=== PATIENT | female | born 1955 | race Caucasian/White ===

== ENCOUNTER 2019-08-25 16:05 | Outpatient (CLI) | payer OTHER, SELFPAY ==
[2019-08-31 10:47] LABS: PRA 6.71 ng/mL/h (0.25-5.82)
== END 2019-08-25 16:06 | disposition home or self-care (01) ==
PROVIDERS: Visit Provider Internal Medicine Cardiovascular Disease
DX: I10 Essential (primary) hypertension (principal)
CPT/HCPCS: 36415; 82088; 84244

== ENCOUNTER 2019-09-01 07:37 | Outpatient (CLI) | payer OTHER, SELFPAY ==
--- NOTE | ~2019-09-01 | US_ITS ---
EXAMINATION: US retroperitoneal duplex ltd DATE: 09/01/2019 08:17 INDICATION: Essential hypertension TECHNIQUE: Multiple grayscale, color Doppler, and pulsed Doppler images of the kidneys and renal meg donal were obtained. COMPARISON: None. FINDINGS: The aorta peak systolic velocity is 113 cm/s. The right renal artery peak systolic velocity is 101 cm /s in the proximal segment, 77 cm/s in the mid segment, and 99 cm/s in the distal segment. The left r enal artery peak systolic velocity is 59 cm/s in the proximal segment, 77 cm/s in the mid segment, an d 43 cm/s in the distal segment. IMPRESSION: 1. No Doppler evidence of renal artery stenosis. Reviewed, dictated and finalized at location A.
== END 2019-09-01 07:38 | disposition home or self-care (01) ==
PROVIDERS: Visit Provider Internal Medicine Cardiovascular Disease
DX: I10 Essential (primary) hypertension (principal)
CPT/HCPCS: 93976

== ENCOUNTER 2019-12-23 09:17 | Outpatient (CLI) | payer OTHER, SELFPAY ==
[2019-12-23 09:37] LABS: Basophils Absolute Auto 0.1 K/mm3 (0.0-0.1); Basophils Percent Auto 0.8 % (0.2-1.2); Eosinophils Absolute Auto 0.1 K/mm3 (0-0.3); Eosinophils Percent Auto 1.2 % (0-4.4); Hematocrit 38.2 % (37.0-47.0); Hemoglobin 12.7 g/dL (12.0-15.0); Immature Granulocyte Absolute 0.02 K/mm3 (0.00-0.031); Immature Granulocyte Percent A 0.2 % (0-0.5); Lymphocytes Absolute Auto 0.99 K/mm3 (0.9-3.2); Lymphocytes Percent Auto 9.8 % (18.3-44.2); Mean Corpuscular HGB Conc 33.2 g/dl (32-36); Mean Corpuscular Hemoglobin 32.6 pg (26-34); Mean Corpuscular Volume 98.2 fl (80-100); Mean Platelet Volume 10.1 fl (7.4-10.4); Monocytes Absolute Auto 0.7 K/mm3 (0.1-0.6); Monocytes Percent Auto 6.8 % (2.6-8.5); Neutrophils Absolute Auto 8.2 K/mm3 (1.3-6.7); Neutrophils Percent Auto 81.2 % (45.5-73.1); Platelet Count Result 291 k/mm3 (150-375); Red Blood Count 3.89 M/mm3 (4.2-5.4); White Blood Count 10.1 K/mm3 (4.5-10.0)
[2019-12-23 09:50] LABS: Alanine Aminotransferase 18 U/L (4-35); Albumin Level 4.5 g/dL (3.5-5.1); Alkaline Phosphatase 118 U/L (38-126); Aspartate Amino Transferase 24 U/L (14-36); Bilirubin,Total 0.4 mg/dL (0.2-1.3); Blood Urea Nitrogen 9 mg/dL (7-17); Carbon Dioxide 25 mmol/L (22-30); Chloride 103 mmol/L (98-107); Estimated Glomerular Filt Rate > 60; Glucose 77 mg/dL (65-105); Potassium 3.8 mmol/L (3.4-5.0); Sodium 135 mmol/L (137-145)
[2019-12-23 10:05] LABS: Erythrocyte Sedimentation Rate 17 mm/hr (0-20)
== END 2019-12-23 09:18 | disposition home or self-care (01) ==
DX: M06.9 Rheumatoid arthritis, unspecified (principal); Z79.899 Other long term (current) drug therapy
CPT/HCPCS: 36415; 80053; 85025; 85027; 85652

== ENCOUNTER 2020-01-17 17:17 | Outpatient (CLI) | payer OTHER, SELFPAY ==
--- NOTE | ~2020-01-17 | MM_ITS ---
EXAMINATION: MM screening elias BI w debbi HISTORY: Screening TECHNIQUE: Craniocaudal and mediolateral oblique 3-D tomosynthesis images were obtained and synthetic 2-D images were generated. CAD analysis was submitted and interpreted. COMPARISON: 04/16/2016 BREAST PARENCHYMAL COMPOSITION: There are scattered areas of fibroglandular density. FINDINGS: There is no evidence of suspicious mass, calcification, or architectural distortion to sugg est malignancy in either breast. There has been no suspicious interval change. IMPRESSION: 1. No mammographic evidence of malignancy. 2. Recommend routine screening mammography in one year. BI-RADS Category 1: Negative Reviewed, dictated and finalized at location A.
== END 2020-01-17 17:18 | disposition home or self-care (01) ==
LOC: ANHIMG 17:22
DX: Z12.31 Encounter for screening mammogram for malignant neoplasm of breast (principal)
CPT/HCPCS: 77063; 77067

== ENCOUNTER 2020-06-06 09:48 | Outpatient (CLI) | payer MEDICARE, OTHER, SELFPAY ==
[2020-06-06 10:27] LABS: Anion Gap 5 mmol/L (8-16); Blood Urea Nitrogen 8 mg/dL (7-17); Carbon Dioxide 30 mmol/L (22-30); Chloride 99 mmol/L (98-107); Estimated Glomerular Filt Rate > 60; Glucose 98 mg/dL (65-105); Potassium 3.7 mmol/L (3.4-5.0); Sodium 134 mmol/L (137-145)
== END 2020-06-06 09:49 | disposition home or self-care (01) ==
PROVIDERS: PCP Physician Assistant; Visit Provider Internal Medicine Cardiovascular Disease
DX: F34.1 Dysthymic disorder (principal); I10 Essential (primary) hypertension
CPT/HCPCS: 36415; 80048

== ENCOUNTER 2020-07-16 21:01 | Inpatient (IN) | payer MEDICARE, OTHER, SELFPAY ==
[2020-07-16] VITALS (22 sets, daily range): BP systolic 165–192; BP diastolic 90–102; PULSE 73–89; RESP 12–24; TEMP 36.3; O2SAT 98–100
--- NOTE | ~2020-07-16 | CT_ITS ---
EXAMINATION: CT BRAIN W/O DATE: 07/16/2020 23:26 INDICATION: Dizziness. TECHNIQUE: Computed tomography (CT) of the head was performed without intravenous contrast. The dose- length product was 605.33 mGy-cm. Automated exposure control and iterative reconstruction technique w ere employed. COMPARISON: CT dated 04/08/2019 FINDINGS: Normal brain parenchymal volume for age. Normal romero-white differentiation. No acute intrac ranial hemorrhage, infarction, mass or mass effect. No ventriculomegaly or midline shift. Midline sagittal images demonstrate a normal corpus callosum, c raniovertebral junction and sella turcica. Basilar cisterns are patent. There is a left occipital craniectomy defect. There is a left parietal lamar hole. No acute depressed skull fractures. Paranasal sinuses and mastoids are pneumatized. IMPRESSION: 1. No acute intracranial abnormality. Reviewed, dictated and finalized at location A. ABAP DEVELOPER
--- NOTE | ~2020-07-16 | MR_ITS ---
EXAMINATION: MR brain/brain stem wo con DATE: 07/17/2020 12:32 INDICATION: Dizziness. Numbness and tingling. Chronic left-sided trigeminal neuralgia. TECHNIQUE: Magnetic resonance imaging (MRI) of the brain and brainstem was performed without intraven ous contrast. Sequences included sagittal and axial T1-weighted FSE, axial diffusion-weighted FS EPI, axial T2*-weighted GRE, axial T2-weighted FLAIR Propeller, axial T2-weighted Propeller, small field- of-view coronal FIESTA, small [id number] coronal T1-weighted FSE, and small [id number]-[id number] axial T1 -weighted SPGR. Apparent diffusion coefficient (ADC) maps were created. COMPARISON: Head CT 07/16/2020 FINDINGS: There are scattered areas of nonspecific increased T2-weighted signal intensity in the cere bral white matter, which is within normal limits for the patient's age. There is no intracranial hemo rrhage, acute infarction, or abnormal intracranial mass lesion. There is abnormal morphology of the l eft trigeminal nerve at the root entry zone. The ventricles are normal in size. There is mild mucosal thickening in the ethmoid sinuses. The orbits are normal. The mastoid air cells are normal. There ar e changes of left posterior craniectomy. IMPRESSION: 1. Abnormal morphology of the left trigeminal nerve at the root entry zone, which may be related to p rior surgery. No specific evidence of vascular loop compression. Reviewed, dictated and finalized at location A. REMENT SALES CONSULTANT IMPRESSION: 1. Abnormal morphology of the left trigeminal nerve at the root entry zone, whi ch may be related to prior surgery. No specific evidence of vascular loop compr ession.
--- NOTE | ~2020-07-16 | CT_ITS ---
EXAMINATION: CT abdomen pelvis wo con EXAM DATE: 07/17/2020 12:37 INDICATION: Left flank pain, LUQ pain . TECHNIQUE: Spiral CT of the abdomen and pelvis was performed without contrast. Axial, coronal and sag ittal images were reviewed. The dose-length product (DLP) for this examination was 512.00 mGy-cm. T he exposure was tailored according to patient size (auto mA exposure control), and iterative reconstr uction (ASIR) was used as additional dose reduction technique. Comparison is made to prior examinatio n from 05/13/2013. FINDINGS: There is no nephrolithiasis or hydronephrosis. The uterus is unremarkable. The bladder is unremarkable. The liver, spleen, adrenal glands and pancreas are unremarkable. Gallbladder is un remarkable. No biliary obstruction. There is no retroperitoneal or pelvic lymphadenopathy. Probable identification of a normal appendix. No pericecal inflammation. The stomach and small kaur l are unremarkable. There is expected amount of colonic stool. No free intraperitoneal gas. The heart is normal in size. There are no pericardial or pleural effusions. The lung bases are unremark able. There are no osteoblastic or osteolytic lesions identified. IMPRESSION: 1. No nephrolithiasis, hydronephrosis or acute intra-abdominal findings. Reviewed, dictated and finalized at location B. [employer] BROKERS
--- NOTE | 2020-07-16 21:14 | ECG_ITS ---
Measurements Intervals [place] Rate: 80 P: 54 KS: 153 QRS: -12 QRSD: 105 T: -2 QT: 378 QTc: 438 Interpretive Statements SINUS RHYTHM POSSIBLE LEFT ATRIAL ENLARGEMENT INCOMPLETE RIGHT BUNDLE BRANCH BLOCK BORDERLINE ST-T WAVE ABNORMALITY- ANTEROLAT/INF LEADS BORDERLINE ECG Electronically Signed On 07-17-2020 6:53:42 [employer]PERVISOR [employer] by Daniel Bernabe D.O.
[2020-07-16 21:32] LABS: Basophils Absolute Auto 0.1 K/mm3 (0.0-0.1); Basophils Percent Auto 0.6 % (0.2-1.2); Eosinophils Absolute Auto 0.1 K/mm3 (0-0.3); Eosinophils Percent Auto 0.6 % (0-4.4); Hematocrit 37.8 % (37.0-47.0); Hemoglobin 13.4 g/dL (12.0-15.0); Immature Granulocyte Absolute 0.02 K/mm3 (0.00-0.031); Immature Granulocyte Percent A 0.2 % (0-0.5); Lymphocytes Absolute Auto 2.64 K/mm3 (0.9-3.2); Lymphocytes Percent Auto 31.8 % (18.3-44.2); Mean Corpuscular HGB Conc 35.4 g/dl (32-36); Mean Corpuscular Hemoglobin 32.8 pg (26-34); Mean Corpuscular Volume 92.4 fl (80-100); Mean Platelet Volume 9.7 fl (7.4-10.4); Monocytes Percent Auto 11.9 % (2.6-8.5); Neutrophils Absolute Auto 4.6 K/mm3 (1.3-6.7); Neutrophils Percent Auto 54.9 % (45.5-73.1); Platelet Count Result 314 k/mm3 (150-375); Red Blood Count 4.09 M/mm3 (4.2-5.4); Red Cell Distribution Width 12.2 % (11.5-14.5); White Blood Count 8.3 K/mm3 (4.5-10.0)
[2020-07-16 21:47] LABS: Anion Gap 11 mmol/L (8-16); Blood Urea Nitrogen 9 mg/dL (7-17); Calcium 9.3 mg/dL (8.4-10.2); Carbon Dioxide 28 mmol/L (22-30); Chloride 86 mmol/L (98-107); Estimated CRCL calculation 58 ml/min; Estimated Glomerular Filt Rate > 60; Glucose 117 mg/dL (65-105); Sodium 125 mmol/L (137-145)
--- NOTE | 2020-07-16 22:31 | ED.DIZZY ---
HPI - Dizziness General Chief Complaint: Dizziness Stated Complaint: HIGH BP/ DIZZY, TROUBLE SWALLOWING Time Seen by Provider: 07/16/20 21:34 Source: patient Mode of arrival: ambulatory Limitations: no limitations History of Present Illness HPI Narrative: 65-year-old female History of hypertension, trigeminal neuralgia, migraine, insomnia, rheumatoid arthritis Complains of increasing dizziness for several days and that her blood pressure has been running high She was seen by her PCP a few days ago and Dyazide was added to her medication list but she has not felt any better She basically describes her symptoms as a sensation like she might faint which is most severe when she is standing up and is alleviated but not resolved by lying down No headache, no other focal neurologic symptoms She does not have chest pain, cough, shortness of breath, GI symptoms, or urinary symptoms Related Data Home Medications Medication Instructions Recorded Confirmed carbamazepine 300 mg 300 mg PO Q12H 05/05/19 05/05/19 capsule,extended release [id number] cholecalciferol (vitamin D3) 50 2,000 unit PO DAILY 05/05/19 05/05/19 mcg (2,000 unit) tablet cyanocobalamin (vitamin B-12) 1,000 mcg SUB-Q MONTHLY 05/05/19 05/05/19 1,000 mcg/mL injection kit folic acid 1 mg tablet 3 mg PO DAILY tablet 05/05/19 05/05/19 golimumab 50 mg/0.5 mL 50 mg SUB-Q MONTHLY 05/05/19 05/05/19 subcutaneous pen injector losartan 100 mg tablet 100 mg PO DAILY 05/05/19 05/05/19 prednisone 5 mg tablet 5 mg PO DAILY tablet 05/05/19 05/05/19 topiramate 50 mg tablet 75 mg PO BID tablet 05/05/19 05/05/19 trazodone 100 mg tablet 100 mg PO .qhs tablet 05/05/19 05/05/19 amlodipine 10 mg tablet 10 mg PO DAILY 12/08/19 levothyroxine 175 mcg PO DAILY 07/16/20 triamterene-hydrochlorothiazid 1 tablet PO DAILY 07/16/20 Allergies Allergy/AdvReac Type Severity Reaction Status Date / Time aspirin Allergy Mild Unknown Verified 07/16/20 21:01 erythromycin base Allergy Unknown Unknown Verified 07/16/20 21:01 ibuprofen Allergy Unknown Unknown Verified 07/16/20 21:01 iodine Allergy Unknown Unknown Verified 07/16/20 21:01 Penicillins Allergy Unknown Unknown Verified 07/16/20 21:01 Contrast Media Allergy Unknown Unknown Uncoded 06/13/19 11:50 Review of Systems Review of Systems: All systems reviewed & are unremarkable except as noted in HPI and below Constitutional: Constitutional: Denies chills, Reports fatigue, Denies fever(s), Denies headache(s) and Reports weakness Eyes: Eyes: Reports no additional eye complaints and Denies change in vision ENT: Denies headache(s), Denies epistaxis, Denies nasal congestion and Denies sore throat Cardiovascular: Cardiovascular: Denies chest pain, Denies leg edema, Denies palpitations and Denies dyspnea Respiratory: Respiratory: Denies cough, Denies dyspnea and Denies wheezing Gastrointestinal: Gastrointestinal: Denies abdominal pain, Denies diarrhea, Denies nausea and Denies vomiting Genitourinary: Genitourinary: Denies hematuria, Denies urinary frequency and Denies dysuria Musculoskeletal: Musculoskeletal: Denies deformity, Denies arthralgias, Denies joint swelling, Denies muscle weakness and Denies numbness Integumentary/Breasts: Skin/Breast: Denies rash and Denies wounds Neurologic: Denies headache(s), Denies focal weakness, Denies numbness and Denies weakness Psychiatric: Psychiatric: Reports no additional psychiatric complaints Endocrine: Endocrine: Denies fatigue and Denies palpitations Hematologic/Lymphatic: Hematologic/Lymphatic: Denies easy bleeding and Denies easy bruising Allergic/Immunologic: Allergic/Immunologic: Denies wheezing PMFSH Past Medical History Medical History (Updated 07/16/20 @ 22:48 by Mike Pereira MD) Anemia Anxiety Arthritis Brain tumor Bronchitis Crohn's disease Depression HLD (hyperlipidemia) HTN (hypertension) Hyperparathyroidism Hypothyroid Osteoporosis Pneumonia Rheumatoid art
[2020-07-16] MEDS: POTASSIUM CHLORIDE 20 MEQ PACKET (FOR LIQUID) 40 MEQ PO (23:04)
[2020-07-16] MEDS: LACTATED RINGERS 1,000 ML 999 ML IV CONT (23:04)
--- NOTE | 2020-07-16 23:21 | PC.NURSE ---
Ok to call chestnut/crisis per erp dr quintanilla.
[2020-07-17] VITALS (13 sets, daily range): BP systolic 125–180; BP diastolic 57–98; PULSE 71–97; RESP 14–21; TEMP 36.1–36.6; O2SAT 95–100; BMI 29.9
--- NOTE | 2020-07-17 00:54 | PM.IMHP ---
H&P: HPI History of Present Illness Date/Time: 07/17/20 00:54 Chief Complaint: Dizziness after starting a new medication. Narrative: This is a pleasant 65 year old female with history of difficult to control HTN, trigeminal neuralgia following a brainstem tumor, and rheumatoid arthritis who presented to the hospital with a complaint of continuous dizziness that has been ongoing since this past weekend when she was started on Dyazide for her HTN. She describes having dizziness in the past but nothing this severe. Her dizziness is worse with any head movement and seems to only improve with laying down. Associated symptoms include nausea. She denies passing out or seizure like activity. She also denies any blurry vision, headache, slurred speech, motor or sensory deficits. On further questioning she also denies any fever, chills, chest pain, shortness of breath, cough, abdominal pain, dysuria, hematuria, diarrhea, or rectal bleeding. She also admits to me that she believes she missed her daily prednisone all last week. The patient was evaluated in the ER tonight and found to have hypokalemia and hyponatremia. Review of Systems Review of Systems: All systems reviewed & are unremarkable except as noted in HPI and below PMFSH Past Medical History Medical History Anemia Anxiety Arthritis Brain tumor Bronchitis Crohn's disease Depression HLD (hyperlipidemia) HTN (hypertension) Hyperparathyroidism Hypothyroid Osteoporosis Pneumonia Rheumatoid arthritis Trigeminal neuralgia of left side of face Surgical History Surgical History H/O parathyroidectomy Family History Family History Sibling Family history of lung cancer Family history of malignant neoplasm of brain Family history of obesity Family history of alcoholism Family history of malignant neoplasm Father Family history of lung disease Depression Family history of alcoholism Mother Acute myocardial infarction Family history of osteoporosis Family history of mental disorder Depression Family history of glaucoma Family history of elevated blood lipids Family history of liver disease Cerebrovascular accident Family history of diabetes mellitus in first degree relative Family history of congestive heart failure Family history of heart disease in male family member before age 55 Other Diabetes mellitus Family history of cardiovascular disease Family history of tuberculosis Hypertension Social History Social History Smoking status: Never smoker Alcohol intake: never Substance use: never Additional occupation/education comments: 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, 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[employer] [place] Gender identity (if verbalized by the patient): Female Sexual Orientation (if Verbalized by the Patient): Straight or Heterosexual Spiritual care concerns: No Meds Home Medications and Allergies Home Medications Medication Instructions Recorded Confirmed Type carbamazepine 300 mg 300 mg PO Q12H 05/05/19 07/17/20 History capsule,extended release [id number] cholecalciferol (vitamin D3) 50 2,000 unit PO DAILY 05/05/19 07/17/20 History mcg (2,000 unit) tablet cyanocobalamin (vitamin B-12) 1,000 mcg SUB-Q MONTHLY 05/05/19 07/17/20 History 1,000 mcg/mL injection kit folic acid 1 mg tablet 1 mg PO DAILY tablet 05/05/19 07/17/20 History golimumab 50 mg/0.5 mL 50 mg SUB-Q MONTHLY 05/05/19 07/17/20 History subcutaneous pen injector losartan 100 mg tablet 50 mg PO BID 05/05/19 07/17/20 History prednisone 5 mg tablet 5 mg PO DAILY tablet 05/05/19 07/17/20 History topiramate 50 mg tablet 75 mg PO BID tablet 05/05/19 07/17/20 History trazodone 100 mg tablet 75 mg PO HS tablet 05/05/19 07/17/20 History amlodipine 10 mg tablet 1
--- NOTE | 2020-07-17 01:21 | ADMGEN ---
This patient, Brooke Torre, was admitted to 2 Medical Room 258-01. Patient/family oriented to hospital policies and general routines including ID bracelet, bed and alarms, visiting hours, pain management, procedures, bathroom and other care routines, personal items, smoking policy, room service/diet, and visiting hours. Information on how to activate the Rapid Response Team has been discussed. Patient/Family are encouraged to report perceived risks to care and to ask questions if they do not understand what they are told or what they should do.
[2020-07-17] MEDS: SODIUM CHLORIDE 0.9% IV 1,000 ML 100 ML IV CONT ×3 (01:50→22:22)
[2020-07-17 03:08] LABS: Sodium Urine Random 20 meq/L
[2020-07-17 05:12] LABS: Basophils Absolute Auto 0.1 K/mm3 (0.0-0.1); Basophils Percent Auto 0.7 % (0.2-1.2); Eosinophils Absolute Auto 0.1 K/mm3 (0-0.3); Eosinophils Percent Auto 0.8 % (0-4.4); Hematocrit 35.5 % (37.0-47.0); Hemoglobin 12.4 g/dL (12.0-15.0); Immature Granulocyte Absolute 0.02 K/mm3 (0.00-0.031); Immature Granulocyte Percent A 0.3 % (0-0.5); Immature Platelet Fraction Pct 10.8 % (0.9-11.2); Lymphocytes Absolute Auto 1.89 K/mm3 (0.9-3.2); Lymphocytes Percent Auto 26.7 % (18.3-44.2); Mean Corpuscular HGB Conc 34.9 g/dl (32-36); Mean Corpuscular Hemoglobin 32.7 pg (26-34); Mean Corpuscular Volume 93.7 fl (80-100); Mean Platelet Volume 10.9 fl (7.4-10.4); Monocytes Absolute Auto 0.9 K/mm3 (0.1-0.6); Monocytes Percent Auto 12.1 % (2.6-8.5); Neutrophils Absolute Auto 4.2 K/mm3 (1.3-6.7); Neutrophils Percent Auto 59.4 % (45.5-73.1); Platelet Count Result 230 k/mm3 (150-375); Red Blood Count 3.79 M/mm3 (4.2-5.4); Red Cell Distribution Width 12.2 % (11.5-14.5); White Blood Count 7.1 K/mm3 (4.5-10.0)
[2020-07-17] MEDS: LEVOTHYROXINE SODIUM 75 MCG TABLET PO (06:18)
[2020-07-17] MEDS: LEVOTHYROXINE SODIUM 100 MCG TABLET PO (06:18)
[2020-07-17 06:21] LABS: Anion Gap 8 mmol/L (8-16); Blood Urea Nitrogen 7 mg/dL (7-17); Carbon Dioxide 27 mmol/L (22-30); Chloride 94 mmol/L (98-107); Estimated CRCL calculation 68 ml/min; Estimated Glomerular Filt Rate > 60; Glucose 108 mg/dL (65-105); Potassium 3.3 mmol/L (3.4-5.0); Sodium 129 mmol/L (137-145)
[2020-07-17] MEDS: POTASSIUM CHLORIDE 20 MEQ TABLET.ER PO ×2 (08:29→17:38)
[2020-07-17] MEDS: CARBAMAZEPINE XR 100 MG TAB.SR.12H 300 MG PO ×2 (08:30→20:19)
[2020-07-17] MEDS: LOSARTAN POTASSIUM 50 MG TABLET PO ×2 (08:30→17:38)
[2020-07-17] MEDS: CHOLECALCIFEROL 1,000 UNITS TABLET 2000 UNITS PO (08:30)
[2020-07-17] MEDS: TOPIRAMATE 25 MG TABLET 75 MG PO ×2 (08:30→17:38)
[2020-07-17] MEDS: FAMOTIDINE 20 MG TABLET PO ×2 (08:30→17:38)
[2020-07-17] MEDS: FOLIC ACID 1 MG TABLET PO (08:30)
[2020-07-17] MEDS: ACETAMINOPHEN 325 MG TABLET 650 MG PO (08:31)
[2020-07-17] MEDS: predniSONE 5 MG TABLET PO (08:31)
[2020-07-17] MEDS: CALCIUM CARBONATE (OSCAL) 500 MG TABLET PO ×2 (08:31→17:37)
--- NOTE | 2020-07-17 09:00 | PC.NURSE ---
Patient refused Vitamin B12 injection, stating she takes it on the first of the month and took it yesterday at home.
--- NOTE | 2020-07-17 10:27 | PM.IMPN ---
Progress Note: A&P Assessment and Plan (1) Dizziness: Code(s): R42 - Dizziness and giddiness Status: Acute Assessment and Plan: The patient has been placed in observation status. Acute dizziness appears to be an adverse effect of recent Diazide use. Brain CT was negative. Orthostatics were negative. Due to her history of neurologic issues, continued lightheadedness, dizziness, numbness/tingling, weakness will obtain a brain MRI to rule out acute CVA as the cause. Hold Diazide. Light IV hydration. Meclizine and Valium prn. Will order PT/OT Continue monitoring. (2) Left flank pain: Code(s): R10.9 - Unspecified abdominal pain Status: Acute Assessment and Plan: Left flank pain with intermittent radiation to LUQ. Will get CT Abd/Pelvis without contrast Continue monitoring. (3) Hypokalemia: Code(s): E87.6 - Hypokalemia Status: Acute Assessment and Plan: Potassium this morning was 3.3. She was continued on potassium 20 mEq b.i.d.. Check repeat BMP in the morning. Continue to replace potassium as needed. (4) Hyponatremia: Code(s): E87.1 - Hypo-osmolality and hyponatremia Status: Acute Assessment and Plan: Likely secondary to HCTZ use. Check urine sodium and urine osm. Sodium improved to 129 this morning. TSH was normal. Continue Light IV hydration overnight. Free water restriction. Continue monitoring the morning. (5) Hypothyroidism (acquired): Code(s): E03.9 - Hypothyroidism, unspecified Status: Chronic Assessment and Plan: Continue levothryoxine PO. (6) Rheumatoid arthritis: Qualifiers: Rheumatoid arthritis location: unspecified site Rheumatoid factor presence: unspecified presence Qualified Code(s): M06.9 - Rheumatoid arthritis, unspecified Code(s): M06.9 - Rheumatoid arthritis, unspecified Status: Chronic Assessment and Plan: Continue prednisone and golimumab. (7) HTN (hypertension): Qualifiers: Hypertension type: unspecified Qualified Code(s): I10 - Essential (primary) hypertension Code(s): I10 - Essential (primary) hypertension Status: Chronic Assessment and Plan: Blood pressure this on still slightly elevated 140/70. Continue amlodipine and losartan. Continue to hold her HCTZ-Triamterene Continue monitoring. PRN IV hydralazine w/ parameters. (8) Trigeminal neuralgia of left side of face: Code(s): G50.0 - Trigeminal neuralgia Status: Chronic Assessment and Plan: Continue tegretol. Time Spent With Patient Time with patient: 25 - 35 minutes Subjective Date/time seen: 07/17/20 10:27 Interval history: Date of Service 07/17/20: She reports feeling weak. Reports continued Lightheadedness, she has chronic dizziness and tinnitis. She does report intermittent vision changes with trouble focusing at times. She is normally able to walk independently at home, suppose to be using a walker. While here, she is using the IV pole for stabilization and she is more off balance. She has chronic left sided dull flank pain without much radiation to LUQ that has been going on for months and her PCP ordered Xrs that were unremarkable. She cannot lay on her left side due to her pain and uses a heating pad at time. She denies chest pain, shortness of breath, cough, fever, chills, nausea, vomiting, leg swelling, calf pain, or any other issues at this time. Review of Systems Review of Systems: All systems reviewed & are unremarkable except as noted in H
--- NOTE | 2020-07-17 14:59 | PC.NURSE ---
On 07/17/20, the student, [JULIA GORDON], provided care and completed [facility] documentation on this patient. I have reviewed the student's documentation and agree with the findings.
[2020-07-17] MEDS: amLODIPine BESYLATE 5 MG TABLET 10 MG PO (20:18)
[2020-07-17] MEDS: traZODone HCL 25 MG TABLET 75 MG PO (20:19)
[2020-07-18] MEDS: ACETAMINOPHEN 325 MG TABLET 650 MG PO (02:42)
[2020-07-18] MEDS: LEVOTHYROXINE SODIUM 75 MCG TABLET PO (05:45)
[2020-07-18] MEDS: LEVOTHYROXINE SODIUM 100 MCG TABLET PO (05:45)
[2020-07-18 05:46] LABS: Anion Gap 6 mmol/L (8-16); Blood Urea Nitrogen 8 mg/dL (7-17); Calcium 8.5 mg/dL (8.4-10.2); Carbon Dioxide 24 mmol/L (22-30); Chloride 107 mmol/L (98-107); Estimated CRCL calculation 60 ml/min; Estimated Glomerular Filt Rate > 60; Glucose 95 mg/dL (65-105); Magnesium 1.8 mg/dL (1.6-2.3); Potassium 3.7 mmol/L (3.4-5.0); Sodium 137 mmol/L (137-145)
[2020-07-18 06:00] VITALS: BP 114/54; PULSE 75; RESP 20; TEMP 36.3; O2SAT 98
[2020-07-18] MEDS: SODIUM CHLORIDE 0.9% IV 1,000 ML 100 ML IV CONT (08:49)
[2020-07-18] MEDS: POTASSIUM CHLORIDE 20 MEQ TABLET.ER PO (08:50)
[2020-07-18] MEDS: TOPIRAMATE 25 MG TABLET 75 MG PO (08:51)
[2020-07-18] MEDS: CHOLECALCIFEROL 1,000 UNITS TABLET 2000 UNITS PO (08:51)
[2020-07-18] MEDS: CALCIUM CARBONATE (OSCAL) 500 MG TABLET PO (08:51)
[2020-07-18] MEDS: predniSONE 5 MG TABLET PO (08:51)
[2020-07-18] MEDS: FOLIC ACID 1 MG TABLET PO (08:51)
[2020-07-18] MEDS: FAMOTIDINE 20 MG TABLET PO (08:51)
[2020-07-18] MEDS: LOSARTAN POTASSIUM 50 MG TABLET PO (08:51)
[2020-07-18] MEDS: CARBAMAZEPINE XR 100 MG TAB.SR.12H 300 MG PO (08:51)
--- NOTE | 2020-07-18 09:51 | PM.DS ---
DS: Admitting Diagnosis Admitting Diagnosis Admitting Diagnosis: Dizziness DS: Discharge Diagnosis Discharge Diagnosis (1) Dizziness: Code(s): R42 - Dizziness and giddiness Status: Acute Assessment and Plan: The patient has been placed in observation status. Acute dizziness appears to be an adverse effect of recent Diazide use. Hold Diazide. Brain CT was negative. Orthostatics were negative. MRI brain showed no acute abnormality for her dizziness, just chronic trigeminal nerve issues which shes had since her brain surgery. Discontinue Diazide at home PT/OT doing good and recommend out patient PT/OT She is feeling better after light fluid hydration and ready for discharge. (2) Hypokalemia: Code(s): E87.6 - Hypokalemia Status: Acute Assessment and Plan: Most likely secondary to dehydration, diuretic and decreased appetite. Potassium this morning was 3.7. Stable. (3) Hyponatremia: Code(s): E87.1 - Hypo-osmolality and hyponatremia Status: Acute Assessment and Plan: Likely secondary to HCTZ use. Check urine sodium and urine osm. Light IV hydration overnight. Free water restriction. Check TSH w/ reflex T4. Sodium improved to 137 this morning. Normal. Will discontinue HCTZ and follow up with Cardiology (4) Hypothyroidism (acquired): Code(s): E03.9 - Hypothyroidism, unspecified Status: Chronic Assessment and Plan: Continue levothryoxine PO. (5) Rheumatoid arthritis: Qualifiers: Rheumatoid arthritis location: unspecified site Rheumatoid factor presence: unspecified presence Qualified Code(s): M06.9 - Rheumatoid arthritis, unspecified Code(s): M06.9 - Rheumatoid arthritis, unspecified Status: Chronic Assessment and Plan: Continue prednisone and golimumab. (6) HTN (hypertension): Qualifiers: Hypertension type: unspecified Qualified Code(s): I10 - Essential (primary) hypertension Code(s): I10 - Essential (primary) hypertension Status: Chronic Assessment and Plan: Blood pressure is better today, 114/54. Continue amlodipine and losartan. Discontinue HCTZ-Triamterene (7) Trigeminal neuralgia of left side of face: Code(s): G50.0 - Trigeminal neuralgia Status: Chronic Assessment and Plan: Continue tegretol. (8) Left flank pain: Code(s): R10.9 - Unspecified abdominal pain Status: Acute Assessment and Plan: Left flank pain with intermittent radiation to LUQ. CT Abd/Pelvis without contrast showed no acute abnormality. She reports improvement of pain with heating pad. Continue PT/OT as outpatient. 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 Valenzuela. Initial vitals showed she Was afebrile, non tachycardic, normal respiratory rate, elevated blood pressure 189/90, 98% on room air. Initial labs showed Normal CBC with differential, she was hyponatremic at 125, potassium was low at 3.0, normal TSH. CT head showed No acute intracranial abnormality. She was admitted into the hospital for dizziness workup. We discontinued her medication and give her some light IV fluid hydration with improvement over her electrolytes. She is currently asymptomatic at this time and feeling back to her baseline.
[2020-07-20 03:11] LABS: Osmolality, Urine 136 mOsm/kg (50-1200)
[2020-07-21 03:56] LABS: Carbamazepine Tegretol 10.4 mcg/mL (4.0-12.0)
== END 2020-07-18 11:30 | disposition home or self-care (01) | DRG 641 ==
LOC: ANHED 22:48 → ANH2MED 07-17 00:38
PROVIDERS: Emergency Medicine; Physician Assistant; Admitting Provider Family Medicine; Emergency Provider Emergency Medicine; PCP Physician Assistant; Visit Provider Internal Medicine
DX: E87.1 Hypo-osmolality and hyponatremia (principal); K50.90 Crohn's disease, unspecified, without complications; E87.6 Hypokalemia; R42 Dizziness and giddiness; T50.2X5A Adverse effect of carbonic-anhydrase inhibitors, benzothiadiazides and other diuretics, initial encounter; F41.8 Other specified anxiety disorders; D64.9 Anemia, unspecified; M19.90 Unspecified osteoarthritis, unspecified site; E78.5 Hyperlipidemia, unspecified; I10 Essential (primary) hypertension; M06.9 Rheumatoid arthritis, unspecified; M81.0 Age-related osteoporosis without current pathological fracture; G50.0 Trigeminal neuralgia; E03.9 Hypothyroidism, unspecified
CPT/HCPCS: 36415; 70450; 70551; 74176; 80048; 80156; 83735; 83935; 84300; 84443; 85025; 85055; 93005; 96360; 96361; 97110; 97116; 97161; 97165; 99285; A9270; G0378; J7030; J7120; J7512

== ENCOUNTER 2020-07-26 07:49 | Outpatient (CLI) | payer MEDICARE, OTHER, SELFPAY ==
[2020-07-26 08:49] LABS: Anion Gap 6 mmol/L (8-16); Blood Urea Nitrogen 6 mg/dL (7-17); Calcium 9.3 mg/dL (8.4-10.2); Carbon Dioxide 28 mmol/L (22-30); Chloride 101 mmol/L (98-107); Estimated Glomerular Filt Rate > 60; Glucose 100 mg/dL (65-105); Potassium 3.7 mmol/L (3.4-5.0); Sodium 135 mmol/L (137-145)
== END 2020-07-26 07:50 | disposition home or self-care (01) ==
PROVIDERS: PCP Physician Assistant; Referring Provider Internal Medicine Cardiovascular Disease; Visit Provider Physician Assistant
DX: E87.1 Hypo-osmolality and hyponatremia (principal); E87.6 Hypokalemia
CPT/HCPCS: 36415; 80048

== ENCOUNTER 2020-09-13 09:22 | Outpatient (CLI) | payer MEDICARE, OTHER, SELFPAY ==
[2020-09-13 10:04] LABS: Hematocrit 39.3 % (37.0-47.0); Mean Corpuscular HGB Conc 33.1 g/dl (32-36); Mean Corpuscular Hemoglobin 32.3 pg (26-34); Mean Corpuscular Volume 97.5 fl (80-100); Mean Platelet Volume 10.3 fl (7.4-10.4); Platelet Count Result 302 k/mm3 (150-375); Red Blood Count 4.03 M/mm3 (4.2-5.4); Red Cell Distribution Width 12.6 % (11.5-14.5); White Blood Count 9.9 K/mm3 (4.5-10.0)
[2020-09-13 10:18] LABS: Alanine Aminotransferase 16 U/L (4-35); Albumin Level 4.6 g/dL (3.5-5.1); Alkaline Phosphatase 129 U/L (38-126); Anion Gap 6 mmol/L (8-16); Aspartate Amino Transferase 25 U/L (14-36); Bilirubin,Total 0.3 mg/dL (0.2-1.3); Blood Urea Nitrogen 10 mg/dL (7-17); Calcium 9.3 mg/dL (8.4-10.2); Carbon Dioxide 27 mmol/L (22-30); Chloride 104 mmol/L (98-107); Estimated Glomerular Filt Rate > 60; Glucose 102 mg/dL (65-105); Potassium 3.8 mmol/L (3.4-5.0); Sodium 137 mmol/L (137-145)
[2020-09-13 11:40] LABS: Erythrocyte Sedimentation Rate 18 mm/hr (0-20)
== END 2020-09-13 09:23 | disposition home or self-care (01) ==
PROVIDERS: PCP Physician Assistant
DX: M05.79 Rheumatoid arthritis with rheumatoid factor of multiple sites without organ or systems involvement (principal); Z51.81 Encounter for therapeutic drug level monitoring; Z79.899 Other long term (current) drug therapy
CPT/HCPCS: 36415; 80053; 85027; 85652

== ENCOUNTER 2020-10-02 16:23 | Outpatient (CLI) | payer MEDICARE, OTHER, SELFPAY ==
[2020-10-02 17:27] LABS: Parathyroid Intact 56.7 pg/mL (7.5-53.5)
[2020-10-02 17:46] LABS: Thyroid Stimulating Hormone 0.308 uIU/mL (0.465-4.680)
[2020-10-02 18:09] LABS: Vitamin D 25 Hydroxy 49.3 ng/mL
== END 2020-10-02 16:24 | disposition home or self-care (01) ==
LOC: ANHLAB 16:25
PROVIDERS: PCP Physician Assistant; Visit Provider Internal Medicine Endocrinology, Diabetes & Metabolism
DX: E03.9 Hypothyroidism, unspecified (principal); E21.3 Hyperparathyroidism, unspecified; M81.0 Age-related osteoporosis without current pathological fracture; G47.30 Sleep apnea, unspecified
CPT/HCPCS: 36415; 82306; 83970; 84439; 84443

== ENCOUNTER 2021-01-03 09:13 | Outpatient (CLI) | payer MEDICARE, OTHER, SELFPAY ==
[2021-01-03 09:59] LABS: Cholesterol 263 mg/dL (0-200); Triglycerides 64 mg/dL (<150)
[2021-01-03 10:03] LABS: LDL Cholesterol Direct 89 mg/dL
[2021-01-03 11:53] LABS: Free T4 Free Thyroxine 1.11 ng/mL (0.78-2.19)
[2021-01-03 12:12] LABS: HDL Direct 119 mg/dL
== END 2021-01-03 09:14 | disposition home or self-care (01) ==
PROVIDERS: PCP Physician Assistant; Visit Provider Internal Medicine Endocrinology, Diabetes & Metabolism
DX: E03.9 Hypothyroidism, unspecified (principal); E21.3 Hyperparathyroidism, unspecified; M81.0 Age-related osteoporosis without current pathological fracture
CPT/HCPCS: 36415; 80061; 84439; 84443

== ENCOUNTER 2021-01-17 07:58 | Outpatient (CLI) | payer MEDICARE, OTHER, SELFPAY ==
--- NOTE | ~2021-01-17 | MM_ITS ---
EXAMINATION: MM screening elias BI w debbi HISTORY: Screening TECHNIQUE: Craniocaudal and mediolateral oblique 3-D tomosynthesis images were obtained and synthetic 2-D images were generated. CAD analysis was submitted and interpreted. COMPARISON: Comparison to multiple prior studies sequentially, with oldest reviewed study dated 07/2015. BREAST PARENCHYMAL COMPOSITION: The breasts are heterogeneously dense, which may obscure small masses . FINDINGS: There is no evidence of suspicious mass, calcification, or architectural distortion to sugg est malignancy in either breast. There has been no suspicious interval change. IMPRESSION: 1. No mammographic evidence of malignancy. 2. Recommend routine screening mammography in one year. BI-RADS Category 1: Negative Reviewed, dictated and finalized at location A.
== END 2021-01-17 07:59 | disposition home or self-care (01) ==
LOC: ANHIMG 08:01
PROVIDERS: PCP Physician Assistant; Visit Provider Physician Assistant
DX: Z12.31 Encounter for screening mammogram for malignant neoplasm of breast (principal)
CPT/HCPCS: 77063; 77067

== ENCOUNTER → 2021-01-29 09:38 | Outpatient (CLI) | payer MEDICARE, OTHER, SELFPAY ==
--- NOTE | ~2021-01-29 | XR_ITS ---
XR shoulder RT min 2V, XR clavicle RT 01/29/2021 10:05 Indication: Right shoulder and upper arm pain Procedure: 4 views right shoulder and 2 views right clavicle Comparison: No prior studies for comparison. Findings: No acute fracture, subluxation or dislocation. There are moderate degenerative changes of t he acromioclavicular joint with small loose bodies. No significant soft tissue abnormality. No foreig n bodies. Impression: 1: Moderate osteoarthritis of the right acromioclavicular joint. Reviewed, dictated and finalized at location A. Impression: 1: Moderate osteoarthritis of the right acromioclavicular joint. Impression: 1: Moderate osteoarthritis of the right acromioclavicular joint.
== END ==
PROVIDERS: PCP Physician Assistant; Visit Provider Physician Assistant
DX: S49.91XA Unspecified injury of right shoulder and upper arm, initial encounter (principal); M19.011 Primary osteoarthritis, right shoulder
CPT/HCPCS: 73000; 73030

== ENCOUNTER 2021-03-06 12:30 | Emergency (ER) | payer MEDICARE, OTHER, SELFPAY ==
[2021-03-06 12:34] VITALS: BP 192/108; PULSE 87; RESP 20; TEMP 36.9; O2SAT 100
[2021-03-06 13:02] VITALS: BP 159/97; PULSE 79; RESP 24; O2SAT 98
--- NOTE | 2021-03-06 14:08 | ED.ALLEREA ---
HPI - Allergic Reaction General Chief complaint: Allergic Reaction Stated complaint: ALLERGIC REACTION Time Seen by Provider: 03/06/21 13:08 Source: patient and RN notes reviewed Mode of arrival: EMS Limitations: no limitations History of Present Illness HPI narrative: This is a 65 year old female with history of multiple allergic reaction who presents for evaluation of use of epi. Patient was at the dentist when these events happened today. She reports her dentist placed some gel on her gum and gave her an injection of an anesthetic. She started sneezing uncontrollably and she developed sensation of throat swelling and hoarseness. She also reports her face was red and her eyes were swollen. Patient immediatelly took benadryl 25 mg and her dentist gave her an infection of with her epi pen. Patient states her symptoms have resolved. She just feels shaky from receiving epi. 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 She denies chest pain or shortness of breath. Related Data Home Medications Medication Instructions Recorded Confirmed carbamazepine 300 mg 300 mg PO Q12H 05/05/19 07/17/20 capsule,extended release [id number] cholecalciferol (vitamin D3) 50 2,000 unit PO DAILY 05/05/19 07/17/20 mcg (2,000 unit) tablet cyanocobalamin (vitamin B-12) 1,000 mcg SUB-Q MONTHLY 05/05/19 07/17/20 1,000 mcg/mL injection kit folic acid 1 mg tablet 1 mg PO DAILY tablet 05/05/19 07/17/20 golimumab 50 mg/0.5 mL 50 mg SUB-Q MONTHLY 05/05/19 07/17/20 subcutaneous pen injector losartan 100 mg tablet 50 mg PO BID 05/05/19 07/17/20 prednisone 5 mg tablet 5 mg PO DAILY tablet 05/05/19 07/17/20 topiramate 50 mg tablet 75 mg PO BID tablet 05/05/19 07/17/20 trazodone 100 mg tablet 75 mg PO HS tablet 05/05/19 07/17/20 amlodipine 10 mg tablet 10 mg PO HS 12/08/19 07/17/20 calcium carbonate 500 mg PO BID 07/17/20 07/17/20 diphenhydramine HCl [Benadryl 25 mg PO Q6H PRN 07/17/20 07/17/20 Allergy] famotidine 20 mg PO BID 07/17/20 07/17/20 lorazepam 0.5 mg PO BID PRN 07/17/20 07/17/20 Allergies Allergy/AdvReac Type Severity Reaction Status Date / Time iodine Allergy Severe Unknown Verified 03/06/21 12:38 aspirin Allergy Mild Unknown Verified 03/06/21 12:38 erythromycin base Allergy Unknown Unknown Verified 03/06/21 12:38 ibuprofen Allergy Unknown Unknown Verified 03/06/21 12:38 Penicillins Allergy Unknown Unknown Verified 03/06/21 12:38 Contrast Media Allergy Unknown Unknown Uncoded 07/17/20 02:02 Review of Systems Review of Systems: All systems reviewed & are unremarkable except as noted in HPI and below PMFSH Past Medical History Medical History Anemia Anxiety Arthritis Brain tumor Bronchitis Crohn's disease Depression HLD (hyperlipidemia) HTN (hypertension) Hyperparathyroidism Hypothyroid Osteoporosis Pneumonia Rheumatoid arthritis Trigeminal neuralgia of left side of face Surgical History Surgical History H/O parathyroidectomy Family History Family History Sibling Family history of lung cancer Family history of malignant neoplasm of brain Family history of obesity Family history of alcoholism Family history of malignant neoplasm Father Family history of lung disease Depression Family history of alcoholism Mother Acute myocardial infarction Family history of congestive heart failure Family history of heart disease in male family member before age 55 Family history of osteoporosis Family history of mental disorder Depression Family history of glaucoma Family history of elevated blood lipids Family history of liver disease Cerebrovascular accident Family history of diabetes mellitus in first degree relative Other Diabetes mellitus Family history of ca
[2021-03-06 14:32] VITALS: BP 169/90; PULSE 76; RESP 14; O2SAT 100
[2021-03-06] MEDS: FAMOTIDINE 20 MG TABLET PO (15:19)
[2021-03-06] MEDS: predniSONE 20 MG TABLET 60 MG PO (15:19)
[2021-03-06 15:33] VITALS: BP 178/91; PULSE 61; RESP 14; O2SAT 100
[2021-03-06 15:47] VITALS: BP 161/87; PULSE 60; RESP 9; O2SAT 100
== END 2021-03-06 16:00 | disposition home or self-care (01) ==
PROVIDERS: Emergency Provider General Practice; PCP Physician Assistant
DX: R25.9 Unspecified abnormal involuntary movements (principal); Z86.2 Personal history of diseases of the blood and blood-forming organs and certain disorders involving the immune mechanism; K50.90 Crohn's disease, unspecified, without complications; E78.5 Hyperlipidemia, unspecified; I10 Essential (primary) hypertension; M06.9 Rheumatoid arthritis, unspecified; M81.0 Age-related osteoporosis without current pathological fracture; M19.90 Unspecified osteoarthritis, unspecified site; F32.9 Major depressive disorder, single episode, unspecified; F41.9 Anxiety disorder, unspecified; E89.2 Postprocedural hypoparathyroidism; Z87.01 Personal history of pneumonia (recurrent); T44.5X5A Adverse effect of predominantly beta-adrenoreceptor agonists, initial encounter
CPT/HCPCS: 99283; A9270; J7512

== ENCOUNTER 2021-04-12 08:46 | Outpatient (CLI) | payer MEDICARE, OTHER, SELFPAY ==
--- NOTE | ~2021-04-12 | DEXA_ITS ---
Bone Density Report Name: Brooke Torre Age: 66 Sex: Female Ethnicity: White Date of : 1955 Indication: postmenopausal osteoporosis; monitoring treatment; inflammatory bowel disease; rheumatoid arthritis; Referring Provider: Whitney Altman Study: Bone densitometry was performed. Exam Date: April 12, 2021 Accession number: [id number] Bone Density: Region BMD T-score Z-score Classification AP Spine (L1-L4) 0.717 -3.0 -1.2 Osteoporosis Femoral Neck (Left) 0.618 -2.1 -0.5 Osteopenia Total Hip (Left) 0.871 -0.6 0.7 Normal Total Hip Bilateral Avg 0.804 -1.2 0.1 Osteopenia Femoral Neck (Right) 0.564 -2.6 -1.0 Osteoporosis Total Hip (Right) 0.735 -1.7 -0.4 Osteopenia World Health Organization criteria for BMD impression classify patients as: Normal (T-score at or above -1.0), Osteopenia (T-score between -1.0 and -2.5), or Osteoporosis (T-score at or below -2.5). 10-year Fracture Risk: FRAX not reported because: Some T-score for Spine Total or Hip Total or Femoral Neck at or below -2.5 Treated for osteoporosis Previous Exams: Region Exam Age BMD T-score BMD Change BMD Change Date g/cm2 vs Baseline vs Previous AP Spine(L1-L4) 04/12/2021 66 0.717 -3.0 0.049(7.4%)* 0.022(3.2%) 03/04/2019 63 0.695 -3.2 0.027(4.0%)* 0.027(4.0%)* 11/18/2016 61 0.668 -3.4 Total Hip(Left) 04/12/2021 66 0.871 -0.6 0.075(9.4%)* 0.022(2.6%) 03/04/2019 63 0.848 -0.8 0.052(6.6%)* 0.052(6.6%)* 11/18/2016 61 0.796 -1.2 Total Hip(Right) 04/12/2021 66 0.735 -1.7 -0.017(-2.2%) -0.012(-1.6%) 03/04/2019 63 0.747 -1.6 -0.005(-0.7%) -0.005(-0.7%) 11/18/2016 61 0.752 -1.6 *Denotes significance at 95% confidence level, LSC for AP Spine = 0.022 g/cm2, LSC for Total Hip = 0.027 g/cm2 Clinical Information Provided by Patient: Has rheumatoid arthritis Is being treated for osteoporosis Has used the following medications: Fosamax (i.e. alendronate), Vitamin D, Calcium Has the following medical conditions: Inflammatory bowel diseases Patient maximum height was 62 Menopause Age: 45 Does not regularly consume dairy products Drinks caffeinated beverages Onset of menses at age 15 Number of children 3 Impression: The patient has osteoporosis, based on the Total Spine T-score. No significant bone loss was observed. Discussion: PATIENT UNDER TREATMENT WITH NO SIGNIFICANT BMD LOSS SINCE LAST EXAM. In an untreated patient, BMD typical
== END 2021-04-12 08:47 | disposition home or self-care (01) ==
LOC: ANHIMG 08:47
PROVIDERS: PCP Physician Assistant; Visit Provider Internal Medicine Endocrinology, Diabetes & Metabolism
DX: Z78.0 Asymptomatic menopausal state (principal); M81.0 Age-related osteoporosis without current pathological fracture; M85.89 Other specified disorders of bone density and structure, multiple sites
CPT/HCPCS: 77080

== ENCOUNTER 2021-06-04 08:49 | Outpatient (CLI) | payer MEDICARE, OTHER, SELFPAY ==
[2021-06-04 09:33] LABS: Anion Gap 9 mmol/L (8-16); Blood Urea Nitrogen 11 mg/dL (7-17); Carbon Dioxide 24 mmol/L (22-30); Chloride 102 mmol/L (98-107); Estimated Glomerular Filt Rate > 60; Glucose 96 mg/dL (65-110); Sodium 135 mmol/L (137-145)
[2021-06-04 09:45] LABS: Parathyroid Intact 36.5 pg/mL (7.5-53.5)
[2021-06-04 11:23] LABS: Free T4 Free Thyroxine 0.96 ng/mL (0.78-2.19)
[2021-06-04 14:07] LABS: Vitamin D 25 Hydroxy 57.7 ng/mL
== END 2021-06-04 08:50 | disposition home or self-care (01) ==
PROVIDERS: PCP Physician Assistant; Visit Provider Internal Medicine Endocrinology, Diabetes & Metabolism
DX: E03.9 Hypothyroidism, unspecified (principal); E21.3 Hyperparathyroidism, unspecified; M81.0 Age-related osteoporosis without current pathological fracture
CPT/HCPCS: 36415; 80048; 82306; 82330; 83970; 84439; 84443

== ENCOUNTER → 2021-09-10 10:09 | Outpatient (CLI) | payer MEDICARE, OTHER, SELFPAY ==
--- NOTE | ~2021-09-10 | XR_ITS ---
EXAMINATION: XR chest 2V EXAM DATE: 09/10/2021 10:42 INDICATION: Respiratory tract congestion and cough. TECHNIQUE: Frontal and lateral projections of the chest obtained and reviewed. Comparison is made to prior examination from 10/14/2017. FINDINGS: The lungs are clear. There are no pleural effusions. The cardiomediastinal silhouette is within normal limits. There is no pneumothorax suspected. The bones and soft tissues are unremarkab le. IMPRESSION: No acute cardiopulmonary findings. Reviewed, dictated and finalized at location B.
== END ==
PROVIDERS: PCP Physician Assistant; Visit Provider Physician Assistant
DX: R05.9 Cough, unspecified (principal)
CPT/HCPCS: 71046

== ENCOUNTER 2021-11-05 08:26 | Emergency (ER) | payer OTHER, MEDICARE, SELFPAY ==
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
[2021-11-05 08:25] VITALS: BP 169/90; PULSE 83; RESP 18; TEMP 36.3; O2SAT 100
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
== END 2021-11-05 10:15 | disposition home or self-care (01) ==
PROVIDERS: Emergency Provider Nurse Practitioner Family; PCP Physician Assistant
DX: S16.1XXA Strain of muscle, fascia and tendon at neck level, initial encounter (principal); S39.012A Strain of muscle, fascia and tendon of lower back, initial encounter; S49.91XA Unspecified injury of right shoulder and upper arm, initial encounter; R10.12 Left upper quadrant pain; K50.90 Crohn's disease, unspecified, without complications; E78.5 Hyperlipidemia, unspecified; I10 Essential (primary) hypertension; M81.0 Age-related osteoporosis without current pathological fracture; M06.9 Rheumatoid arthritis, unspecified; M19.90 Unspecified osteoarthritis, unspecified site; E89.2 Postprocedural hypoparathyroidism; Z87.01 Personal history of pneumonia (recurrent); Z86.2 Personal history of diseases of the blood and blood-forming organs and certain disorders involving the immune mechanism; N20.0 Calculus of kidney; R93.2 Abnormal findings on diagnostic imaging of liver and biliary tract; V49.40XA Driver injured in collision with unspecified motor vehicles in traffic accident, initial encounter
CPT/HCPCS: 72125; 72131; 73030; 74176; 99284

== ENCOUNTER 2022-03-05 13:25 | Outpatient (CLI) | payer MEDICARE, OTHER, SELFPAY ==
--- NOTE | ~2022-03-05 | MM_ITS ---
EXAMINATION: MM screening [facility] BI w debbi HISTORY: Screening mammogram TECHNIQUE: Craniocaudal and mediolateral oblique 3-D tomosynthesis images were obtained and synthetic 2-D images were generated. CAD analysis was submitted and interpreted. COMPARISON: 01/17/2021, 01/17/2020, 04/16/2016 BREAST PARENCHYMAL COMPOSITION: There are scattered areas of fibroglandular density. FINDINGS: There is no suspicious mass, calcification, or architectural distortion to suggest malignan cy in either breast. There has been no suspicious interval change. IMPRESSION: 1. No mammographic evidence of malignancy. 2. Recommend routine screening mammography in one year. BI-RADS Category 1: Negative Reviewed, dictated and finalized at location A.
== END 2022-03-05 13:26 | disposition home or self-care (01) ==
PROVIDERS: PCP Physician Assistant; Visit Provider Physician Assistant
DX: Z12.31 Encounter for screening mammogram for malignant neoplasm of breast (principal)
CPT/HCPCS: 77063; 77067

== ENCOUNTER 2023-04-17 10:30 | Emergency (ER) | payer MEDICARE, OTHER, SELFPAY ==
--- NOTE | ~2023-04-17 | XR_ITS ---
XR hand RT min 3V DATE: 04/17/2023 11:11 INDICATION: Possible abnormal bite, lateral fifth metacarpal area TECHNIQUE: 3 views COMPARISON: None FINDINGS: There is osteopenia. Subtle triangular cartilage and carpal chondrocalcinosis. No fracture or dislocation, periosteal reaction or bone destruction. No erosive change. No radiopaque soft tissue foreign body or subcutaneous emphysema. IMPRESSION: Osteopenia Chondrocalcinosis No fracture or dislocation Reviewed, dictated and finalized at location B.
[2023-04-17 10:32] VITALS: BP 163/87; PULSE 87; RESP 18; TEMP 36.4; O2SAT 100
--- NOTE | 2023-04-17 12:15 | ED.ANIMALBIT ---
HPI - Animal Bite General Chief Complaint: Animal Bite Stated Complaint: bite Time Seen by Provider: 04/17/23 11:30 Source: patient Mode of arrival: ambulatory Limitations: no limitations History of Present Illness HPI narrative: Patient is a 68-year-old female who presents to the ED with concern for possible animal bite to her right hand. Patient reports she was working in her garden underneath of a set of outside stairs earlier this week, several days ago, and noticed a small area of bleeding when she took her gloves off on her dorsal right hand. She has 2 small pinpoint abrasions on her hand. She is concerned something may have bit her. She states she frequently sees rabbits and mice underneath the stairs where she was working. She did not feel anything bite her. She has not had any pain associated with the wounds, denies redness surrounding wounds, drainage from wounds. Denies fevers. Tetanus up-to-date. Related Data Home Medications Medication Instructions Recorded Confirmed carbamazepine 300 mg 300 mg PO Q12H 05/05/19 03/05/23 capsule,extended release [id number] (Carbatrol) cholecalciferol (vitamin D3) 50 2,000 unit PO DAILY 05/05/19 03/05/23 mcg (2,000 unit) tablet cyanocobalamin (vitamin B-12) 1,000 mcg subcut MONTHLY 05/05/19 03/05/23 1,000 mcg/mL injection kit folic acid 1 mg tablet 1 mg PO DAILY 05/05/19 03/05/23 golimumab 50 mg/0.5 mL 50 mg subcut MONTHLY 05/05/19 03/05/23 subcutaneous pen injector (Simponi) losartan 100 mg tablet 50 mg PO BID 05/05/19 03/05/23 topiramate 50 mg tablet (Topamax) 75 mg PO BID 05/05/19 03/05/23 trazodone 100 mg tablet 75 mg PO HS 05/05/19 03/05/23 amlodipine 10 mg tablet (Norvasc) 10 mg PO HS 12/08/19 03/05/23 calcium carbonate 500 mg calcium 500 mg PO BID 07/17/20 03/05/23 (1,250 mg) tablet diphenhydramine HCl 25 mg tablet 25 mg PO Q6H PRN Allergy Symptoms 07/17/20 03/05/23 (Benadryl Allergy) famotidine 20 mg tablet 20 mg PO BID 07/17/20 03/05/23 lorazepam 0.5 mg tablet 0.5 mg PO BID PRN Anxiety 07/17/20 03/05/23 prednisone 5 mg tablet 5 mg PO DAILY 03/05/23 03/05/23 Allergies Allergy/AdvReac Type Severity Reaction Status Date / Time iodine Allergy Severe Unknown Verified 04/17/23 11:06 aspirin Allergy Mild Unknown Verified 04/17/23 11:06 erythromycin base Allergy Unknown Unknown Verified 04/17/23 11:06 ibuprofen Allergy Unknown Unknown Verified 04/17/23 11:06 Penicillins Allergy Unknown Unknown Verified 04/17/23 11:06 Contrast Media Allergy Unknown Unknown Uncoded 04/17/23 11:06 Review of Systems Review of Systems: CONSTITUTIONAL: Denies fever, chills, or sweats. SKIN: See HPI. MUSCULOSKELETAL: See HPI. NEUROLOGIC: Denies headache, numbness, or weakness. All systems reviewed & are unremarkable except as noted in HPI and below PMFSH Past Medical History Medical History Anemia Anxiety Arthritis Brain tumor Bronchitis Crohn's disease Depression HLD (hyperlipidemia) HTN (hypertension) Hyperparathyroidism Hypothyroid Osteoporosis Pneumonia Rheumatoid arthritis Trigeminal neuralgia of left side of face Surgical History Surgical History H/O parathyroidectomy Family History Family History Sibling Family history of lung cancer Family history of malignant neoplasm of brain Family history of obesity Family history of alcoholism Family history of malignant neoplasm Father Family history of lung disease Depression Family history of alcoholism Mother Acute myocardial infarction Family history of osteoporosis Family history of mental disorder Depression Family history of glaucoma Family history of elevated blood lipids Family history of liver disease Cerebrovascular accident Family history of diabetes mellitus in first degree relative Family hist
== END 2023-04-17 12:25 | disposition home or self-care (01) ==
PROVIDERS: Emergency Provider Physician Assistant; PCP Physician Assistant
DX: S60.511A Abrasion of right hand, initial encounter (principal); I10 Essential (primary) hypertension; E78.5 Hyperlipidemia, unspecified; E03.9 Hypothyroidism, unspecified; E89.2 Postprocedural hypoparathyroidism; K50.90 Crohn's disease, unspecified, without complications; M06.9 Rheumatoid arthritis, unspecified; M81.0 Age-related osteoporosis without current pathological fracture; M19.90 Unspecified osteoarthritis, unspecified site; F41.9 Anxiety disorder, unspecified; Z86.2 Personal history of diseases of the blood and blood-forming organs and certain disorders involving the immune mechanism; Z87.01 Personal history of pneumonia (recurrent); X58.XXXA Exposure to other specified factors, initial encounter
CPT/HCPCS: 73130; 99283

== ENCOUNTER 2023-05-28 14:51 | Outpatient (CLI) | payer MEDICARE, OTHER, SELFPAY ==
--- NOTE | ~2023-05-28 | DEXA_ITS ---
Bone Density Report Name: CALLIE KARIMI Age: 68 Sex: Female Ethnicity: White Date of : 1955 Indication: postmenopausal; screening for osteoporosis; history of glucocorticoids; rheumatoid arthritis; Referring Provider: EMMANUEL FORRESTER Study: Bone densitometry was performed. Exam Date: May 28, 2023 Accession number: [id number] Bone Density: Region BMD T-score Z-score Classification AP Spine(L1-L4) 0.771 -2.5 -0.5 Osteoporosis Femoral Neck (Left) 0.661 -1.7 0.0 Osteopenia Total Hip (Left) 0.834 -0.9 0.5 Normal Femoral Neck (Right) 0.649 -1.8 -0.1 Osteopenia Total Hip (Right) 0.793 -1.2 0.2 Osteopenia Total Hip Mean 0.813 -1.1 0.4 Osteopenia World Health Organization criteria for BMD impression classify patients as: Normal (T-score at or above -1.0), Osteopenia (T-score between -1.0 and -2.5), or Osteoporosis (T-score at or below -2.5). 10-year Fracture Risk: FRAX not reported because: Some T-score for Spine Total or Hip Total or Femoral Neck at or below -2.5 Treated for osteoporosis Clinical Information Provided by Patient: Has taken Glucocorticoids Has rheumatoid arthritis Is being treated for osteoporosis Has used the following medications: Fosamax (i.e. alendronate), Vitamin D, Calcium Patient maximum height was 62 Menopause Age: 45 Does not regularly consume dairy products Drinks caffeinated beverages Onset of menses at age 15 Number of children 3 Impression: The patient has osteoporosis, based on the Total Spine T-score. The patient has risk factors, including: history of glucocorticoid therapy. Discussion: It is important to ask patients whether they are taking their medications and to encourage continued and appropriate compliance with their osteoporosis therapies to reduce fracture risk. It is also important to review their risk factors and encourage appropriate calcium and vitamin D intakes, exercise, fall prevention and other lifestyle measures. Follow-Up: Consider a repeat BMD and Vertebral Fracture Assessment (VFA) exam in 2 years or sooner if medically necessary, to reassess this patient's status. Reported by: KELLIE on 05/28/2023 3:12:00 PM. Reviewed, dictated and finalized at location Lauren SILVA
== END 2023-05-28 14:52 | disposition home or self-care (01) ==
PROVIDERS: PCP Physician Assistant; Visit Provider Internal Medicine Endocrinology, Diabetes & Metabolism
DX: M81.0 Age-related osteoporosis without current pathological fracture (principal)
CPT/HCPCS: 77080

== ENCOUNTER 2023-06-05 06:42 | Emergency (ER) | payer MEDICARE, OTHER, SELFPAY ==
--- NOTE | ~2023-06-05 | XR_ITS ---
EXAMINATION: XR tibia fibula LT 2V INDICATION: Left leg pain TECHNIQUE: Two views of the left tibia and fibula are obtained. COMPARISON: None available FINDINGS: Bone alignment is normal. There is no fracture. There is mild osteoarthritis of the knee. T he soft tissues are unremarkable. IMPRESSION: 1. No acute osseous abnormality. Reviewed, dictated and finalized at location B. TER MECHANIC
--- NOTE | ~2023-06-05 | XR_ITS ---
Left ankle Technique: AP, oblique, and lateral views were obtained. Clinical History: Pain Findings: No acute fracture or dislocation is seen. Osseous alignment is anatomic. Ankle mortise and other visualized joint spaces are preserved. Soft tissues are otherwise unremarkable. Impression: Unremarkable left ankle. Reviewed, dictated and finalized at location . WORKER Impression: Unremarkable left ankle.
[2023-06-05 06:49] VITALS: BP 170/83; PULSE 86; RESP 16; TEMP 36.8; O2SAT 99
--- NOTE | 2023-06-05 07:25 | ED.LOWEXIN ---
HPI - Extremity Injury (Lower) General Chief Complaint: Extremity Injury, Lower Stated Complaint: foot pain;injury Time Seen by Provider: 06/05/23 07:24 Source: patient Mode of arrival: ambulatory History of Present Illness HPI Narrative: 68-year-old female who is complaining of left foot pain after falling out of a chair. She landed on her tailbone which she states also hurts a little although this is minimal. She landed on her left arm As well but is not complaining of significant pain here. patient has facial asymmetry which she states is related to a history of a brain tumor. she occasionally uses a walker to ambulate. patient states the circumstances insert fall were that she try to stand her leg was weak and the bottom of her foot has neuropathy at baseline. she took Tylenol at 6:00 a.m.. She is experiencing paresthesias Along the lateral left calf. she recently received her rheumatoid arthritis shot. She is also chronically on 5 mg of prednisone per day. Related Data Home Medications Medication Instructions Recorded Confirmed carbamazepine 300 mg 300 mg PO Q12H 05/05/19 03/05/23 capsule,extended release [id number] (Carbatrol) cholecalciferol (vitamin D3) 50 2,000 unit PO DAILY 05/05/19 03/05/23 mcg (2,000 unit) tablet cyanocobalamin (vitamin B-12) 1,000 mcg subcut MONTHLY 05/05/19 03/05/23 1,000 mcg/mL injection kit folic acid 1 mg tablet 1 mg PO DAILY 05/05/19 03/05/23 golimumab 50 mg/0.5 mL 50 mg subcut MONTHLY 05/05/19 03/05/23 subcutaneous pen injector (Simponi) losartan 100 mg tablet 50 mg PO BID 05/05/19 03/05/23 topiramate 50 mg tablet (Topamax) 75 mg PO BID 05/05/19 03/05/23 trazodone 100 mg tablet 75 mg PO HS 05/05/19 03/05/23 amlodipine 10 mg tablet (Norvasc) 10 mg PO HS 12/08/19 03/05/23 calcium carbonate 500 mg calcium 500 mg PO BID 07/17/20 03/05/23 (1,250 mg) tablet diphenhydramine HCl 25 mg tablet 25 mg PO Q6H PRN Allergy Symptoms 07/17/20 03/05/23 (Benadryl Allergy) famotidine 20 mg tablet 20 mg PO BID 07/17/20 03/05/23 lorazepam 0.5 mg tablet 0.5 mg PO BID PRN Anxiety 07/17/20 03/05/23 prednisone 5 mg tablet 5 mg PO DAILY 03/05/23 03/05/23 Allergies Allergy/AdvReac Type Severity Reaction Status Date / Time iodine Allergy Severe Unknown Verified 04/17/23 11:06 aspirin Allergy Mild Unknown Verified 04/17/23 11:06 erythromycin base Allergy Unknown Unknown Verified 04/17/23 11:06 ibuprofen Allergy Unknown Unknown Verified 04/17/23 11:06 Penicillins Allergy Unknown Unknown Verified 04/17/23 11:06 Contrast Media Allergy Unknown Unknown Uncoded 04/17/23 11:06 [facility] Past Medical History Medical History Anemia Anxiety Arthritis Brain tumor Bronchitis Crohn's disease Depression HLD (hyperlipidemia) HTN (hypertension) Hyperparathyroidism Hypothyroid Neuropathy of left foot Osteoporosis Pneumonia Rheumatoid arthritis Trigeminal neuralgia of left side of face Surgical History Surgical History H/O parathyroidectomy Family History Family History Sibling Family history of lung cancer Family history of malignant neoplasm of brain Family history of obesity Family history of alcoholism Family history of malignant neoplasm Father Family history of lung disease Depression Family history of alcoholism Mother Acute myocardial infarction Family history of osteoporosis Family history of mental disorder Depression Family history of glaucoma Family history of elevated blood lipids Family history of liver disease Cerebrovascular accident Family history of diabetes mellitus in first degree relative Family history of congestive heart failure Family history of heart disease in male family member before age 55 Other Diabetes mellitus Family history of cardiovascular disease Family h
[2023-06-05] MEDS: KETOROLAC 30 MG/ML VIAL (*BKC) 15 MG IM (08:02)
[2023-06-05 09:15] VITALS: BP 150/83; PULSE 70; RESP 16; O2SAT 98
== END 2023-06-05 09:20 | disposition home or self-care (01) ==
PROVIDERS: Emergency Provider Student in an Organized Health Care Education/Training Program; PCP Physician Assistant
DX: S96.912A Strain of unspecified muscle and tendon at ankle and foot level, left foot, initial encounter (principal); W07.XXXA Fall from chair, initial encounter; M06.9 Rheumatoid arthritis, unspecified; K50.90 Crohn's disease, unspecified, without complications; E78.5 Hyperlipidemia, unspecified; I10 Essential (primary) hypertension; E03.9 Hypothyroidism, unspecified
CPT/HCPCS: 73590; 73610; 96372; 99283; J1885

== ENCOUNTER 2023-06-11 08:11 | Outpatient (CLI) | payer MEDICARE, OTHER, SELFPAY ==
--- NOTE | ~2023-06-11 | XR_ITS ---
EXAMINATION: XR barium swallow DATE: 06/11/2023 09:24 INDICATION: Intermittent dysphagia TECHNIQUE: The patient drank thick barium, gas-producing crystals, and thin barium. Fluoroscopic spot radiographs of the hypopharynx and esophagus were obtained. Fluoroscopy exposure time was 1.6 minut es. A total of 1188 fluoroscopic images were recorded. Total DAP was 5.174 Gycm^2 COMPARISON: None. FINDINGS: The pharynx is symmetric and without evidence of mass lesion or mucosal irregularity. Sever al small surgical clips the left neck. The esophagus is normal without mass or stricture. Esophageal motility is normal. There is no hiatal hernia. There was no gastroesophageal reflux with provocative maneuvers. IMPRESSION: 1. Surgical clips at the left neck. Otherwise normal esophagram. Reviewed, dictated and finalized at location A. ION WORKER
== END 2023-06-11 08:12 | disposition home or self-care (01) ==
LOC: ANHIMG 08:13
PROVIDERS: PCP Physician Assistant; Visit Provider Physician Assistant
DX: R13.19 Other dysphagia (principal)
CPT/HCPCS: 74220

== ENCOUNTER 2023-07-20 10:48 | Outpatient (CLI) | payer MEDICARE, OTHER, SELFPAY ==
--- NOTE | ~2023-07-20 | MMUS_ITS ---
EXAMINATION: MM diagnostic elias BI w debbi, US breast LT limited HISTORY: Palpable mass in the upper outer quadrant of the left breast. TECHNIQUE: Craniocaudal, mediolateral, and mediolateral oblique 3-D tomosynthesis images of the loretta ts were performed and synthetic 2-D images were generated. CAD analysis was submitted and interpreted . High resolution limited left breast ultrasound was performed. COMPARISON: 03/05/2022, 02/06/2021, 01/17/2020 BREAST PARENCHYMAL COMPOSITION: There are scattered areas of fibroglandular density. FINDINGS: MAMMOGRAPHIC FINDINGS: No suspicious mass, calcification, or architectural distortion are identified in either breast to sug gest malignancy. There has been no suspicious interval change. No mammographic correlate is identifie d for the reported palpable abnormality of concern in the left breast. ULTRASOUND: There is a 4 mm x 3 mm oval, circumscribed, parallel, hypoechoic mass with internal vascularity and n o posterior features at the 1:00 location, 7 cm from the nipple corresponding to the palpable abnorma lity of concern. IMPRESSION: 1. Indeterminate left breast mass. 2. Ultrasound-guided biopsy is recommended. BI-RADS category 4, suspicious findings. Reviewed, dictated and finalized at location A. OID FRAMEWORK DEVELOPER IMPRESSION: 1. Indeterminate left breast mass. 2. Ultrasound-guided biopsy is recommended. BI-RADS category 4, suspicious findings.
== END 2023-07-20 10:49 | disposition home or self-care (01) ==
PROVIDERS: PCP Physician Assistant; Visit Provider Physician Assistant
DX: R92.8 Other abnormal and inconclusive findings on diagnostic imaging of breast (principal); N63.20 Unspecified lump in the left breast, unspecified quadrant
CPT/HCPCS: 76642; 77062; 77066; G0279

== ENCOUNTER 2023-07-31 09:54 | Outpatient (CLI) | payer MEDICARE, OTHER, SELFPAY ==
--- NOTE | ~2023-07-31 | MMUS_ITS ---
EXAMINATION: US breast biopsy LT w image, MM post biopsy invasive LT DATE: 07/31/2023 11:25 INDICATION: Palpable mass in the upper outer quadrant of the left breast. Ultrasound-guided core biop sy is requested to evaluate for malignancy. TECHNIQUE AND FINDINGS: The risks and potential benefits of the procedure were discussed with the patient including bleeding and infection. A time out was performed. The skin of the left breast was prepared and draped in usual sterile fashion. 1% lidocaine was used for superficial anesthesia. 1% lidocaine with epinephrine was used for deep anesthesia. A vacuum-assisted biopsy needle was advanced through to the outer edge of the region of interest from a lateral approach utilizing sonographic guidance. A total of three tissue core samples were obtaine d through the lesion. A tissue marker clip was then placed at the biopsy site. Hemostasis was achieve d. A sterile bandage was applied. The patient tolerated procedure well and there was no evidence of immediate complication. The patient was given verbal instructions to return to the Emergency Department in the event of severe breast pa in or rapid breast enlargement. A two view left breast mammogram was obtained to document tissue guy er clip placement. IMPRESSION: 1. Successful ultrasound-guided vacuum-assisted biopsy of left breast mass with tissue marker placeme nt. Reviewed, dictated and finalized at location A. ET INTELLIGENCE CONSULTANT IMPRESSION: 1. Successful ultrasound-guided vacuum-assisted biopsy of left breast mass with tissue marker placement.
== END 2023-07-31 09:55 | disposition home or self-care (01) ==
LOC: ANHIMG 09:57
PROVIDERS: PCP Nurse Practitioner Family; Visit Provider Nurse Practitioner Family
DX: N63.21 Unspecified lump in the left breast, upper outer quadrant (principal); R92.8 Other abnormal and inconclusive findings on diagnostic imaging of breast
CPT/HCPCS: 19083; 88305; A4648

== ENCOUNTER 2023-09-10 14:31 | Outpatient (CLI) | payer MEDICARE, OTHER, SELFPAY ==
[2023-09-10 18:46] LABS: Appearance Urine Clear (Clear); Bilirubin Urine Negative (Negative); Blood Urine Negative (Negative); Color Urine Yellow (Yellow); Glucose Urine UA Negative (Negative); Ketones Urine Negative (Negative); Leukocyte Esterase Ur Negative LEU/UL (Negative); Nitrate Urine Negative (Negative); Protein Urine Negative (Negative); Urobilinogen Urine 0.2 mg/dL (<2.0)
[2023-09-10 18:51] LABS: Add Urine Microscopic? NO; Specific Grav Ur 1.004 (1.001-1.035)
[2023-09-10 19:13] LABS: Influenza A QL RT-PCR Negative (Negative); Influenza B QL RT-PCR Negative (Negative); RSV RNA, RT-PCR Negative (Negative); SARS-CoV-2 RNA PCR Negative (Negative)
[2023-09-10 19:14] LABS: Alanine Aminotransferase 19 U/L (6-35); Albumin Level 4.8 g/dL (3.5-5.1); Alkaline Phosphatase 90 U/L (38-126); Anion Gap 9 mmol/L (4-12); Aspartate Amino Transferase 41 U/L (14-36); Bilirubin,Total 0.5 mg/dL (0.2-1.3); Blood Urea Nitrogen 10 mg/dL (7-17); Calcium 9.5 mg/dL (8.4-10.2); Carbon Dioxide 27 mmol/L (22-30); Chloride 102 mmol/L (98-107); Estimated Glomerular Filt Rate > 60; Glucose 103 mg/dL (65-110); Potassium 3.8 mmol/L (3.4-5.0); Sodium 138 mmol/L (137-145)
[2023-09-10 19:30] LABS: Basophils Absolute Auto 0.1 K/mm3 (0.0-0.1); Basophils Percent Auto 0.8 % (0.2-1.2); Eosinophils Percent Auto 0.4 % (0-4.4); Hematocrit 40.9 % (37.0-47.0); Immature Granulocyte Absolute 0.02 K/mm3 (0.00-0.031); Immature Granulocyte Percent A 0.2 % (0-0.5); Lymphocytes Percent Auto 16.9 % (18.3-44.2); Mean Corpuscular HGB Conc 31.8 g/dl (32-36); Mean Corpuscular Hemoglobin 31.9 pg (26-34); Mean Corpuscular Volume 100.5 fl (80-100); Mean Platelet Volume 11.6 fl (7.4-10.4); Monocytes Absolute Auto 0.5 K/mm3 (0.1-0.6); Monocytes Percent Auto 5.7 % (2.6-8.5); Neutrophils Absolute Auto 6.3 K/mm3 (1.3-6.7); Platelet Count Result 327 k/mm3 (150-375); Red Blood Count 4.07 M/mm3 (4.2-5.4); Red Cell Distribution Width 13.7 % (11.5-14.5); White Blood Count 8.3 K/mm3 (4.5-10.0)
[2023-09-10 19:41] LABS: Vitamin D 25 Hydroxy 68.6 ng/mL
== END 2023-09-10 14:32 | disposition home or self-care (01) ==
LOC: ANHGOSHLAB 14:32
PROVIDERS: PCP Nurse Practitioner Family; Visit Provider Emergency Medicine
DX: I10 Essential (primary) hypertension (principal); J06.9 Acute upper respiratory infection, unspecified; R53.83 Other fatigue; E55.9 Vitamin D deficiency, unspecified; Z20.822 Contact with and (suspected) exposure to COVID-19
CPT/HCPCS: 36415; 71046; 80053; 81003; 82306; 85025; 87637

== ENCOUNTER 2023-09-10 15:11 | Outpatient (CLI) | payer MEDICARE, OTHER, SELFPAY ==
--- NOTE | ~2023-09-10 | XR_ITS ---
XR chest 2V 09/10/2023 15:28 Indication: Acute upper respiratory infection Procedure: PA and lateral views of the chest Comparison: Comparison to multiple prior studies sequentially, with oldest reviewed study dated 10/2017. Findings: Heart size normal. No focal air space disease, pulmonary edema, pleural effusion or suspect ed pneumothorax. Impression: 1: No acute cardiopulmonary disease. Reviewed, dictated and finalized at location L. Impression: 1: No acute cardiopulmonary disease.
== END 2023-09-10 15:12 | disposition home or self-care (01) ==
LOC: ANHIMG 15:13
PROVIDERS: PCP Nurse Practitioner Family; Visit Provider Emergency Medicine
DX: J06.9 Acute upper respiratory infection, unspecified (principal)
CPT/HCPCS: 71046

== ENCOUNTER 2023-09-28 08:51 | Emergency (ER) | payer MEDICARE, OTHER, SELFPAY ==
[2023-09-28 08:59] VITALS: BP 166/85; PULSE 70; RESP 20; TEMP 36.7; O2SAT 100
--- NOTE | 2023-09-28 09:16 | ED.SKABFB ---
HPI - Skin/Abscess/Foreign Bdy General Chief complaint: Skin/Abscess/Foreign Body Stated complaint: cellulitis Time Seen by Provider: 09/28/23 09:03 Source: patient Mode of arrival: ambulatory Limitations: no limitations History of Present Illness HPI narrative: Patient is a 68-year-old female who presents to ED with report of a wound to her left forearm. Patient reports she scratched her arm on a hold cardboard box a few days ago. She began noticing redness, warmth, tenderness surrounding the abrasion. The abrasion began draining clear and yellow fluid yesterday. Patient denies any fevers. She has not taken anything for symptoms. Related Data Home Medications Medication Instructions Recorded Confirmed carbamazepine 300 mg 300 mg PO Q12H 05/05/19 09/10/23 capsule,extended release [id number] (Carbatrol) cholecalciferol (vitamin D3) 50 2,000 unit PO DAILY 05/05/19 09/10/23 mcg (2,000 unit) tablet folic acid 1 mg tablet 1 mg PO DAILY 05/05/19 09/10/23 golimumab 50 mg/0.5 mL 50 mg subcut MONTHLY 05/05/19 09/10/23 subcutaneous pen injector (Simponi) losartan 100 mg tablet 50 mg PO BID 05/05/19 09/10/23 topiramate 50 mg tablet (Topamax) 75 mg PO BID 05/05/19 09/10/23 amlodipine 10 mg tablet (Norvasc) 10 mg PO HS 12/08/19 09/10/23 calcium carbonate 500 mg PO BID 07/17/20 09/10/23 diphenhydramine HCl 25 mg tablet 25 mg PO Q6H PRN Allergy Symptoms 07/17/20 09/10/23 (Benadryl Allergy) famotidine 20 mg tablet 20 mg PO BID 07/17/20 09/10/23 prednisone 5 mg tablet 5 mg PO DAILY 03/05/23 09/10/23 atorvastatin 20 mg tablet mg PO 08/07/23 09/10/23 losartan 25 mg tablet mg PO 08/07/23 09/10/23 Allergies Allergy/AdvReac Type Severity Reaction Status Date / Time iodine Allergy Severe Unknown Verified 09/28/23 08:52 aspirin Allergy Mild Unknown Verified 09/28/23 08:52 erythromycin base Allergy Unknown Unknown Verified 09/28/23 08:52 ibuprofen Allergy Unknown Unknown Verified 09/28/23 08:52 Penicillins Allergy Unknown Unknown Verified 09/28/23 08:52 Contrast Media Allergy Unknown Unknown Uncoded 09/28/23 08:52 Review of Systems Review of Systems: CONSTITUTIONAL: Denies fever, chills, or sweats. SKIN: See HPI MUSCULOSKELETAL: Denies back pain, extremity pain, myalgia. All systems reviewed & are unremarkable except as noted in HPI and below PMFSH Past Medical History Medical History Anemia Anxiety Arthritis Brain tumor Bronchitis Crohn's disease Depression HLD (hyperlipidemia) HTN (hypertension) Hyperparathyroidism Hypothyroid Neuropathy of left foot Osteoporosis Pneumonia Rheumatoid arthritis Trigeminal neuralgia of left side of face Surgical History Surgical History H/O parathyroidectomy Family History Family History Sibling Family history of lung cancer Family history of malignant neoplasm of brain Family history of obesity Family history of alcoholism Family history of malignant neoplasm Father Family history of lung disease Depression Family history of alcoholism Mother Acute myocardial infarction Family history of osteoporosis Family history of mental disorder Depression Family history of glaucoma Family history of elevated blood lipids Family history of liver disease Cerebrovascular accident Family history of diabetes mellitus in first degree relative Family history of congestive heart failure Family history of heart disease in male family member before age 55 Other Diabetes mellitus Family history of cardiovascular disease Family history of tuberculosis Hypertension Social History Social History Smoking status: Never smoker Alcohol intake: never Substance use: never Lack of Transportation: No Lack of Food: Never Tr
[2023-09-28] MEDS: DOXYCYCLINE HYCLATE 100 MG TABLET PO (09:24)
== END 2023-09-28 09:30 | disposition home or self-care (01) ==
LOC: ANHED 09:23
PROVIDERS: Emergency Provider Physician Assistant; PCP Nurse Practitioner Family
DX: L03.114 Cellulitis of left upper limb (principal); I10 Essential (primary) hypertension; E78.5 Hyperlipidemia, unspecified; E03.9 Hypothyroidism, unspecified; K50.90 Crohn's disease, unspecified, without complications; G62.9 Polyneuropathy, unspecified; M06.9 Rheumatoid arthritis, unspecified; M81.0 Age-related osteoporosis without current pathological fracture; F41.9 Anxiety disorder, unspecified; F32.A Depression, unspecified; Z86.2 Personal history of diseases of the blood and blood-forming organs and certain disorders involving the immune mechanism; Z87.01 Personal history of pneumonia (recurrent); Z90.89 Acquired absence of other organs
CPT/HCPCS: 87070; 87077; 87205; 99283; A9270

== ENCOUNTER 2023-12-04 11:02 | Outpatient (CLI) | payer MEDICARE, OTHER, SELFPAY ==
--- NOTE | ~2023-12-04 | US_ITS ---
EXAMINATION: US thyroid DATE: 12/04/2023 11:33 INDICATION: Dysphagia. Hypothyroidism. Foreign body in larynx. TECHNIQUE: Multiple ultrasound images of the thyroid were obtained. COMPARISON: None. FINDINGS: The right thyroid lobe measures 2.5 x 1.0 x 1.0 cm. The left thyroid lobe measures 1.8 x 1.9 x 0.9 c m. The thyroid demonstrates heterogeneous echogenicity. No discrete nodule. Vascularity is normal. IMPRESSION: 1. Small thyroid. Reviewed, dictated and finalized at location E. IMPRESSION: 1. Small thyroid.
== END 2023-12-04 11:03 | disposition home or self-care (01) ==
LOC: ANHIMG 11:05
PROVIDERS: PCP Nurse Practitioner Family; Visit Provider Internal Medicine Endocrinology, Diabetes & Metabolism
DX: R13.10 Dysphagia, unspecified (principal); T17.308A Unspecified foreign body in larynx causing other injury, initial encounter
CPT/HCPCS: 76536

== ENCOUNTER 2024-03-18 07:01 | Outpatient (CLI) | payer MEDICARE, OTHER, SELFPAY ==
--- NOTE | ~2024-03-18 | MR_ITS ---
MRI of the lumbar spine Clinical History: Left sciatica Technique: Axial T2-weighted images, and sagittal T1-weighted, T2-weighted, and T2 fat-sat images wer e acquired. Findings: There is no fracture or subluxation of the lumbar spine. Vertebral bodies maintain normal h eight and line. No suspicious bone marrow signal abnormality seen. At L1-L2, there is minimal disc bulge and minimal facet arthropathy. No central canal stenosis or anahi ral foraminal narrowing. At L2-L3, there is minimal disc bulge and mild facet arthropathy. No central canal stenosis. Probable minimal bilateral neural foraminal narrowing. At L3-L4, there is mild degenerative disc narrowing. There is diffuse disc bulge with mild to moderat e facet arthropathy. No mike central canal stenosis. There is moderate to advanced left neural ruthy inal narrowing, and moderate right neural foraminal narrowing. At L4-L5, there is diffuse disc bulge and mild facet arthropathy. No central canal stenosis. There is moderate to advanced right neural foraminal narrowing, and moderate left neural foraminal narrowing. At L5-S1, there is minimal disc bulge and mild facet arthropathy. No central canal stenosis. There is moderate right neural foraminal narrowing. Left neural foramen preserved. Paravertebral soft tissues are unremarkable. Impression: Moderate degenerative spondylosis, as above, with multilevel neural foraminal narrowing present. Reviewed, dictated and finalized at [facility]. Impression: Moderate degenerative spondylosis, as above, with multilevel neural foraminal n arrowing present.
== END 2024-03-18 07:02 | disposition home or self-care (01) ==
LOC: MICIMG 07:03
PROVIDERS: PCP Nurse Practitioner Family; Visit Provider Nurse Practitioner Family
DX: M54.32 Sciatica, left side (principal); M47.896 Other spondylosis, lumbar region
CPT/HCPCS: 72148

== ENCOUNTER 2024-06-27 10:16 | Outpatient (CLI) | payer MEDICARE, OTHER, SELFPAY ==
--- NOTE | ~2024-06-27 | XR_ITS ---
XR shoulder RT min 2V Ordering provider: GINI Allison History: . M25.511 - Pain in right shoulder RECENT FALL . Comparison: None. FINDINGS: BONES: No acute fracture or dislocation. JOINT SPACES: The acromioclavicular joint shows osteoarthritic changes.. The glenohumeral joint is no rmal. SOFT TISSUES: Normal. IMPRESSION: No acute osseous abnormality right shoulder. Reviewed, dictated and finalized at location A. UNTING DIRECTOR
== END 2024-06-27 10:17 | disposition home or self-care (01) ==
PROVIDERS: PCP Nurse Practitioner Family; Visit Provider Nurse Practitioner Family
DX: M25.511 Pain in right shoulder (principal)
CPT/HCPCS: 73030

== ENCOUNTER 2024-08-29 09:19 | Outpatient (CLI) | payer MEDICARE, OTHER, SELFPAY ==
--- NOTE | ~2024-08-29 | MM_ITS ---
EXAMINATION: MM screening elias BI w debbi HISTORY: Screening TECHNIQUE: Craniocaudal and mediolateral oblique 3-D tomosynthesis images were obtained and synthetic 2-D images were generated. CAD analysis was submitted and interpreted. COMPARISON: Comparison to multiple prior studies sequentially, with oldest reviewed study dated 07/2015. BREAST PARENCHYMAL COMPOSITION: Not dense: There are scattered areas of fibroglandular density. FINDINGS: There is no evidence of suspicious mass, calcification, or architectural distortion to sugg est malignancy in either breast. There has been no suspicious interval change. IMPRESSION: 1. No mammographic evidence of malignancy. 2. Recommend routine screening mammography in one year. BI-RADS Category 1: Negative Reviewed, dictated and finalized at location B.
--- OUTSIDE RECORDS SUMMARY | 2024-08-29 10:14 | XMS_ITS | Encounter Summary ---
Author Organization [facility] Address [address] [place] [address] Care Team Providers Care Registered Radiographer Name Role Phone [facility] Primary Care Provider + [phone] Primary Care Prov ider Shavon Lynch Primary Care Pr ovider Encounter Details Date Type Department Care Team (Late st Contact Info) Description 11/16/2017 Telephone [facility] [address] [place] [address] Inocencia Wade MD [address] [place] [id number] Social History Tobacco Use Types Packs/Day Years Used Date Smoking Tobacco: Never Assessed Sex and Gender Information Value Date Recorded Sex Assigned at Not on file Gender Identity Not on file Sexual Orientation Not on file documented as of this encounter Plan of Treatment Upcoming Encounters Date Type Department Care Team (Late st Contact Info) Description 11/10/2024 10:20 AM CDT Office Visit [facility] [address] [facility] [address] [place] [id number] [place] [address] [facility] [address] [address] documented as of this encounter Visit Diagnoses Not on filedocumented in this encounter Care Teams Registered Radiographer Relationship Specialty Start Date End Date Base, [place], [place] PCP - General 11/16/17 12/16/[address] [facility], [place], [place] [address] PCP - General 12/17/17 10/27/22 Shavon Lynch PA [address] [place] [address] PCP - General Physician Fuse Cutter 10/28/22 documented as of this encounter
--- OUTSIDE RECORDS SUMMARY | 2024-08-29 10:14 | XMS_ITS | Clinical Summary ---
Author Organization [facility] Building D Address [address] [place] [id number] Care Team Providers Care Producer Director Name Role Phone Gwendolyn Pulido NP Primary Care Provider [phone] Allergies Active Allergy Reactions Criticality Noted Date Comments Aspirin Rash Medium Erythromycin Rash,Shortness of breath High 01/30/2023 Hydrochlorothiazide Other (See comments) Low 07/31/2021 Low BP Iodinated Contrast Media Unknown 02/13/2013 Iodine Rash Medium Iodine And Iodide Containing Products Hives,Shortness of breath High Lactose Hypotension High 06/28/2018 Penicillin G Penicillins Anaphylaxis High 01/30/2023 Spironolactone Other (See comments) Low 07/31/2021 Weight gain and increased back pain Triamterene-Hydrochlorothi azid Other (See comments) Low 07/26/2020 Severe hyponatremia and mild hypokalemia Medications cyanocobalamin (VITAMIN B-12) 1,000 mcg/mL injection inject 0.1 milliliter by intramuscular route every month 0 012 Active carBAMazepine ER (CARBATROL) 300 mg 12 hr capsule take 1 capsule (300MG) by oral route every 12 hours 0 012 Active cholecalciferol (VITAMIN D-3) 2,000 unit tabletIndications:Vitam in D Deficiency Take 1 tablet (2,000 Units total) by mouth nightly 017 Active syringe, disposable, 3 mL syringe Active LORazepam (ATIVAN) 0.5 mg tabletIndications:anxie ty Take 1 tablet (0.5 mg total) by mouth every 6 (six) hours as needed for anxiety Active levothyroxine (SYNTHROID, LEVOTHROID) 175 mcg tabletIndications:hypot hyroidism Take 1 tablet (175 mcg total) by mouth waste management specialist before breakfast Active acetaminophen 500 mg capsule Take 2 capsules (1,000 mg total) by mouth every 6 (six) hours as needed for pain. Stop this medication last for pain management Active traZODone (DESYREL) 100 mg tablet PT TAKING 75 MG Active albuterol HFA (PROVENTIL HFA,VENTOLIN HFA,PROAIR HFA) 90 mcg/actuation inhaler INHALE 1-2 PUFFS EVERY 4 HOURS NEEDED FOR SHORTNESS OF BREATH Active Kerydin 5 % solution with applicator Active EPINEPHrine 0.3 mg/0.3 mL auto-injection syringe Inject 0.3 mL (0.3 mg total) into the muscle as instructed as needed Active famotidine (PEPCID) 20 mg tablet Take 1 tablet (20 mg total) by mouth daily Active calcium carbonate (OS-AUGUSTINE) 1,500 mg (600 mg of elemental calcium) tablet Take 1 tablet (1,500 mg total) by mouth 2 (two) times a day Active topiramate (Topamax) 25 mg tablet Take 3 tablets (75 mg total) by mouth 2 (two) times a day 2025 Active docusate sodium (COLACE) 100 mg capsuleIndications:cons tipation Take 1 capsule (100 mg total) by mouth as needed for constipation (consti) Active predniSONE (DELTASONE) 5 mg tabletIndications:Anti- inflammatory,autoimmune disease,rheumatoid arthritis Take 1 tablet (5 mg) by mouth daily 90 tablet 1 Active amLODIPine (NORVASC) 10 mg tabletIndications:hyper tension Take 1 tablet (10 mg total) by mouth nightly 90 tablet 3 Active atorvastatin (LIPITOR) 20 mg tabletIndications:Famil y history of early CAD,Pure hypercholesterolemia Take 1 tablet (20 mg total) by mouth daily 90 tablet 3 024 2024 Active losartan (COZAAR) 25 mg tabletIndications:Essen tial hypertension Take 2 tablets (50 mg total) by mouth 2 (two) times a day Patient may adjust dose to 3 tabs daily based on BP readings. 360 tablet 3 Active golimumab (Simponi) 50 mg/0.5 mL pen injector INJECT 0.5 ML UNDER THE SKIN EVERY MONTH 1 mL 2 024 Active Active Problems Problem Noted Date Diagnosed Date Immunosuppression due to drug therapy 04/21/2024 Assessment & Plan (04/21/2024 9:00 AM PLASTIC MANAGER): Encourage routine vaccinations. Follow up with PCP. Avoid close contact with infectious individuals. If you become ill, please let us know so we can provide guidance on holding your immunosuppressant medications. 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 Bony ootole [phone] Fatigue 07/08/2023 Female pelvic pain 07/08/2023 Hypercalcemia 07/08/2023 Hyperlipidemia 09/11/2022 Encounter for long-term (cur rent) use of high-risk medication 07/16/2022 Assessment & Plan (04/21/2024 9:00 AM PLASTIC MANAGER): Long-term use of high-risk medication requiring regular monitoring. Labs ordered, no s/s of med tox or infection. Encouraged to work with PCP to make sure all recommended cancer screens and vaccinations are complete. Avoid live-vaccines unless reviewed with heavy antiarmor weapons infantryman first. Assessment & Plan (07/16/2022 2:27 PM PLASTIC MANAGER): Long-term use of high-risk medication requiring regular monitoring. Labs ordered, no s/s of med tox or infection. Encouraged to work with PCP to make sure all recommended cancer screens and vaccinations are complete. Avoid live-vaccines unless reviewed with heavy antiarmor weapons infantryman first. Did have a follow up MRI and no evidence of demyelinating disease, so may continue on Simponi. Degeneration of cervical intervertebral disc Degeneration of lumbosacral intervertebral disc 03/13/2022 Arthralgia of shoulder 10/08/2021 Deferred diagnosis on axis I 10/08/2021 Difficulty breathing 10/08/2021 Cobalamin deficiency 09/09/2021 Dizziness 04/18/2021 Hyponatremia 10/10/2020 Family history of early CAD 10/10/2020 Crohn's disease 09/04/2020 Overview (07/08/2023): Referred back to GI for follow up. 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 Sensorineural hearing loss (SNHL) of both ears 0 07/21/2018 Tinnitus of both ears 07/21/2018 Primary hyperparathyroidism 06/29/2018 Overview (06/29/2018): Added automatically from request for surgery [id number] Crohn's disease of colon 10/22/2015 Overview (09/18/2016): Crohn's colitis Gastroesophageal reflux disease 10/22/2015 Overview (09/19/2016): ESOPHAGEAL REFLUX Rheumatoid arthritis involving multiple joints 0 10/22/2015 Overview (09/19/2016): RHEUMATOID ARTHRITIS Assessment & Plan (04/21/2024 8:59 AM PLASTIC MANAGER): Stable on simponi and prednisone 5 mg daily, continue same, continue to monitor. Encourage work toward weaning off prednisone, down to 2.5 mg daily and then off / just prn. Encourage calcium/vitamin D and weight bearing exercise to help with osteoporosis reduction. Assessment & Plan (07/16/2022 2:28 PM PLASTIC MANAGER): Stable on simponi and prednisone 5 mg daily, continue same, continue to monitor. Encourage work toward weaning off prednisone, down to 2.5 mg daily and then off / just prn. Encourage calcium/vitamin D and weight bearing exercise to help with osteoporosis reduction. Essential hypertension 08/23/2015 Overview (09/18/2016): HYPERTENSION NOS Hypothyroidism 04/17/2015 Overview (09/18/2016): HYPOTHYROIDISM NOS Disorder of intervertebral disc 04/17/2015 Overview (09/19/2016): Lumbar disc disease Sinusitis 09/19/2013 Overview (09/18/2016): Sinus infection Drug indicated 09/19/2013 Overview (09/19/2016): LONG-TERM USE MEDS NEC Trochanteric bursitis 04/19/2013 Overview (09/17/2016): Trochanteric bursitis of right hip Dysthymia 01/17/2013 Overview (09/18/2016): NEUROTIC DEPRESSION Urinary tract infection 08/05/2012 Overview (09/18/2016): UTI (urinary tract infection) Chronic cough 07/01/2012 Overview (09/18/2016): Chronic cough Recurrent upper respiratory tract infection 04/15 Overview (09/17/2016): Recurrent URI (upper respiratory infection) Headache 02/05/2010 Overview (07/06/2019): Neck pain Other specified idiopathic peripheral neuropathy 02/05/2010 Trigeminal neuralgia 02/05/2010 Vertigo, peripheral 02/05/2010 Encounters Date Type Department Care Team Description 07/13/2024 11:00 AM PLASTIC MANAGER Office Visit [facility] [address] [place] [address] Mac Schwartz MD IRLANDA on CPAP (Primary Dx); Dream enactment behavior; Insomnia due to medical condition; RLS (restless legs syndrome) from Last 3 Months Immunizations Immunization Administration Dates Next Due Hep A, Adult 01/07/2000,06/21/1999 Influenza, Quadrivalent, Christy l Culture-based MDCK, Antibiotic Free, Intramuscular 03/29/2019 Influenza, Quadrivalent, Hig h Dose, Preservative Free, Intrr 03/14/2020 Influenza, Quadrivalent, Spl it, Preservative Free, Intradermal 03/26/2016 Influenza, Quadrivalent, Spl it, Preservative Free, Intramuscular 03/12/2017 Influenza, Trivalent, IM (MDV) 03/19/2013,2011,04/03/2011 Influenza, Trivalent, Preser vative Free, Intramuscular 04/05/2018,02/27/2017,03/08/2015,04/13 Influenza, Trivalent, Recomb inant, Egg Free, Preservative Free, Antibiotic Free, IM (FLUBLOK) 03/15/2014 Influenza, Trivalent, Split, Preservative Free, Intradermal 03/28/2015 MMR 10/14/1993 FOCUS RESEARCH SARS-CoV-2 Monovalent Vaccination (12+ Yrs) MEYER-READY TO USE 12/03/2021 Pneumococcal Polysaccharide PPV23 03/13/2003, Td, Unspecified 06/15/2018 Td, adsorbed 11/25/1995 Tdap 11/23/2021,05/15/2015 Surgical History Surgery Date Site/Laterality Comments OTHER SURGICAL HISTORY 06/15/1985 - 06/14/1986 Craniotomy for brain stem epidermoid tumor OTHER SURGICAL HISTORY 06/15/1978 - 06/14/1979 removal of benign axillary lump BRAIN TUMOR EXCISION PARATHYROIDECTOMY 06/15/2018 - 06/14/2019 DENTAL SURGERY 12/13/2022 - 01/12/2023 gum surgery Medical History Medical History Date Comments Depression Depression Hypertension Hypertension Rheumatoid arthritis (HCC) Rheum atoid arthritis Hyperthyroidism 1975 Hyperthyroidism, Grave's Disease s/p BERNARD treatment Crohn's disease (HCC) Primary hyperparathyroidism Hyperlipidemia Sinusitis Allergic rhinitis Pernicious anemia Sleep apnea Migraines Pernicious anemia Hypothyroidism Osteoporosis Anxiety Dysmenorrhea Family History Medical History Relation Name Comments Bone cancer Brother 2 Darnell Cancer -bone; C ause of : Cancer -bone Cancer Brother 2 Darnell Hypertension Brother 2 Darnell Lung cancer Brother 2 Darnell Cancer -lung; C ause of : Cancer -lung Stroke Brother 2 Darnell Stroke; Brain cancer Brother 5 Eben Cancer -brain t umor; Cause of : Cancer -brain tumor Cancer Brother 5 Eben Hypertension Brother 6 Brother Hypertension; Depression Brother 7 Thierno Hypertension Brother 7 Thierno Hypertension; defects Daughter beau Alcohol abuse Father Franki Heart attack Father Franki Myocardial Infa rction; Cause of : Myocardial Infarction Heart disease Father Franki Heart disease; Cause of : Heart disease Breast cancer Father's Sister z Diabetes Mother Venida Heart attack Mother Venida Myocardial Infa rction; Cause of : Myocardial Infarction Heart disease Mother Venida Heart disease; Cause of : Heart disease Breast cancer Mother's Sister 1 mallorie Alzheimer's disease Mother's Sister 2 latrell Stroke Mother's Sister 2 latrell Anesthesia problems Neg Hx Relation Name Status Comments Brother 1 Alive Brother 2 Darnell Alive Brother 3 Darnell (Age 60) Brother 4 Darnell (Age 60) Brother 5 Eben (Age 40) Brother 6 Brother Brother 7 Thierno (Age 64) suspect fa [place] Daughter beau Father Franki (Age 65) Father's Sister z Alive Mother Venida (Age 69) Mother's Sister 1 mallorie Alive Mother's Sister 2 latrell Social History Tobacco Use Types Packs/Day Years Used Date Smoking Tobacco: Never Smokeless Tobacco: Never Tobacco Cessation:Counseling Given: Not Answered Alcohol Use Standard Drinks/Week Comments No 0 (1 standard drink = 0.6 oz pur e alcohol) AUDIT-C Answer Date Recorded Q1: How often do you have a drink containing alcohol? Never 08/11/2023 Q2: How many drinks containi ng alcohol do you have on a typical day when you are drinking? Patient does not drink Q3: How often do you have si x or more drinks on one occasion? Never 08/11/2023 PHQ-2 Answer Date Recorded PHQ-2 Total Score (If total score is 3 or more points, staff should administer the PHQ-9) 0 09/25/2021 Comments No Sex and Gender Information Value Date Recorded Sex Assigned at Not on file Legal Sex Female 5:17 PM PLASTIC MANAGER Gender Identity Not on file Sexual Orientation Not on file Obstetrics History Last Filed Vital Signs Vital Sign Reading Time Taken Comments Blood Pressure 156/89 07/13/2024 10:54 AM PLASTIC MANAGER Pulse 68 07/13/2024 10:54 AM PLASTIC MANAGER Temperature 36.4 C (97.6 F) 07/13/2024 10:54 AM PLASTIC MANAGER Respiratory Rate 16 01/30/2023 11:27 AM CDT Oxygen Saturation 99% 07/13/2024 10:54 AM PLASTIC MANAGER Inhaled Oxygen Concentration - - Weight 76.9 kg (169 lb 8 oz) 07/13/2024 10:54 AM PLASTIC MANAGER Height 157.5 cm (5' 2 ) 07/13/2024 10:54 AM PLASTIC MANAGER Body Mass Index 31 07/13/2024 10:54 AM PLASTIC MANAGER Plan of Treatment Health Maintenance Due Date Last Done Comments Breast Cancer Screening-Mammogram 1955 Colon Cancer Screening-Colonoscopy 1955 Osteoporosis Screening-Bone Density Scan 1955 Hepatitis B Screening 1973 Zoster Vaccine (1 of 2) 1974 Well Visit 65+ 2020 Covid-19 Vaccine (2 - Pfizer risk series) 12/24/2021 12/03/2021 Depression Screening 09/25/2022 09/25/2021, 08/10/19 19 Fall Risk Assessment 09/25/2022 09/25/2021 Influenza Vaccine (#1) 2024 0, 03/29/2019, 04/05/2018, Additional history exists DTaP/Tdap/Td Vaccine (4 - Td or Tdap) 11/24/2031 11/23/2021, 06/15/2018, 05/15/2015, Additional history exists Hepatitis A Vaccines Completed 01/07/2000, 06/21/19 00 Hepatitis C Screening Completed 08/30/2015 Pneumococcal vaccine 65+ Completed 023, 03/13/2003, 04/02/1994 Procedures Procedure Name Priority Date/Time Associated Diagnosis Comments SERUM HEPATITIS PANEL Routine 08/30/2015 11:58 AM CDT from Last 3 Months or Most Recently Relevant to Health Maintenance Results * Serum Hepatitis panel (08/30/2015 11:58 AM CDT) HBV surface ag Non-Reacti ve Non-Reacti ve HISTORICAL RESULTS HCV ab Non-Reacti ve Non-Reacti ve HISTORICAL RESULTS HBV core ab, IgM Non-Reacti ve Non-Reacti ve HISTORICAL RESULTS HAV ab, IgM Non-Reacti ve Non-Reacti ve HISTORICAL RESULTS Serum 08/30/2015 11:5 8 AM CDT Bony Otoole MD LAB BLOOD ORDERABLES Final R esult HISTORICAL RESULTS from Last 3 Months or Most Recently Relevant to Health Maintenance Insurance [email or web address] MEDICARE MEDICARE FOR LIFE MEDICARE FOR LIFE Advance Directives For more information, please contact: [phone] * Full Code (Latest Code Status on File) Date Activated Date Inactivated Comments 07/23/2018 10:37 AM 07/23/2018 9:42 PM Care Teams Producer Director Relationship Specialty Start Date End Date Gwendolyn Pulido, NETEZZA ARCHITECT [address] [place] [address] PCP - General Family Medicine 04/21/24
--- OUTSIDE RECORDS SUMMARY | 2024-08-29 10:14 | XMS_ITS | Referral Summary ---
Author Organization [facility] Address [address] [place] [place] [address] Care Team Providers Care Manipulative Therapy Specialist Name Role Phone Shavon Lynch Primary Care Pr ovider Source Comments [facility],non-owned Affiliates and Associated Physician Practices is amultiple site organization consisting of ambulatory clinics and hospital sitesin [place], [place], [place] and [place]. This disclosure is being madepursuant to the Care Everywhere program and may not contain all information available regarding this patient. Last updated 18.[facility] Encounters Date Type Department Care Team Description 08/19/2024 8:51 AM RIVET STICKER - 08/19/2024 11:59 PM RIVET STICKER Hospital Encounter [facility] Imaging Services - MRI [address] [facility] [address] [place] [address] Keo Vega MD Discharge Disposition: Home or Self Care 08/19/2024 8:51 AM RIVET STICKER - 08/19/2024 11:59 PM RIVET STICKER Hospital Encounter [facility] Imaging Services - MRI [address] [facility] [address] [place] [address] Keo Vega MD Discharge Disposition: Home or Self Care 08/04/2024 1:00 PM RIVET STICKER Office Visit [facility] Neurosciences [address] [facility] [address] [place] [address] Keo Vega MD Trigeminal neuralgia (Primary Dx); Numbness; Neck pain; Migraine without aura and without status migrainosus, not intractable from Last 3 Months Allergies Active Allergy Reactions Criticality Noted Date Comments Aspirin Unknown Erythromycin Rash Medium 01/14/2010 Iodides Urticaria,Shortness of Breath High Lactose Other High 06/28/2018 Penicillins Urticaria,Rash High 01/14/2010 Povidone Iodine Unknown Medications * Be aware that medications may not be up to date on this document. Alwaysverify current medications with the patient. Medication Sig Dispensed Refills Start Date End Date Status losartan (Cozaar) 25 MG tablet Take 4 (four) tablets by mouth once daily 11/11/2017 Active traZODone (Desyrel) 50 MG tablet Take 1 (one) tablet by mouth nightly as needed 11/19/2017 Active vitamin D, cholecalciferol, 2000 UNITS tablet 1 (one) tablet once daily 10/21/2017 Active amLODIPine (Norvasc) 10 MG tablet Take 1 (one) tablet by mouth once daily Active predniSONE (DELTASONE) 5 MG tablet 1 (one) tablet once daily 04/30/2018 Active albuterol HFA (PROVENTIL;VENTOL IN;PROAIR) 108 (90 Base) MCG/ACT inhaler INHALE 1-2 PUFFS EVERY 4 HOURS NEEDED FOR SHORTNESS OF BREATH 0 10/14/2018 Active fluticasone propionate (FLONASE) 50 MCG/ACT nasal spray 10/14/2018 Active SIMPONI 50 MG/0.5ML auto-injector every 30 days 12/02/2018 Active SYNTHROID 175 MCG tablet 1 (one) tablet once daily 1 Day a week takes a 1/2 of a pill 10/11/2018 Active LORazepam (ATIVAN) 0.5 MG tablet Take 1 (one) tablet by mouth as needed 06/02/2019 Active EPINEPHrine (EPIPEN) 0.3 MG/0.3ML auto-injector pen Inject 0.3 mL into muscle as needed 01/17/2019 Active famotidine (PEPCID) 20 MG tablet Take 1 (one) tablet by mouth once daily 01/11/2019 Active cetirizine (ZYRTEC) 10 MG tablet Zyrtec 10 mg tablet Take 1 tablet every day by oral route. 05/23/2020 Active folic acid (FOLVITE) 1 MG tablet 1 (one) tablet once daily 08/25/2019 Active atorvastatin (Lipitor) 20 MG tablet Take 1 (one) tablet by mouth at bedtime Active methocarbamol (Robaxin) 500 MG tablet Take 1 (one) tablet by mouth 3 times daily 11/05/2021 Active carBAMazepine ER 12hr (Carbatrol) 300 MG capsuleIndication s:Trigeminal neuralgia Take 1 (one) capsule by mouth every 12 hours 180 capsule 3 08/04/2024 6 Active topiramate (Topamax) 25 MG tabletIndications :Trigeminal neuralgia,Migrain e without aura and without status migrainosus, not intractable Take 3 (three) tablets by mouth 2 times daily 180 tablet 11 08/04/2024 Active cyanocobalamin (Vitamin B-12) injectionIndicati ons:Numbness Inject 1,000 (one thousand) mcg into muscle every 30 days 3 mL 3 08/04/2024 Active cyanocobalamin (VITAMIN B-12) injection 100 (one hundred) mcg every 30 days 12/09/2018 5 Discontinue d(Clinical Decision) carBAMazepine ER 12hr (Carbatrol) 300 MG capsuleIndication s:Trigeminal neuralgia Take 1 (one) capsule by mouth every 12 hours 180 capsule 3 12/09/2023 5 Discontinue d(Reorder) topiramate (Topamax) 50 MG tablet 04/18/2024 5 Discontinue d(List Clean-Up) topiramate (Topamax) 25 MG tablet Take 3 (three) tablets by mouth 2 times daily 5 Discontinue d(List Clean-Up) Active Problems Problem Noted Date Diagnosed Date High risk medication use 04/29/2022 Sector visual field defect of left eye 2 Degeneration of cervical intervertebral disc Degeneration of lumbosacral intervertebral disc 03/13/2022 Low back pain 03/13/2022 Arthralgia of shoulder 10/08/2021 Chest pain, unspecified 10/08/2021 Conductive hearing loss of right ear 10/08/2021 Deafness 10/08/2021 Overview (10/08/2021): LEFT EAR Deferred diagnosis on axis I 10/08/2021 Difficulty breathing 10/08/2021 Gastroesophageal reflux disease with esophagitis 10/08/2021 History of high risk medication treatment 2021 Trigeminal neuralgia 09/10/2021 Respiratory tract congestion with cough 09/11/19 22 Cobalamin deficiency 09/09/2021 Family history of early CAD 10/10/2020 Crohn's disease 09/04/2020 Deafness in left ear 09/04/2020 Encounter for screening for osteoporosis 021 History of benign neoplasm of brain 09/04/2020 Anxiety 07/23/2020 Benign hypertension 07/23/2020 Current chronic use of systemic steroids 020 Obesity (BMI 30.0-34.9) 08/22/2019 IRLANDA (obstructive sleep apnea) 08/22/2019 Snoring 07/06/2019 Sensorineural hearing loss (SNHL) of both ears 0 07/21/2018 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 (FLUCELVAX QUADRIVALENT; 6MO+), 0.5 ML (CCIIV4) 03/29/2019 INFLUENZA VACCINE, QUADR. (F LUZONE; FLULAVAL; FLUARIX; AFLURIA QUADRIVALENT; 6MO+), 0.5 ML (IIV4) 03/12/2017 MMR 10/14/1993 PNEUMOCOCCAL PPSV23 03/13/2003,04/02/1994 TDAP (7yrs+) 11/23/2021,05/15/2015 Td (Adult), 2 Lf Tetanus Toxoid, Adsorbed, Pf Social History Tobacco Use Types Packs/Day Years Used Date Smoking Tobacco: Never Smokeless Tobacco: Never Alcohol Use Standard Drinks/Week Comments Never 0 (1 standard drink = 0.6 oz pur e alcohol) AUDIT-C Answer Date Recorded Q1: How often do you have a drink containing alc ohol? Never 12/20/2019 Average Number of Drinks Not on file 020 Frequency of Binge Drinking Not on file 12/2019 Sex and Gender Information Value Date Recorded Sex Assigned at Not on file Gender Identity Not on file Sexual Orientation Not on file Last Filed Vital Signs Vital Sign Reading Time Taken Comments Blood Pressure 154/84 08/04/2024 12:56 PM RIVET STICKER Pulse 74 08/04/2024 12:56 PM RIVET STICKER Temperature 36.1 C (97 F) 10/28/2022 10:55 AM CDT Respiratory Rate 14 01/08/2015 9:45 AM CDT Oxygen Saturation 99% 08/04/2024 12:56 PM RIVET STICKER Inhaled Oxygen Concentration - - Weight 73.9 kg (163 lb) 08/04/2024 12:56 PM RIVET STICKER Height 157.5 cm (5' 2 ) 10/28/2022 10:55 AM CDT Body Mass Index 29.81 10/28/2022 10:55 AM CDT Plan of Treatment Upcoming Encounters Date Type Department Care Team (Late st Contact Info) Description 11/10/2024 10:20 AM CDT Office Visit [facility] [address] [facility] [address] [place] [phone] [place] [address] [address] Procedures Procedure Name Priority Date/Time Associated Diagnosis Comments MRI IAC AND BRAIN WO CONT Routine 08/19/2024 11:42 AM RIVET STICKER Trigeminal neuralgia Migraine without aura and without status migrainosus, not intractable MRI CERVICAL SPINE WO CONTRAST Routine 08/19/2024 11:18 AM RIVET STICKER Numbness Neck pain TREPONEMA PALLIDUM POS REFLX RPR Routine 08/09/2024 7:40 AM RIVET STICKER Numbness TSH REFLEX FREE T4 Routine 08/09/2024 7: 40 AM RIVET STICKER Numbness C-REACTIVE PROTEIN Routine 08/09/2024 7: 40 AM RIVET STICKER Numbness IMMUNOFIXATION BLOOD Routine 08/09/2024 7:38 AM RIVET STICKER Numbness PROTEIN ELECTROPHORESIS BLOOD Routine 08/09/2024 7:38 AM RIVET STICKER Numbness CK BLOOD Routine 08/09/2024 7:38 AM RIVET STICKER Numbness VITAMIN B12 FOLATE PANEL Routine 08/09/2024 7:38 AM RIVET STICKER Numbness BETHANIE BLOOD SCREEN W/REFLEX TITER Routine 08/09/2024 7:38 AM RIVET STICKER Numbness ERYTHROCYTE SEDIMENTATION RATE Routine 08/09/2024 7:38 AM RIVET STICKER Numbness from Last 3 Months Results * MRI BRAIN AND IAC WO CONT (08/19/2024 11:42 AM RIVET STICKER) Anatomical Region Laterality Modality Head Magnetic Resonan ce 08/19/2024 11:2 2 AM RIVET STICKER Impressions 08/19/2024 12:46 PM RIVET STICKER IMPRESSION: 1.Postoperative changes in the left cerebellopontine angle. The left 7th and 8th nerve complexes could not be traced to the brain stem. Atrophy or scarring in this location is suspected. Right 7th and 8th nerve complexes appear unremarkable. Left trigeminal nerve appears thickened compared to the right. Evaluation is limited without intravenous contrast. 2.Patchy multifocal T2 hyperintense cord signal abnormality involving the dorsal column of the cervical spinal cord. Also noted periaqueductal FLAIR hyperintensity and focal T2 and FLAIR hyperintensity involving the anterior cingulate gyrus. Finding is concerning for metabolic etiology. Suspect subacute combined degeneration of the cord due to vitamin B12 deficiency. Edited by Kandice Alonzo on 08/19/2024 12:16 PM > Interpreting Provider: Yumiko Oneill MD on 08/19/2024 12:46 PM Narrative 08/19/2024 12:46 PM RIVET STICKER PROCEDURE: MRI CERVICAL SPINE WO CONTRAST, MRI IAC AND BRAIN WO CONT DATE/TIME OF EXAM: 08/19/2024 11:18 AM CLINICAL INFORMATION: None relevant/not provided if blank. Indication: R20.0: Anesthesia of skin M54.2: Cervicalgia Additional History: COMPARISON: None. TECHNIQUE: MR of the brain and IAC was performed without intravenous contrast. Cervical spine MRI was performed without contrast. FINDINGS: MRI BRAIN AND IAC: Suspect postoperative changes in the left cerebellopontine angle. The left 7th and 8th nerve complexes could not be traced to the brain stem. Evaluation is limited without intravenous contrast. The right 7th and 8th nerve complexes appear unremarkable. The left trigeminal nerve appears thickened compared to the right. Focal T2 and FLAIR hyperintensity seen involving the anterior aspect of the cingulate gyrus. Also noted subtle periaqueductal T2 and FLAIR hyperintensity as well. No restricted diffusion identified. Normal ventricular size. No evidence for hemorrhage seen. Sanchez-white differentiation is otherwise maintained. No midline shift. Patent basal cisterns. Vascular flow-voids are maintained. Clear paranasal sinuses. Clear mastoid air cells. MRI CERVICAL SPINE: There is straightening of the cervical spine. No marrow edema. Craniovertebral junction is intact. No cerebellar tonsillar herniation is seen. Patchy multifocal T2 hyperintense cord signal abnormality identified involving the dorsal column. No definite evidence for cord swelling or cord atrophy seen. C2-C3: There is small central disc herniation. No foraminal or canal narrowing seen. C3-C4: There is minimal posterior bulge. No foraminal or canal narrowing seen. C4-C5: There is diffuse disc bulge with central and left paracentral disc herniation. Mild left foraminal narrowing. Mild canal narrowing seen. C5-C6: Posterior disc osteophyte, prominent on the left. Bilateral facet and uncovertebral hypertrophy. There is moderate to severe left and mild to moderate right foraminal narrowing. Mild canal narrowing seen. C6-C7: There is mild diffuse bulge. No foraminal or canal narrowing seen. C7-T1: No disc bulge. Mild left foraminal narrowing. No canal narrowing seen. T1-T2: No disc bulge. No foraminal or canal narrowing seen. Procedure Note Yumiko Oneill MD - 08/19/2024 PROCEDURE: MRI CERVICAL SPINE WO CONTRAST, MRI IAC AND BRAIN WO CONT DATE/TIME OF EXAM: 08/19/2024 11:18 AM CLINICAL INFORMATION: None relevant/not provided if blank. Indication: R20.0: Anesthesia of skin M54.2: Cervicalgia Additional History: COMPARISON: None. TECHNIQUE: MR of the brain and IAC was performed without intravenous contrast. Cervical spine MRI was performed without contrast. FINDINGS: MRI BRAIN AND IAC: Suspect postoperative changes in the left cerebellopontine angle. Theleft 7th and 8th nerve complexes could not be traced to the brain stem. Evaluation is limited without intravenous contrast. The right 7th and8th nerve complexes appear unremarkable. The left trigeminal nerve appears thickened compared to the right. Focal T2 and FLAIR hyperintensity seen involving the anterior aspect of the cingulate gyrus. Also noted subtle periaqueductal T2 and FLAIR hyperintensity as well. No restricteddiffusion identified. Normal ventricular size. No evidence for hemorrhage seen. Sanchez-white differentiation is otherwise maintained. No midline shift. Patent basal cisterns. Vascular flow-voids are maintained. Clearparanasal sinuses. Clear mastoid air cells. MRI CERVICAL SPINE: There is straightening of the cervical spine. No marrow edema. Craniovertebral junction is intact. No cerebellar tonsillar herniationis seen. Patchy multifocal T2 hyperintense cord signal abnormalityidentified involving the dorsal column. No definite evidence for cord swelling orcord atrophy seen. C2-C3: There is small central disc herniation. No foraminal or canal narrowing seen. C3-C4: There is minimal posterior bulge. No foraminal or canal narrowing seen. C4-C5: There is diffuse disc bulge with central and left paracentraldisc herniation. Mild left foraminal narrowing. Mild canal narrowing seen. C5-C6: Posterior disc osteophyte, prominent on the left. Bilateral facet and uncovertebral hypertrophy. There is moderate to severe left and mildto moderate right foraminal narrowing. Mild canal narrowing seen. C6-C7: There is mild diffuse bulge. No foraminal or canal narrowingseen. C7-T1: No disc bulge. Mild left foraminal narrowing. No canal narrowing seen. T1-T2: No disc bulge. No foraminal or canal narrowing seen. IMPRESSION: 1.Postoperative changes in the left cerebellopontine angle. The left 7th and 8th nerve complexes could not be traced to the brain stem. Atrophyor scarring in this location is suspected. Right 7th and 8th nervecomplexes appear unremarkable. Left trigeminal nerve appears thickened compared to the right. Evaluation is limited without intravenous contrast. 2.Patchy multifocal T2 hyperintense cord signal abnormality involvingthe dorsal column of the cervical spinal cord. Also noted periaqueductalFLAIR hyperintensity and focal T2 and FLAIR hyperintensity involving theanterior cingulate gyrus. Finding is concerning for metabolic etiology. Suspect subacute combined degeneration of the cord due to vitamin [id number]. Edited by Kandice Alonzo on 08/19/2024 12:16 PM > Interpreting Provider: Yumiko Oneill MD on 08/19/2024 12:46 PM Keo Vega MD MR ORDERABLES * MRI Cervical Spine Wo Contrast (08/19/2024 11:18 AM RIVET STICKER) Anatomical Region Laterality Modality Pelvis Magnetic Resonan ce 08/19/2024 11:2 2 AM RIVET STICKER Impressions 08/19/2024 12:46 PM RIVET STICKER IMPRESSION: 1.Postoperative changes in the left cerebellopontine angle. The left 7th and 8th nerve complexes could not be traced to the brain stem. Atrophy or scarring in this location is suspected. Right 7th and 8th nerve complexes appear unremarkable. Left trigeminal nerve appears thickened compared to the right. Evaluation is limited without intravenous contrast. 2.Patchy multifocal T2 hyperintense cord signal abnormality involving the dorsal column of the cervical spinal cord. Also noted periaqueductal FLAIR hyperintensity and focal T2 and FLAIR hyperintensity involving the anterior cingulate gyrus. Finding is concerning for metabolic etiology. Suspect subacute combined degeneration of the cord due to vitamin B12 deficiency. Edited by Kandice Alonzo on 08/19/2024 12:16 PM > Interpreting Provider: Yumiko Oneill MD on 08/19/2024 12:46 PM Narrative 08/19/2024 12:46 PM RIVET STICKER PROCEDURE: MRI CERVICAL SPINE WO CONTRAST, MRI IAC AND BRAIN WO CONT DATE/TIME OF EXAM: 08/19/2024 11:18 AM CLINICAL INFORMATION: None relevant/not provided if blank. Indication: R20.0: Anesthesia of skin M54.2: Cervicalgia Additional History: COMPARISON: None. TECHNIQUE: MR of the brain and IAC was performed without intravenous contrast. Cervical spine MRI was performed without contrast. FINDINGS: MRI BRAIN AND IAC: Suspect postoperative changes in the left cerebellopontine angle. The left 7th and 8th nerve complexes could not be traced to the brain stem. Evaluation is limited without intravenous contrast. The right 7th and 8th nerve complexes appear unremarkable. The left trigeminal nerve appears thickened compared to the right. Focal T2 and FLAIR hyperintensity seen involving the anterior aspect of the cingulate gyrus. Also noted subtle periaqueductal T2 and FLAIR hyperintensity as well. No restricted diffusion identified. Normal ventricular size. No evidence for hemorrhage seen. Sanchez-white differentiation is otherwise maintained. No midline shift. Patent basal cisterns. Vascular flow-voids are maintained. Clear paranasal sinuses. Clear mastoid air cells. MRI CERVICAL SPINE: There is straightening of the cervical spine. No marrow edema. Craniovertebral junction is intact. No cerebellar tonsillar herniation is seen. Patchy multifocal T2 hyperintense cord signal abnormality identified involving the dorsal column. No definite evidence for cord swelling or cord atrophy seen. C2-C3: There is small central disc herniation. No foraminal or canal narrowing seen. C3-C4: There is minimal posterior bulge. No foraminal or canal narrowing seen. C4-C5: There is diffuse disc bulge with central and left paracentral disc herniation. Mild left foraminal narrowing. Mild canal narrowing seen. C5-C6: Posterior disc osteophyte, prominent on the left. Bilateral facet and uncovertebral hypertrophy. There is moderate to severe left and mild to moderate right foraminal narrowing. Mild canal narrowing seen. C6-C7: There is mild diffuse bulge. No foraminal or canal narrowing seen. C7-T1: No disc bulge. Mild left foraminal narrowing. No canal narrowing seen. T1-T2: No disc bulge. No foraminal or canal narrowing seen. Procedure Note Yumiko Oneill MD - 08/19/2024 PROCEDURE: MRI CERVICAL SPINE WO CONTRAST, MRI IAC AND BRAIN WO CONT DATE/TIME OF EXAM: 08/19/2024 11:18 AM CLINICAL INFORMATION: None relevant/not provided if blank. Indication: R20.0: Anesthesia of skin M54.2: Cervicalgia Additional History: COMPARISON: None. TECHNIQUE: MR of the brain and IAC was performed without intravenous contrast. Cervical spine MRI was performed without contrast. FINDINGS: MRI BRAIN AND IAC: Suspect postoperative changes in the left cerebellopontine angle. Theleft 7th and 8th nerve complexes could not be traced to the brain stem. Evaluation is limited without intravenous contrast. The right 7th and8th nerve complexes appear unremarkable. The left trigeminal nerve appears thickened compared to the right. Focal T2 and FLAIR hyperintensity seen involving the anterior aspect of the cingulate gyrus. Also noted subtle periaqueductal T2 and FLAIR hyperintensity as well. No restricteddiffusion identified. Normal ventricular size. No evidence for hemorrhage seen. Sanchez-white differentiation is otherwise maintained. No midline shift. Patent basal cisterns. Vascular flow-voids are maintained. Clearparanasal sinuses. Clear mastoid air cells. MRI CERVICAL SPINE: There is straightening of the cervical spine. No marrow edema. Craniovertebral junction is intact. No cerebellar tonsillar herniationis seen. Patchy multifocal T2 hyperintense cord signal abnormalityidentified involving the dorsal column. No definite evidence for cord swelling orcord atrophy seen. C2-C3: There is small central disc herniation. No foraminal or canal narrowing seen. C3-C4: There is minimal posterior bulge. No foraminal or canal narrowing seen. C4-C5: There is diffuse disc bulge with central and left paracentraldisc herniation. Mild left foraminal narrowing. Mild canal narrowing seen. C5-C6: Posterior disc osteophyte, prominent on the left. Bilateral facet and uncovertebral hypertrophy. There is moderate to severe left and mildto moderate right foraminal narrowing. Mild canal narrowing seen. C6-C7: There is mild diffuse bulge. No foraminal or canal narrowingseen. C7-T1: No disc bulge. Mild left foraminal narrowing. No canal narrowing seen. T1-T2: No disc bulge. No foraminal or canal narrowing seen. IMPRESSION: 1.Postoperative changes in the left cerebellopontine angle. The left 7th and 8th nerve complexes could not be traced to the brain stem. Atrophyor scarring in this location is suspected. Right 7th and 8th nervecomplexes appear unremarkable. Left trigeminal nerve appears thickened compared to the right. Evaluation is limited without intravenous contrast. 2.Patchy multifocal T2 hyperintense cord signal abnormality involvingthe dorsal column of the cervical spinal cord. Also noted periaqueductalFLAIR hyperintensity and focal T2 and FLAIR hyperintensity involving theanterior cingulate gyrus. Finding is concerning for metabolic etiology. Suspect subacute combined degeneration of the cord due to vitamin [id number]. Edited by Kandice Alonzo on 08/19/2024 12:16 PM > Interpreting Provider: Yumiko Oneill MD on 08/19/2024 12:46 PM Keo Vega MD MR ORDERABLES * TREPONEMA PALLIDUM POS REFLX RPR (08/09/2024 7:40 AM RIVET STICKER) T pallidum Antibody (TP-PA) Non Reactive Non Reactive [facility] INSURANCE BILL Blood BLOOD SPECIMEN / Unknown 08/09/2024 7:40 AM RIVET STICKER 08/09/2024 Narrative [facility] INSURANCE BILL - 08/11/2024 9:08 PM RIVET STICKER Performed at: - Lab[address] [id number] Public Aid Eligibility Assistant: Hernandez Flaherty MD, Phone: [phone] Keo Vega MD LAB - SEROLOGY ORDER IVONNE Performing Organization Address City/[facility]/ZIP Co de Phone Number [facility] INSURANCE BILL [address] [place] [phone] * TSH REFLEX FREE T4 (08/09/2024 7:40 AM RIVET STICKER) Pathologist [facility] TSH 0.564 0.450 - 4.500 uIU/mL [facility] INSURANCE BILL Blood BLOOD SPECIMEN / Unknown 08/09/2024 7:40 AM RIVET STICKER 08/09/2024 Narrative [facility] INSURANCE BILL - 08/10/2024 7:09 AM RIVET STICKER Performed at: - Lab[address] [id number] Public Aid Eligibility Assistant: Pola Aguilera PhD, Phone: [phone] Keo Vega MD LAB - CHEMISTRY ORDE RABLES Performing Organization Address City/[facility]/ZIP Co de Phone Number [facility] INSURANCE BILL [address] [place] [address] * C-REACTIVE PROTEIN (08/09/2024 7:40 AM RIVET STICKER) C-Reactive Protein 1 0 - 10 mg/L [facility] INSURANCE BILL Blood BLOOD SPECIMEN / Unknown 08/09/2024 7:40 AM RIVET STICKER 08/09/2024 Narrative [facility] INSURANCE BILL - 08/10/2024 7:09 AM RIVET STICKER Performed at: [address] [id number] Public Aid Eligibility Assistant: Pola Aguilera PhD, Phone: [phone] Keo Vega MD LAB - CHEMISTRY NAWAF SINCLAIR Performing Organization Address [facility] de Phone Number [facility] INSURANCE BILL [address] [place] [address] * (ABNORMAL) IMMUNOFIXATION BLOOD (08/09/2024 7:38 AM RIVET STICKER) [facility] Immunofixation Result Comment [facility] INSURANCE BILL Comment:No monoclonality det ected. IgG Quantitative 1,261 586 - 1,602 mg/dL [facility] INSURANCE BILL IgA Quantitative 356(H) 87 - 352 mg/dL [facility] INSURANCE BILL IgM Quantitative 228(H) 26 - 217 mg/dL [facility] INSURANCE BILL Blood BLOOD SPECIMEN / Unknown 08/09/2024 7:38 AM RIVET STICKER 08/09/2024 Narrative [facility] INSURANCE BILL - 08/11/2024 3:10 PM RIVET STICKER Performed at: [address] [id number] Public Aid Eligibility Assistant: Pola Aguilera PhD, Phone: [phone] Keo Vega MD LAB - CHEMISTRY NAWAF SINCLAIR Performing Organization Address [facility] de Phone Number [facility] INSURANCE BILL [address] [place] [address] * (ABNORMAL) BETHANIE BLOOD SCREEN W/REFLEX TITER (08/09/2024 7:38 AM RIVET STICKER) [facility] BETHANIE Positive(A) [facility] INSURANCE BILL Comment: Negative <1:80 Borderline 1:80 Positive >1:80 Performed at: [address] [place] [id number] Public Aid Eligibility Assistant: Pola Aguilera PhD, Phone: [phone] Speckled Pattern 1:80 [facility] INSURANCE BILL Comment:ICAP nomenclature: A C-2,4,5,29 Note Comment [facility] INSURANCE BILL Comment: Pattern Potential Disease Association Homogeneous Systemic Lupus Erythematosus, Drug Induced Systemic Lupus Erythematosus, Chronic Autoimmune hepatitis, Juvenile Idiopathic Arthritis Speckled Sjogren Syndrome, Systemic Lupus Erythematosus, Subacute Cutaneous Lupus, Lupus, Congenital Heart Block, Mixed Connective Tissue Disease, Scleroderma-diffuse, Scleroderma-Autoimmune Myositis Overlap Syndrome, Systemic Lupus Wfusgajcbzmgd-Lrviwkftldb-Xwobccttis Myositis Overlap Syndrome, Systemic Autoimmune Rheumatic Disease, Undifferentiated Connective Tissue Disease Nucleolar Systemic Sclerosis, Scleroderma-Autoimmune Myositis Overlap Syndrome, Sjogren Syndrome, Raynaud phenomenon, Pulmonary Arterial Hypertension, Systemic Autoimmune Rheumatic Disease, Cancer Centromere Scleroderma-CREST, Limited Cutaneous SSc, Raynaud's Phenomenon, Primary Biliary Cholangitis Nuclear Dot Primary Biliary Cholangitis Nuclear Primary Biliary Cholangitis, Autoimmune Membrane Hepatitis/Liver disease, Systemic Autoimmune Rheumatic Disease, Autoimmune Cytopenias, Linear Scleroderma, Antiphospholipid Syndrome Blood BLOOD SPECIMEN / Unknown 08/09/2024 7:38 AM RIVET STICKER 08/09/2024 Narrative [facility] INSURANCE BILL - 08/12/2024 1:09 PM RIVET STICKER Performed at: [address] [id number] Public Aid Eligibility Assistant: Pola Aguilera PhD, Phone: [phone] Keo Vega MD LAB - CHEMISTRY NAWAF SINCLAIR Performing Organization Address [facility] Co de Phone Number [facility] INSURANCE BILL [address] [place] [address] * ERYTHROCYTE SEDIMENTATION RATE (08/09/2024 7:38 AM RIVET STICKER) Erythrocyte Sedimentation Rate Westergren 3 0 - 40 mm/hr [facility] INSURANCE BILL Blood BLOOD SPECIMEN / Unknown 08/09/2024 7:38 AM RIVET STICKER 08/09/2024 Narrative [facility] INSURANCE BILL - 08/10/2024 7:09 AM RIVET STICKER Performed at: [address] [id number] Public Aid Eligibility Assistant: Pola Aguilera PhD, Phone: [phone] Keo Vega MD LAB - HEMATOLOGY ORD ERABLES Performing Organization Address [facility] de Phone Number [facility] INSURANCE BILL [address] [place] [address] * CK BLOOD (08/09/2024 7:38 AM RIVET STICKER) CK 87 32 - 182 U/L [facility] INSURANCE BILL Blood BLOOD SPECIMEN / Unknown 08/09/2024 7:38 AM RIVET STICKER 08/09/2024 Narrative [facility] INSURANCE BILL - 08/10/2024 7:09 AM RIVET STICKER Performed at: [address] [id number] Public Aid Eligibility Assistant: Pola Aguilera PhD, Phone: [phone] Keo Vega MD LAB - CHEMISTRY NAWAF SINCLAIR Performing Organization Address [facility] Phone Number [facility] INSURANCE BILL [address] [place] [address] * VITAMIN B12 FOLATE PANEL (08/09/2024 7:38 AM RIVET STICKER) Pathologist [facility] Vitamin B12 992 232 - 1,245 pg/mL [facility] INSURANCE BILL Folate 13.2 >3.0 ng/mL [facility] INSURANCE BILL Comment: A serum folate concentration of less than 3.1 ng/mL is considered to represent clinical deficiency. Blood BLOOD SPECIMEN / Unknown 08/09/2024 7:38 AM RIVET STICKER 08/09/2024 Narrative [facility] INSURANCE BILL - 08/10/2024 7:09 AM RIVET STICKER Performed at: [address] [id number] Public Aid Eligibility Assistant: Pola Aguilera PhD, Phone: [phone] Keo Vega MD LAB - CHEMISTRY NAWAF SINCLAIR Performing Organization Address [facility] Phone Number [facility] INSURANCE BILL [address] [place] [address] * PROTEIN ELECTROPHORESIS BLOOD (08/09/2024 7:38 AM RIVET STICKER) Pathologist [facility] Protein Total 7.5 6.0 - 8.5 g/dL [facility] INSURANCE BILL Albumin 4.0 2.9 - 4.4 g/dL [facility] INSURANCE BILL Alpha-1 Globulin 0.3 0.0 - 0.4 g/dL [facility] INSURANCE BILL Sfcat-7-Pmtbghno 0.8 0.4 - 1.0 g/dL [facility] INSURANCE BILL Beta-Globulin 1.1 0.7 - 1.3 g/dL [facility] INSURANCE BILL Gamma Globulin 1.3 0.4 - 1.8 g/dL [facility] INSURANCE BILL M-Omar Not Observed Not Observed g/dL [facility] INSURANCE BILL Globulin Total 3.5 2.2 - 3.9 g/dL [facility] INSURANCE BILL Albumin/Globulin Ratio 1.1 0.7 - 1.7 [facility] INSURANCE BILL Please Note Comment [facility] INSURANCE BILL Comment: Protein electrophoresis scan will follow via computer, mail, or jewelry casting model maker apprentice delivery. P E Interpretation, S Comment [facility] INSURANCE BILL Comment: The SPE pattern appears unremarkable. Evidence of monoclonal protein is not apparent. Blood BLOOD SPECIMEN / Unknown 08/09/2024 7:38 AM RIVET STICKER 08/09/2024 Narrative [facility] INSURANCE BILL - 08/10/2024 5:09 PM RIVET STICKER Performed at: 01 - [address] [id number] Public Aid Eligibility Assistant: Pola Aguilera PhD, Phone: [phone] Keo Vega MD LAB - CHEMISTRY NAWAF SINCLAIR [facility] INSURANCE BILL [address] [place] [address] from Last 3 Months Care Teams Manipulative Therapy Specialist Relationship Specialty Start Date End Date Shavon Lynch PA [address] [place] [address] PCP - General Physician Picking Belt Operator 10/28/22
--- OUTSIDE RECORDS SUMMARY | 2024-08-29 10:14 | XMS_ITS | Clinical Summary ---
Author Organization [facility] Address [address] [place] [address] Care Team Providers Care Script Writer Name Role Phone Shavon Lynch Primary Care Pr ovider Source Comments [facility],non-owned Affiliates and Associated Physician Practices is amultiple site organization consisting of ambulatory clinics and hospital sitesin [place], [place], [place] and [place]. This disclosure is being madepursuant to the Care Everywhere program and may not contain all information available regarding this patient. Last updated 18.[facility] Allergies Active Allergy Reactions Criticality Noted Date [...] Sector visual field defect of left eye Degeneration of cervical intervertebral disc Degeneration of [...] Date Resolved Date Acute sinusitis 09/10/2021 11/05/2021 Encounters Date Type Department Care Team Description 08/19/2024 8:51 AM PLATER SUPERVISOR - 08/19/2024 11:59 PM PLATER SUPERVISOR Hospital Encounter [facility] Imaging Services - [address] [address] Keo Vega MD Discharge Disposition: Home or Self Care 08/19/2024 8:51 AM PLATER SUPERVISOR - 08/19/2024 11:59 PM PLATER SUPERVISOR Hospital Encounter [facility] - [address] [address] Keo Vega MD Discharge Disposition: Home or Self Care 08/04/2024 1:00 PM PLATER SUPERVISOR Office Visit [facility] [address] [facility] [address] [place] [address] Keo Vega MD Trigeminal neuralgia (Primary Dx); Numbness; Neck pain; Migraine without aura and without status migrainosus, not intractable from Last 3 Months Immunizations Name Administration Dates Next Due FLU VACCINE TRI IIV3 SPLIT PF IM (FLUVIRIN) 02/14 HEP A VACCINE, ADULT 01/07/2000,06/21/1999 INFLUENZA VACCINE, CELL CULT URE, QUADR. (FLUCELVAX QUADRIVALENT; 6MO+), 0.5 ML (CCIIV4) 03/29/2019 INFLUENZA VACCINE, QUADR. (F LUZONE; FLULAVAL; FLUARIX; AFLURIA QUADRIVALENT; 6MO+), 0.5 ML (IIV4) 03/12/2017 MMR 10/14/1993 PNEUMOCOCCAL PPSV23 03/13/2003,04/02/1994 TDAP (7yrs+) 11/23/2021,05/15/2015 Td (Adult), 2 Lf Tetanus Toxoid, Adsorbed, Pf Family History Medical History Relation Name Comments CVA Brother Cancer - Lung Brother Cancer - Other Brother Hypertension Brother CAD (Coronary Artery Disease) Father CAD (Coronary Artery Disease) Mother Relation Name Status Comments Brother Father Mother Social History Tobacco Use Types Packs/Day Years [...] Comments Blood Pressure 154/84 08/04/2024 12:56 PM PLATER SUPERVISOR Pulse 74 08/04/2024 12:56 PM PLATER SUPERVISOR Temperature 36.1 C (97 F) 10/28/2022 10:55 AM CDT Respiratory Rate 14 01/08/2015 9:45 AM CDT Oxygen Saturation 99% 08/04/2024 12:56 PM PLATER SUPERVISOR Inhaled Oxygen Concentration - - Weight 73.9 kg (163 lb) 08/04/2024 12:56 PM PLATER SUPERVISOR Height 157.5 cm (5' 2 ) 10/28/2022 10:55 AM CDT Body Mass Index 29.81 10/28/2022 10:55 AM CDT Plan of Treatment Upcoming Encounters Date Type Department Care Team (Late st Contact Info) Description 11/10/2024 10:20 AM CDT Office Visit [facility] [address] [facility] [address] [place] [phone] [place] [address] [address] Health Maintenance Due Date Last Done Comments BONE DENSITY TESTING 1955 COLON MONITORING 1955 COLONOSCOPY - COLON CA SCREENING 1955 CT COLONOGRAPHY - COLON CA SCREENING 1955 FIT - COLON CA SCREENING 1955 FLEX SIG - COLON CA SCREENING 1955 MAMMOGRAM 1955 MEDICARE AWV 12 MONTHS 1955 HEPATITIS C SCREENING 03/06/1973 PNEUMOCOCCAL VACCINE 50+ (2 of 2 - PCV) 2005 03/13/2003, 04/02/1994 ZOSTER VACCINE (1 of 2) 2005 Respiratory Syncytial Virus (RSV) Vaccine Pt: or over 60 yrs (1 - Risk 60-74 years 1-dose series) 2015 COVID-19 VACCINE (2 - 2023-2 5 season) 2024 12/03/2021 INFLUENZA VACCINE (#1) 2024 9, 03/12/2017, 03/08/2015 DEPRESSION SCREENING 06/15/2024 COLOGUARD (AGES 45-75) - COL ON CA SCREENING 10/18/2026 10/19/2023 Colorectal Cancer Screening 10/18/2026 DTAP/TDAP/TD VACCINES (3 - T d or Tdap) 11/24/2031 11/23/2021, 05/15/2015, 11/25/1995 HEPATITIS B VACCINE Aged Out No longe r eligible based on patient's age to complete this topic HIB VACCINE Aged Out No longer eligi ble based on patient's age to complete this topic HPV VACCINE Aged Out No longer eligi ble based on patient's age to complete this topic MENINGOCOCCAL (Group B) VACCINE SHARED DECISION-MAKING Aged Out No longer eligible based on patient's age to complete this topic MENINGOCOCCAL GROUPS A/C/Y/W VACCINE Aged Out No longer eligible b ased on patient's age to complete this topic Procedures Procedure Name Priority Date/Time Associated Diagnosis Comments MRI IAC AND BRAIN WO CONT Routine 08/19/2024 11:42 AM PLATER SUPERVISOR Trigeminal neuralgia Migraine without aura and without status migrainosus, not intractable MRI CERVICAL SPINE WO CONTRAST Routine 08/19/2024 11:18 AM PLATER SUPERVISOR Numbness Neck pain TREPONEMA PALLIDUM POS REFLX RPR Routine 08/09/2024 7:40 AM PLATER SUPERVISOR Numbness TSH REFLEX FREE T4 Routine 08/09/2024 7: 40 AM PLATER SUPERVISOR Numbness C-REACTIVE PROTEIN Routine 08/09/2024 7: 40 AM PLATER SUPERVISOR Numbness IMMUNOFIXATION BLOOD Routine 08/09/2024 7:38 AM PLATER SUPERVISOR Numbness PROTEIN ELECTROPHORESIS BLOOD Routine 08/09/2024 7:38 AM PLATER SUPERVISOR Numbness CK BLOOD Routine 08/09/2024 7:38 AM PLATER SUPERVISOR Numbness VITAMIN B12 FOLATE PANEL Routine 08/09/2024 7:38 AM PLATER SUPERVISOR Numbness BETHANIE BLOOD SCREEN W/REFLEX TITER Routine 08/09/2024 7:38 AM PLATER SUPERVISOR Numbness ERYTHROCYTE SEDIMENTATION RATE Routine 08/09/2024 7:38 AM PLATER SUPERVISOR Numbness from Last 3 Months Results * MRI BRAIN AND IAC WO CONT (08/19/2024 11:42 AM PLATER SUPERVISOR) Anatomical Region Laterality Modality Head Magnetic Resonan ce 08/19/2024 11:2 2 AM PLATER SUPERVISOR Impressions 08/19/2024 12:46 PM PLATER SUPERVISOR IMPRESSION: 1.Postoperative changes in the left cerebellopontine [...] 08/19/2024 12:46 PM Narrative 08/19/2024 12:46 PM PLATER SUPERVISOR PROCEDURE: MRI CERVICAL SPINE WO CONTRAST, MRI [...] degeneration of the cord due to vitamin [id number]. Edited by Kandice Alonzo on 08/19/2024 12:16 PM > Interpreting Provider: Yumiko Oneill MD on 08/19/2024 12:46 PM Keo Vega MD MR ORDERABLES * MRI Cervical Spine Wo Contrast (08/19/2024 11:18 AM PLATER SUPERVISOR) Anatomical Region Laterality Modality Pelvis Magnetic Resonan ce 08/19/2024 11:2 2 AM PLATER SUPERVISOR Impressions 08/19/2024 12:46 PM PLATER SUPERVISOR IMPRESSION: 1.Postoperative changes in the left cerebellopontine [...] 08/19/2024 12:46 PM Narrative 08/19/2024 12:46 PM PLATER SUPERVISOR PROCEDURE: MRI CERVICAL SPINE WO CONTRAST, MRI [...] degeneration of the cord due to vitamin V20zizqydfbga. Edited by Kandice Alonzo on 08/19/2024 12:16 PM > Interpreting Provider: Yumiko Oneill MD on 08/19/2024 12:46 PM Keo Vega MD MR ORDERABLES * TREPONEMA PALLIDUM POS REFLX RPR (08/09/2024 7:40 AM PLATER SUPERVISOR) T pallidum Antibody (TP-PA) Non Reactive Non Reactive [facility] INSURANCE BILL Blood BLOOD SPECIMEN / Unknown 08/09/2024 7:40 AM PLATER SUPERVISOR 08/09/2024 Narrative [facility] INSURANCE BILL - 08/11/2024 9:08 PM PLATER SUPERVISOR Performed at: [address] [id number] Disease And Insect Control Boss: Hernandez Flaherty MD, Phone: [phone] Keo Vega MD LAB - SEROLOGY ORDER IVONNE Performing Organization Address [facility] Co de Phone Number [facility] INSURANCE BILL [address] [place] [address] * TSH REFLEX FREE T4 (08/09/2024 7:40 AM PLATER SUPERVISOR) Pathologist [facility] TSH 0.564 0.450 - 4.500 uIU/mL [facility] INSURANCE BILL Blood BLOOD SPECIMEN / Unknown 08/09/2024 7:40 AM PLATER SUPERVISOR 08/09/2024 Narrative [facility] INSURANCE BILL - 08/10/2024 7:09 AM PLATER SUPERVISOR Performed at: [address] [id number] Disease And Insect Control Boss: Pola Aguilera PhD, Phone: [phone] Keo Vega MD LAB - CHEMISTRY ORDE YAHIR [facility] INSURANCE BILL [address] [place] [address] * C-REACTIVE PROTEIN (08/09/2024 7:40 AM PLATER SUPERVISOR) Pathologist [facility] C-Reactive Protein 1 0 - 10 mg/L [facility] INSURANCE BILL Blood BLOOD SPECIMEN / Unknown 08/09/2024 7:40 AM PLATER SUPERVISOR 08/09/2024 Narrative [facility] INSURANCE BILL - 08/10/2024 7:09 AM PLATER SUPERVISOR Performed at: - [address] [id number] Disease And Insect Control Boss: Pola Aguilera PhD, Phone: [phone] Keo Vega MD LAB - CHEMISTRY NAWAF SINCLAIR Performing Organization Address [facility] de Phone Number [facility] INSURANCE BILL [address] [place] [address] * (ABNORMAL) IMMUNOFIXATION BLOOD (08/09/2024 7:38 AM PLATER SUPERVISOR) [facility] Immunofixation Result Comment [facility] INSURANCE BILL Comment:No monoclonality det ected. IgG Quantitative 1,261 586 - 1,602 mg/dL [facility] INSURANCE BILL IgA Quantitative 356(H) 87 - 352 mg/dL [facility] INSURANCE BILL IgM Quantitative 228(H) 26 - 217 mg/dL [facility] INSURANCE BILL Blood BLOOD SPECIMEN / Unknown 08/09/2024 7:38 AM PLATER SUPERVISOR 08/09/2024 Narrative [facility] INSURANCE BILL - 08/11/2024 3:10 PM PLATER SUPERVISOR Performed at: - [address] [id number] Disease And Insect Control Boss: Pola Aguilera PhD, Phone: [phone] Keo Vega MD LAB - CHEMISTRY NAWAF SINCLAIR Performing Organization Address [facility] de Phone Number [facility] INSURANCE BILL [address] [place] [address] * (ABNORMAL) BETHANIE BLOOD SCREEN W/REFLEX TITER (08/09/2024 7:38 AM PLATER SUPERVISOR) [facility] BETHANIE Positive(A) [facility] INSURANCE BILL Comment: Negative <1:80 Borderline 1:80 Positive >1:80 Performed at: - [address] [id number] Disease And Insect Control Boss: Pola Aguilera PhD, Phone: [phone] Speckled Pattern 1:80 [facility] INSURANCE BILL Comment:ICAP nomenclature: A C-2,4,5,29 Note Comment [facility] INSURANCE BILL Comment: Pattern Potential Disease Association Homogeneous Systemic Lupus Erythematosus, Drug Induced Systemic Lupus Erythematosus, Chronic Autoimmune hepatitis, Juvenile Idiopathic Arthritis Speckled Sjogren Syndrome, Systemic Lupus Erythematosus, Subacute Cutaneous Lupus, Lupus, Congenital Heart Block, Mixed Connective Tissue Disease, Scleroderma-diffuse, Scleroderma-Autoimmune Myositis Overlap Syndrome, Systemic Lupus Jseyfalsfibwt-Ddxilqereos-Ycppsmdswz Myositis Overlap Syndrome, Systemic Autoimmune Rheumatic Disease, [...] BLOOD SPECIMEN / Unknown 08/09/2024 7:38 AM PLATER SUPERVISOR 08/09/2024 Narrative [facility] INSURANCE BILL - 08/12/2024 1:09 PM PLATER SUPERVISOR Performed at: - [address] [id number] Disease And Insect Control Boss: Pola Aguilera PhD, Phone: [phone] Keo Vega MD LAB - CHEMISTRY ORDE RABLES Performing Organization Address City/[facility] Co de Phone Number [facility] INSURANCE BILL [address] [place] [address] * ERYTHROCYTE SEDIMENTATION RATE (08/09/2024 7:38 AM PLATER SUPERVISOR) Erythrocyte Sedimentation Rate Westergren 3 0 - 40 mm/hr [facility] INSURANCE BILL Blood BLOOD SPECIMEN / Unknown 08/09/2024 7:38 AM PLATER SUPERVISOR 08/09/2024 Narrative [facility] INSURANCE BILL - 08/10/2024 7:09 AM PLATER SUPERVISOR Performed at: [address] [id number] Disease And Insect Control Boss: Pola Aguilera PhD, Phone: [phone] Keo Vega MD LAB - HEMATOLOGY ORD ERABLES Performing Organization Address City/[facility]/ZIP Co de Phone Number [facility] INSURANCE BILL [address] [place] [address] * CK BLOOD (08/09/2024 7:38 AM PLATER SUPERVISOR) CK 87 32 - 182 U/L [facility] INSURANCE BILL Blood BLOOD SPECIMEN / Unknown 08/09/2024 7:38 AM PLATER SUPERVISOR 08/09/2024 Narrative [facility] INSURANCE BILL - 08/10/2024 7:09 AM PLATER SUPERVISOR Performed at: - [address] [id number] Disease And Insect Control Boss: Pola Aguilera PhD, Phone: [phone] Keo Vega MD LAB - CHEMISTRY NAWAF SINCLAIR Performing Organization Address [facility] Co de Phone Number [facility] INSURANCE BILL [address] [place] [address] * VITAMIN B12 FOLATE PANEL (08/09/2024 7:38 AM PLATER SUPERVISOR) Pathologist [facility] Vitamin B12 992 232 - 1,245 pg/mL [facility] INSURANCE BILL Folate 13.2 >3.0 ng/mL [facility] INSURANCE BILL Comment: A serum folate concentration of less than 3.1 ng/mL is considered to represent clinical deficiency. Blood BLOOD SPECIMEN / Unknown 08/09/2024 7:38 AM PLATER SUPERVISOR 08/09/2024 Narrative [facility] INSURANCE BILL - 08/10/2024 7:09 AM PLATER SUPERVISOR Performed at: - [address] [id number] Disease And Insect Control Boss: Pola Aguilera PhD, Phone: [phone] Keo Vega MD LAB - CHEMISTRY NAWAF SINCLAIR Performing Organization Address [facility] de Phone Number [facility] INSURANCE BILL [address] [place] [address] * PROTEIN ELECTROPHORESIS BLOOD (08/09/2024 7:38 AM PLATER SUPERVISOR) Pathologist [facility] Protein Total 7.5 6.0 - 8.5 g/dL [facility] INSURANCE BILL Albumin 4.0 2.9 - 4.4 g/dL [facility] INSURANCE BILL Alpha-1 Globulin 0.3 0.0 - 0.4 g/dL [facility] INSURANCE BILL Ublkw-0-Togdsqnu 0.8 0.4 - 1.0 g/dL [facility] INSURANCE [...] scan will follow via computer, mail, or cosmetician apprentice delivery. P E Interpretation, S Comment [facility] INSURANCE BILL Comment: The SPE pattern appears unremarkable. Evidence of monoclonal protein is not apparent. Blood BLOOD SPECIMEN / Unknown 08/09/2024 7:38 AM PLATER SUPERVISOR 08/09/2024 Narrative [facility] INSURANCE BILL - 08/10/2024 5:09 PM PLATER SUPERVISOR Performed at: 01 - [address] [id number] Disease And Insect Control Boss: Pola Aguilera PhD, Phone: [phone] Keo Vega MD LAB - CHEMISTRY NAWAF SINCLAIR [facility] Organization Address City/State/ZIP Co de Phone Number [facility] INSURANCE BILL [address] [place] [address] from Last 3 Months Care Teams Script Writer Relationship Specialty Start Date End Date Shavon Lynch PA [address] [place] [address] PCP - General Physician Explosives Detonator 10/28/22
--- OUTSIDE RECORDS SUMMARY | 2024-08-29 10:14 | XMS_ITS | Encounter Summary ---
Author Organization [facility] Address [address] [place] [address] Care Team Providers Care Lathe Puller Name Role Phone Shavon Lynch Primary Care Pr ovider Reason for Visit * Reason Onset Date Comments MEDICATION REFILL 12/09/2023 Encounter Details Date Type Department Care Team (Late st Contact Info) Description 12/09/2023 Telephone [facility] - Neurology [address] [place] [address], [place] [address] Inocencia Wade MD [address] [place] [address] [place] [id number] MEDICATION REFILL Social History Tobacco Use Types Packs/Day Years [...] on file documented as of this encounter Miscellaneous Notes * Telephone Encounter - Marely Butler - 12/09/2023 9:22 AM CDT Patient called in requesting a Med refill. Drug type:carbamazepineER 300 mg Pharmacy:[facility] Patient call back number: [phone] . Upcoming appointment scheduled for : 09/13/24 documented in this encounter Plan of Treatment Upcoming Encounters Date Type Department Care Team (Late st Contact Info) Description 11/10/2024 10:20 AM CDT Office Visit On license of [facility] [address] [facility] [address] [place] [phone] [place] [address] [address] [place] [address] documented as of this encounter Visit Diagnoses Not on filedocumented in this encounter Care Teams Lathe Puller Relationship Specialty Start Date End Date Shavon Lynch PA [address] [place] [phone] PCP - General Physician Spa Experience Coordinator 10/28/22 documented as of this encounter
--- OUTSIDE RECORDS SUMMARY | 2024-08-29 10:14 | XMS_ITS | Referral Summary ---
Author Organization [facility] [address] Address [address] [place] [address] Care Team Providers Care Bath Design Sales Consultant Name Role Phone Gwendolyn Pulido NP Primary Care Provider [phone] Encounters Date Type Department Care Team Description 07/13/2024 11:00 AM SALES AND MARKETING REPRESENTATIVE Office Visit [facility] Sleep [address] 6[address] [place] [address] Mac Schwartz MD IRLANDA on CPAP (Primary Dx); Dream enactment behavior; Insomnia due to medical condition; RLS (restless legs syndrome) from Last 3 Months Allergies Active Allergy [...] milliliter by intramuscular route every month 0 08/27/2 012 Active carBAMazepine ER (CARBATROL) 300 mg 12 hr capsule take 1 capsule (300MG) by oral route every 12 hours 0 Active cholecalciferol (VITAMIN D-3) 2,000 unit tabletIndications:Vitam in D Deficiency Take 1 tablet (2,000 Units total) by mouth nightly Active syringe, disposable, 3 mL syringe Active LORazepam (ATIVAN) 0.5 mg tabletIndications:anxie ty Take 1 tablet (0.5 mg total) by mouth every 6 (six) hours as needed for anxiety Active levothyroxine (SYNTHROID, LEVOTHROID) 175 mcg tabletIndications:hypot hyroidism Take 1 tablet (175 mcg total) by mouth lease broker before breakfast Active acetaminophen 500 mg capsule [...] THE SKIN EVERY MONTH 1 mL 2 Active Active Problems Problem Noted Date Diagnosed Date 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 Follow up with PCP. [...] MTX and Plaquinil; Will discuss with pts jewelry bench worker Dr. Bony otoole [phone] Fatigue 07/08/2023 Female pelvic pain 07/08/2023 Hypercalcemia 07/08/2023 Hyperlipidemia 09/11/2022 Encounter for long-term (cur rent) use of high-risk medication 07/16/2022 Assessment & Plan (04/21/2024 9:00 AM SALES AND MARKETING REPRESENTATIVE): Long-term use of high-risk medication requiring regular monitoring. Labs ordered, no s/s of med tox or infection. Encouraged to work with PCP to make sure all recommended cancer screens and vaccinations are complete. Avoid live-vaccines unless reviewed with jewelry bench worker first. Assessment & Plan (07/16/2022 2:27 PM SALES AND MARKETING REPRESENTATIVE): Long-term use of high-risk medication requiring regular monitoring. Labs ordered, no s/s of med tox or infection. Encouraged to work with PCP to make sure all recommended cancer screens and vaccinations are complete. Avoid live-vaccines unless reviewed with jewelry bench worker first. Did have a follow up MRI [...] (06/29/2018): Added automatically from request for surgery [id number] Crohn's disease of colon 10/22/2015 Overview (09/18/2016): Crohn's colitis Gastroesophageal reflux disease 10/22/2015 Overview (09/19/2016): ESOPHAGEAL REFLUX Rheumatoid arthritis involving multiple joints 0 10/22/2015 Overview (09/19/2016): RHEUMATOID ARTHRITIS Assessment & Plan (04/21/2024 8:59 AM SALES AND MARKETING REPRESENTATIVE): Stable on simponi and prednisone 5 mg daily, continue same, continue to monitor. Encourage work toward weaning off prednisone, down to 2.5 mg daily and then off / just prn. Encourage calcium/vitamin D and weight bearing exercise to help with osteoporosis reduction. Assessment & Plan (07/16/2022 2:28 PM SALES AND MARKETING REPRESENTATIVE): Stable on simponi and prednisone 5 mg [...] 02/05/2010 Trigeminal neuralgia 02/05/2010 Vertigo, peripheral 02/05/2010 Immunizations Immunization Administration Dates Next Due Hep [...] Split, Preservative Free, Intradermal 03/28/2015 MMR 10/14/1993 Pfizer SARS-CoV-2 Monovalent Vaccination (12+ Yrs) MEYER-READY TO USE 12/03/2021 Pneumococcal Polysaccharide PPV23 03/13/2003, Td, Unspecified 06/15/2018 Td, adsorbed 11/25/1995 Tdap 11/23/2021,05/15/2015 Social History Tobacco Use Types Packs/Day Years [...] on file Legal Sex Female 5:17 PM SALES AND MARKETING REPRESENTATIVE Gender Identity Not on file Sexual Orientation Not on file Last Filed Vital Signs Vital Sign Reading Time Taken Comments Blood Pressure 156/89 07/13/2024 10:54 AM SALES AND MARKETING REPRESENTATIVE Pulse 68 07/13/2024 10:54 AM SALES AND MARKETING REPRESENTATIVE Temperature 36.4 C (97.6 F) 07/13/2024 10:54 AM SALES AND MARKETING REPRESENTATIVE Respiratory Rate 16 01/30/2023 11:27 AM CDT Oxygen Saturation 99% 07/13/2024 10:54 AM SALES AND MARKETING REPRESENTATIVE Inhaled Oxygen Concentration - - Weight 76.9 kg (169 lb 8 oz) 07/13/2024 10:54 AM SALES AND MARKETING REPRESENTATIVE Height 157.5 cm (5' 2 ) 07/13/2024 10:54 AM SALES AND MARKETING REPRESENTATIVE Body Mass Index 31 07/13/2024 10:54 AM SALES AND MARKETING REPRESENTATIVE Plan of Treatment Not on file Procedures Procedure Name Priority Date/Time Associated Diagnosis [...] RESULTS Serum 08/30/2015 11:5 8 AM CDT us Bony Otoole MD LAB BLOOD ORDERABLES Final R esult HISTORICAL RESULTS from Last 3 Months or Most Recently Relevant to Health Maintenance Insurance [employer] FOR [facility] MEDICARE MEDICARE FOR LIFE MEDICARE FOR LIFE Advance Directives For more information, please contact: [phone] * Full Code (Latest Code Status on File) Date Activated Date Inactivated Comments 07/23/2018 10:37 AM 07/23/2018 9:42 PM Care Teams Bath Design Sales Consultant Relationship Specialty Start Date End Date Gwendolyn Pulido, CBX OPERATOR [address] [place] [address] PCP - General Family Medicine 04/21/24
--- OUTSIDE RECORDS SUMMARY | 2024-08-29 10:14 | XMS_ITS | Encounter Summary ---
Author Organization [facility] Address [address] [place] [address] Phone Care Team Providers Care Home Health Occupational Therapist Name Role Phone Angela Traore MD Primary Care Provide r Hair Mcdaniels MD Primary Care Provider [phone] Dong Cutler MD Primary Care Provider Kandice Alberto MD Primary Care Provider [phone] Shavon George Primary Care Pr ovider Gwendolyn Pulido NP Primary Care Provider [phone] Encounter Details Date Type Department Care Team (Late st Contact Info) Description 08/14/2017 Orders Only [facility] ProviderZeeshan MD [address] [place] [id number] Social History Tobacco Use Types Packs/Day Years Used Date Smoking Tobacco: Never Smokeless Tobacco: Never Alcohol Use Standard Drinks/Week Comments No 0 (1 standard drink = 0.6 oz pur e alcohol) Comments Unknown Sex and Gender Information Value Date Recorded Sex Assigned at Not on file Legal Sex Female 5:17 PM MILITARY PAY CLERK Gender Identity Not on file Sexual Orientation Not on file documented as of this encounter Plan of Treatment Not on file documented as of this encounter Procedures Procedure Name Priority Date/Time Associated Diagnosis Comments DISCHARGE LABORATORY CUMULATIVE REPORT 08/14/2017 12:00 AM MILITARY PAY CLERK documented in this encounter Results * DISCHARGE LABORATORY CUMULATIVE REPORT (08/14/2017 12:00 AM MILITARY PAY CLERK) Narrative 08/14/2017 12:00 AM MILITARY PAY CLERK Ordered by an unspecified provider. us Historical Provider LAB BLOOD ORDERABLES Nayeli l Result documented in this encounter Visit Diagnoses Not on filedocumented in this encounter Care Teams Home Health Occupational Therapist Relationship Specialty Start Date End Date Angela Traore MD [address] [place], [place] [id number] PCP - General 08/14/17 12/10/17 Hair Mcdaniels MD [address] [place] [address] PCP - General Internal Medicine 12/11/17 07/05/19 Dong Cutler MD [address] [place] [address] PCP - General Internal Medicine 07/06/19 02/01/20 Kandice Alberto MD [address] [place] [id number] PCP - General Internal Medicine 02/02/20 04/02/20 Shavon George PA [address] [place] [id number] PCP - General Physician Pharmacy General Manager 04/03/20 04/20/24 Gwendolyn Pulido, STILL CLEANER TUBE [address] [place] [address] PCP - General Family Medicine 04/21/24 documented as of this encounter
--- OUTSIDE RECORDS SUMMARY | 2024-08-29 10:14 | XMS_ITS | Clinical Summary ---
Author Organization [facility] Address [address] [place] [address] Phone Care Team Providers Care Flat Optical Element Maker Name Role Phone Ankit Smith MD Primary Care Provider Allergies Active Allergy Reactions Criticality Noted Date Comments Iodinated Contrast Media Unknown 02/13/2013 Penicillins Unknown 02/13/2013 Medications levothyroxine (SYNTHROID) 200 MCG PO TABS Take 200 mcg by mouth daily. Active methotrexate 2.5 MG PO TABS Take 2.5 mg by mouth every 7 days. Active predniSONE 5 MG PO TABS Take 5 mg by mouth daily. Use as directed. Active CarBAMazepine (CARBATROL PO) Take by mouth. Active Topiramate (TOPAMAX) 50 MG PO TABS Take 50 mg by mouth 2 times daily. Active topiramate (TOPAMAX) 25 MG PO TABS Take 25 mg by mouth 2 times daily. Active Mesalamine (ASACOL PO) Take by mouth. Active AmLODIPine Besylate (NORVASC PO) Take by mouth. Active LOSARTAN POTASSIUM PO Take by mouth. Active FISH OIL by Does not apply route. Active folic acid 1 MG PO TABS Take 1 mg by mouth daily. Active Social History Tobacco Use Types Packs/Day Years Used Date Smoking Tobacco: Never Assessed Comments Unknown Sex and Gender Information Value Date Recorded Sex Assigned at Not on file Legal Sex Female 2:09 PM CDT Gender Identity Not on file Sexual Orientation Not on file Last Filed Vital Signs Vital Sign Reading Time Taken Comments Blood Pressure 139/68 02/13/2013 2:11 PM CDT Pulse 77 02/13/2013 2:11 PM CDT Temperature 36.4 C (97.5 F) 02/13/2013 2:11 PM CDT Respiratory Rate 18 02/13/2013 2:11 PM CDT Oxygen Saturation 99% 02/13/2013 2:11 PM CDT Inhaled Oxygen Concentration - - Weight 62.6 kg (138 lb) 02/13/2013 2:11 PM CDT Height 157.5 cm (5' 2 ) 02/13/2013 2:11 PM CDT Body Mass Index 25.24 02/13/2013 2:11 PM CDT Plan of Treatment Health Maintenance Due Date Last Done Comments DEXA Bone Density 1955 Hepatitis C Virus (HCV) Screening 1955 TdaP Immunization 1955 Zoster Immunization (1 of 2) 1974 Colonoscopy 2000 Colorectal Cancer Screening 2000 Cologuard 2005 Immunochemical Fecal Occult Blood 2005 Mammogram 2005 Pneumococcal Immunization (5 0+ years) (1 of 1 - PCV) 2005 Respiratory Syncytial Virus (RSV) Immunization (Adult) (1 - Risk 60-74 years 1-dose series) 2015 Influenza Immunization (#1) 02/14/202402/15, 03/29/2019 SARS-COV-2 Immunization ( - 2023- season) 2024 03/01/2021, 08/30/2020, 08/09/2020 Hepatitis B Immunization Aged Out No longer eligible based on patient's age to complete this topic Meningococcal Immunization (ACWY) Aged Out No longer eligible b ased on patient's age to complete this topic Rotavirus Immunization Aged Out No lo nger eligible based on patient's age to complete this topic Care Teams Flat Optical Element Maker Relationship Specialty Start Date End Date Ankit Smith MD [address] [place] [address] PCP - General Internal Medicine 02/13/13
--- OUTSIDE RECORDS SUMMARY | 2024-08-29 10:14 | XMS_ITS | Patient Health Summary ---
Author Organization [facility] Address [address] [place] [address] Care Team Providers Care Novelty Twister Tender Name Role Phone Shavon Lynch Primary Care Pr ovider Note from [facility],non-owned Affiliates and Associated Physician Practices is amultiple site organization consisting of ambulatory clinics and hospital sitesin [place], [place], [place] and [place]. This disclosure is being madepursuant to the Care Everywhere program and may not contain all information available regarding this patient. Last updated 18.[facility] Allergies * Aspirin(Unknown) * Erythromycin(Rash) -Medium Criticality * Iodides(Urticaria,Shortness of Breath) -High Criticality * Lactose(Other) -High Criticality * Penicillins(Urticaria,Rash) -High Criticality * Povidone Iodine(Unknown) Medications * Be aware that medications may not be up to date on this document. Alwaysverify current medications with the patient. * losartan (Cozaar) 25 MG tablet(Started 11/11/2017) Take 4 (four) tablets by mouth once daily * traZODone (Desyrel) 50 MG tablet(Started 11/19/2017) Take 1 (one) tablet by mouth nightly as needed * vitamin D, cholecalciferol, 2000 UNITS tablet(Started 10/21/2017) 1 (one) tablet once daily * amLODIPine (Norvasc) 10 MG tablet Take 1 (one) tablet by mouth once daily * predniSONE (DELTASONE) 5 MG tablet(Started 04/30/2018) 1 (one) tablet once daily * albuterol HFA (PROVENTIL;VENTOLIN;PROAIR) 108 (90 Base) MCG/ACT inhaler (Started 10/14/2018) INHALE 1-2 PUFFS EVERY 4 HOURS NEEDED FOR SHORTNESS OF BREATH * fluticasone propionate (FLONASE) 50 MCG/ACT nasal spray(Started 10/14/2018) * SIMPONI 50 MG/0.5ML auto-injector(Started 12/02/2018) every 30 days * SYNTHROID 175 MCG tablet(Started 10/11/2018) 1 (one) tablet once daily 1 Day a week takes a 1/2 of a pill * LORazepam (ATIVAN) 0.5 MG tablet(Started 06/02/2019) Take 1 (one) tablet by mouth as needed * EPINEPHrine (EPIPEN) 0.3 MG/0.3ML auto-injector pen(Started 01/17/2019) Inject 0.3 mL into muscle as needed * famotidine (PEPCID) 20 MG tablet(Started 01/11/2019) Take 1 (one) tablet by mouth once daily * cetirizine (ZYRTEC) 10 MG tablet(Started 05/23/2020) Zyrtec 10 mg tablet Take 1 tablet every day by oral route. * folic acid (FOLVITE) 1 MG tablet(Started 08/25/2019) 1 (one) tablet once daily * atorvastatin (Lipitor) 20 MG tablet Take 1 (one) tablet by mouth at bedtime * methocarbamol (Robaxin) 500 MG tablet(Started 11/05/2021) Take 1 (one) tablet by mouth 3 times daily * carBAMazepine ER 12hr (Carbatrol) 300 MG capsule(Started 08/04/2024) Take 1 (one) capsule by mouth every 12 hours 3 refills by 08/04/2025 * topiramate (Topamax) 25 MG tablet(Started 08/04/2024) Take 3 (three) tablets by mouth 2 times daily 11 refills by 08/04/2025 * cyanocobalamin (Vitamin B-12) injection(Started 08/04/2024) Inject 1,000 (one thousand) mcg into muscle every 30 days 3 refills by 08/04/2025 Ended Medications* cyanocobalamin (VITAMIN B-12) injection(Started 12/09/2018) (Discontinued) 100 (one hundred) mcg every 30 days * carBAMazepine ER 12hr (Carbatrol) 300 MG capsule(Started 12/09/2023) (Discontinued) Take 1 (one) capsule by mouth every 12 hours 3 refills by 12/08/2024 * topiramate (Topamax) 50 MG tablet(Started 04/18/2024)(Discontinued) * topiramate (Topamax) 25 MG tablet(Discontinued) Take 3 (three) tablets by mouth 2 times daily Active Problems Problem Noted Date Diagnosed Date High risk medication use 04/29/2022 Sector visual field defect of left eye Degeneration of cervical intervertebral disc Degeneration of lumbosacral intervertebral disc 03/13/2022 Low back pain 03/13/2022 Arthralgia of shoulder 10/08/2021 Chest pain, unspecified 10/08/2021 Conductive hearing loss of right ear 10/08/2021 Deafness 10/08/2021 Deferred diagnosis on axis I 10/08/2021 [...] Rheumatoid arthritis involving multiple joints 0 10/22/2015 Headache 02/05/2010 Osteoporosis Resolved Problems Problem Noted Date Diagnosed Date Resolved Date Acute sinusitis 09/10/2021 11/05/2021 Immunizations * FLU VACCINE TRI IIV3 SPLIT PF IM (FLUVIRIN)(Given 03/08/2015) * HEP A VACCINE, ADULT(Given 01/07/2000, 06/21/1999) * INFLUENZA VACCINE, CELL CULTURE, QUADR. (FLUCELVAX QUADRIVALENT; 6MO+), 0.5 ML (CCIIV4)(Given 03/29/2019) * INFLUENZA VACCINE, QUADR. (FLUZONE; FLULAVAL; FLUARIX; AFLURIA QUADRIVALENT; 6MO+), 0.5 ML (IIV4)(Given 03/12/2017) * MMR(Given 10/14/1993) * PNEUMOCOCCAL PPSV23(Given 03/13/2003, 04/02/1994) * TDAP (7yrs+)(Given 11/23/2021, 05/15/2015) * Td (Adult), 2 Lf Tetanus Toxoid, Adsorbed, Pf(Given 11/25/1995) Social History Tobacco Use Types Packs/Day Years [...] Comments Blood Pressure 154/84 08/04/2024 12:56 PM CHEMISTRY ASSOCIATE Pulse 74 08/04/2024 12:56 PM CHEMISTRY ASSOCIATE Temperature 36.1 C (97 F) 10/28/2022 10:55 AM CDT Respiratory Rate 14 01/08/2015 9:45 AM CDT Oxygen Saturation 99% 08/04/2024 12:56 PM CHEMISTRY ASSOCIATE Inhaled Oxygen Concentration - - Weight 73.9 kg (163 lb) 08/04/2024 12:56 PM CHEMISTRY ASSOCIATE Height 157.5 cm (5' 2 ) 10/28/2022 10:55 AM CDT Body Mass Index 29.81 10/28/2022 10:55 AM CDT Procedures * MRI IAC AND BRAIN WO CONT(Performed 08/19/2024) Performed for Trigeminal neuralgia, Migraine without aura and without status migrainosus, not intractable * MRI CERVICAL SPINE WO CONTRAST(Performed 08/19/2024) Performed for Numbness, Neck pain * TREPONEMA PALLIDUM POS REFLX RPR(Performed 08/09/2024) Performed for Numbness * TSH REFLEX FREE T4(Performed 08/09/2024) Performed for Numbness * C-REACTIVE PROTEIN(Performed 08/09/2024) Performed for Numbness * IMMUNOFIXATION BLOOD(Performed 08/09/2024) Performed for Numbness * PROTEIN ELECTROPHORESIS BLOOD(Performed 08/09/2024) Performed for Numbness * CK BLOOD(Performed 08/09/2024) Performed for Numbness * VITAMIN B12 FOLATE PANEL(Performed 08/09/2024) Performed for Numbness * BETHANIE BLOOD SCREEN W/REFLEX TITER(Performed 08/09/2024) Performed for Numbness * ERYTHROCYTE SEDIMENTATION RATE(Performed 08/09/2024) Performed for Numbness * MRI BRAIN WO CONTRAST(Performed 06/23/2022) Performed for Demyelinating disease of central nervous system (HCC) * MRI BRAIN WWO CONTRAST(Performed 07/17/2018) Performed for Tinnitus, unspecified laterality * MRI LUMBAR SPINE WO CONTRAST(Performed 10/23/2015) * LAB HISTORICAL RESULTS-ONBASE(Performed 01/08/2012) * FOLATE(Performed 09/09/2010) * VITAMIN B12(Performed 09/09/2010) Results * MRI BRAIN AND IAC WO CONT (08/19/2024 11:42 AM CHEMISTRY ASSOCIATE) Anatomical Region Laterality Modality Head Magnetic Resonan ce 08/19/2024 11:2 2 AM CHEMISTRY ASSOCIATE Impressions 08/19/2024 12:46 PM CHEMISTRY ASSOCIATE IMPRESSION: 1.Postoperative changes in the left cerebellopontine [...] 08/19/2024 12:46 PM Narrative 08/19/2024 12:46 PM CHEMISTRY ASSOCIATE PROCEDURE: MRI CERVICAL SPINE WO CONTRAST, MRI [...] degeneration of the cord due to vitamin [id number]. Edited by Kandice Alonzo on 08/19/2024 12:16 PM > Interpreting Provider: Yumiko Oneill MD on 08/19/2024 12:46 PM Keo Vega MD MR ORDERABLES * MRI Cervical Spine Wo Contrast (08/19/2024 11:18 AM CHEMISTRY ASSOCIATE) Anatomical Region Laterality Modality Pelvis Magnetic Resonan ce 08/19/2024 11:2 2 AM CHEMISTRY ASSOCIATE Impressions 08/19/2024 12:46 PM CHEMISTRY ASSOCIATE IMPRESSION: 1.Postoperative changes in the left cerebellopontine [...] 08/19/2024 12:46 PM Narrative 08/19/2024 12:46 PM CHEMISTRY ASSOCIATE PROCEDURE: MRI CERVICAL SPINE WO CONTRAST, MRI [...] degeneration of the cord due to vitamin [id number]. Edited by Kandice Alonzo on 08/19/2024 12:16 PM > Interpreting Provider: Yumiko Oneill MD on 08/19/2024 12:46 PM Keo Vega MD MR ORDERABLES * TREPONEMA PALLIDUM POS REFLX RPR (08/09/2024 7:40 AM CHEMISTRY ASSOCIATE) [facility] T pallidum Antibody (TP-PA) Non Reactive Non Reactive [facility] INSURANCE BILL Blood BLOOD SPECIMEN / Unknown 08/09/2024 7:40 AM CHEMISTRY ASSOCIATE 08/09/2024 Narrative [facility] INSURANCE BILL - 08/11/2024 9:08 PM CHEMISTRY ASSOCIATE Performed at: [address] [id number] Sales Representative Sales Manager: Hernandez Flaherty MD, Phone: [phone] Keo Vega MD LAB - SEROLOGY ORDER IVONNE [facility] INSURANCE BILL [address] [place] [address] * TSH REFLEX FREE T4 (08/09/2024 7:40 AM CHEMISTRY ASSOCIATE) [facility] TSH 0.564 0.450 - 4.500 uIU/mL [facility] INSURANCE BILL Blood BLOOD SPECIMEN / Unknown 08/09/2024 7:40 AM CHEMISTRY ASSOCIATE 08/09/2024 Narrative [facility] INSURANCE BILL - 08/10/2024 7:09 AM CHEMISTRY ASSOCIATE Performed at: [facility] [address] [id number] Sales Representative Sales Manager: Pola Aguilera PhD, Phone: [phone] Keo Vega MD LAB - CHEMISTRY NAWAF SINCLAIR [facility] INSURANCE BILL [address] [place] [address] * C-REACTIVE PROTEIN (08/09/2024 7:40 AM CHEMISTRY ASSOCIATE) [facility] C-Reactive Protein 1 0 - 10 mg/L [facility] INSURANCE BILL Blood BLOOD SPECIMEN / Unknown 08/09/2024 7:40 AM CHEMISTRY ASSOCIATE 08/09/2024 Narrative [facility] INSURANCE BILL - 08/10/2024 7:09 AM CHEMISTRY ASSOCIATE Performed at: [address] [id number] Sales Representative Sales Manager: Pola Aguilera PhD, Phone: [phone] Keo Vega MD LAB - CHEMISTRY ORDMarium SINCLAIR [facility] INSURANCE BILL [address] [place] [address] * (ABNORMAL) IMMUNOFIXATION BLOOD (08/09/2024 7:38 AM CHEMISTRY ASSOCIATE) [facility] Immunofixation Result Comment [facility] INSURANCE BILL Comment:No monoclonality det ected. IgG Quantitative 1,261 586 - 1,602 mg/dL [facility] INSURANCE BILL IgA Quantitative 356(H) 87 - 352 mg/dL [facility] INSURANCE BILL IgM Quantitative 228(H) 26 - 217 mg/dL [facility] INSURANCE BILL Blood BLOOD SPECIMEN / Unknown 08/09/2024 7:38 AM CHEMISTRY ASSOCIATE 08/09/2024 Narrative [facility] INSURANCE BILL - 08/11/2024 3:10 PM CHEMISTRY ASSOCIATE Performed at: [address] [id number] Sales Representative Sales Manager: Pola Aguilera PhD, Phone: [phone] Keo Vega MD LAB - CHEMISTRY NAWAF SINCLAIR Performing Organization Address [facility]/ZIP Co de Phone Number [facility] INSURANCE BILL [address] [place] [address] * (ABNORMAL) BETHANIE BLOOD SCREEN W/REFLEX TITER (08/09/2024 7:38 AM CHEMISTRY ASSOCIATE) [facility] BETHANIE Positive(A) [facility] INSURANCE BILL Comment: Negative <1:80 Borderline 1:80 Positive >1:80 Performed at: [address] [id number] Sales Representative Sales Manager: Pola Aguilera PhD, Phone: [phone] Speckled Pattern 1:80 [facility] INSURANCE BILL Comment:ICA nomenclature: A C-2,4,5,29 Note Comment [facility] INSURANCE BILL Comment: Pattern Potential Disease Association Homogeneous Systemic Lupus Erythematosus, Drug Induced Systemic Lupus Erythematosus, Chronic Autoimmune hepatitis, Juvenile Idiopathic Arthritis Speckled Sjogren Syndrome, Systemic Lupus Erythematosus, Subacute Cutaneous Lupus, Lupus, Congenital Heart Block, Mixed Connective Tissue Disease, Scleroderma-diffuse, Scleroderma-Autoimmune Myositis Overlap Syndrome, Systemic Lupus Xqrycasqrkksi-Hviykfmtsvf-Dwfyemzqhm Myositis Overlap Syndrome, Systemic Autoimmune Rheumatic Disease, [...] BLOOD SPECIMEN / Unknown 08/09/2024 7:38 AM CHEMISTRY ASSOCIATE 08/09/2024 Narrative [facility] INSURANCE BILL - 08/12/2024 1:09 PM CHEMISTRY ASSOCIATE Performed at: [address] [id number] Sales Representative Sales Manager: Pola Aguilera PhD, Phone: [phone] Keo Vega MD LAB - CHEMISTRY NAWAF SINCLAIR Performing Organization Address [facility] de Phone Number [facility] [address] [place] [address] * ERYTHROCYTE SEDIMENTATION RATE (08/09/2024 7:38 AM CHEMISTRY ASSOCIATE) Pathologist [facility] Erythrocyte Sedimentation Rate Westergren 3 0 - 40 mm/hr [facility] INSURANCE BILL Blood BLOOD SPECIMEN / Unknown 08/09/2024 7:38 AM CHEMISTRY ASSOCIATE 08/09/2024 Narrative [facility] INSURANCE BILL - 08/10/2024 7:09 AM CHEMISTRY ASSOCIATE Performed at: [address] [id number] Sales Representative Sales Manager: Pola Aguilera PhD, Phone: [phone] eKo Vega MD LAB - HEMATOLOGY ORD ERABLES Performing Organization Address City/[facility] Co de Phone Number [facility] INSURANCE BILL [address] [place] [address] * CK BLOOD (08/09/2024 7:38 AM CHEMISTRY ASSOCIATE) Pathologist [facility] CK 87 32 - 182 U/L [facility] INSURANCE BILL Blood BLOOD SPECIMEN / Unknown 08/09/2024 7:38 AM CHEMISTRY ASSOCIATE 08/09/2024 Narrative [facility] INSURANCE BILL - 08/10/2024 7:09 AM CHEMISTRY ASSOCIATE Performed at: [address] [place] [id number] Sales Representative Sales Manager: Pola Aguilera PhD, Phone: [phone] Keo Vega MD LAB - CHEMISTRY NAWAF SINCLAIR Performing Organization Address [facility] de Phone Number [facility] INSURANCE BILL [address] [place] [address] * VITAMIN B12 FOLATE PANEL (08/09/2024 7:38 AM CHEMISTRY ASSOCIATE) [facility] Vitamin B12 992 232 - 1,245 pg/mL [facility] INSURANCE BILL Folate 13.2 >3.0 ng/mL [facility] INSURANCE BILL Comment: A serum folate concentration of less than 3.1 ng/mL is considered to represent clinical deficiency. Blood BLOOD SPECIMEN / Unknown 08/09/2024 7:38 AM CHEMISTRY ASSOCIATE 08/09/2024 Narrative [facility] INSURANCE BILL - 08/10/2024 7:09 AM CHEMISTRY ASSOCIATE Performed at: [address] [place] [id number] Sales Representative Sales Manager: Pola Aguilera PhD, Phone: [phone] Keo Vega MD LAB - CHEMISTRY NAWAF SINCLAIR Performing Organization Address [facility] de Phone Number [facility] INSURANCE BILL [address] [place] [address] * PROTEIN ELECTROPHORESIS BLOOD (08/09/2024 7:38 AM CHEMISTRY ASSOCIATE) [facility] Protein Total 7.5 6.0 - 8.5 g/dL [facility] INSURANCE BILL Albumin 4.0 2.9 - 4.4 g/dL [facility] INSURANCE BILL Alpha-1 Globulin 0.3 0.0 - 0.4 g/dL [facility] INSURANCE BILL Tosgk-2-Wzphaxup 0.8 0.4 - 1.0 g/dL [facility] INSURANCE [...] scan will follow via computer, mail, or dry roller delivery. P E Interpretation, S Comment [facility] INSURANCE BILL Comment: The SPE pattern appears unremarkable. Evidence of monoclonal protein is not apparent. Blood BLOOD SPECIMEN / Unknown 08/09/2024 7:38 AM CHEMISTRY ASSOCIATE 08/09/2024 Narrative [facility] INSURANCE BILL - 08/10/2024 5:09 PM CHEMISTRY ASSOCIATE Performed at: [address] [place] [id number] Sales Representative Sales Manager: Pola Aguilera PhD, Phone: [phone] Keo Vega MD LAB - CHEMISTRY NAWAF SINCLAIR [facility] Organization Address City/State/ZIP Co de Phone Number [facility] INSURANCE BILL [address] [place] [address] * MRI BRAIN WO CONTRAST (06/23/2022 4:36 PM CHEMISTRY ASSOCIATE) Anatomical Region Laterality Modality Head Magnetic Resonan ce 06/24/2022 1:24 PM CHEMISTRY ASSOCIATE Impressions 06/24/2022 6:57 PM CHEMISTRY ASSOCIATE IMPRESSION: 1.No evidence of acute intracranial findings. 2.No MRI findings supportive of the diagnosis of multiple sclerosis. I, Aram Cruz MD have personally reviewed and interpreted this examination/study. > Interpreting Provider: Aram Cruz MD on 06/24/2022 6:57 PM Narrative 06/24/2022 6:57 PM CHEMISTRY ASSOCIATE PROCEDURE: MRI BRAIN WO CONTRAST, DATE/TIME OF EXAM: 06/23/2022 4:36 PM, LOCATION [facility] INDICATION: G37.9: Demyelinating disease of central nervous system (CMS/HCC) ADDITIONAL CLINICAL INFORMATION: Ordering Provider Reason For Exam: Demyelinating disease of the central nervous it systems administrator Note: None. 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 Pt states there were signs of demyelination on her C-spine MRI. EXAMINATION: Magnetic resonance imaging (MRI) of the brain without contrast TECHNIQUE: MRI of the brain was performed without contrast according to a demyelination protocol. COMPARISON: MRI of the brain from 07/17/2018. FINDINGS: No evidence of acute or chronic hemorrhage is identified. No evidence of acute cerebral infarction is seen. There is mild cerebral volume loss with associated ex vacuo ventricular dilatation. No mass effect or midline shift is seen. Trace periventricular white matter FLAIR hyperintensities is a nonspecific finding. The corpus callosum and sella appear grossly unremarkable. 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 The posterior fossa, brainstem, and craniocervical junction appear otherwise grossly stable compared to the prior study from 2019. The visualized portions of the orbits appear grossly unremarkable. There is mild paranasal sinus disease. The imaged mastoid air cells appear grossly clear. Atherosclerotic disease of the carotid siphons, right more than left. The calvarium and visualized cervical spine appear normal. Procedure Note Aram Cruz MD - 06/24/2022 PROCEDURE: MRI BRAIN WO CONTRAST, DATE/TIME OF EXAM: 06/23/2022 4:36 PM, LOCATION [facility] INDICATION: G37.9: Demyelinating disease of central nervous system (CMS/HCC) ADDITIONAL CLINICAL INFORMATION: Ordering Provider Reason For Exam: Demyelinating disease of the central nervous it systems administrator Note: None. Additional: 66-year-old female PMHx including epidermoid cyst removalfrom brainstemat age 30 resulting in L-sided facial paralysis,and migrainesand trigeminal neuralgia. Pt states there were signs of demyelination onher C-spine MRI. EXAMINATION: Magnetic resonance imaging (MRI) of the brain withoutcontrast TECHNIQUE: MRI of the brain was performed without contrast according toa demyelination protocol. COMPARISON: MRI of the brain from 07/17/2018. FINDINGS: No evidence of acute or chronic hemorrhage is identified. No evidence of acute cerebral infarction is seen. There is mild cerebral volume losswith associated ex vacuo ventricular dilatation. No mass effect or midlineshift is seen. Trace periventricular white matter FLAIR hyperintensities is a nonspecific finding. The corpus callosum and sella appear grossly unremarkable. 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 The posterior fossa, brainstem, and craniocervical junction appear otherwise grossly stable compared to the prior study from 2019. The visualized portions of the orbits appear grossly unremarkable. Thereis mild paranasal sinus disease. The imaged mastoid air cells appeargrossly clear. Atherosclerotic disease of the carotid siphons, right more than left. The calvarium and visualized cervical spine appear normal. IMPRESSION: 1.No evidence of acute intracranial findings. 2.No MRI findings supportive of the diagnosis of multiple sclerosis. Aram Elaine MD have personally reviewed and interpretedthis examination/study. > Interpreting Provider: Aram Cruz MD on 06/24/2022 6:57 PM Miriam Quan PA-C MR ORDERABLES * MRI BRAIN WWO CONTRAST (07/17/2018 3:19 PM CHEMISTRY ASSOCIATE) Anatomical Region Laterality Modality Head Magnetic Resonan ce 07/19/2018 9:01 AM CHEMISTRY ASSOCIATE Impressions 07/19/2018 3:58 PM CHEMISTRY ASSOCIATE IMPRESSION: Enhancement and enlargement of the left cranial nerve VII/VIII complex in the internal auditory canal with irregularity and adhesion of cranial nerves VII and VIII in the region of the cisternal segment of cranial nerve VII. These findings are likely postsurgical. This report was approved by Bruno Greco on 07/19/2018 3:[address] KELI Elaine have personally reviewed and interpreted this examination/study. This report was electronically signed by KELI OLMEDO on 07/19/2018 3:58 PM . Narrative 07/19/2018 3:58 PM CHEMISTRY ASSOCIATE EXAMINATION: Magnetic resonance imaging (MRI) of the brain without and with contrast HISTORY: Tinnitus, history of cyst removal with left facial nerve palsy and dizziness. TECHNIQUE: MRI of the brain was performed prior to and following the uneventful administration of 7 mL Gadavist intravenous gadolinium contrast according to a dedicated internal auditory canal (IAC) protocol. This included detailed coronal and axial imaging through the intracranial course of cranial nerves five through eight. FINDINGS: Comparison is made with MR brain from 04/27/2009 There is enhancement of the left cranial nerve VII/VIII complex in the internal auditory canal, likely secondary to prior surgery (series 10, image 16 and series 9, image 12). There is increased size of the left cranial nerve VII/VIII complex compared to the right, measuring 8 mm versus 6 mm. There is irregularity of the left cranial nerve VII/VIII complex with adhesion of cranial nerves VII and VIII on the left in the region of the cisternal segment of the left facial nerve, best seen on the axial T2 thin slice sequence (series 8, image 47). These findings are likely postsurgical. No enhancing lesions are identified along the course of the right cranial nerve VII/VIII complexes. The right cerebellopontine angle and internal auditory canal appears normal.The signal within the bony labyrinth appears normal on both sides. The mastoids appear clear. The adjacent portions of the brain appear normal. The posterior fossa and brainstem appear normal. Procedure Note Keli Olmedo MD - 07/19/2018 EXAMINATION: Magnetic resonance imaging (MRI) of the brain without and with contrast HISTORY: Tinnitus, history of cyst removal with left facial nerve palsy and dizziness. TECHNIQUE: MRI of the brain was performed prior to and following the uneventful administration of 7 mL Gadavist intravenous gadoliniumcontrast according to a dedicated internal auditory canal (IAC) protocol. This included detailed coronal and axial imaging through the intracranial course of cranial nerves five through eight. FINDINGS: Comparison is made with MR brain from 04/27/2009 There is enhancement of the left cranial nerve VII/VIII complex in the internal auditory canal, likely secondary to prior surgery (series 10, image 16 and series 9, image 12). There is increased size of the left cranial nerve VII/VIII complex compared to the right, measuring 8 mm versus 6 mm. There is irregularity of the left cranial nerve VII/VIII complex with adhesion of cranial nerves VII and VIII on the left in the region of the cisternal segment of the left facial nerve, best seen onthe axial T2 thin slice sequence (series 8, image 47). These findings are likely postsurgical. No enhancing lesions are identified along the course of the rightcranial nerve VII/VIII complexes. The right cerebellopontine angle and internal auditory canal appears normal.The signal within the bony labyrinthappears normal on both sides. The mastoids appear clear. The adjacent portions of the brain appear normal. The posterior fossaand brainstem appear normal. IMPRESSION: Enhancement and enlargement of the left cranial nerve VII/VIII complexin the internal auditory canal with irregularity and adhesion of cranial nerves VII and VIII in the region of the cisternal segment of cranial nerve VII. These findings are likely postsurgical. This report was approved by Bruno Greco on 07/19/2018 3:34 PM . I, Dr. KELI OLMEDO have personally reviewed and interpreted this examination/study. This report was electronically signed by KELI OLMEDO on 07/19/2018 3:58PM . Deshawn Franco MD MR ORDERABLES * MRI LUMBAR SPINE WO CONTRAST (10/23/2015 1:02 PM CDT) Anatomical Region Laterality Modality Spine Other Impressions 10/23/2015 1:06 PM CDT IMPRESSION: 1. Mild degenerative disc and joint disease at L4-5 and L5-S1 with mild right neural foraminal stenosis at L4-5 but without significant central canal stenosis. This report was electronically signed by ESDRAS GONZALEZ M.D. on 10/23/2015 1:06 PM . Narrative 10/23/2015 1:06 PM CDT EXAMINATION: Magnetic resonance imaging (MRI) of the lumbar spine without contrast HISTORY: Right lumbar radiculopathy. TECHNIQUE: MRI of the lumbar spine was performed without contrast according to standard protocol. Contrast was not administered secondary to the patient's refusal to receive intravenous contrast. FINDINGS: No prior study is available for comparison. The alignment is normal. Vertebral bodies are normal in height without compression fractures. Marrow signal intensity is normal. The conus medullaris terminates at the level of L1-L2 and the distal spinal cord signal intensity is normal. Intervertebral discs are memory desiccated at L4-5. T2 hyperintense lesion in the upper pole of the left kidney most likely represents a cyst. L1-L2: The disc is normal without central canal stenosis. The facets are normal without foraminal stenosis. L2-L3: The disc is normal without central canal stenosis. The facets are normal without foraminal stenosis. L3-L4: The disc is normal without central canal stenosis. The facets are normal without foraminal stenosis. L4-L5: Mild diffuse disc bulge without central canal stenosis. Mild bilateral facet osteoarthritis with mild right neural foraminal stenosis. L5-S1: Mild diffuse disc bulge without central canal stenosis. Mild bilateral facet osteoarthritis without foraminal stenosis. Procedure Note Esdras Gonzalez MD - 09/12/2017 EXAMINATION: Magnetic resonance imaging (MRI) of the lumbar spine withoutcontrast HISTORY: Right lumbar radiculopathy. TECHNIQUE: MRI of the lumbar spine was performed without contrastaccording to standard protocol. Contrast was not administered secondary tothe patient's refusal to receive intravenous contrast. FINDINGS: No prior study is available for comparison. The alignment is normal. Vertebral bodies are normal in height withoutcompression fractures. Marrow signal intensity is normal. The conusmedullaris terminates at the level of L1-L2 and the distal spinal cordsignal intensity is normal. Intervertebral discs are memory desiccated at L4-5. T2 hyperintense lesion in the upperpole of the left kidney most likely represents a cyst. L1-L2: The disc is normal without central canal stenosis. The facets arenormal without foraminal stenosis. L2-L3: The disc is normal without central canal stenosis. The facets arenormal without foraminal stenosis. L3-L4: The disc is normal without central canal stenosis. The facets arenormal without foraminal stenosis. L4-L5: Mild diffuse disc bulge without central canal stenosis. Mildbilateral facet osteoarthritis with mild right neural foraminalstenosis. L5-S1: Mild diffuse disc bulge without central canal stenosis. Mildbilateral facet osteoarthritis without foraminal stenosis. IMPRESSION IMPRESSION: 1. Mild degenerative disc and joint disease at L4-5 and L5-S1 with mildright neural foraminal stenosis at L4-5 but without significant centralcanal stenosis. This report was electronically signed by ESDRAS GONZALEZ M.D. on 10/23/20151:06 PM . Inocencia Wade MD MR ORDERABLES * LAB HISTORICAL RESULTS-ONBASE (01/08/2012) 01/08/2012 Historical Provider LAB - CHEMISTRY O RDERABLES [facility] [address] * FOLATE (09/09/2010 11:30 AM CDT) Folate > 20.0 4.0 - 40.0 ng/mL [facility] Comment: In patients with clinical evidence of folate deficiency (eg: Megaloblastic Anemia), serum folate concentrations generally range from 0.0 - 3.1 ng/ml. NOTE Hemolysis significantly increases folate values due to the high folate concentration in red blood cells. The drugs methotrexate and leucovorin interfere with folate measurement due to cross-reaction with folate binding proteins. 09/09/2010 11:3 0 AM CDT 09/09/2010 12:40 PM CDT Inocencia Wade MD LAB - CHEMISTRY NAWAF SINCLAIR Performing Organization Address City/[facility]/ZIP Co de Phone Number [address] [phone] * VITAMIN B12 (09/09/2010 11:30 AM CDT) Vitamin B12 775 239 - 931 pg/mL [facility] 09/09/2010 11:3 0 AM CDT 09/09/2010 12:40 PM CDT Inocencia Wade MD LAB - CHEMISTRY NAWFA SINCLAIR [address] [phone] Care Teams Novelty Twister Tender Relationship Specialty Start Date End Date Shavon Lynch PA [address] [place] [address] PCP - General Physician Plant Biology Professor 10/28/22
== END 2024-08-29 09:20 | disposition home or self-care (01) ==
PROVIDERS: PCP Nurse Practitioner Family; Visit Provider Nurse Practitioner Family
DX: Z12.31 Encounter for screening mammogram for malignant neoplasm of breast (principal)
CPT/HCPCS: 77063; 77067

== ENCOUNTER 2024-09-22 23:17 | Emergency (ER) | payer MEDICARE, OTHER, SELFPAY ==
--- OUTSIDE RECORDS SUMMARY | 2024-09-22 23:19 | XMS_ITS | Clinical Summary ---
Author Organization [facility] Address [address] [place] [address] Phone Care Team Providers Care Mushroom Picker Name Role Phone Ankit Smith MD Primary [...] age to complete this topic Care Teams Mushroom Picker Relationship Specialty Start Date End Date Ankit Smith MD [address] [place] [address] PCP - General Internal Medicine 02/13/13
--- OUTSIDE RECORDS SUMMARY | 2024-09-22 23:19 | XMS_ITS | Encounter Summary ---
Author Organization [facility] Address [address] [place] [address] Phone Care Team Providers Care Doctor Of Radiology Name Role Phone Angela Traore MD Primary Care Provide r Hair Mcdaniels MD Primary Care Provider [phone] Dong Cutler MD Primary Care Provider [phone] Kandice Alberto MD Primary Care Provider [phone] Shavon George Primary Care Pr ovider Gwendolyn Pulido NP Primary Care Provider [phone] Encounter Details Date Type Department Care Team (Late st Contact Info) Description 08/14/2017 Orders Only [facility] ProviderZeeshan MD [address] [place] [address] Social History Tobacco Use Types Packs/Day Years Used Date Smoking Tobacco: Never Smokeless Tobacco: Never Alcohol Use Standard Drinks/Week Comments No 0 (1 standard drink = 0.6 oz pur e alcohol) Comments Unknown Sex and Gender Information Value Date Recorded Sex Assigned at Not on file Legal Sex Female 5:17 PM STRIPPING SHOVEL OILER Gender Identity Not on file Sexual Orientation Not on file documented as of this encounter Plan of Treatment Not on file documented as of this encounter Procedures Procedure Name Priority Date/Time Associated Diagnosis Comments DISCHARGE LABORATORY CUMULATIVE REPORT 08/14/2017 12:00 AM STRIPPING SHOVEL OILER documented in this encounter Results * DISCHARGE LABORATORY CUMULATIVE REPORT (08/14/2017 12:00 AM STRIPPING SHOVEL OILER) Narrative 08/14/2017 12:00 AM STRIPPING SHOVEL OILER Ordered by an unspecified provider. us Historical Provider LAB BLOOD ORDERABLES Nayeli l Result documented in this encounter Visit Diagnoses Not on filedocumented in this encounter Care Teams Doctor Of Radiology Relationship Specialty Start Date End Date Angela Traore MD [address] [place], [place] [phone] PCP - General 08/14/17 12/10/17 Hair Mcdaniels MD [address] [place] [address] PCP - General Internal Medicine 12/11/17 07/05/19 Dong Cutler MD [address] [place] [address] PCP - General Internal Medicine 07/06/19 02/01/20 Kandice Alberto MD [address] [place] [phone] PCP - General Internal Medicine 02/02/20 04/02/20 Shavon George PA [address] [place] [address] [id number] PCP - General Physician Nursing Unit Manager 04/03/20 04/20/24 Gwendolyn Pulido, COSMETOLOGY TEACHER [address] [place] [address] PCP - General Family Medicine 04/21/24 documented as of this encounter
--- OUTSIDE RECORDS SUMMARY | 2024-09-22 23:19 | XMS_ITS | Clinical Summary ---
Author Organization [facility] Address [address] [place] [address] Care Team Providers Care Regional Flatbed Truck Driver Name Role Phone Shavon Lycnh Primary Care Pr ovider Source Comments [facility],non-owned Affiliates and Associated Physician Practices is amultiple site organization consisting of ambulatory clinics and hospital sitesin [place], [place], [place] and [place]. This disclosure is being madepursuant to the Care Everywhere program and may not contain all information available regarding this patient. Last updated 18.[facility] [employer] Allergies Active Allergy Reactions Criticality Noted Date [...] tablet once daily 04/30/2018 Active albuterol HFA (PROVENTIL;VENTOLI N;PROAIR) 108 (90 Base) MCG/ACT inhaler INHALE 1-2 [...] Active carBAMazepine ER 12hr (Carbatrol) 300 MG capsuleIndications :Trigeminal neuralgia Take 1 (one) capsule by mouth every 12 hours 180 capsule 3 08/04/2024 07/30/2025 Active topiramate (Topamax) 25 MG tabletIndications: Trigeminal neuralgia,Migraine without aura and without status migrainosus, not intractable Take 3 (three) tablets by mouth 2 times daily 180 tablet 11 08/04/2024 Active cyanocobalamin (Vitamin B-12) injectionIndicatio ns:Numbness Inject 1,000 (one thousand) mcg into muscle every 30 days 3 mL 3 08/04/2024 Active Active Problems Problem Noted Date Diagnosed [...] Department Care Team Description 08/19/2024 8:51 AM SUPPLY ANALYST - 08/19/2024 11:59 PM SUPPLY ANALYST Hospital Encounter [facility] - MRI [address] [place] [address] Keo Vega MD Discharge Disposition: Home or Self Care 08/19/2024 8:51 AM SUPPLY ANALYST - 08/19/2024 11:59 PM SUPPLY ANALYST Hospital Encounter [facility] - MRI [address] [facility] [address] [place] [address] Keo Vega MD Discharge Disposition: Home or Self Care 08/04/2024 1:00 PM SUPPLY ANALYST Office Visit [facility] [address] [facility] [address] [place] [address] Keo Vega MD Trigeminal neuralgia (Primary Dx); [...] Comments Blood Pressure 154/84 08/04/2024 12:56 PM SUPPLY ANALYST Pulse 74 08/04/2024 12:56 PM SUPPLY ANALYST Temperature 36.1 C (97 F) 10/28/2022 10:55 AM CDT Respiratory Rate 14 01/08/2015 9:45 AM CDT Oxygen Saturation 99% 08/04/2024 12:56 PM SUPPLY ANALYST Inhaled Oxygen Concentration - - Weight 73.9 kg (163 lb) 08/04/2024 12:56 PM SUPPLY ANALYST Height 157.5 cm (5' 2 ) 10/28/2022 10:55 AM CDT Body Mass Index 29.81 10/28/2022 10:55 AM CDT Plan of Treatment Upcoming Encounters Date Type Department Care Team (Late st Contact Info) Description 11/10/2024 10:20 AM CDT [facility] Visit [facility] [address] [facility] [address] [place] [phone] [place] [address] [facility] [address] [place], [place] [id number] Health Maintenance Due Date Last Done Comments [...] (2 - 2023-2 5 season) 2024 12/03/2021 DEPRESSION SCREENING 06/15/2024 INFLUENZA VACCINE (Season Ended) 2025 03/29/2019, 03/12/2017, 03/08/2015 COLOGUARD (AGES 45-75) - COL ON CA [...] BRAIN WO CONT Routine 08/19/2024 11:42 AM SUPPLY ANALYST Trigeminal neuralgia Migraine without aura and without status migrainosus, not intractable MRI CERVICAL SPINE WO CONTRAST Routine 08/19/2024 11:18 AM SUPPLY ANALYST Numbness Neck pain TREPONEMA PALLIDUM POS REFLX RPR Routine 08/09/2024 7:40 AM SUPPLY ANALYST Numbness TSH REFLEX FREE T4 Routine 08/09/2024 7: 40 AM SUPPLY ANALYST Numbness C-REACTIVE PROTEIN Routine 08/09/2024 7: 40 AM SUPPLY ANALYST Numbness IMMUNOFIXATION BLOOD Routine 08/09/2024 7:38 AM SUPPLY ANALYST Numbness PROTEIN ELECTROPHORESIS BLOOD Routine 08/09/2024 7:38 AM SUPPLY ANALYST Numbness CK BLOOD Routine 08/09/2024 7:38 AM SUPPLY ANALYST Numbness VITAMIN B12 FOLATE PANEL Routine 08/09/2024 7:38 AM SUPPLY ANALYST Numbness BETHANIE BLOOD SCREEN W/REFLEX TITER Routine 08/09/2024 7:38 AM SUPPLY ANALYST Numbness ERYTHROCYTE SEDIMENTATION RATE Routine 08/09/2024 7:38 AM SUPPLY ANALYST Numbness from Last 3 Months Results * MRI BRAIN AND IAC WO CONT (08/19/2024 11:42 AM SUPPLY ANALYST) Anatomical Region Laterality Modality Head Magnetic Resonan ce 08/19/2024 11:2 2 AM SUPPLY ANALYST Impressions 08/19/2024 12:46 PM SUPPLY ANALYST IMPRESSION: 1.Postoperative changes in the left cerebellopontine [...] 08/19/2024 12:46 PM Narrative 08/19/2024 12:46 PM SUPPLY ANALYST PROCEDURE: MRI CERVICAL SPINE WO CONTRAST, MRI [...] degeneration of the cord due to vitamin [id number]. Edited by Kandice Alonzo on 08/19/2024 12:16 PM > Interpreting Provider: Yumiko Oneill MD on 08/19/2024 12:46 PM Keo Vega MD MR ORDERABLES * MRI Cervical Spine Wo Contrast (08/19/2024 11:18 AM SUPPLY ANALYST) Anatomical Region Laterality Modality Pelvis Magnetic Resonan ce 08/19/2024 11:2 2 AM SUPPLY ANALYST Impressions 08/19/2024 12:46 PM SUPPLY ANALYST IMPRESSION: 1.Postoperative changes in the left cerebellopontine [...] 08/19/2024 12:46 PM Narrative 08/19/2024 12:46 PM SUPPLY ANALYST PROCEDURE: MRI CERVICAL SPINE WO CONTRAST, MRI [...] degeneration of the cord due to vitamin [id number]. Edited by Kandice Alonzo on 08/19/2024 12:16 PM > Interpreting Provider: Yumiko Oneill MD on 08/19/2024 12:46 PM Keo Vega MD MR ORDERABLES * TREPONEMA PALLIDUM POS REFLX RPR (08/09/2024 7:40 AM SUPPLY ANALYST) T pallidum Antibody (TP-PA) Non Reactive Non Reactive [facility] INSURANCE BILL Blood BLOOD SPECIMEN / Unknown 08/09/2024 7:40 AM SUPPLY ANALYST 08/09/2024 Narrative [facility] INSURANCE BILL - 08/11/2024 9:08 PM SUPPLY ANALYST Performed at: [address] [place] [id number] Automatic Engraver: Hernandez Flaherty MD, Phone: [phone] Keo Vega MD LAB - SEROLOGY ORDER IVONNE [facility] INSURANCE BILL [address] [place] [address] * TSH REFLEX FREE T4 (08/09/2024 7:40 AM SUPPLY ANALYST) TSH 0.564 0.450 - 4.500 uIU/mL [facility] INSURANCE BILL Blood BLOOD SPECIMEN / Unknown 08/09/2024 7:40 AM SUPPLY ANALYST 08/09/2024 Narrative [facility] INSURANCE BILL - 08/10/2024 7:09 AM SUPPLY ANALYST Performed at: [address] [id number] Automatic Engraver: Pola Aguilera PhD, Phone: [phone] Keo Vega MD LAB - CHEMISTRY ORDMaruim SINCLAIR Performing Organization Address [facility] de Phone Number [facility] INSURANCE BILL [address] [place] [address] * C-REACTIVE PROTEIN (08/09/2024 7:40 AM SUPPLY ANALYST) [facility] C-Reactive Protein 1 0 - 10 mg/L [facility] INSURANCE BILL Blood BLOOD SPECIMEN / Unknown 08/09/2024 7:40 AM SUPPLY ANALYST 08/09/2024 Narrative [facility] INSURANCE BILL - 08/10/2024 7:09 AM SUPPLY ANALYST Performed at: [address] [id number] Automatic Engraver: Pola Aguilera PhD, Phone: [phone] Keo Vega MD LAB - CHEMISTRY NAWAF SINCLAIR Performing Organization Address [facility] Co de Phone Number [facility] INSURANCE BILL [address] [place] [address] * (ABNORMAL) IMMUNOFIXATION BLOOD (08/09/2024 7:38 AM SUPPLY ANALYST) Pathologist [facility] Immunofixation Result Comment [facility] INSURANCE BILL Comment:No monoclonality det ected. IgG Quantitative 1,261 586 - 1,602 mg/dL [facility] INSURANCE BILL IgA Quantitative 356(H) 87 - 352 mg/dL [facility] INSURANCE BILL IgM Quantitative 228(H) 26 - 217 mg/dL [facility] INSURANCE BILL Blood BLOOD SPECIMEN / Unknown 08/09/2024 7:38 AM SUPPLY ANALYST 08/09/2024 Narrative [facility] INSURANCE BILL - 08/11/2024 3:10 PM SUPPLY ANALYST Performed at: 01 - [facility] [id number] Automatic Engraver: Pola Aguilera PhD, Phone: [phone] Keo Vega MD LAB - CHEMISTRY NAWAF SINCLAIR [facility] INSURANCE BILL [address] [place] [address] * (ABNORMAL) BETHANIE BLOOD SCREEN W/REFLEX TITER (08/09/2024 7:38 AM SUPPLY ANALYST) Pathologist [facility] BETHANIE Positive(A) [facility] INSURANCE BILL Comment: Negative <1:80 Borderline 1:80 Positive >1:80 Performed at: 01 - [facility] [address] [id number] Automatic Engraver: Pola Aguilera PhD, Phone: [phone] Speckled Pattern 1:80 [facility] INSURANCE BILL Comment:ICAP nomenclature: A C-2,4,5,29 Note Comment [facility] INSURANCE BILL Comment: Pattern Potential Disease Association Homogeneous Systemic Lupus Erythematosus, Drug Induced Systemic Lupus Erythematosus, Chronic Autoimmune hepatitis, Juvenile Idiopathic Arthritis Speckled Sjogren Syndrome, Systemic Lupus Erythematosus, Subacute Cutaneous Lupus, Lupus, Congenital Heart Block, Mixed Connective Tissue Disease, Scleroderma-diffuse, Scleroderma-Autoimmune Myositis Overlap Syndrome, Systemic Lupus Bivbcpvxtskjm-Hmhepmzysee-Ppcjhbtfti Myositis Overlap Syndrome, Systemic Autoimmune Rheumatic Disease, [...] BLOOD SPECIMEN / Unknown 08/09/2024 7:38 AM SUPPLY ANALYST 08/09/2024 Narrative [facility] INSURANCE BILL - 08/12/2024 1:09 PM SUPPLY ANALYST Performed at: [address] [place] [id number] Automatic Engraver: Pola Aguilera PhD, Phone: [phone] Keo Vega MD LAB - CHEMISTRY NAWAF SINCLAIR Performing Organization Address City/[facility]/ZIP Co de Phone Number [facility] INSURANCE BILL [address] [place] [address] * ERYTHROCYTE SEDIMENTATION RATE (08/09/2024 7:38 AM SUPPLY ANALYST) Erythrocyte Sedimentation Rate Westergren 3 0 - 40 mm/hr [facility] INSURANCE BILL Blood BLOOD SPECIMEN / Unknown 08/09/2024 7:38 AM SUPPLY ANALYST 08/09/2024 Narrative [facility] INSURANCE BILL - 08/10/2024 7:09 AM SUPPLY ANALYST Performed at: - [facility] [id number] Automatic Engraver: Pola Aguilera PhD, Phone: [phone] Keo Vega MD LAB - HEMATOLOGY ORD ERABLES Performing Organization Address [facility] Co de Phone Number [facility] INSURANCE BILL [address] [place] [address] * CK BLOOD (08/09/2024 7:38 AM SUPPLY ANALYST) Pathologist [facility] CK 87 32 - 182 U/L [facility] INSURANCE BILL Blood BLOOD SPECIMEN / Unknown 08/09/2024 7:38 AM SUPPLY ANALYST 08/09/2024 Narrative [facility] INSURANCE BILL - 08/10/2024 7:09 AM SUPPLY ANALYST Performed at: - [facility] [id number] Automatic Engraver: Pola Aguilera PhD, Phone: [phone] Keo Vega MD LAB - CHEMISTRY NAWAF SINCLAIR Performing Organization Address City/[facility] Co de Phone Number [facility] INSURANCE BILL [address] [place] [address] * VITAMIN B12 FOLATE PANEL (08/09/2024 7:38 AM SUPPLY ANALYST) Vitamin B12 992 232 - 1,245 pg/mL [facility] INSURANCE BILL Folate 13.2 >3.0 ng/mL [facility] INSURANCE BILL Comment: A serum folate concentration of less than 3.1 ng/mL is considered to represent clinical deficiency. Blood BLOOD SPECIMEN / Unknown 08/09/2024 7:38 AM SUPPLY ANALYST 08/09/2024 Narrative [facility] INSURANCE BILL - 08/10/2024 7:09 AM SUPPLY ANALYST Performed at: 01 - [address] [id number] Automatic Engraver: Pola Aguilera PhD, Phone: [phone] Keo Vega MD LAB - CHEMISTRY NAWAF SINCLAIR [facility] INSURANCE BILL [address] [place] [address] * PROTEIN ELECTROPHORESIS BLOOD (08/09/2024 7:38 AM SUPPLY ANALYST) Protein Total 7.5 6.0 - 8.5 g/dL [facility] INSURANCE BILL Albumin 4.0 2.9 - 4.4 g/dL [facility] INSURANCE BILL Alpha-1 Globulin 0.3 0.0 - 0.4 g/dL [facility] INSURANCE BILL Pdcnw-1-Dljsmhyd 0.8 0.4 - 1.0 g/dL [facility] INSURANCE [...] scan will follow via computer, mail, or sr. manager marketing delivery. P E Interpretation, S Comment [facility] INSURANCE BILL Comment: The SPE pattern appears unremarkable. Evidence of monoclonal protein is not apparent. Blood BLOOD SPECIMEN / Unknown 08/09/2024 7:38 AM SUPPLY ANALYST 08/09/2024 Narrative [facility] INSURANCE BILL - 08/10/2024 5:09 PM SUPPLY ANALYST Performed at: [address] [id number] Automatic Engraver: Pola Aguilera PhD, Phone: [phone] Keo Vega MD LAB - CHEMISTRY NAWAF Hernandez Organization Address City/State/ZIP Co de Phone Number [facility] INSURANCE BILL [address] [place] [address] from Last 3 Months Care Teams Regional Flatbed Truck Driver Relationship Specialty Start Date End Date Shavon Lynch PA [address] [place] [phone] PCP - General Physician Paper Cutter 10/28/22
--- OUTSIDE RECORDS SUMMARY | 2024-09-22 23:19 | XMS_ITS | Clinical Summary ---
Author Organization [facility] Building D Address [address] [place] [address] Care Team Providers Care Drug And Alcohol Counselor Name Role Phone Gwendolyn Pulido NP Primary Care Provider [phone] Allergies Active Allergy Reactions Criticality Noted Date [...] 1 tablet (175 mcg total) by mouth early childhood education specialist before breakfast Active acetaminophen 500 mg [...] 04/21/2024 Assessment & Plan (04/21/2024 9:00 AM PAPER STRIPPER): Encourage routine vaccinations. Follow up with PCP. [...] MTX and Plaquinil; Will discuss with pts flagsetter Dr. Bony otoole [phone] Fatigue 07/08/2023 Female pelvic pain 07/08/2023 Hypercalcemia 07/08/2023 Hyperlipidemia 09/11/2022 Encounter for long-term (cur rent) use of high-risk medication 07/16/2022 Assessment & Plan (04/21/2024 9:00 AM PAPER STRIPPER): Long-term use of high-risk medication requiring regular monitoring. Labs ordered, no s/s of med tox or infection. Encouraged to work with PCP to make sure all recommended cancer screens and vaccinations are complete. Avoid live-vaccines unless reviewed with flagsetter first. Assessment & Plan (07/16/2022 2:27 PM PAPER STRIPPER): Long-term use of high-risk medication requiring regular monitoring. Labs ordered, no s/s of med tox or infection. Encouraged to work with PCP to make sure all recommended cancer screens and vaccinations are complete. Avoid live-vaccines unless reviewed with flagsetter first. Did have a follow up MRI [...] (06/29/2018): Added automatically from request for surgery [id number] Crohn's disease of colon 10/22/2015 Overview (09/18/2016): Crohn's colitis Gastroesophageal reflux disease 10/22/2015 Overview (09/19/2016): ESOPHAGEAL REFLUX Rheumatoid arthritis involving multiple joints 0 10/22/2015 Overview (09/19/2016): RHEUMATOID ARTHRITIS Assessment & Plan (04/21/2024 8:59 AM PAPER STRIPPER): Stable on simponi and prednisone 5 mg daily, continue same, continue to monitor. Encourage work toward weaning off prednisone, down to 2.5 mg daily and then off / just prn. Encourage calcium/vitamin D and weight bearing exercise to help with osteoporosis reduction. Assessment & Plan (07/16/2022 2:28 PM PAPER STRIPPER): Stable on simponi and prednisone 5 mg [...] Department Care Team Description 07/13/2024 11:00 AM PAPER STRIPPER Office Visit [facility] [address] [facility] [facility] 6[address] [place] [address] Mac Schwartz MD IRLANDA on [...] Split, Preservative Free, Intradermal 03/28/2015 MMR 10/14/1993 [employer] SARS-CoV-2 Monovalent Vaccination (12+ Yrs) MEYER-READY TO [...] 7 Thierno (Age 64) suspect fa [facility] Daughter beau Father rFanki (Age 65) Father's Sister z Alive Mother [...] on file Legal Sex Female 5:17 PM PAPER STRIPPER Gender Identity Not on file Sexual Orientation Not on file Obstetrics History Last Filed Vital Signs Vital Sign Reading Time Taken Comments Blood Pressure 156/89 07/13/2024 10:54 AM PAPER STRIPPER Pulse 68 07/13/2024 10:54 AM PAPER STRIPPER Temperature 36.4 C (97.6 F) 07/13/2024 10:54 AM PAPER STRIPPER Respiratory Rate 16 01/30/2023 11:27 AM CDT Oxygen Saturation 99% 07/13/2024 10:54 AM PAPER STRIPPER Inhaled Oxygen Concentration - - Weight 76.9 kg (169 lb 8 oz) 07/13/2024 10:54 AM PAPER STRIPPER Height 157.5 cm (5' 2 ) 07/13/2024 10:54 AM PAPER STRIPPER Body Mass Index 31 07/13/2024 10:54 AM PAPER STRIPPER Plan of Treatment Health Maintenance Due Date [...] Most Recently Relevant to Health Maintenance Insurance [employer] MEDICARE MEDICARE FOR LIFE MEDICARE FOR LIFE Advance Directives For more information, please contact: [phone] * Full Code (Latest Code Status on File) Date Activated Date Inactivated Comments 07/23/2018 10:37 AM 07/23/2018 9:42 PM Care Teams Drug And Alcohol Counselor Relationship Specialty Start Date End Date Gwendolyn Pulido, PERSONAL PROPERTY ASSESSOR [address] [place] [address] PCP - General Family Medicine 04/21/24
--- OUTSIDE RECORDS SUMMARY | 2024-09-22 23:19 | XMS_ITS | Referral Summary ---
Author Organization [facility] Building [address] Address [address] [place] [address] Care Team Providers Care Rounding Machine Tender Name Role Phone Gwendolyn Pulido NP Primary Care Provider [phone] Encounters Date Type Department Care Team Description 07/13/2024 11:00 AM PHOTOGRAPHIC HAND DEVELOPER Office Visit [facility] [address] [facility] 6[address] [place] [address] Mac Schwartz MD IRLANDA on [...] 1 tablet (175 mcg total) by mouth educational guidance counselor before breakfast Active acetaminophen 500 mg capsule [...] 04/21/2024 Assessment & Plan (04/21/2024 9:00 AM PHOTOGRAPHIC HAND DEVELOPER): Encourage routine vaccinations. Follow up with PCP. [...] MTX and Plaquinil; Will discuss with pts die setter Dr. Bony otoole [phone] Fatigue 07/08/2023 Female pelvic pain 07/08/2023 Hypercalcemia 07/08/2023 Hyperlipidemia 09/11/2022 Encounter for long-term (cur rent) use of high-risk medication 07/16/2022 Assessment & Plan (04/21/2024 9:00 AM PHOTOGRAPHIC HAND DEVELOPER): Long-term use of high-risk medication requiring regular monitoring. Labs ordered, no s/s of med tox or infection. Encouraged to work with PCP to make sure all recommended cancer screens and vaccinations are complete. Avoid live-vaccines unless reviewed with die setter first. Assessment & Plan (07/16/2022 2:27 PM PHOTOGRAPHIC HAND DEVELOPER): Long-term use of high-risk medication requiring regular monitoring. Labs ordered, no s/s of med tox or infection. Encouraged to work with PCP to make sure all recommended cancer screens and vaccinations are complete. Avoid live-vaccines unless reviewed with die setter first. Did have a follow up MRI [...] (06/29/2018): Added automatically from request for surgery [id number] Crohn's disease of colon 10/22/2015 Overview (09/18/2016): Crohn's colitis Gastroesophageal reflux disease 10/22/2015 Overview (09/19/2016): ESOPHAGEAL REFLUX Rheumatoid arthritis involving multiple joints 0 10/22/2015 Overview (09/19/2016): RHEUMATOID ARTHRITIS Assessment & Plan (04/21/2024 8:59 AM PHOTOGRAPHIC HAND DEVELOPER): Stable on simponi and prednisone 5 mg daily, continue same, continue to monitor. Encourage work toward weaning off prednisone, down to 2.5 mg daily and then off / just prn. Encourage calcium/vitamin D and weight bearing exercise to help with osteoporosis reduction. Assessment & Plan (07/16/2022 2:28 PM PHOTOGRAPHIC HAND DEVELOPER): Stable on simponi and prednisone 5 mg [...] on file Legal Sex Female 5:17 PM PHOTOGRAPHIC HAND DEVELOPER Gender Identity Not on file Sexual Orientation Not on file Last Filed Vital Signs Vital Sign Reading Time Taken Comments Blood Pressure 156/89 07/13/2024 10:54 AM PHOTOGRAPHIC HAND DEVELOPER Pulse 68 07/13/2024 10:54 AM PHOTOGRAPHIC HAND DEVELOPER Temperature 36.4 C (97.6 F) 07/13/2024 10:54 AM PHOTOGRAPHIC HAND DEVELOPER Respiratory Rate 16 01/30/2023 11:27 AM CDT Oxygen Saturation 99% 07/13/2024 10:54 AM PHOTOGRAPHIC HAND DEVELOPER Inhaled Oxygen Concentration - - Weight 76.9 kg (169 lb 8 oz) 07/13/2024 10:54 AM PHOTOGRAPHIC HAND DEVELOPER Height 157.5 cm (5' 2 ) 07/13/2024 10:54 AM PHOTOGRAPHIC HAND DEVELOPER Body Mass Index 31 07/13/2024 10:54 AM PHOTOGRAPHIC HAND DEVELOPER Plan of Treatment Not on file Procedures [...] Most Recently Relevant to Health Maintenance Insurance [employer] FOR [facility] MEDICARE MEDICARE FOR LIFE MEDICARE FOR LIFE Advance Directives For more information, please contact: [phone] * Full Code (Latest Code Status on File) Date Activated Date Inactivated Comments 07/23/2018 10:37 AM 07/23/2018 9:42 PM Care Teams Rounding Machine Tender Relationship Specialty Start Date End Date Gwendolyn Pulido, FIELD INSTALLATION TECHNICIAN [address] [place] [address] PCP - General Family Medicine 04/21/24
--- OUTSIDE RECORDS SUMMARY | 2024-09-22 23:19 | XMS_ITS | Encounter Summary ---
Author Organization [facility] Address [address] [place] [address] Care Team Providers Care Agronomist Name Role Phone Base, [facility] Primary Care Provider [phone] Primary Care Prov ider Shavon Lynch Primary Care Pr ovider Encounter Details Date Type Department Care Team (Late st Contact Info) Description 11/16/2017 Telephone [facility] [address] [place] [address] Inocencia Wade MD [address] [place] [phone] Social History Tobacco Use Types Packs/Day Years [...] 10:20 AM CDT Office Visit [facility] [address] [facility] [address] [place] [address] [place] [address] [facility] [address] [address] documented as of this encounter Visit Diagnoses Not on filedocumented in this encounter Care Teams Agronomist Relationship Specialty Start Date End Date Base, [place], [place] PCP - General 11/16/17 12/16/[address] [facility] [place], [place] [id number] PCP - General 12/17/17 10/27/22 Shavon Lynch PA [address] [place] [address] PCP - General Physician Materials Handler 10/28/22 documented as of this encounter
--- OUTSIDE RECORDS SUMMARY | 2024-09-22 23:19 | XMS_ITS | Encounter Summary ---
Author Organization [facility] Address [address] [facility] [place] [address] Care Team Providers Care Scientific Director Name Role Phone Shavon Lynch Primary Care Pr ovider Reason for Visit * Reason Onset Date Comments MEDICATION REFILL 12/09/2023 Encounter Details Date Type Department Care Team (Late st Contact Info) Description 12/09/2023 Telephone [facility] - Neurology [address] [place] [address], [place] [address] Inocencia Wade MD [address] [place] [address] [place] [phone] MEDICATION REFILL Social History Tobacco Use Types [...] a Med refill. Drug type:carbamazepineER 300 mg Pharmacy:[facility] Patient call back number: [phone] . Upcoming appointment scheduled for : 09/13/24 documented in this encounter Plan of Treatment Upcoming Encounters Date Type Department Care Team (Late st Contact Info) Description 11/10/2024 10:20 AM CDT Office Visit [facility] [address] [facility] [address] [place] [phone] [place] [address] [place] [address] [place] [address] documented as of this encounter Visit Diagnoses Not on filedocumented in this encounter Care Teams Scientific Director Relationship Specialty Start Date End Date Shavon Lynch PA [address] [place] [id number] PCP - General Physician Shale Processing Technician 10/28/22 documented as of this encounter
--- OUTSIDE RECORDS SUMMARY | 2024-09-22 23:20 | XMS_ITS | Data Portability ---
Author Organization [place] - [facility] [employer], Main Office Address [address] [place] [address] Assessment Encounter Date Assessment Date Assessment LastModified by Organization Details LastModified Time 09/11/2022 09/11/2022 Mammogram UTD feb 2022. DEXA UTD mar 2021. cologuard negative 09/02 Not available 09/11/2022 11:24:42 2023 2023 Mammogram due DEXA UTD mar 2021. cologuard negative 09/02 Not available 2023 09:28:24 04/23/2023 04/23/2023 I have reconciled the patient's medications post their discharge from inpatient facility. [email or web address] Not available 04/23/2023 09:53:56 Plan of Treatment Reminders Order Date Submit Date Provider Last Modified By Organization Details Last Modified Time Details Appointments None recorded. Lab hepatic function panel, serum 2022 023 EMILI Not available 3 07:14:50 BMP, serum or plasma 2022 023 EMILI Not available 3 07:14:49 CBC w/ auto diff 2022 023 EMILI Not available 3 07:14:51 lipid panel, serum 2022 023 EMILI Not available 3 07:14:48 vitamin B12 + folate, serum or blood 2022 023 EMILI Not available 3 07:14:52 hepatic function panel, serum 2022 023 EMILI Not available 3 05:30:55 BMP, serum or plasma 2022 023 EMILI Not available 3 05:30:54 CBC w/ auto diff 2022 023 EMILI Not available 3 05:30:56 lipid panel, serum 2022 023 EMILI Not available 3 05:30:53 vitamin B12 + folate, serum or blood 2022 023 EMILI Not available 3 05:30:56 Referral None recorded. Procedures None recorded. Surgeries None recorded. Imaging MAMMO, screening, digital, bilateral 2022 [email or web address] [place] [address] (Mammography) , [facility] Sravanthi Etienne, [place], [address], 4 17:24:40 barium swallow study 2022 023 [facility] (Imaging), [address] [facility] [address] [place] [address], [id number], 3 14:05:40 Medication Orders valacyclovi r 1 gram tablet 2022 023 [facility] #[id number], [address], [id number], 3 10:36:21 prednisone 20 mg tablet 2022 023 [facility] #[id number], [address], [id number], 3 10:36:21 trazodone 100 mg tablet 2022 023 [email or web address] 4 [facility], [address] [place] [address], [address], 3 16:29:56 lorazepam 0.5 mg tablet 2022 023 [email or web address] [facility], [address] [place] [address], [address], 3 11:27:15 Patient TargetsNo targets recorded. Patient Instructions Encounter Date Encounter Id Patient Instructions Last Modified By Organization Details Last Modified Time 04/23/2023 [id number] Thank you for your visit to our office today. We would like to request that you reach out to your referring or previous provider and request that they send us a Summary of Care in electronic form, so that we may have it on file in your medical record. At your visit, we had the medical records we needed to provide you with the best possible care; however, for insurance purposes, an electronic Summary of Care is beneficial. Thank you for your assistance in obtaining this information and we look forward to providing continued care to you. Please review your medication list from the Summary of Care for this visit. If there are any differences from what you are currently taking at home, please call us to discuss. [email or web address] Not available 04/23/2023 09:53:56 Reason for Referral None Reported. Results Created Date Observation Date Name Description Value Unit Range Abnormal Flag Note LastModifiedBy Organization Detail LastModifiedTime 09/11/19 22 09/11/2021 VITAM IN B12/F OLATE , SERUM PANEL vitamin B12 1379 pg/mL 200-11 00 high Not Available [facility] [address] [place], [address], 09/11/2021 06:20:50 09/11/19 22 09/11/2021 VITAM IN B12/F OLATE , SERUM PANEL folate, serum 19.1 NG/mL normal Refer ence Range Low: <3.4 Borde rline : 3.4-5 .4 Chela l: >5.4 Not Available [facility] [address] [place], [address], 09/11/2021 06:20:50 09/11/19 22 09/11/2021 CBC (INCL UDES DIFF/ PLT) white blood cell count 6.2 thous and/u L 3.8-10 .8 normal Not Available [facility] [address] [facility] [place], [address], 09/11/2021 06:20:50 09/11/19 22 09/11/2021 CBC (INCL UDES DIFF/ PLT) red blood cell count 4.15 umesh on/uL 3.80-5 .10 normal Not Available [address], [address], 09/11/2021 06:20:50 09/11/19 22 09/11/2021 CBC (INCL UDES DIFF/ PLT) hemoglobin 12.9 g/dL 11.7-1 5.5 normal Not Available [address], [address], 09/11/2021 06:20:50 09/11/19 22 09/11/2021 CBC (INCL UDES DIFF/ PLT) hematocrit 38.8 % 35.0-4 5.0 normal Not Available [address], [address], 09/11/2021 06:20:50 09/11/19 22 09/11/2021 CBC (INCL UDES DIFF/ PLT) MCV 93.5 fL 80.0-1 00.0 normal Not Available [address], [address], 09/11/2021 06:20:50 09/11/19 22 09/11/2021 CBC (INCL UDES DIFF/ PLT) MCH 31.1 pg 27.0-3 3.0 normal Not Available [address], [address], 09/11/2021 06:20:50 09/11/19 22 09/11/2021 CBC (INCL UDES DIFF/ PLT) MCHC 33.2 g/dL 32.0-3 6.0 normal Not Available [address], [address], 09/11/2021 06:20:50 09/11/19 22 09/11/2021 CBC (INCL UDES DIFF/ PLT) RDW 12.2 % 11.0-1 5.0 normal Not Available [address], [address], 09/11/2021 06:20:50 09/11/19 22 09/11/2021 CBC (INCL UDES DIFF/ PLT) platelet count 295 thous and/u L 140-40 0 normal Not Available [address], [address], 09/11/2021 06:20:50 09/11/19 22 09/11/2021 CBC (INCL UDES DIFF/ PLT) MPV 11.0 fL 7.5-12 .5 normal Not Available [address], [address], 09/11/2021 06:20:50 09/11/19 22 09/11/2021 CBC (INCL UDES DIFF/ PLT) absolute neutrophils 4135 cells /uL 1500-7 800 normal Not Available [address], [address], 09/11/2021 06:20:50 09/11/19 22 09/11/2021 CBC (INCL UDES DIFF/ PLT) absolute lymphocytes 670 cells /uL 850-39 00 low Not Available [employer] [address], [address], 09/11/2021 06:20:50 09/11/19 22 09/11/2021 CBC (INCL UDES DIFF/ PLT) absolute monocytes 1383 cells /uL 200-95 0 high Not Available [employer] [address], [address], 09/11/2021 06:20:50 09/11/19 22 09/11/2021 CBC (INCL UDES DIFF/ PLT) absolute eosinophils 0 cells /uL 15-500 low Not Available [employer] [address], [address], 09/11/2021 06:20:50 09/11/19 22 09/11/2021 CBC (INCL UDES DIFF/ PLT) absolute basophils 12 cells /uL 0-200 normal Not Available [address], [address], 09/11/2021 06:20:50 09/11/19 22 09/11/2021 CBC (INCL UDES DIFF/ PLT) eosinophils 0.0 % normal Not Available [address], [address], 09/11/2021 06:20:50 09/11/19 22 09/11/2021 CBC (INCL UDES DIFF/ PLT) neutrophils 66.7 % normal Not Available [address], [address], 09/11/2021 06:20:50 09/11/19 22 09/11/2021 CBC (INCL UDES DIFF/ PLT) lymphocytes 10.8 % normal Not Available [address], [address], 09/11/2021 06:20:50 09/11/19 22 09/11/2021 CBC (INCL UDES DIFF/ PLT) monocytes 22.3 % normal Not Available [address], [address], 09/11/2021 06:20:50 09/11/19 22 09/11/2021 CBC (INCL UDES DIFF/ PLT) basophils 0.2 % normal Not Available [address], [address], 09/11/2021 06:20:50 09/11/19 22 09/11/2021 HEPAT IC FUNCT ION PANEL protein, total 7.8 g/dL 6.1-8. 1 normal Not Available [address], [address], 09/11/2021 06:20:49 09/11/19 22 09/11/2021 HEPAT IC FUNCT ION PANEL albumin 4.7 g/dL 3.6-5. 1 normal Not Available [address], [address], 09/11/2021 06:20:49 09/11/19 22 09/11/2021 HEPAT IC FUNCT ION PANEL globulin 3.1 g/dL_ (calc ) 1.9-3. 7 normal Not Available [address], [address], 09/11/2021 06:20:49 09/11/19 22 09/11/2021 HEPAT IC FUNCT ION PANEL albumin/glob ulin ratio 1.5 (calc ) 1.0-2. 5 normal Not Available [address], [address], 09/11/2021 06:20:49 09/11/19 22 09/11/2021 HEPAT IC FUNCT ION PANEL bilirubin, total 0.3 mg/dL 0.2-1. 2 normal Not Available [address], [address], 09/11/2021 06:20:49 09/11/19 22 09/11/2021 HEPAT IC FUNCT ION PANEL bilirubin, direct 0.1 mg/dL < or = 0.2 normal Not Available [address], [address], 09/11/2021 06:20:49 09/11/19 22 09/11/2021 HEPAT IC FUNCT ION PANEL bilirubin, indirect 0.2 mg/dL _(ambrosio c) 0.2-1. 2 normal Not Available [address], [address], 09/11/2021 06:20:49 09/11/19 22 09/11/2021 HEPAT IC FUNCT ION PANEL alkaline phosphatase 129 U/L 37-153 normal Not Available [facility] [address], [address], 09/11/2021 06:20:49 09/11/19 22 09/11/2021 HEPAT IC FUNCT ION PANEL AST 22 U/L 10-35 normal Not Available [address], [address], 09/11/2021 06:20:49 09/11/19 22 09/11/2021 HEPAT IC FUNCT ION PANEL ALT 19 U/L 6-29 normal Not Available [address], [address], 09/11/2021 06:20:49 09/11/19 22 09/11/2021 BASIC METAB OLIC PANEL sodium 134 mmol/ L 135-14 6 low Not Available [address], [address], 09/11/2021 06:20:48 09/11/1909/11/2021 BASIC METAB OLIC PANEL glucose 102 mg/dL 65-99 high Fasti ng refer ence inter eugenio For someo ne witho ut known diabe saleem, a gluco se value betwe en 100 and 125 mg/dL is consi stent with predi abete s and shoul d be confi rmed with a follo w-up test. Not Available [facility] [employer] [address], [address], 09/11/2021 06:20:48 09/11/19 22 09/11/2021 BASIC METAB OLIC PANEL urea nitrogen (BUN) 11 mg/dL 7-25 normal Not Available [facility] [employer] [address], [address], 09/11/2021 06:20:48 09/11/19 22 09/11/2021 BASIC METAB OLIC PANEL creatinine 0.85 mg/dL 0.50-0 .99 normal For patie nts >49 years of age, the refer ence limit for Creat inine is appro ximat shelly 13% highe r for peopl e ident ified as Afric an-Am tyesha n. Not Available [address], [address], 09/11/2021 06:20:48 09/11/19 22 09/11/2021 BASIC METAB OLIC PANEL eGFR non-afr. saudi arabian 71 mL/mi n/1.7 3m2 > or = 60 normal Not Available [place] [address] [place], [address], 09/11/2021 06:20:48 09/11/19 22 09/11/2021 BASIC METAB OLIC PANEL eGFR 83 mL/mi n/1.7 3m2 > or = 60 normal Not Available [address], [address], 09/11/2021 06:20:48 09/11/19 22 09/11/2021 BASIC METAB OLIC PANEL BUN/creatini ne ratio not applic able (calc ) 6-22 Not Available [address], [address], 09/11/2021 06:20:48 09/11/19 22 09/11/2021 BASIC METAB OLIC PANEL potassium 3.5 mmol/ L 3.5-5. 3 normal Not Available [address], [address], 09/11/2021 06:20:48 09/11/19 22 09/11/2021 BASIC METAB OLIC PANEL chloride 97 mmol/ L 98-110 low Not Available [address], [address], 09/11/2021 06:20:48 09/11/19 22 09/11/2021 BASIC METAB OLIC PANEL carbon dioxide 25 mmol/ L 20-32 normal Not Available [facility] [address], [place], [address], 09/11/2021 06:20:48 09/11/1909/11/2021 BASIC METAB OLIC PANEL calcium 9.5 mg/dL 8.6-10 .4 normal Not Available [address], [address], 09/11/2021 06:20:48 03/19/2004/02/2022 VITAM IN B12/F OLATE , SERUM PANEL vitamin B12 467 pg/mL 200-11 00 normal Not Available [address], [address], 04/02/2022 11:31:20 03/19/2004/02/2022 VITAM IN B12/F OLATE , SERUM PANEL folate, serum 14.8 NG/mL normal Refer ence Range Low: <3.4 Borde rline : 3.4-5 .4 Chela l: >5.4 Summa ry of uLcianoog raphi cs [facility]os es [facility]. No other avalos es to any test resul ts have been made. Freddy nt Name Befor e: Nannette HOOK After : LY LAWRENCE Avalos ed on: 04/02 Not Available [address], [address], 04/02/2022 11:31:20 03/19/2003/20/2022 URINA LYSIS , COMPL ETE color yellow yellow normal Not Available [facility] [address] [address] [place], [address], 03/20/2022 08:22:45 03/19/2003/20/2022 URINA LYSIS , COMPL ETE appearance clear clear normal Not Available [place] [address] [place], [address], 03/20/2022 08:22:45 03/19/2003/20/2022 URINA LYSIS , COMPL ETE specific gravity 1.007 1.001- 1.035 normal Not Available [address], [address], 03/20/2022 08:22:45 03/19/2003/20/2022 URINA LYSIS , COMPL ETE pH 7.5 5.0-8. 0 normal Not Available [address], [address], 03/20/2022 08:22:45 03/19/2003/20/2022 URINA LYSIS , COMPL ETE glucose negati ve negati ve normal Not Available [address], [address], 03/20/2022 08:22:45 03/19/2003/20/2022 URINA LYSIS , COMPL ETE bilirubin negati ve negati ve normal Not Available [address], [address], 03/20/2022 08:22:45 03/19/2003/20/2022 URINA LYSIS , COMPL ETE ketones negati ve negati ve normal Not Available [address], [address], 03/20/2022 08:22:45 03/19/2003/20/2022 URINA LYSIS , COMPL ETE occult blood negati ve negati ve normal Not Available [address], [address], 03/20/2022 08:22:45 03/19/2003/20/2022 URINA LYSIS , COMPL ETE protein negati ve negati ve normal Not Available [address], [address], 03/20/2022 08:22:45 03/19/2003/20/2022 URINA LYSIS , COMPL ETE nitrite negati ve negati ve normal Not Available [address], [address], 03/20/2022 08:22:45 03/19/20 22 03/20/2022 URINA LYSIS , COMPL ETE leukocyte esterase negati ve negati ve normal Not Available [address], [address], 03/20/2022 08:22:45 03/19/20 22 03/20/2022 URINA LYSIS , COMPL ETE WBC none seen /hpf < or = 5 normal Not Available [address], [address], 03/20/2022 08:22:45 03/19/20 22 03/20/2022 URINA LYSIS , COMPL ETE RBC none seen /hpf < or = 2 normal Not Available [address], [address], 03/20/2022 08:22:45 03/19/20 22 03/20/2022 URINA LYSIS , COMPL ETE squamous epithelial cells none seen /hpf < or = 5 normal Not Available [address], [address], 03/20/2022 08:22:45 03/19/20 22 03/20/2022 URINA LYSIS , COMPL ETE bacteria none seen /hpf none seen normal Not Available [address], [address], 03/20/2022 08:22:45 03/19/20 22 03/20/2022 URINA LYSIS , COMPL ETE hyaline cast none seen /lpf none seen normal Not Available [address], [address], 03/20/2022 08:22:45 03/19/20 22 03/20/2022 CBC (INCL UDES DIFF/ PLT) white blood cell count 5.5 thous and/u L 3.8-10 .8 normal Not Available [address], [address], 03/20/2022 08:22:44 03/19/20 22 03/20/2022 CBC (INCL UDES DIFF/ PLT) red blood cell count 3.77 umesh on/uL 3.80-5 .10 low Not Available [address], [address], 03/20/2022 08:22:44 03/19/20 22 03/20/2022 CBC (INCL UDES DIFF/ PLT) hemoglobin 11.9 g/dL 11.7-1 5.5 normal Not Available [address], [address], 03/20/2022 08:22:44 03/19/20 22 03/20/2022 CBC (INCL UDES DIFF/ PLT) hematocrit 36.2 % 35.0-4 5.0 normal Not Available [address], [address], 03/20/2022 08:22:44 03/19/20 22 03/20/2022 CBC (INCL UDES DIFF/ PLT) MCV 96.0 fL 80.0-1 00.0 normal Not Available [address], [address], 03/20/2022 08:22:44 03/19/20 22 03/20/2022 CBC (INCL UDES DIFF/ PLT) MCH 31.6 pg 27.0-3 3.0 normal Not Available [address], [address], 03/20/2022 08:22:44 03/19/20 22 03/20/2022 CBC (INCL UDES DIFF/ PLT) MCHC 32.9 g/dL 32.0-3 6.0 normal Not Available [address], [address], 03/20/2022 08:22:44 03/19/2003/20/2022 CBC (INCL UDES DIFF/ PLT) RDW 12.5 % 11.0-1 5.0 normal Not Available [address], [address], 03/20/2022 08:22:44 03/19/2003/20/2022 CBC (INCL UDES DIFF/ PLT) platelet count 309 thous and/u L 140-40 0 normal Not Available [address], [address], 03/20/2022 08:22:44 03/19/20 22 03/20/2022 CBC (INCL UDES DIFF/ PLT) MPV 11.0 fL 7.5-12 .5 normal Not Available [address], [address], 03/20/2022 08:22:44 03/19/2003/20/2022 CBC (INCL UDES DIFF/ PLT) absolute neutrophils 3366 cells /uL 1500-7 800 normal Not Available [address], [address], 03/20/2022 08:22:44 03/19/2003/20/2022 CBC (INCL UDES DIFF/ PLT) absolute lymphocytes 1309 cells /uL 850-39 00 normal Not Available [address], [address], 03/20/2022 08:22:44 03/19/2003/20/2022 CBC (INCL UDES DIFF/ PLT) absolute monocytes 594 cells /uL 200-95 0 normal Not Available [address], [address], 03/20/2022 08:22:44 03/19/2003/20/2022 CBC (INCL UDES DIFF/ PLT) absolute eosinophils 171 cells /uL 15-500 normal Not Available [address], [address], 03/20/2022 08:22:44 03/19/20 22 03/20/2022 CBC (INCL UDES DIFF/ PLT) absolute basophils 61 cells /uL 0-200 normal Not Available [address], [address], 03/20/2022 08:22:44 03/19/20 22 03/20/2022 CBC (INCL UDES DIFF/ PLT) neutrophils 61.2 % normal Not Available [address], [address], 03/20/2022 08:22:44 03/19/20 22 03/20/2022 CBC (INCL UDES DIFF/ PLT) lymphocytes 23.8 % normal Not Available [address], [address], 03/20/2022 08:22:44 03/19/20 22 03/20/2022 CBC (INCL UDES DIFF/ PLT) monocytes 10.8 % normal Not Available [address], [address], 03/20/2022 08:22:44 03/19/20 22 03/20/2022 CBC (INCL UDES DIFF/ PLT) eosinophils 3.1 % normal Not Available [address], [address], 03/20/2022 08:22:44 03/19/2003/20/2022 CBC (INCL UDES DIFF/ PLT) basophils 1.1 % normal Not Available [address], [address], 03/20/2022 08:22:44 03/19/20 22 03/20/2022 HEPAT IC FUNCT ION PANEL protein, total 6.9 g/dL 6.1-8. 1 normal Not Available [address], [address], 03/20/2022 08:22:43 03/19/20 22 03/20/2022 HEPAT IC FUNCT ION PANEL albumin 4.0 g/dL 3.6-5. 1 normal Not Available [address], [address], 03/20/2022 08:22:43 03/19/20 22 03/20/2022 HEPAT IC FUNCT ION PANEL globulin 2.9 g/dL_ (calc ) 1.9-3. 7 normal Not Available [address], [address], 03/20/2022 08:22:43 03/19/20 22 03/20/2022 HEPAT IC FUNCT ION PANEL albumin/glob ulin ratio 1.4 (calc ) 1.0-2. 5 normal Not Available [address], [address], 03/20/2022 08:22:43 03/19/20 22 03/20/2022 HEPAT IC FUNCT ION PANEL bilirubin, total 0.4 mg/dL 0.2-1. 2 normal Not Available [address], [address], 03/20/2022 08:22:43 03/19/20 22 03/20/2022 HEPAT IC FUNCT ION PANEL bilirubin, direct 0.1 mg/dL < or = 0.2 normal Not Available [address], [address], 03/20/2022 08:22:43 03/19/20 22 03/20/2022 HEPAT IC FUNCT ION PANEL bilirubin, indirect 0.3 mg/dL _(ambrosio c) 0.2-1. 2 normal Not Available [address], [address], 03/20/2022 08:22:43 03/19/20 22 03/20/2022 HEPAT IC FUNCT ION PANEL alkaline phosphatase 139 U/L 37-153 normal Not Available [facility] [address], [address], 03/20/2022 08:22:43 03/19/20 22 03/20/2022 HEPAT IC FUNCT ION PANEL AST 14 U/L 10-35 normal Not Available [address], [address], 03/20/2022 08:22:43 03/19/20 22 03/20/2022 HEPAT IC FUNCT ION PANEL ALT 12 U/L 6-29 normal Not Available [address], [address], 03/20/2022 08:22:43 03/19/20 22 03/20/2022 BASIC METAB OLIC PANEL glucose 88 mg/dL 65-99 normal Fasti ng refer ence inter eugenio Not Available [address], [address], 03/20/2022 08:22:42 03/19/20 22 03/20/2022 BASIC METAB OLIC PANEL urea nitrogen (BUN) 10 mg/dL 7-25 normal Not Available [address], [address], 03/20/2022 08:22:42 03/19/20 22 03/20/2022 BASIC METAB OLIC PANEL creatinine 0.80 mg/dL 0.50-1 .05 normal Not Available [address], [address], 03/20/2022 08:22:42 03/19/20 22 03/20/2022 BASIC METAB OLIC PANEL chloride 104 mmol/ L 98-110 normal Not Available [address], [address], 03/20/2022 08:22:42 03/19/20 22 03/20/2022 BASIC METAB OLIC PANEL eGFR 81 mL/mi n/1.7 3m2 > or = 60 normal The eGFR is based on the CKD-E PI 2020 equat ion. To calcu late the new eGFR from a previ ous Creat inine or Cysta tin C resul t, go to https ://zacarias alston.[email or web address] maguire/hanh rodriguezal s/ kdoqi /gfr% 5Fcal culat or Not Available [address], [address], 03/20/2022 08:22:42 03/19/20 22 03/20/2022 BASIC METAB OLIC PANEL BUN/creatini ne ratio not applic able (calc ) 6-22 Not Available [address], [address], 03/20/2022 08:22:42 03/19/20 22 03/20/2022 BASIC METAB OLIC PANEL sodium 137 mmol/ L 135-14 6 normal Not Available [address], [address], 03/20/2022 08:22:42 03/19/20 22 03/20/2022 BASIC METAB OLIC PANEL potassium 3.9 mmol/ L 3.5-5. 3 normal Not Available [facility] [address], [address], 03/20/2022 08:22:42 03/19/20 22 03/20/2022 BASIC METAB OLIC PANEL carbon dioxide 25 mmol/ L 20-32 normal Not Available [facility] [address], [address], 03/20/2022 08:22:42 03/19/20 22 03/20/2022 BASIC METAB OLIC PANEL calcium 8.5 mg/dL 8.6-10 .4 low Not Available [facility] [place] [address] [place], [address], 03/20/2022 08:22:42 10/02/1910/02/2022 LIPID PANEL , STAND NAOMI cholesterol, total 201 mg/dL <200 high Not Available [facility] [place] [address] [place], [address], 10/02/2022 05:30:53 10/02/19 23 10/02/2022 LIPID PANEL , STAND NAOMI HDL cholesterol 102 mg/dL > or = 50 normal Not Available [facility] [place] [address] [place], [address], 10/02/2022 05:30:53 10/02/19 23 10/02/2022 LIPID PANEL , STAND NAOMI triglyceride s 88 mg/dL <150 normal Not Available [address] [address] [place], [address], 10/02/2022 05:30:53 10/02/19 23 10/02/2022 LIPID PANEL , STAND NAOMI LDL-choleste rol 82 mg/dL _(ambrosio c) normal Refer ence range : <100 Lisandro able range <100 mg/dL for prima ry preve ntion ; <70 mg/dL for patie nts with CHD or diabe tic patie nts with > or = 2 CHD risk facto rs. LDL-C is now calcu lated using the Emmanuelle elena-Hop kins levon alberts n, which is a valid ated novel alannaho ashley romero r accur acy than the Fried juventino equat ion in the estim ation of LDL-C . Emmanuelle elena SS et al. KARON. 2013; 310(1 9): 2061- 2068 (http ://ed ucati on.Qu Shima perdomos. com/f aq/FA Q164) Not Available [facility] [address] [address] [address] , [place], [address], 10/02/2022 05:30:53 10/02/19 23 10/02/2022 LIPID PANEL , STAND NAOMI chol/HDLC ratio 2.0 (calc ) <5.0 normal Not Available [address], [address], 10/02/2022 05:30:53 10/02/19 23 10/02/2022 LIPID PANEL , STAND NAOMI non HDL cholesterol 99 mg/dL _(ambrosio c) <130 normal For patie nts with diabe saleem plus 1 major ASCVD risk facto r, treat ing to a non-H DL-C goal of <100 mg/dL (LDL- C of <70 mg/dL ) is consi dered a thera peuti c optio n. Not Available [address], [address], 10/02/2022 05:30:53 10/02/19 23 10/02/2022 BASIC METAB OLIC PANEL glucose 87 mg/dL 65-99 normal Fasti ng refer ence inter eugenio Not Available [address] [address] [place], [address], 10/02/2022 05:30:54 10/02/19 23 10/02/2022 BASIC METAB OLIC PANEL urea nitrogen (BUN) 10 mg/dL 7-25 normal Not Available [address], [address], 10/02/2022 05:30:54 10/02/19 23 10/02/2022 BASIC METAB OLIC PANEL creatinine 0.84 mg/dL 0.50-1 .05 normal Not Available [address], [address], 10/02/2022 05:30:54 10/02/19 23 10/02/2022 BASIC METAB OLIC PANEL eGFR 76 mL/mi n/1.7 3m2 > or = 60 normal The eGFR is based on the CKD-E PI 2020 equat ion. To calcu late the new eGFR from a previ ous Creat inine or Cysta steven C resul t, go to https ://zacarias alston.michaela maguire/pr ofess ional s/ kdoqi /gfr% 5Fcal culat or Not Available [address], [address], 10/02/2022 05:30:54 10/02/19 23 10/02/2022 BASIC METAB OLIC PANEL BUN/creatini ne ratio NOT APPLIC ABLE (calc ) 6-22 Not Available [address], [address], 10/02/2022 05:30:54 10/02/19 23 10/02/2022 BASIC METAB OLIC PANEL sodium 136 mmol/ L 135-14 6 normal Not Available [address], [address], 10/02/2022 05:30:54 10/02/19 23 10/02/2022 BASIC METAB OLIC PANEL potassium 3.7 mmol/ L 3.5-5. 3 normal Not Available [address], [address], 10/02/2022 05:30:54 10/02/19 23 10/02/2022 BASIC METAB OLIC PANEL chloride 102 mmol/ L 98-110 normal Not Available [address], [address], 10/02/2022 05:30:54 10/02/19 23 10/02/2022 BASIC METAB OLIC PANEL carbon dioxide 26 mmol/ L 20-32 normal Not Available [address], [address], 10/02/2022 05:30:54 10/02/19 23 10/02/2022 BASIC METAB OLIC PANEL calcium 8.8 mg/dL 8.6-10 .4 normal Not Available [address], [address], 10/02/2022 05:30:54 10/02/19 23 10/02/2022 HEPAT IC FUNCT ION PANEL protein, total 7.0 g/dL 6.1-8. 1 normal Not Available [address], [address], 10/02/2022 05:30:55 10/02/19 23 10/02/2022 HEPAT IC FUNCT ION PANEL albumin 4.2 g/dL 3.6-5. 1 normal Not Available [address], [address], 10/02/2022 05:30:55 10/02/19 23 10/02/2022 HEPAT IC FUNCT ION PANEL globulin 2.8 g/dL_ (calc ) 1.9-3. 7 normal Not Available [address], [address], 10/02/2022 05:30:55 10/02/19 23 10/02/2022 HEPAT IC FUNCT ION PANEL albumin/glob ulin ratio 1.5 (calc ) 1.0-2. 5 normal Not Available [address], [address], 10/02/2022 05:30:55 10/02/19 23 10/02/2022 HEPAT IC FUNCT ION PANEL bilirubin, total 0.4 mg/dL 0.2-1. 2 normal Not Available [address] [address], [address], 10/02/2022 05:30:55 10/02/19 23 10/02/2022 HEPAT IC FUNCT ION PANEL bilirubin, direct 0.1 mg/dL < or = 0.2 normal Not Available [address], [address], 10/02/2022 05:30:55 10/02/19 23 10/02/2022 HEPAT IC FUNCT ION PANEL bilirubin, indirect 0.3 mg/dL _(ambrosio c) 0.2-1. 2 normal Not Available [address], [address], 10/02/2022 05:30:55 10/02/19 23 10/02/2022 HEPAT IC FUNCT ION PANEL alkaline phosphatase 87 U/L 37-153 normal Not Available [facility] [employer] [address], [address], 10/02/2022 05:30:55 10/02/19 23 10/02/2022 HEPAT IC FUNCT ION PANEL AST 13 U/L 10-35 normal Not Available [address], [address], 10/02/2022 05:30:55 10/02/19 23 10/02/2022 HEPAT IC FUNCT ION PANEL ALT 12 U/L 6-29 normal Not Available [address], [address], 10/02/2022 05:30:55 10/02/19 23 10/02/2022 CBC (INCL UDES DIFF/ PLT) white blood cell count 7.0 thous and/u L 3.8-10 .8 normal Not Available [address], [address], 10/02/2022 05:30:56 10/02/19 23 10/02/2022 CBC (INCL UDES DIFF/ PLT) red blood cell count 3.64 umesh on/uL 3.80-5 .10 low Not Available [address], [address], 10/02/2022 05:30:56 10/02/19 23 10/02/2022 CBC (INCL UDES DIFF/ PLT) hemoglobin 11.4 g/dL 11.7-1 5.5 low Not Available [employer] [address], [address], 10/02/2022 05:30:56 10/02/19 23 10/02/2022 CBC (INCL UDES DIFF/ PLT) hematocrit 35.7 % 35.0-4 5.0 normal Not Available [address], [address], 10/02/2022 05:30:56 10/02/19 23 10/02/2022 CBC (INCL UDES DIFF/ PLT) MCV 98.1 fL 80.0-1 00.0 normal Not Available [address], [address], 10/02/2022 05:30:56 10/02/19 23 10/02/2022 CBC (INCL UDES DIFF/ PLT) MCH 31.3 pg 27.0-3 3.0 normal Not Available [address], [address], 10/02/2022 05:30:56 10/02/19 23 10/02/2022 CBC (INCL UDES DIFF/ PLT) MCHC 31.9 g/dL 32.0-3 6.0 low Not Available [address], [address], 10/02/2022 05:30:56 10/02/19 23 10/02/2022 CBC (INCL UDES DIFF/ PLT) RDW 12.8 % 11.0-1 5.0 normal Not Available [address], [address], 10/02/2022 05:30:56 10/02/19 23 10/02/2022 CBC (INCL UDES DIFF/ PLT) platelet count 294 thous and/u L 140-40 0 normal Not Available [address], [address], 10/02/2022 05:30:56 10/02/19 23 10/02/2022 CBC (INCL UDES DIFF/ PLT) MPV 10.8 fL 7.5-12 .5 normal Not Available [address], [address], 10/02/2022 05:30:56 10/02/19 23 10/02/2022 CBC (INCL UDES DIFF/ PLT) absolute neutrophils 4081 cells /uL 1500-7 800 normal Not Available [address], [address], 10/02/2022 05:30:56 10/02/19 23 10/02/2022 CBC (INCL UDES DIFF/ PLT) absolute lymphocytes 1967 cells /uL 850-39 00 normal Not Available [address], [address], 10/02/2022 05:30:56 10/02/19 23 10/02/2022 CBC (INCL UDES DIFF/ PLT) absolute monocytes 791 cells /uL 200-95 0 normal Not Available [address], [address], 10/02/2022 05:30:56 10/02/19 23 10/02/2022 CBC (INCL UDES DIFF/ PLT) absolute eosinophils 98 cells /uL 15-500 normal Not Available [address], [address], 10/02/2022 05:30:56 10/02/19 23 10/02/2022 CBC (INCL UDES DIFF/ PLT) absolute basophils 63 cells /uL 0-200 normal Not Available [address], [address], 10/02/2022 05:30:56 10/02/19 23 10/02/2022 CBC (INCL UDES DIFF/ PLT) neutrophils 58.3 % normal Not Available [address], [address], 10/02/2022 05:30:56 10/02/19 23 10/02/2022 CBC (INCL UDES DIFF/ PLT) lymphocytes 28.1 % normal Not Available [address], [address], 10/02/2022 05:30:56 10/02/19 23 10/02/2022 CBC (INCL UDES DIFF/ PLT) monocytes 11.3 % normal Not Available [facility] [address], [address], 10/02/2022 05:30:56 10/02/19 23 10/02/2022 CBC (INCL UDES DIFF/ PLT) eosinophils 1.4 % normal Not Available [facility] [address], [address], 10/02/2022 05:30:56 10/02/19 23 10/02/2022 CBC (INCL UDES DIFF/ PLT) basophils 0.9 % normal Not Available [address], [address], 10/02/2022 05:30:56 10/02/19 23 10/02/2022 VITAM IN B12/F OLATE , SERUM PANEL vitamin B12 468 pg/mL 200-11 00 normal Not Available [address], [address], 10/02/2022 05:30:56 10/02/19 23 10/02/2022 VITAM IN B12/F OLATE , SERUM PANEL folate, serum 12.5 NG/mL normal Refer ence Range Low: <3.4 Borde rline : 3.4-5 .4 Chela l: >5.4 Not Available [address], [address], 10/02/2022 05:30:56 03/31/20 23 04/01/2023 LIPID PANEL , STAND NAOMI cholesterol, total 202 mg/dL <200 high Not Available [address], [address], 04/01/2023 07:14:48 03/31/2004/01/2023 LIPID PANEL , STAND NAOMI HDL cholesterol 99 mg/dL > or = 50 normal Not Available [facility] [id number] [place] [address], [address], 04/01/2023 07:14:48 03/31/20 23 04/01/2023 LIPID PANEL , STAND NAOMI triglyceride s 67 mg/dL <150 normal Not Available [address], [address], 04/01/2023 07:14:48 03/31/2004/01/2023 LIPID PANEL , STAND NAOMI LDL-choleste rol 88 mg/dL _(ambrosio c) normal Refer ence range : <100 Lisandro able range <100 mg/dL for prima ry preve ntion ; <70 mg/dL for patie nts with CHD or diabe tic patie nts with > or = 2 CHD risk facto rs. LDL-C is now calcu lated using the Emmanuelle n-Hop kins calcu lexus n, which is a valid ated novel metho d provi ding nick r accur acy than the Fried juventino equat ion in the estim ation of LDL-C . Emmanuelle elena SS et al. KARON. 2013; 310(1 9): 2061- 2068 (http ://ed ucati on.Qu Shima Nimbit. com/f aq/FA Q164) Not Available [address], [address], 04/01/2023 07:14:48 03/31/2004/01/2023 LIPID PANEL , STAND NAOMI chol/HDLC ratio 2.0 (calc ) <5.0 normal Not Available [facility] [address] [place] [address], [address], 04/01/2023 07:14:48 03/31/20 23 04/01/2023 LIPID PANEL , STAND NAOMI non HDL cholesterol 103 mg/dL _(ambrosio c) <130 normal For patie nts with diabe saleem plus 1 major ASCVD risk facto r, treat ing to a non-H DL-C goal of <100 mg/dL (LDL- C of <70 mg/dL ) is nimo heo n. Not Available [address] [address] [place], [address], 04/01/2023 07:14:48 03/31/2004/01/2023 BASIC METAB OLIC PANEL glucose 93 mg/dL 65-99 normal Fasti ng refer ence inter eugenio Not Available [facility] [address] [place], [address], 04/01/2023 07:14:49 03/31/2004/01/2023 BASIC METAB OLIC PANEL urea nitrogen (BUN) 9 mg/dL 7-25 normal Not Available [address] [address] [place], [address], 04/01/2023 07:14:49 03/31/2004/01/2023 BASIC METAB OLIC PANEL creatinine 0.85 mg/dL 0.50-1 .05 normal Not Available [address] [address] [place], [address], 04/01/2023 07:14:49 03/31/2004/01/2023 BASIC METAB OLIC PANEL eGFR 75 mL/mi n/1.7 3m2 > or = 60 normal Not Available [address] [address] [place], [address], 04/01/2023 07:14:49 03/31/2004/01/2023 BASIC METAB OLIC PANEL BUN/creatini ne ratio SEE NOTE: (calc ) 6-22 Not Repor alex: BUN and Creat inine are withi n refer ence range . Not Available [facility] [place] [address] [place], [address], 04/01/2023 07:14:49 03/31/2004/01/2023 BASIC METAB OLIC PANEL sodium 136 mmol/ L 135-14 6 normal Not Available [address], [address], 04/01/2023 07:14:49 03/31/2004/01/2023 BASIC METAB OLIC PANEL potassium 3.9 mmol/ L 3.5-5. 3 normal Not Available [address], [address], 04/01/2023 07:14:49 03/31/2004/01/2023 BASIC METAB OLIC PANEL chloride 103 mmol/ L 98-110 normal Not Available [address], [address], 04/01/2023 07:14:49 03/31/2004/01/2023 BASIC METAB OLIC PANEL carbon dioxide 26 mmol/ L 20-32 normal Not Available [address], [address], 04/01/2023 07:14:49 03/31/2004/01/2023 BASIC METAB OLIC PANEL calcium 8.8 mg/dL 8.6-10 .4 normal Not Available [address], [address], 04/01/2023 07:14:49 03/31/2004/01/2023 HEPAT IC FUNCT ION PANEL protein, total 7.1 g/dL 6.1-8. 1 normal Not Available [address], [address], 04/01/2023 07:14:50 03/31/2004/01/2023 HEPAT IC FUNCT ION PANEL albumin 4.1 g/dL 3.6-5. 1 normal Not Available [address], [address], 04/01/2023 07:14:50 03/31/2004/01/2023 HEPAT IC FUNCT ION PANEL globulin 3.0 g/dL_ (calc ) 1.9-3. 7 normal Not Available [address], [address], 04/01/2023 07:14:50 03/31/2004/01/2023 HEPAT IC FUNCT ION PANEL albumin/glob ulin ratio 1.4 (calc ) 1.0-2. 5 normal Not Available [address], [address], 04/01/2023 07:14:50 03/31/2004/01/2023 HEPAT IC FUNCT ION PANEL bilirubin, total 0.4 mg/dL 0.2-1. 2 normal Not Available [address], [address], 04/01/2023 07:14:50 03/31/2004/01/2023 HEPAT IC FUNCT ION PANEL bilirubin, direct 0.1 mg/dL < or = 0.2 normal Not Available [address], [address], 04/01/2023 07:14:50 03/31/2004/01/2023 HEPAT IC FUNCT ION PANEL bilirubin, indirect 0.3 mg/dL _(ambrosio c) 0.2-1. 2 normal Not Available [address], [address], 04/01/2023 07:14:50 03/31/2004/01/2023 HEPAT IC FUNCT ION PANEL alkaline phosphatase 111 U/L 37-153 normal Not Available [facility] [employer] [address], [address], 04/01/2023 07:14:50 03/31/20 23 04/01/2023 HEPAT IC FUNCT ION PANEL AST 16 U/L 10-35 normal Not Available [address], [address], 04/01/2023 07:14:50 03/31/2004/01/2023 HEPAT IC FUNCT ION PANEL ALT 14 U/L 6-29 normal Not Available [address], [address], 04/01/2023 07:14:50 03/31/2004/01/2023 CBC (INCL UDES DIFF/ PLT) white blood cell count 6.5 thous and/u L 3.8-10 .8 normal Not Available [address], [address], 04/01/2023 07:14:51 03/31/2004/01/2023 CBC (INCL UDES DIFF/ PLT) red blood cell count 3.71 umesh on/uL 3.80-5 .10 low Not Available [address], [address], 04/01/2023 07:14:51 03/31/2004/01/2023 CBC (INCL UDES DIFF/ PLT) hemoglobin 11.8 g/dL 11.7-1 5.5 normal Not Available [address], [address], 04/01/2023 07:14:51 03/31/2004/01/2023 CBC (INCL UDES DIFF/ PLT) hematocrit 36.1 % 35.0-4 5.0 normal Not Available [address], [address], 04/01/2023 07:14:51 03/31/2004/01/2023 CBC (INCL UDES DIFF/ PLT) MCV 97.3 fL 80.0-1 00.0 normal Not Available [address], [address], 04/01/2023 07:14:51 03/31/2004/01/2023 CBC (INCL UDES DIFF/ PLT) MCH 31.8 pg 27.0-3 3.0 normal Not Available [address], [address], 04/01/2023 07:14:51 03/31/2004/01/2023 CBC (INCL UDES DIFF/ PLT) MCHC 32.7 g/dL 32.0-3 6.0 normal Not Available [address], [address], 04/01/2023 07:14:51 03/31/2004/01/2023 CBC (INCL UDES DIFF/ PLT) RDW 12.3 % 11.0-1 5.0 normal Not Available [address], [address], 04/01/2023 07:14:51 03/31/2004/01/2023 CBC (INCL UDES DIFF/ PLT) platelet count 327 thous and/u L 140-40 0 normal Not Available [address], [address], 04/01/2023 07:14:51 03/31/2004/01/2023 CBC (INCL UDES DIFF/ PLT) MPV 10.7 fL 7.5-12 .5 normal Not Available [address], [address], 04/01/2023 07:14:51 03/31/2004/01/2023 CBC (INCL UDES DIFF/ PLT) absolute neutrophils 4355 cells /uL 1500-7 800 normal Not Available [address], [address], 04/01/2023 07:14:51 03/31/2004/01/2023 CBC (INCL UDES DIFF/ PLT) absolute lymphocytes 975 cells /uL 850-39 00 normal Not Available [address], [place], [address], 04/01/2023 07:14:51 03/31/2004/01/2023 CBC (INCL UDES DIFF/ PLT) absolute monocytes 975 cells /uL 200-95 0 high Not Available [facility] [address], [address], 04/01/2023 07:14:51 03/31/2004/01/2023 CBC (INCL UDES DIFF/ PLT) absolute eosinophils 137 cells /uL 15-500 normal Not Available [facility] [address], [address], 04/01/2023 07:14:51 03/31/2004/01/2023 CBC (INCL UDES DIFF/ PLT) absolute basophils 59 cells /uL 0-200 normal Not Available [facility] [address], [address], 04/01/2023 07:14:51 03/31/2004/01/2023 CBC (INCL UDES DIFF/ PLT) neutrophils 67 % normal Not Available [address], [address], 04/01/2023 07:14:51 03/31/2004/01/2023 CBC (INCL UDES DIFF/ PLT) lymphocytes 15.0 % normal Not Available [facility] [address], [address], 04/01/2023 07:14:51 03/31/2004/01/2023 CBC (INCL UDES DIFF/ PLT) monocytes 15.0 % normal Not Available [address], [address], 04/01/2023 07:14:51 03/31/2004/01/2023 CBC (INCL UDES DIFF/ PLT) eosinophils 2.1 % normal Not Available [facility] [address], [address], 04/01/2023 07:14:51 03/31/2004/01/2023 CBC (INCL UDES DIFF/ PLT) basophils 0.9 % normal Not Available [address], [address], 04/01/2023 07:14:51 03/31/2004/01/2023 VITAM IN B12/F OLATE , SERUM PANEL vitamin B12 478 pg/mL 200-11 00 normal Not Available [facility] [address] [place] [address], [address], 04/01/2023 07:14:52 03/31/2004/01/2023 VITAM IN B12/F OLATE , SERUM PANEL folate, serum 13.9 NG/mL normal Refer ence Range Low: <3.4 Borde rline : 3.4-5 .4 Chela l: >5.4 Not Available [facility] [address] [place] [address], [address], 04/01/2023 07:14:52 09/12/19 22 09/10/2021 XR, chest , 2 view No observ ation record ed. MIG[facility]ATION. [place] [address], [place], [address], 08/13/2022 02:38:28 11/06/1911/05/2021 XR, shoul delia No observ ation record ed. [id number] [facility] [address], [place], [address], 08/13/2022 02:38:28 03/06/20 22 03/05/2022 MAMMO , scree alma, digit al, bilat eral No observ ation record ed. [id number] Not Available 08/13/2022 02:38:28 03/13/20 22 01/23/2022 MRI, cervi ambrosio spine , w/o contr ast No observ ation record ed. [id number] [facility] [address], [place], [address], 08/13/2022 02:38:28 06/11/20 23 06/11/2023 shanell armendarizerika ow study No observ ation record ed. [address] (Imaging) [address] [place] [address] [address] [facility], [place], [address], 06/16/2023 17:00:24 07/10/19 24 05/28/2023 DEXA No observ ation record ed. [address] [address], [place], [address], 07/10/2023 12:39:25 07/21/19 24 07/20/2023 MAMMO , diagn ostic , digit al, bilat eral No observ ation record ed. [email or web address] [id number] [address], [place], [address], 07/24/2023 13:58:25 Result Notes None recorded. Problems Name Problem SNOMED Code Status Onset Date Resolution Date Notes Provider Name and Address Organization Details Recorded Time Benign hypertensi on 30188552 Active 2020 [facility] Available [facility] 3 19:10:[facility] Acute sinusitis 10525635 Active 2021 Not Available [employer] 3 19:10:53 Cobalamin deficiency 321594432 Active 2021 Not Available [facility] 3 19:10:53 Insomnia 936194704 Active 2020 Not Available [facility] 3 19:10:53 Mixed anxiety and depressive disorder 258171298 Active 2020 Not Available [facility] 3 19:10:53 Long-term drug therapy Active 2020 Not Available [facility] 3 19:10:53 Low back pain 176110641 Active 2021 Not Available [facility] 3 19:10:53 Knee pain Active Not Available [facility] 3 19:10:53 Trigeminal neuralgia 70912722 Active 2021 Not Available [facility] 3 19:10:53 Crohn's disease 69517805 Active 2020 Not Available [facility] 3 19:10:53 Migraine 04028691 Active 2020 Not Available [facility] 3 19:10:53 Hypothyroi dism 99967044 Active 2020 Not Available [facility] 3 19:10:53 Respirator y tract congestion and cough 359513135 Active 2021 Not Available [facility] 3 19:10:53 History of benign neoplasm of brain 611437413 Active 2020 Not Available [facility] 3 19:10:53 Deafness of left ear 386614882 Active 2020 Not Available [facility] 3 19:10:54 Anxiety 34496419 Active 2020 Not Available [facility] 3 19:10:54 Degenerati on of lumbosacra l interverte bral disc 27684033 Active 2021 Not Available [facility] 3 19:10:54 Osteoporos is 77530823 Active 2020 Not Available [facility] 3 19:10:54 Degenerati on of cervical interverte bral disc 11773353 Active 2021 Not Available [facility] 3 19:10:54 Rheumatoid arthritis 75437776 Active 2020 Not Available [facility] 3 19:10:54 Obstructiv e sleep apnea syndrome 20081775 Active 2020 Not Available [facility] 3 19:10:54 Benign essential hypertensi on 2293534 Active 2022 Not Available [facility] 3 19:10:53 Hearing loss of left ear 932708196 Active 2022 Not Available [facility] 3 19:10:54 Degenerati on of lumbar interverte bral disc 93770304 Active 2022 Not Available [facility] 3 19:10:53 Intermitte nt dysphagia 48915998 Active 2022 Not Available [facility] 3 19:10:53 Hyperlipid emia 20360262 Active 2022 Not Available [facility] 3 19:10:54 [place] palsy of left side of face 2922841454726 9103 Active 2022 Not Available [facility] 3 19:10:53 Mass of left breast 4334117417229 9103 Active 2023 [place] [address] [facility] [address], [place], [address] , [facility] [employer] 4 17:22:32 Problem Notes None recorded. Procedures Surgical History Date Name Laterality Status Provider Name and Address Organization Details Recorded Time 021 Most Recent Bone Density completed Not Available [facility] 08/13/2022 02:30:55 019 parathyroidectomy completed Not Available [facility] 08/13/2022 02:30:59 986 destruction of brain tumor completed Not Available [facility] 08/13/2022 02:30:59 Lumpectomy completed Not Available [facility] 08/13/2022 02:30:59 Imaging Results Imaging Date Name Status LastModified by Organiz ation Details LastModified Time 09/10/2021 XR, chest, 2 view completed [id number] [facility] [address], [place], [address], 08/13/2022 02:38:28 11/05/2021 XR, shoulder completed [id number] [facility] [address] [facility] [address], [place], [address], 08/13/2022 02:38:28 03/05/2022 MAMMO, screening, digital, bilateral completed [id number] Information not available 08/13/2022 02:38:28 01/23/2022 MRI, cervical spine, w/o contrast completed [id number] [facility] [address], [place], [address], 08/13/2022 02:38:28 06/11/2023 barium swallow study completed [address] (Imaging) [address] [place] [address], [address], 06/16/2023 17:00:24 05/28/2023 DEXA completed [address], [address], 07/10/2023 12:39:25 07/20/2023 MAMMO, diagnostic, digital, bilateral completed [email or web address] [address], [address], 07/24/2023 13:58:25 Procedure Notes None recorded. Medical Equipment None Reported. Allergies Allergen ID Allergen Name Allergen Category Reaction Reaction Severity Criticality Documentation Date Start Date Code Code System Note Provider Name and Address Organization Details Recorded Time 3375 Product containin g penicilli n (product) medicatio n Not available Not available Not available 08/13/2022 35388 8001 SNOMED Not Available [facility] 3 02:38:10 3376 Iodinated contrast media (substanc e) medicatio n Not available Not available Not available 08/13/2022 88867 2004 SNOMED Not Available [facility] 3 02:38:10 3377 erythromy ashleigh medicatio n Not available Not available Not available 08/13/2022 4053 RxNorm Not Available [facility] 3 02:38:10 Medications Name Sig Start Date Stop Date Status Note LastModified by Organization Details LastModified Time methocarbam ol 500 mg tablet TAKE 1 TABLET BY MOUTH THREE TIMES DAILY 04/23 completed Not Available Not Available Not Available venlafaxine ER 37.5 mg capsule,ext ended release 24 hr 09/10 completed Not Available Not Available Not Available prednisone 10 mg tablet TAPER DIRECTED FOR 12 DAYS 09/09 completed Not Available Not Available Not Available venlafaxine ER 75 mg capsule,ext ended release 24 hr one tab daily 09/11 completed Not Available Not Available Not Available atorvastati n 20 mg tablet one tab daily active Not Available Not Available No t Available tizanidine 2 mg tablet TAKE 1 TABLET BY MOUTH THREE TIMES DAILY active Not Available Not Available No t Available trazodone 50 mg tablet one tab daily 09/11 completed Not Available Not Available Not Available azithromyci n 250 mg tablet 03/11 completed Not Available Not Available Not Available valacyclovi r 1 gram tablet TAKE 1 TABLET BY MOUTH EVERY 8 HOURS FOR 7 DAYS active Not Available Not Available No t Available Synthroid 150 mcg tablet 09/11 completed Not Available Not Available Not Available prednisone 20 mg tablet take 3 tabs po daily x 5 days, thentake 2 tabs po daily x 5 days, then'take 1 tab po daily x 3 days, thentake 1/2 tab po daily x 4 days active Not Available Not Available No t Available alendronate 70 mg tablet active Not Available Not Available Not Available prednisone 5 mg tablet Take 1 tablet every day by oral route. active Not Available Not Available No t Available topiramate 25 mg tablet TAKE 3 TABLETS BY MOUTH TWICE DAILY active Not Available Not Available No t Available Zyrtec 10 mg tablet Take 1 tablet every day by oral route. 09/10 completed Not Available Not Available Not Available acetaminoph en 300 mg-codeine 30 mg tablet TAKE 1 TABLET EVERY 6 HOURS NEEDED FOR PAIN 03/10 completed Not Available Not Available Not Available amlodipine 5 mg tablet 03/13 completed Not Available Not Available Not Available sulfamethox azole 800 mg-trimetho prim 160 mg tablet 03/12 completed Not Available Not Available Not Available doxycycline monohydrate 100 mg tablet 09/10 completed Not Available Not Available Not Available triamterene 37.5 mg-hydrochl orothiazide 25 mg capsule TAKE 1 CAPSULE BY MOUTH DAILY active Not Available Not Available No t Available spironolact one 25 mg tablet active Not Available Not Available Not Available carvedilol 3.125 mg tablet take one tab daily 03/12 completed Not Available Not Available Not Available Synthroid 175 mcg tablet Take 1 tablet every day by oral route for 90 days. active Not Available Not Available No t Available prednisone 10 mg tablets in a dose pack 03/12 completed Not Available Not Available Not Available famotidine 20 mg tablet 03/13 completed Not Available Not Available Not Available lorazepam 0.5 mg tablet TAKE 1 TABLET BY MOUTH EVERY DAY NEEDED active Not Available Not Available No t Available trazodone 100 mg tablet Take 1 tablet as needed by oral route at bedtime. active Not Available Not Available No t Available amlodipine 10 mg tablet TK 1 T PO NIGHTLY active Not Available Not Available No t Available pantoprazol e 40 mg tablet,tank yed release 03/13 completed Not Available Not Available Not Available hyoscyamine sulfate 0.125 mg tablet 03/13 completed Not Available Not Available Not Available cyanocobala min (vit B-12) 1,000 mcg/mL injection solution Inject 1 mL every month by subcutane ous route. active Not Available Not Available No t Available prednisone 50 mg tablet 03/12 completed Not Available Not Available Not Available losartan 25 mg tablet TK 4 TS PO D. MAY ADJUST DOSE TO 3 TS D BASED ON BP active Not Available Not Available No t Available triamterene 37.5 mg-hydrochl orothiazide 25 mg tablet 07/24 completed Not Available Not Available Not Available folic acid 1 mg tablet 03/13 completed Not Available Not Available Not Available mupirocin 2 % topical ointment APPLY TOPICALLY TO THE AFFECTED AREA THREE TIMES DAILY 09/11 completed Not Available Not Available Not Available lorazepam 1 mg tablet active Not Available Not Available No t Available epinephrine 0.3 mg/0.3 mL injection, auto-inject or INJECT 1 PEN INJECTOR IN THE MUSCLE A SINGLE DOSE DIRECTED active Not Available Not Available No t Available cefuroxime axetil 500 mg tablet Take 1 tablet every 12 hours by oral route. active Not Available Not Available No t Available methylpredn isolone 4 mg tablets in a dose pack FOLLOW PACKAGE DIRECTION S 03/11 completed Not Available Not Available Not Available ketorolac 60 mg/2 mL intramuscul ar solution active Not Available Not Available Not Available losartan 100 mg tablet Take 1 tablet every day by oral route. 05/23 completed Not Available Not Available Not Available fluticasone propionate 50 mcg/actuati on nasal spray,suspe nsion 03/13 completed Not Available Not Available Not Available cyclobenzap rine 5 mg tablet active Not Available Not Available Not Available Allergy Relief (diphenhydr amine) 25 mg capsule 05/23 completed Not Available Not Available Not Available [employer] Allergy 25 mg tablet TK 1 T PO Q 6 H 03/13 completed Not Available Not Available Not Available carbamazepi ne ER 300 mg capsule,ext ended release [id number] active Not Available Not Available N ot Available ibandronate 150 mg tablet 04/23 completed Not Available Not Available Not Available Vitamin D 2000units daily 03/12 completed Not Available Not Available Not Available trazodone takes 75mg 03/12 completed Not Available Not Available Not Available Topamax takes 75mg bid 03/12 completed Not Available Not Available Not Available hydrochloro thiazide 12.5 mg tablet 03/13 completed Not Available Not Available Not Available Simponi 50 mg/0.5 mL subcutaneou s pen injector active Not Available Not Available Not Available PreviDent 5000 Booster Plus 1.1 % dental paste USE PEA SIZE WITH BRUSHING EVERY DAILY 09/11 completed Not Available Not Available Not Available Os-Ambrosio + D3 otc, takes bid 2019 active Not Available Not Available Not Avai lable Kerydin 5 % topical solution with applicator 09/10 completed Not Available Not Available Not Available Flucelvax Quad 60 mcg (15 mcg x 4)/0.5 mL intramuscul ar susp active Not Available Not Available Not Available COVID-19 test specimen collection TEST DIRECTED TODAY 09/10 completed Not Available Not Available Not Available Fluzone High-Dose Quad (PF) 240 mcg/0.7 mL IM syringe ADM 0.7ML IM UTD 05/23 completed Not Available Not Available Not Available Vitals Date Recorded Body mass index (BMI) Body height Heart rate Respiratory rate Body temperature Body weight Systolic blood pressure Diastolic blood pressure Provider Name and Address Organization Details Last Updated DateTime 2 29.3 kg/m2 157.48 cm 72 /min 16 /min 97.2 [degF] 29829.7 8 g 128 mm[Hg] 82 mm[Hg] Not Available [employer] 3 02:32:00 Date Recorded Body height Oxygen saturation Oxygen saturation in Arterial blood by Pulse oximetry Heart rate Respiratory rate Systolic blood pressure Diastolic blood pressure Provider Name and Address Organization Details Last Updated DateTime 2 157.48 cm 98 % 98 % 75 /min 20 /min 130 mm[Hg] 82 mm[Hg] Not Available [facility] 3 02:32:00 Date Recorded Body height Body temperature Body mass index (BMI) Body weight Respiratory rate Heart rate Oxygen saturation Oxygen saturation in Arterial blood by Pulse oximetry Systolic blood pressure Diastolic blood pressure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 through the mouth Onset/Timing:chronic Duration:continuous Severity:does not limit daily activities; no frequent sore throats resulting in excess missed days from school / work per year; no difficulty getting going in the morning; no awakening in the middle of the night with sore throat Location:no enlarged tonsils; no nasal passage blockage; no throat pain; no feeling of tightness in throat; no chest congestion;dryness of mouth Context:no lack of adequate sleep; no shift work; not currently taking medication to help sleep; no recent weight gain; no recent upper respiratory infection; no recent sick contacts; not worse with environmental exposure; not worse with seasonal allergen exposure; no hypertension; normal sleep hours Alleviating factors:relief with CPAP Aggravating factors:not worse during an upper respiratory infection (a cold); not worse when allergies are active Associated Symptoms:no morning headache; no awakening at night short of breath; no sweating heavily at night; no excessive sleepiness during the day; no suddenly falling asleep during the day; no napping; no impaired work performace; no nasal congestion FRANSISCO Oviedo [address], [place] [address], [place], [address], [facility] [employer] [facility] 2023 19:05:47 023 text/ht ml Generic HPI TemplateReported bypatient.Notes:Pt is here for an er f/u from 04/17/23 for an animal bite. Records are in the room. They did xray and everything was ok. Today the spot on her hand is much better. there is presence of left sided facial paresis that she says just started today. FRANSISCO Oviedo [address], [facility] [address], [place], [address], [facility] [employer] [facility] 05/13/2023 23:41:07 OBGyn Episode No OBEpisode recorded.
[2024-09-22 23:23] VITALS: BP 207/90; PULSE 83; RESP 18; TEMP 36.2; O2SAT 99
--- OUTSIDE RECORDS SUMMARY | 2024-09-23 00:01 | XMS_ITS | Encounter Summary ---
Author Organization [facility] Address [address] [place] [address] Phone Care Team Providers Care Rand Tacker Name Role Phone Angela Traore MD Primary Care Provide r Hair Mcdaniels MD Primary Care Provider [phone] Dong Cutler MD Primary Care Provider [phone] Kandice Alberto MD Primary Care Provider [phone] Shavon George Primary Care Pr ovider Gwendolyn Pulido NP Primary Care Provider [phone] Encounter Details Date Type Department Care Team (Late st Contact Info) Description 08/14/2017 Orders Only [facility] ProviderZeeshan MD [address] [place] [address] Social History Tobacco Use Types Packs/Day Years Used Date Smoking Tobacco: Never Smokeless Tobacco: Never Alcohol Use Standard Drinks/Week Comments No 0 (1 standard drink = 0.6 oz pur e alcohol) Comments Unknown Sex and Gender Information Value Date Recorded Sex Assigned at Not on file Legal Sex Female 5:17 PM CLASSROOM TECHNOLOGY COACH Gender Identity Not on file Sexual Orientation Not on file documented as of this encounter Plan of Treatment Not on file documented as of this encounter Procedures Procedure Name Priority Date/Time Associated Diagnosis Comments DISCHARGE LABORATORY CUMULATIVE REPORT 08/14/2017 12:00 AM CLASSROOM TECHNOLOGY COACH documented in this encounter Results * DISCHARGE LABORATORY CUMULATIVE REPORT (08/14/2017 12:00 AM CLASSROOM TECHNOLOGY COACH) Narrative 08/14/2017 12:00 AM CLASSROOM TECHNOLOGY COACH Ordered by an unspecified provider. us Historical Provider LAB BLOOD ORDERABLES Nayeli l Result documented in this encounter Visit Diagnoses Not on filedocumented in this encounter Care Teams Rand Tacker Relationship Specialty Start Date End Date Angela Traore MD [address] [place], [place] [id number] PCP - General 08/14/17 12/10/17 Hair Mcdaniels MD [address] [place] [address] PCP - General Internal Medicine 12/11/17 07/05/19 Dong Cutler MD [address] [place] [address] PCP - General Internal Medicine 07/06/19 02/01/20 Kandice Alberto MD [address] [place] [id number] PCP - General Internal Medicine 02/02/20 04/02/20 Shavon George PA [address] [place] [id number] PCP - General Physician Sailing Officer 04/03/20 04/20/24 Gwendolyn Pulido, SHAFT REPAIRER [address] [place] [address] PCP - General Family Medicine 04/21/24 documented as of this encounter
--- OUTSIDE RECORDS SUMMARY | 2024-09-23 00:01 | XMS_ITS | Referral Summary ---
Author Organization [facility] [address] Address [address] [place] [address] Care Team Providers Care Mount Loader Name Role Phone Gwendolyn Pulido NP Primary Care Provider [phone] Encounters Date Type Department Care Team Description 07/13/2024 11:00 AM WEB SITE DESIGNER Office Visit [facility] Neuro Sleep [address] [facility] 6th [address] [place] [address] Mac Schwartz MD IRLANDA on [...] 1 tablet (175 mcg total) by mouth rib sawyer before breakfast Active acetaminophen 500 mg capsule [...] 04/21/2024 Assessment & Plan (04/21/2024 9:00 AM WEB SITE DESIGNER): Encourage routine vaccinations. Follow up with PCP. [...] MTX and Plaquinil; Will discuss with pts machine boss Dr. Bony otoole [phone] Fatigue 07/08/2023 Female pelvic pain 07/08/2023 Hypercalcemia 07/08/2023 Hyperlipidemia 09/11/2022 Encounter for long-term (cur rent) use of high-risk medication 07/16/2022 Assessment & Plan (04/21/2024 9:00 AM WEB SITE DESIGNER): Long-term use of high-risk medication requiring regular monitoring. Labs ordered, no s/s of med tox or infection. Encouraged to work with PCP to make sure all recommended cancer screens and vaccinations are complete. Avoid live-vaccines unless reviewed with machine boss first. Assessment & Plan (07/16/2022 2:27 PM WEB SITE DESIGNER): Long-term use of high-risk medication requiring regular monitoring. Labs ordered, no s/s of med tox or infection. Encouraged to work with PCP to make sure all recommended cancer screens and vaccinations are complete. Avoid live-vaccines unless reviewed with machine boss first. Did have a follow up MRI [...] (06/29/2018): Added automatically from request for surgery [id number] Crohn's disease of colon 10/22/2015 Overview (09/18/2016): Crohn's colitis Gastroesophageal reflux disease 10/22/2015 Overview (09/19/2016): ESOPHAGEAL REFLUX Rheumatoid arthritis involving multiple joints 0 10/22/2015 Overview (09/19/2016): RHEUMATOID ARTHRITIS Assessment & Plan (04/21/2024 8:59 AM WEB SITE DESIGNER): Stable on simponi and prednisone 5 mg daily, continue same, continue to monitor. Encourage work toward weaning off prednisone, down to 2.5 mg daily and then off / just prn. Encourage calcium/vitamin D and weight bearing exercise to help with osteoporosis reduction. Assessment & Plan (07/16/2022 2:28 PM WEB SITE DESIGNER): Stable on simponi and prednisone 5 mg [...] on file Legal Sex Female 5:17 PM WEB SITE DESIGNER Gender Identity Not on file Sexual Orientation Not on file Last Filed Vital Signs Vital Sign Reading Time Taken Comments Blood Pressure 156/89 07/13/2024 10:54 AM WEB SITE DESIGNER Pulse 68 07/13/2024 10:54 AM WEB SITE DESIGNER Temperature 36.4 C (97.6 F) 07/13/2024 10:54 AM WEB SITE DESIGNER Respiratory Rate 16 01/30/2023 11:27 AM CDT Oxygen Saturation 99% 07/13/2024 10:54 AM WEB SITE DESIGNER Inhaled Oxygen Concentration - - Weight 76.9 kg (169 lb 8 oz) 07/13/2024 10:54 AM WEB SITE DESIGNER Height 157.5 cm (5' 2 ) 07/13/2024 10:54 AM WEB SITE DESIGNER Body Mass Index 31 07/13/2024 10:54 AM WEB SITE DESIGNER Plan of Treatment Not on file Procedures [...] Most Recently Relevant to Health Maintenance Insurance [facility] MEDICARE MEDICARE FOR LIFE MEDICARE FOR LIFE Advance Directives For more information, please contact: [phone] * Full Code (Latest Code Status on File) Date Activated Date Inactivated Comments 07/23/2018 10:37 AM 07/23/2018 9:42 PM Care Teams Mount Loader Relationship Specialty Start Date End Date Gwendolyn Pulido, DENTAL FINANCIAL COORDINATOR [address] [place] [address] PCP - General Family Medicine 04/21/24
--- OUTSIDE RECORDS SUMMARY | 2024-09-23 00:01 | XMS_ITS | Encounter Summary ---
Author Organization [facility] Address [address] [facility] [place] [address] Care Team Providers Care Electrical Engineering Technician Name Role Phone Shavon Lynch Primary Care Pr ovider Reason for Visit * Reason Onset Date Comments MEDICATION REFILL 12/09/2023 Encounter Details Date Type Department Care Team (Late st Contact Info) Description 12/09/2023 Telephone [facility] - Neurology [address] [place] [address], [place] [address] Inocencia Wade MD [address] [place] [address] [place] [phone] MEDICATION REFILL Social History Tobacco Use Types [...] a Med refill. Drug type:carbamazepineER 300 mg Pharmacy:[facility] Patient call back number: [phone] . Upcoming appointment scheduled for : 09/13/24 documented in this encounter Plan of Treatment Upcoming Encounters Date Type Department Care Team (Late st Contact Info) Description 11/10/2024 10:20 AM CDT Office Visit [facility] [address] [facility] [address] [place] [address] [place] [address] [place] [address] documented as of this encounter Visit Diagnoses Not on filedocumented in this encounter Care Teams Electrical Engineering Technician Relationship Specialty Start Date End Date Shavon Lynch PA [address] [place] [id number] PCP - General Physician Hide Cooking Operator 10/28/22 documented as of this encounter
--- OUTSIDE RECORDS SUMMARY | 2024-09-23 00:01 | XMS_ITS | Clinical Summary ---
Author Organization [facility] Address [address] [place] [address] Phone Care Team Providers Care Home Economist Consumer Service Name Role Phone Ankit Smith MD Primary [...] age to complete this topic Care Teams Home Economist Consumer Service Relationship Specialty Start Date End Date Ankit Smith MD [address] [place] [address] PCP - General Internal Medicine 02/13/13
--- OUTSIDE RECORDS SUMMARY | 2024-09-23 00:01 | XMS_ITS | Clinical Summary ---
Author Organization [facility] Building [address] Address [address] [place] [address] Care Team Providers Care Chief Deputy Name Role Phone Gwendolyn Pulido NP Primary Care Provider [phone] Allergies Active Allergy Reactions Criticality Noted Date [...] 1 tablet (175 mcg total) by mouth pulp piler before breakfast Active acetaminophen 500 mg capsule [...] 04/21/2024 Assessment & Plan (04/21/2024 9:00 AM TRAFFIC I MANAGER): Encourage routine vaccinations. Follow up with [...] MTX and Plaquinil; Will discuss with pts firmware software verification engineer Dr. Bony otoole [phone] Fatigue 07/08/2023 Female pelvic pain 07/08/2023 Hypercalcemia 07/08/2023 Hyperlipidemia 09/11/2022 Encounter for long-term (cur rent) use of high-risk medication 07/16/2022 Assessment & Plan (04/21/2024 9:00 AM TRAFFIC I MANAGER): Long-term use of high-risk medication requiring regular monitoring. Labs ordered, no s/s of med tox or infection. Encouraged to work with PCP to make sure all recommended cancer screens and vaccinations are complete. Avoid live-vaccines unless reviewed with firmware software verification engineer first. Assessment & Plan (07/16/2022 2:27 PM TRAFFIC I MANAGER): Long-term use of high-risk medication requiring regular monitoring. Labs ordered, no s/s of med tox or infection. Encouraged to work with PCP to make sure all recommended cancer screens and vaccinations are complete. Avoid live-vaccines unless reviewed with firmware software verification engineer first. Did have a follow up MRI [...] (06/29/2018): Added automatically from request for surgery [id number] Crohn's disease of colon 10/22/2015 Overview (09/18/2016): Crohn's colitis Gastroesophageal reflux disease 10/22/2015 Overview (09/19/2016): ESOPHAGEAL REFLUX Rheumatoid arthritis involving multiple joints 0 10/22/2015 Overview (09/19/2016): RHEUMATOID ARTHRITIS Assessment & Plan (04/21/2024 8:59 AM TRAFFIC I MANAGER): Stable on simponi and prednisone 5 mg daily, continue same, continue to monitor. Encourage work toward weaning off prednisone, down to 2.5 mg daily and then off / just prn. Encourage calcium/vitamin D and weight bearing exercise to help with osteoporosis reduction. Assessment & Plan (07/16/2022 2:28 PM TRAFFIC I MANAGER): Stable on simponi and prednisone 5 [...] Department Care Team Description 07/13/2024 11:00 AM TRAFFIC I MANAGER Office Visit [facility] Neuro Sleep [address] [facility] 6th [address] [place] [address] Mac Schwartz MD IRLANDA on [...] Split, Preservative Free, Intradermal 03/28/2015 MMR 10/14/1993 Pulmonx SARS-CoV-2 Monovalent Vaccination (12+ Yrs) MEYER-READY TO [...] 7 Thierno (Age 64) suspect fa f[place] Daughter beau Father Franki (Age 65) Father's [...] on file Legal Sex Female 5:17 PM TRAFFIC I MANAGER Gender Identity Not on file Sexual Orientation Not on file Obstetrics History Last Filed Vital Signs Vital Sign Reading Time Taken Comments Blood Pressure 156/89 07/13/2024 10:54 AM TRAFFIC I MANAGER Pulse 68 07/13/2024 10:54 AM TRAFFIC I MANAGER Temperature 36.4 C (97.6 F) 07/13/2024 10:54 AM TRAFFIC I MANAGER Respiratory Rate 16 01/30/2023 11:27 AM CDT Oxygen Saturation 99% 07/13/2024 10:54 AM TRAFFIC I MANAGER Inhaled Oxygen Concentration - - Weight 76.9 kg (169 lb 8 oz) 07/13/2024 10:54 AM TRAFFIC I MANAGER Height 157.5 cm (5' 2 ) 07/13/2024 10:54 AM TRAFFIC I MANAGER Body Mass Index 31 07/13/2024 10:54 AM TRAFFIC I MANAGER Plan of Treatment Health Maintenance Due [...] Most Recently Relevant to Health Maintenance Insurance [employer] MEDICARE MEDICARE FOR LIFE MEDICARE FOR LIFE Advance Directives For more information, please contact: [phone] * Full Code (Latest Code Status on File) Date Activated Date Inactivated Comments 07/23/2018 10:37 AM 07/23/2018 9:42 PM Care Teams Chief Deputy Relationship Specialty Start Date End Date Gwendolyn Pulido, CERAMICS ARTIST [address] [place] [address] PCP - General Family Medicine 04/21/24
--- OUTSIDE RECORDS SUMMARY | 2024-09-23 00:01 | XMS_ITS | Clinical Summary ---
Author Organization [facility] Address [address] [place] [address] Care Team Providers Care Liaison Officer Name Role Phone Shavon Lynch Primary Care Pr ovider Source Comments [facility],non-owned Affiliates and Associated Physician Practices is amultiple site organization consisting of ambulatory clinics and hospital sitesin [place], [place], [place] and [place]. This disclosure is being madepursuant to the Care Everywhere program and may not contain all information available regarding this patient. Last updated 18.[facility] [employer] Allergies Active Allergy Reactions Criticality Noted Date [...] Department Care Team Description 08/19/2024 8:51 AM ONLINE HEALTH AND FITNESS COACH - 08/19/2024 11:59 PM ONLINE HEALTH AND FITNESS COACH Hospital Encounter [facility] Health Imaging Services - MRI [address] [place] [address] Keo Vega MD Discharge Disposition: Home or Self Care 08/19/2024 8:51 AM ONLINE HEALTH AND FITNESS COACH - 08/19/2024 11:59 PM ONLINE HEALTH AND FITNESS COACH Hospital Encounter [facility] Health Imaging Services - MRI [address] [facility] [address] [place] [address] Keo Vega MD Discharge Disposition: Home or Self Care 08/04/2024 1:00 PM ONLINE HEALTH AND FITNESS COACH Office Visit [facility] Neurosciences [address] [facility] [address] [place] [address] Keo Vega MD Trigeminal neuralgia (Primary Dx); [...] Comments Blood Pressure 154/84 08/04/2024 12:56 PM ONLINE HEALTH AND FITNESS COACH Pulse 74 08/04/2024 12:56 PM ONLINE HEALTH AND FITNESS COACH Temperature 36.1 C (97 F) 10/28/2022 10:55 AM CDT Respiratory Rate 14 01/08/2015 9:45 AM CDT Oxygen Saturation 99% 08/04/2024 12:56 PM ONLINE HEALTH AND FITNESS COACH Inhaled Oxygen Concentration - - Weight 73.9 kg (163 lb) 08/04/2024 12:56 PM ONLINE HEALTH AND FITNESS COACH Height 157.5 cm (5' 2 ) 10/28/2022 10:55 AM CDT Body Mass Index 29.81 10/28/2022 10:55 AM CDT Plan of Treatment Upcoming Encounters Date Type Department Care Team (Late st Contact Info) Description 11/10/2024 10:20 AM CDT Office Visit [facility] [address] [facility] [address] [place] [address] [place] [address] [facility] [address] [place], [place] [id number] Health Maintenance Due Date Last Done Comments [...] BRAIN WO CONT Routine 08/19/2024 11:42 AM ONLINE HEALTH AND FITNESS COACH Trigeminal neuralgia Migraine without aura and without status migrainosus, not intractable MRI CERVICAL SPINE WO CONTRAST Routine 08/19/2024 11:18 AM ONLINE HEALTH AND FITNESS COACH Numbness Neck pain TREPONEMA PALLIDUM POS REFLX RPR Routine 08/09/2024 7:40 AM ONLINE HEALTH AND FITNESS COACH Numbness TSH REFLEX FREE T4 Routine 08/09/2024 7: 40 AM ONLINE HEALTH AND FITNESS COACH Numbness C-REACTIVE PROTEIN Routine 08/09/2024 7: 40 AM ONLINE HEALTH AND FITNESS COACH Numbness IMMUNOFIXATION BLOOD Routine 08/09/2024 7:38 AM ONLINE HEALTH AND FITNESS COACH Numbness PROTEIN ELECTROPHORESIS BLOOD Routine 08/09/2024 7:38 AM ONLINE HEALTH AND FITNESS COACH Numbness CK BLOOD Routine 08/09/2024 7:38 AM ONLINE HEALTH AND FITNESS COACH Numbness VITAMIN B12 FOLATE PANEL Routine 08/09/2024 7:38 AM ONLINE HEALTH AND FITNESS COACH Numbness BETHANIE BLOOD SCREEN W/REFLEX TITER Routine 08/09/2024 7:38 AM ONLINE HEALTH AND FITNESS COACH Numbness ERYTHROCYTE SEDIMENTATION RATE Routine 08/09/2024 7:38 AM ONLINE HEALTH AND FITNESS COACH Numbness from Last 3 Months Results * MRI BRAIN AND IAC WO CONT (08/19/2024 11:42 AM ONLINE HEALTH AND FITNESS COACH) Anatomical Region Laterality Modality Head Magnetic Resonan ce 08/19/2024 11:2 2 AM ONLINE HEALTH AND FITNESS COACH Impressions 08/19/2024 12:46 PM ONLINE HEALTH AND FITNESS COACH IMPRESSION: 1.Postoperative changes in the left cerebellopontine [...] 08/19/2024 12:46 PM Narrative 08/19/2024 12:46 PM ONLINE HEALTH AND FITNESS COACH PROCEDURE: MRI CERVICAL SPINE WO CONTRAST, MRI [...] degeneration of the cord due to vitamin [id number]. Edited by Kandice Alonzo on 08/19/2024 12:16 PM > Interpreting Provider: Yumiko Oneill MD on 08/19/2024 12:46 PM Keo Vega MD MR ORDERABLES * MRI Cervical Spine Wo Contrast (08/19/2024 11:18 AM ONLINE HEALTH AND FITNESS COACH) Anatomical Region Laterality Modality Pelvis Magnetic Resonan ce 08/19/2024 11:2 2 AM ONLINE HEALTH AND FITNESS COACH Impressions 08/19/2024 12:46 PM ONLINE HEALTH AND FITNESS COACH IMPRESSION: 1.Postoperative changes in the left cerebellopontine [...] 08/19/2024 12:46 PM Narrative 08/19/2024 12:46 PM ONLINE HEALTH AND FITNESS COACH PROCEDURE: MRI CERVICAL SPINE WO CONTRAST, MRI [...] degeneration of the cord due to vitamin [id number]. Edited by Kandice Alonzo on 08/19/2024 12:16 PM > Interpreting Provider: Yumiko Oneill MD on 08/19/2024 12:46 PM Keo Vega MD MR ORDERABLES * TREPONEMA PALLIDUM POS REFLX RPR (08/09/2024 7:40 AM ONLINE HEALTH AND FITNESS COACH) T pallidum Antibody (TP-PA) Non Reactive Non Reactive [facility] INSURANCE BILL Blood BLOOD SPECIMEN / Unknown 08/09/2024 7:40 AM ONLINE HEALTH AND FITNESS COACH 08/09/2024 Narrative [facility] INSURANCE BILL - 08/11/2024 9:08 PM ONLINE HEALTH AND FITNESS COACH Performed at: [address] [place] [id number] Restaurant Shift Supervisor: Hernandez Flaherty MD, Phone: [phone] Keo Vega MD LAB - SEROLOGY ORDER IVONNE [facility] INSURANCE BILL [address] [place] [address] * TSH REFLEX FREE T4 (08/09/2024 7:40 AM ONLINE HEALTH AND FITNESS COACH) TSH 0.564 0.450 - 4.500 uIU/mL [facility] INSURANCE BILL Blood BLOOD SPECIMEN / Unknown 08/09/2024 7:40 AM ONLINE HEALTH AND FITNESS COACH 08/09/2024 Narrative [facility] INSURANCE BILL - 08/10/2024 7:09 AM ONLINE HEALTH AND FITNESS COACH Performed at: [address] [id number] Restaurant Shift Supervisor: Pola Aguilera PhD, Phone: [phone] Keo Vega MD LAB - CHEMISTRY ORDMarium SINCLAIR Performing Organization Address [facility] de Phone Number [facility] INSURANCE BILL [address] [place] [address] * C-REACTIVE PROTEIN (08/09/2024 7:40 AM ONLINE HEALTH AND FITNESS COACH) [facility] C-Reactive Protein 1 0 - 10 mg/L [facility] INSURANCE BILL Blood BLOOD SPECIMEN / Unknown 08/09/2024 7:40 AM ONLINE HEALTH AND FITNESS COACH 08/09/2024 Narrative [facility] INSURANCE BILL - 08/10/2024 7:09 AM ONLINE HEALTH AND FITNESS COACH Performed at: [address] [id number] Restaurant Shift Supervisor: Pola Aguilera PhD, Phone: [phone] Keo Vega MD LAB - CHEMISTRY NAWAF SINCLAIR Performing Organization Address [facility] [[email or web address]] Co de Phone Number [facility] INSURANCE BILL [address] [place] [address] * (ABNORMAL) IMMUNOFIXATION BLOOD (08/09/2024 7:38 AM ONLINE HEALTH AND FITNESS COACH) Pathologist [facility] Immunofixation Result Comment [facility] INSURANCE BILL Comment:No monoclonality det ected. IgG Quantitative 1,261 586 - 1,602 mg/dL [facility] INSURANCE BILL IgA Quantitative 356(H) 87 - 352 mg/dL [facility] INSURANCE BILL IgM Quantitative 228(H) 26 - 217 mg/dL [facility] INSURANCE BILL Blood BLOOD SPECIMEN / Unknown 08/09/2024 7:38 AM ONLINE HEALTH AND FITNESS COACH 08/09/2024 Narrative [facility] INSURANCE BILL - 08/11/2024 3:10 PM ONLINE HEALTH AND FITNESS COACH Performed at: 01 - [facility] [id number] Restaurant Shift Supervisor: Pola Aguilera PhD, Phone: [phone] Keo Vega MD LAB - CHEMISTRY NAWAF [place]CLA[place] [facility] INSURANCE BILL [address] [place] [address] * (ABNORMAL) BETHANIE BLOOD SCREEN W/REFLEX TITER (08/09/2024 7:38 AM ONLINE HEALTH AND FITNESS COACH) Pathologist [facility] BETHANIE Positive(A) [facility] INSURANCE BILL Comment: Negative <1:80 Borderline 1:80 Positive >1:80 Performed at: 01 - [facility] [address] [id number] Restaurant Shift Supervisor: Pola Aguilera PhD, Phone: [phone] Speckled Pattern 1:80 [facility] INSURANCE BILL Comment:ICAP nomenclature: A C-2,4,5,29 Note Comment [facility] INSURANCE BILL Comment: Pattern Potential Disease Association Homogeneous Systemic Lupus Erythematosus, Drug Induced Systemic Lupus Erythematosus, Chronic Autoimmune hepatitis, Juvenile Idiopathic Arthritis Speckled Sjogren Syndrome, Systemic Lupus Erythematosus, Subacute Cutaneous Lupus, Lupus, Congenital Heart Block, Mixed Connective Tissue Disease, Scleroderma-diffuse, Scleroderma-Autoimmune Myositis Overlap Syndrome, Systemic Lupus Mkqbzzzuwlryf-Gkfbxggkcfu-Pbjnbwoxpk Myositis Overlap Syndrome, Systemic Autoimmune Rheumatic Disease, [...] BLOOD SPECIMEN / Unknown 08/09/2024 7:38 AM ONLINE HEALTH AND FITNESS COACH 08/09/2024 Narrative [facility] INSURANCE BILL - 08/12/2024 1:09 PM ONLINE HEALTH AND FITNESS COACH Performed at: [address] [place] [id number] Restaurant Shift Supervisor: Pola Aguilera PhD, Phone: [phone] Keo Vega MD LAB - CHEMISTRY NAWAF [place]INCLAIR Performing Organization Address City/[facility]/ZIP Co de Phone Number [facility] INSURANCE BILL [address] [place] [address] * ERYTHROCYTE SEDIMENTATION RATE (08/09/2024 7:38 AM ONLINE HEALTH AND FITNESS COACH) Erythrocyte Sedimentation Rate Westergren 3 0 - 40 mm/hr [facility] INSURANCE BILL Blood BLOOD SPECIMEN / Unknown 08/09/2024 7:38 AM ONLINE HEALTH AND FITNESS COACH 08/09/2024 Narrative [facility] INSURANCE BILL - 08/10/2024 7:09 AM ONLINE HEALTH AND FITNESS COACH Performed at: - [facility] [id number] Restaurant Shift Supervisor: Pola Aguilera PhD, Phone: [phone] Keo Vega MD LAB - HEMATOLOGY ORD ERABLES Performing Organization Address [facility] [[email or web address]] Co de Phone Number [facility] INSURANCE BILL [address] [place] [address] * CK BLOOD (08/09/2024 7:38 AM ONLINE HEALTH AND FITNESS COACH) Pathologist [facility] CK 87 32 - 182 U/L [facility] INSURANCE BILL Blood BLOOD SPECIMEN / Unknown 08/09/2024 7:38 AM ONLINE HEALTH AND FITNESS COACH 08/09/2024 Narrative [facility] INSURANCE BILL - 08/10/2024 7:09 AM ONLINE HEALTH AND FITNESS COACH Performed at: - [facility] [id number] Restaurant Shift Supervisor: Pola Aguilera PhD, Phone: [phone] Keo Vega MD LAB - CHEMISTRY NAWAF SINCLAIR Performing Organization Address City/[facility] [[email or web address]] Co de Phone Number [facility] INSURANCE BILL [address] [place] [address] * VITAMIN B12 FOLATE PANEL (08/09/2024 7:38 AM ONLINE HEALTH AND FITNESS COACH) Vitamin B12 992 232 - 1,245 pg/mL [facility] INSURANCE BILL Folate 13.2 >3.0 ng/mL [facility] INSURANCE BILL Comment: A serum folate concentration of less than 3.1 ng/mL is considered to represent clinical deficiency. Blood BLOOD SPECIMEN / Unknown 08/09/2024 7:38 AM ONLINE HEALTH AND FITNESS COACH 08/09/2024 Narrative [facility] INSURANCE BILL - 08/10/2024 7:09 AM ONLINE HEALTH AND FITNESS COACH Performed at: 01 - [address] [id number] Restaurant Shift Supervisor: Pola Aguilera PhD, Phone: [phone] Keo Vega MD LAB - CHEMISTRY NAWAF [place] [facility] INSURANCE BILL [address] [place] [address] * PROTEIN ELECTROPHORESIS BLOOD (08/09/2024 7:38 AM ONLINE HEALTH AND FITNESS COACH) Protein Total 7.5 6.0 - 8.5 g/dL [facility] INSURANCE BILL Albumin 4.0 2.9 - 4.4 g/dL [facility] INSURANCE BILL Alpha-1 Globulin 0.3 0.0 - 0.4 g/dL [facility] INSURANCE BILL Zekok-2-Ldlmpbwr 0.8 0.4 - 1.0 g/dL [facility] INSURANCE [...] scan will follow via computer, mail, or keying machine operator delivery. P E Interpretation, S Comment [facility] INSURANCE BILL Comment: The SPE pattern appears unremarkable. Evidence of monoclonal protein is not apparent. Blood BLOOD SPECIMEN / Unknown 08/09/2024 7:38 AM ONLINE HEALTH AND FITNESS COACH 08/09/2024 Narrative [facility] INSURANCE BILL - 08/10/2024 5:09 PM ONLINE HEALTH AND FITNESS COACH Performed at: [address] [id number] Restaurant Shift Supervisor: Pola Aguilera PhD, Phone: [phone] Keo Vega MD LAB - CHEMISTRY NAWAF Hernandez Organization Address City/State/ZIP Co de Phone Number [facility] INSURANCE BILL [address] [place] [address] from Last 3 Months Care Teams Liaison Officer Relationship Specialty Start Date End Date Shavon Lynch PA [address] [place] [address] [place] [phone] PCP - General Physician Solar Installation Crew Supervisor 10/28/22
--- OUTSIDE RECORDS SUMMARY | 2024-09-23 00:01 | XMS_ITS | Encounter Summary ---
Author Organization [facility] Address [address] [facility] [place] [address] Care Team Providers Care Church Supervisor Name Role Phone Base, [facility] Primary Care Provider + [phone] Primary Care Prov ider Shavon Lynch Primary Care Pr ovider Encounter Details Date Type Department Care Team (Late st Contact Info) Description 11/16/2017 Telephone [facility] [address] [place] [address] Inocencia Wade MD [address] [place] [phone] Social History Tobacco Use Types Packs/Day Years Used Date Smoking Tobacco: Never Assessed Sex and Gender Information Value Date Recorded Sex Assigned at Not on file Gender Identity Not on file Sexual Orientation Not on file documented as of this encounter Plan of Treatment Upcoming Encounters Date Type Department Care Team (Late st Contact Info) Description 11/10/2024 10:20 AM CDT Office Visit [facility] Neurosciences [address] [facility] [address] [place] [address] [place] [address] [facility] [address] [address] documented as of this encounter Visit Diagnoses Not on filedocumented in this encounter Care Teams Church Supervisor Relationship Specialty Start Date End Date Base, [place], [place] PCP - General 11/16/17 12/16/[address] [facility] [place], [place] [address] PCP - General 12/17/17 10/27/22 Shavon Lynch PA [address] [place] [address] PCP - General Physician Education Officer 10/28/22 documented as of this encounter
== END 2024-09-22 23:30 | disposition left against medical advice (07) ==
PROVIDERS: PCP Nurse Practitioner Family
DX: S61.201A Unspecified open wound of left index finger without damage to nail, initial encounter (principal)
CPT/HCPCS: 99199

== ENCOUNTER 2024-09-23 07:35 | Emergency (ER) | payer MEDICARE, OTHER, SELFPAY ==
--- OUTSIDE RECORDS SUMMARY | 2024-09-23 07:37 | XMS_ITS | Encounter Summary ---
Author Organization [facility] Address [address] [facility] [place] [address] Care Team Providers Care Java Web Architect Name Role Phone Shavon Lynch Primary Care Pr ovider Reason for Visit * Reason Onset Date Comments MEDICATION REFILL 12/09/2023 Encounter Details Date Type Department Care Team (Late st Contact Info) Description 12/09/2023 Telephone [facility] - Neurology [address] [place] [address], [place] [address] Inocencia Wade MD [address] [place] [address] [place] [phone] MEDICATION REFILL Social History Tobacco Use Types [...] a Med refill. Drug type:carbamazepineER 300 mg Pharmacy:[facility] Patient call back number: [phone] . Upcoming appointment scheduled for : 09/13/24 documented in this encounter Plan of Treatment Upcoming Encounters Date Type Department Care Team (Late st Contact Info) Description 11/10/2024 10:20 AM CDT Office Visit [facility] [address] [facility] [address] [place] [address] [place] [address] [facility] [address] [place] [address] documented as of this encounter Visit Diagnoses Not on filedocumented in this encounter Care Teams Java Web Architect Relationship Specialty Start Date End Date Shavon Lynch PA [address] [place] [phone] PCP - General Physician Dispatch Supervisor 10/28/22 documented as of this encounter
--- OUTSIDE RECORDS SUMMARY | 2024-09-23 07:37 | XMS_ITS | Encounter Summary ---
Author Organization [facility] Address [address] [facility] [place] [address] Care Team Providers Care Gunner Mate Name Role Phone Base, [facility] Primary Care Provider + [phone] Primary Care Prov ider Shavon Lynch Primary Care Pr ovider Encounter Details Date Type Department Care Team (Late st Contact Info) Description 11/16/2017 Telephone [facility] [address] [place] [address] Inocencia Wade MD [address] [place] [phone] Social History Tobacco Use Types Packs/Day Years Used Date Smoking Tobacco: Never Assessed Sex and Gender Information Value Date Recorded Sex Assigned at Not on file Gender Identity Not on file Sexual Orientation Not on file documented as of this encounter Plan of Treatment Upcoming Encounters Date Type Department Care Team (Late st Contact Info) Description 11/10/2024 10:20 AM CDT Office Visit [facility] [employer] Neurosciences [address] [facility] [address] [place] [address] [place] [address] [facility] [address] [address] documented as of this encounter Visit Diagnoses Not on filedocumented in this encounter Care Teams Gunner Mate Relationship Specialty Start Date End Date Base, [place], [place] PCP - General 11/16/17 12/16/[address] [facility], [place], [place] [address] PCP - General 12/17/17 10/27/22 Shavon Lynch PA [address] [place] [address] PCP - General Physician Gardening Supervisor 10/28/22 documented as of this encounter
--- OUTSIDE RECORDS SUMMARY | 2024-09-23 07:37 | XMS_ITS | Clinical Summary ---
Author Organization [facility] Address [address] [place] [address] Care Team Providers Care Cytogenetic Technician Name Role Phone Gwendolyn Pulido NP Primary Care Provider [phone] Allergies Active Allergy Reactions Criticality Noted Date [...] 1 tablet (175 mcg total) by mouth exhaust emissions inspector before breakfast Active acetaminophen 500 mg capsule [...] 04/21/2024 Assessment & Plan (04/21/2024 9:00 AM EMERGENCY SPILL RESPONSE TECHNICIAN): Encourage routine vaccinations. Follow up with PCP. [...] MTX and Plaquinil; Will discuss with pts box worker Dr. Bony otoole [phone] Fatigue 07/08/2023 Female pelvic pain 07/08/2023 Hypercalcemia 07/08/2023 Hyperlipidemia 09/11/2022 Encounter for long-term (cur rent) use of high-risk medication 07/16/2022 Assessment & Plan (04/21/2024 9:00 AM EMERGENCY SPILL RESPONSE TECHNICIAN): Long-term use of high-risk medication requiring regular monitoring. Labs ordered, no s/s of med tox or infection. Encouraged to work with PCP to make sure all recommended cancer screens and vaccinations are complete. Avoid live-vaccines unless reviewed with box worker first. Assessment & Plan (07/16/2022 2:27 PM EMERGENCY SPILL RESPONSE TECHNICIAN): Long-term use of high-risk medication requiring regular monitoring. Labs ordered, no s/s of med tox or infection. Encouraged to work with PCP to make sure all recommended cancer screens and vaccinations are complete. Avoid live-vaccines unless reviewed with box worker first. Did have a follow up [...] (06/29/2018): Added automatically from request for surgery [id number] Crohn's disease of colon 10/22/2015 Overview (09/18/2016): Crohn's colitis Gastroesophageal reflux disease 10/22/2015 Overview (09/19/2016): ESOPHAGEAL REFLUX Rheumatoid arthritis involving multiple joints 0 10/22/2015 Overview (09/19/2016): RHEUMATOID ARTHRITIS Assessment & Plan (04/21/2024 8:59 AM EMERGENCY SPILL RESPONSE TECHNICIAN): Stable on simponi and prednisone 5 mg daily, continue same, continue to monitor. Encourage work toward weaning off prednisone, down to 2.5 mg daily and then off / just prn. Encourage calcium/vitamin D and weight bearing exercise to help with osteoporosis reduction. Assessment & Plan (07/16/2022 2:28 PM EMERGENCY SPILL RESPONSE TECHNICIAN): Stable on simponi and prednisone 5 mg [...] Department Care Team Description 07/13/2024 11:00 AM EMERGENCY SPILL RESPONSE TECHNICIAN Office Visit [facility] Sleep [address] [facility] 6[address] [place] [address] Mac Schwartz MD IRLANDA on [...] Split, Preservative Free, Intradermal 03/28/2015 MMR 10/14/1993 [employer] SARS-CoV-2 Monovalent Vaccination (12+ Yrs) MEYER-READY TO [...] 7 Thierno (Age 64) suspect fa freddy [place] Daughter beau Father Franki (Age 65) Father's [...] on file Legal Sex Female 5:17 PM EMERGENCY SPILL RESPONSE TECHNICIAN Gender Identity Not on file Sexual Orientation Not on file Obstetrics History Last Filed Vital Signs Vital Sign Reading Time Taken Comments Blood Pressure 156/89 07/13/2024 10:54 AM EMERGENCY SPILL RESPONSE TECHNICIAN Pulse 68 07/13/2024 10:54 AM EMERGENCY SPILL RESPONSE TECHNICIAN Temperature 36.4 C (97.6 F) 07/13/2024 10:54 AM EMERGENCY SPILL RESPONSE TECHNICIAN Respiratory Rate 16 01/30/2023 11:27 AM CDT Oxygen Saturation 99% 07/13/2024 10:54 AM EMERGENCY SPILL RESPONSE TECHNICIAN Inhaled Oxygen Concentration - - Weight 76.9 kg (169 lb 8 oz) 07/13/2024 10:54 AM EMERGENCY SPILL RESPONSE TECHNICIAN Height 157.5 cm (5' 2 ) 07/13/2024 10:54 AM EMERGENCY SPILL RESPONSE TECHNICIAN Body Mass Index 31 07/13/2024 10:54 AM EMERGENCY SPILL RESPONSE TECHNICIAN Plan of Treatment Health Maintenance Due Date [...] Most Recently Relevant to Health Maintenance Insurance [employer] MEDICARE MEDICARE FOR LIFE MEDICARE FOR LIFE Advance Directives For more information, please contact: [phone] * Full Code (Latest Code Status on File) Date Activated Date Inactivated Comments 07/23/2018 10:37 AM 07/23/2018 9:42 PM Care Teams Cytogenetic Technician Relationship Specialty Start Date End Date Gwendolyn Pulido, ADVISOR TO COMMAND IN COMBAT [address] [place] [address] PCP - General Family Medicine 04/21/24
--- OUTSIDE RECORDS SUMMARY | 2024-09-23 07:37 | XMS_ITS | Encounter Summary ---
Author Organization [facility] Address [address] [place] [address] Phone Care Team Providers Care Benzene Still Utility Operator Name Role Phone Angela Traore MD Primary Care Provide r Hair Mcdaniels MD Primary Care Provider [phone] Dong Ctuler MD Primary Care Provider [phone] Kandice Alberto MD Primary Care Provider [phone] Shavon George Primary Care Pr ovider Gwendolyn Pulido NP Primary Care Provider [phone] Encounter Details Date Type Department Care Team (Late st Contact Info) Description 08/14/2017 Orders Only [facility] ProviderZeeshan MD [address] [place] [id number] Social History Tobacco Use Types Packs/Day Years Used Date Smoking Tobacco: Never Smokeless Tobacco: Never Alcohol Use Standard Drinks/Week Comments No 0 (1 standard drink = 0.6 oz pur e alcohol) Comments Unknown Sex and Gender Information Value Date Recorded Sex Assigned at Not on file Legal Sex Female 5:17 PM DATA OPERATIONS MANAGER Gender Identity Not on file Sexual Orientation Not on file documented as of this encounter Plan of Treatment Not on file documented as of this encounter Procedures Procedure Name Priority Date/Time Associated Diagnosis Comments DISCHARGE LABORATORY CUMULATIVE REPORT 08/14/2017 12:00 AM DATA OPERATIONS MANAGER documented in this encounter Results * DISCHARGE LABORATORY CUMULATIVE REPORT (08/14/2017 12:00 AM DATA OPERATIONS MANAGER) Narrative 08/14/2017 12:00 AM DATA OPERATIONS MANAGER Ordered by an unspecified provider. us Historical Provider LAB BLOOD ORDERABLES Nayeli l Result documented in this encounter Visit Diagnoses Not on filedocumented in this encounter Care Teams Benzene Still Utility Operator Relationship Specialty Start Date End Date Angela Traore MD [address] [place], [place] [id number] PCP - General 08/14/17 12/10/17 Hair Mcdaniels MD [address] [place] [address] PCP - General Internal Medicine 12/11/17 07/05/19 Dong Cutler MD [address] [place] [address] PCP - General Internal Medicine 07/06/19 02/01/20 Kandice Alberto MD [address] [place] [id number] PCP - General Internal Medicine 02/02/20 04/02/20 Shavon George PA [address] [place] [id number] PCP - General Physician Metallographic Technician 04/03/20 04/20/24 Gwendolyn Pulido, GOLF COURSE LABORER [address] [place] [address] PCP - General Family Medicine 04/21/24 documented as of this encounter
--- OUTSIDE RECORDS SUMMARY | 2024-09-23 07:37 | XMS_ITS | Clinical Summary ---
Author Organization [facility] Address [address] [facility] [place] [address] Care Team Providers Care Patient Care Director Name Role Phone Shavon Lynch Primary Care Pr ovider Source Comments [facility],non-owned Affiliates and Associated Physician Practices is amultiple site organization consisting of ambulatory clinics and hospital sitesin [place], [place], [place] and [place]. This disclosure is being madepursuant to the Care Everywhere program and may not contain all information available regarding this patient. Last updated 18.[facility] [email or web address] Allergies Active Allergy Reactions Criticality Noted Date [...] Department Care Team Description 08/19/2024 8:51 AM CHEMICAL PLANT MANAGER - 08/19/2024 11:59 PM CHEMICAL PLANT MANAGER Hospital Encounter [facility] Health Imaging Services - MRI [address] [place] [address] Keo Vega MD Discharge Disposition: Home or Self Care 08/19/2024 8:51 AM CHEMICAL PLANT MANAGER - 08/19/2024 11:59 PM CHEMICAL PLANT MANAGER Hospital Encounter [facility] Health Imaging Services - MRI [address] [facility] [address] [address] [place] [address] Keo Vega MD Discharge Disposition: Home or Self Care 08/04/2024 1:00 PM CHEMICAL PLANT MANAGER Office Visit [facility] Neurosciences [address] [place] [address] Keo Vega MD Trigeminal neuralgia (Primary Dx); [...] Comments Blood Pressure 154/84 08/04/2024 12:56 PM CHEMICAL PLANT MANAGER Pulse 74 08/04/2024 12:56 PM CHEMICAL PLANT MANAGER Temperature 36.1 C (97 F) 10/28/2022 10:55 AM CDT Respiratory Rate 14 01/08/2015 9:45 AM CDT Oxygen Saturation 99% 08/04/2024 12:56 PM CHEMICAL PLANT MANAGER Inhaled Oxygen Concentration - - Weight 73.9 kg (163 lb) 08/04/2024 12:56 PM CHEMICAL PLANT MANAGER Height 157.5 cm (5' 2 ) 10/28/2022 10:55 AM CDT Body Mass Index 29.81 10/28/2022 10:55 AM CDT Plan of Treatment Upcoming Encounters Date Type Department Care Team (Late st Contact Info) Description 11/10/2024 10:20 AM CDT Office Visit [facility] [address] [facility] [address] [address] [place] [address] [place] [address] [facility] [address] [place], [place] [id number] Health Maintenance Due Date Last Done Comments [...] BRAIN WO CONT Routine 08/19/2024 11:42 AM CHEMICAL PLANT MANAGER Trigeminal neuralgia Migraine without aura and without status migrainosus, not intractable MRI CERVICAL SPINE WO CONTRAST Routine 08/19/2024 11:18 AM CHEMICAL PLANT MANAGER Numbness Neck pain TREPONEMA PALLIDUM POS REFLX RPR Routine 08/09/2024 7:40 AM CHEMICAL PLANT MANAGER Numbness TSH REFLEX FREE T4 Routine 08/09/2024 7: 40 AM CHEMICAL PLANT MANAGER Numbness C-REACTIVE PROTEIN Routine 08/09/2024 7: 40 AM CHEMICAL PLANT MANAGER Numbness IMMUNOFIXATION BLOOD Routine 08/09/2024 7:38 AM CHEMICAL PLANT MANAGER Numbness PROTEIN ELECTROPHORESIS BLOOD Routine 08/09/2024 7:38 AM CHEMICAL PLANT MANAGER Numbness CK BLOOD Routine 08/09/2024 7:38 AM CHEMICAL PLANT MANAGER Numbness VITAMIN B12 FOLATE PANEL Routine 08/09/2024 7:38 AM CHEMICAL PLANT MANAGER Numbness BETHANIE BLOOD SCREEN W/REFLEX TITER Routine 08/09/2024 7:38 AM CHEMICAL PLANT MANAGER Numbness ERYTHROCYTE SEDIMENTATION RATE Routine 08/09/2024 7:38 AM CHEMICAL PLANT MANAGER Numbness from Last 3 Months Results * MRI BRAIN AND IAC WO CONT (08/19/2024 11:42 AM CHEMICAL PLANT MANAGER) Anatomical Region Laterality Modality Head Magnetic Resonan ce 08/19/2024 11:2 2 AM CHEMICAL PLANT MANAGER Impressions 08/19/2024 12:46 PM CHEMICAL PLANT MANAGER IMPRESSION: 1.Postoperative changes in the left cerebellopontine [...] 08/19/2024 12:46 PM Narrative 08/19/2024 12:46 PM CHEMICAL PLANT MANAGER PROCEDURE: MRI CERVICAL SPINE WO CONTRAST, MRI [...] degeneration of the cord due to vitamin [id number]. Edited by Kandice Alonzo on 08/19/2024 12:16 PM > Interpreting Provider: Yumiko Oneill MD on 08/19/2024 12:46 PM Keo Vega MD MR ORDERABLES * MRI Cervical Spine Wo Contrast (08/19/2024 11:18 AM CHEMICAL PLANT MANAGER) Anatomical Region Laterality Modality Pelvis Magnetic Resonan ce 08/19/2024 11:2 2 AM CHEMICAL PLANT MANAGER Impressions 08/19/2024 12:46 PM CHEMICAL PLANT MANAGER IMPRESSION: 1.Postoperative changes in the left cerebellopontine [...] 08/19/2024 12:46 PM Narrative 08/19/2024 12:46 PM CHEMICAL PLANT MANAGER PROCEDURE: MRI CERVICAL SPINE WO CONTRAST, MRI [...] degeneration of the cord due to vitamin [id number]. Edited by Kandice Alonzo on 08/19/2024 12:16 PM > Interpreting Provider: Yumiko Oneill MD on 08/19/2024 12:46 PM Keo Vega MD MR ORDERABLES * TREPONEMA PALLIDUM POS REFLX RPR (08/09/2024 7:40 AM CHEMICAL PLANT MANAGER) T pallidum Antibody (TP-PA) Non Reactive Non Reactive [facility] INSURANCE BILL Blood BLOOD SPECIMEN / Unknown 08/09/2024 7:40 AM CHEMICAL PLANT MANAGER 08/09/2024 Narrative [facility] INSURANCE BILL - 08/11/2024 9:08 PM CHEMICAL PLANT MANAGER Performed at: [address] [place] [id number] [facility]: Hernandez Flaherty MD, Phone: [phone] Keo Vega MD LAB - SEROLOGY ORDER IVONNE [facility] INSURANCE BILL [address] [place] [address] * TSH REFLEX FREE T4 (08/09/2024 7:40 AM CHEMICAL PLANT MANAGER) TSH 0.564 0.450 - 4.500 uIU/mL [facility] INSURANCE BILL Blood BLOOD SPECIMEN / Unknown 08/09/2024 7:40 AM CHEMICAL PLANT MANAGER 08/09/2024 Narrative [facility] INSURANCE BILL - 08/10/2024 7:09 AM CHEMICAL PLANT MANAGER Performed at: [address] [id number] [facility]: Pola Aguilera PhD, Phone: [phone] Keo Vega MD LAB - CHEMISTRY ORDMarium SINCLAIR Performing Organization Address [facility] de Phone Number [facility] INSURANCE BILL [address] [place] [address] * C-REACTIVE PROTEIN (08/09/2024 7:40 AM CHEMICAL PLANT MANAGER) [facility] C-Reactive Protein 1 0 - 10 mg/L [facility] INSURANCE BILL Blood BLOOD SPECIMEN / Unknown 08/09/2024 7:40 AM CHEMICAL PLANT MANAGER 08/09/2024 Narrative [facility] INSURANCE BILL - 08/10/2024 7:09 AM CHEMICAL PLANT MANAGER Performed at: [address] [id number] [facility]: Pola Aguilera PhD, Phone: [phone] Keo Vega MD LAB - CHEMISTRY NAWAF SINCLAIR Performing Organization Address [facility] Co de Phone Number [facility] INSURANCE BILL [address] [place] [address] * (ABNORMAL) IMMUNOFIXATION BLOOD (08/09/2024 7:38 AM CHEMICAL PLANT MANAGER) Pathologist [facility] Immunofixation Result Comment [facility] INSURANCE BILL Comment:No monoclonality det ected. IgG Quantitative 1,261 586 - 1,602 mg/dL [facility] INSURANCE BILL IgA Quantitative 356(H) 87 - 352 mg/dL [facility] INSURANCE BILL IgM Quantitative 228(H) 26 - 217 mg/dL [facility] INSURANCE BILL Blood BLOOD SPECIMEN / Unknown 08/09/2024 7:38 AM CHEMICAL PLANT MANAGER 08/09/2024 Narrative [facility] INSURANCE BILL - 08/11/2024 3:10 PM CHEMICAL PLANT MANAGER Performed at: 01 - [facility] [id number] [facility]: Pola Aguilera PhD, Phone: [phone] Keo Vega MD LAB - CHEMISTRY NAWAF SINCLAIR [facility] INSURANCE BILL [address] [place] [address] * (ABNORMAL) BETHANIE BLOOD SCREEN W/REFLEX TITER (08/09/2024 7:38 AM CHEMICAL PLANT MANAGER) Pathologist [facility] BETHANIE Positive(A) [facility] INSURANCE BILL Comment: Negative <1:80 Borderline 1:80 Positive >1:80 Performed at: 01 - [facility] [address] [id number] [facility]: Pola Aguilera PhD, Phone: [phone] Speckled Pattern 1:80 [facility] INSURANCE BILL Comment:ICAP nomenclature: A C-2,4,5,29 Note Comment [facility] INSURANCE BILL Comment: Pattern Potential Disease Association Homogeneous Systemic Lupus Erythematosus, Drug Induced Systemic Lupus Erythematosus, Chronic Autoimmune hepatitis, Juvenile Idiopathic Arthritis Speckled Sjogren Syndrome, Systemic Lupus Erythematosus, Subacute Cutaneous Lupus, Lupus, Congenital Heart Block, Mixed Connective Tissue Disease, Scleroderma-diffuse, Scleroderma-Autoimmune Myositis Overlap Syndrome, Systemic Lupus Npisvwmztsvbi-Ggmnfsmvvjc-Dyanvrxynf Myositis Overlap Syndrome, Systemic Autoimmune Rheumatic Disease, [...] BLOOD SPECIMEN / Unknown 08/09/2024 7:38 AM CHEMICAL PLANT MANAGER 08/09/2024 Narrative [facility] INSURANCE BILL - 08/12/2024 1:09 PM CHEMICAL PLANT MANAGER Performed at: [address] [place] [id number] [facility]: Pola Aguilera PhD, Phone: [phone] Keo Vega MD LAB - CHEMISTRY NAWAF SINCLAIR Performing Organization Address City/[facility]/ZIP Co de Phone Number [facility] INSURANCE BILL [address] [place] [address] * ERYTHROCYTE SEDIMENTATION RATE (08/09/2024 7:38 AM CHEMICAL PLANT MANAGER) Erythrocyte Sedimentation Rate Westergren 3 0 - 40 mm/hr [facility] INSURANCE BILL Blood BLOOD SPECIMEN / Unknown 08/09/2024 7:38 AM CHEMICAL PLANT MANAGER 08/09/2024 Narrative [facility] INSURANCE BILL - 08/10/2024 7:09 AM CHEMICAL PLANT MANAGER Performed at: - [facility] [id number] [facility]: Pola Aguilera PhD, Phone: [phone] Keo Vega MD LAB - HEMATOLOGY ORD ERABLES Performing Organization Address [facility] Co de Phone Number [facility] INSURANCE BILL [address] [place] [address] * CK BLOOD (08/09/2024 7:38 AM CHEMICAL PLANT MANAGER) Pathologist [facility] CK 87 32 - 182 U/L [facility] INSURANCE BILL Blood BLOOD SPECIMEN / Unknown 08/09/2024 7:38 AM CHEMICAL PLANT MANAGER 08/09/2024 Narrative [facility] INSURANCE BILL - 08/10/2024 7:09 AM CHEMICAL PLANT MANAGER Performed at: - [facility] [id number] [facility]: Pola Aguilera PhD, Phone: [phone] Keo Vega MD LAB - CHEMISTRY NAWAF SINCLAIR Performing Organization Address City/[facility] Co de Phone Number [facility] INSURANCE BILL [address] [place] [address] * VITAMIN B12 FOLATE PANEL (08/09/2024 7:38 AM CHEMICAL PLANT MANAGER) Vitamin B12 992 232 - 1,245 pg/mL [facility] INSURANCE BILL Folate 13.2 >3.0 ng/mL [facility] INSURANCE BILL Comment: A serum folate concentration of less than 3.1 ng/mL is considered to represent clinical deficiency. Blood BLOOD SPECIMEN / Unknown 08/09/2024 7:38 AM CHEMICAL PLANT MANAGER 08/09/2024 Narrative [facility] INSURANCE BILL - 08/10/2024 7:09 AM CHEMICAL PLANT MANAGER Performed at: 01 - [address] [id number] [facility]: Pola Aguilera PhD, Phone: [phone] Keo Vega MD LAB - CHEMISTRY NAWAF SINCLAIR [facility] INSURANCE BILL [address] [place] [address] * PROTEIN ELECTROPHORESIS BLOOD (08/09/2024 7:38 AM CHEMICAL PLANT MANAGER) Protein Total 7.5 6.0 - 8.5 g/dL [facility] INSURANCE BILL Albumin 4.0 2.9 - 4.4 g/dL [facility] INSURANCE BILL Alpha-1 Globulin 0.3 0.0 - 0.4 g/dL [facility] INSURANCE BILL Zgkwc-9-Awwttcxa 0.8 0.4 - 1.0 g/dL [facility] INSURANCE [...] scan will follow via computer, mail, or parking enforcement specialist delivery. P E Interpretation, S Comment [facility] INSURANCE BILL Comment: The SPE pattern appears unremarkable. Evidence of monoclonal protein is not apparent. Blood BLOOD SPECIMEN / Unknown 08/09/2024 7:38 AM CHEMICAL PLANT MANAGER 08/09/2024 Narrative [facility] INSURANCE BILL - 08/10/2024 5:09 PM CHEMICAL PLANT MANAGER Performed at: [address] [id number] [facility]: Pola Aguilera PhD, Phone: [phone] Keo Vega MD LAB - CHEMISTRY NAWAF Hernandez Organization Address City/State/ZIP Co de Phone Number [facility] INSURANCE BILL [address] [place] [address] from Last 3 Months Care Teams Patient Care Director Relationship Specialty Start Date End Date Shavon Lynch PA [address] [place] [address] [place] [id number] PCP - General Physician Liquor Inspector 10/28/22
--- OUTSIDE RECORDS SUMMARY | 2024-09-23 07:37 | XMS_ITS | Referral Summary ---
Author Organization [facility] Building [address] Address [address] [place] [address] Care Team Providers Care Pot Tender Name Role Phone Gwendolyn Pulido NP Primary Care Provider [phone] Encounters Date Type Department Care Team Description 07/13/2024 11:00 AM CAD SPECIALIST Office Visit [facility] Neuro Sleep [address] [facility] [facility] 6th [address] [place] [address] Mac Schwartz MD IRLANDA on [...] 1 tablet (175 mcg total) by mouth shrimp boat captain before breakfast Active acetaminophen 500 mg capsule [...] 04/21/2024 Assessment & Plan (04/21/2024 9:00 AM CAD SPECIALIST): Encourage routine vaccinations. Follow up with PCP. [...] MTX and Plaquinil; Will discuss with pts huc ob Dr. Bony otoole [phone] Fatigue 07/08/2023 Female pelvic pain 07/08/2023 Hypercalcemia 07/08/2023 Hyperlipidemia 09/11/2022 Encounter for long-term (cur rent) use of high-risk medication 07/16/2022 Assessment & Plan (04/21/2024 9:00 AM CAD SPECIALIST): Long-term use of high-risk medication requiring regular monitoring. Labs ordered, no s/s of med tox or infection. Encouraged to work with PCP to make sure all recommended cancer screens and vaccinations are complete. Avoid live-vaccines unless reviewed with huc ob first. Assessment & Plan (07/16/2022 2:27 PM CAD SPECIALIST): Long-term use of high-risk medication requiring regular monitoring. Labs ordered, no s/s of med tox or infection. Encouraged to work with PCP to make sure all recommended cancer screens and vaccinations are complete. Avoid live-vaccines unless reviewed with huc ob first. Did have a follow up MRI [...] (06/29/2018): Added automatically from request for surgery [id number] Crohn's disease of colon 10/22/2015 Overview (09/18/2016): Crohn's colitis Gastroesophageal reflux disease 10/22/2015 Overview (09/19/2016): ESOPHAGEAL REFLUX Rheumatoid arthritis involving multiple joints 0 10/22/2015 Overview (09/19/2016): RHEUMATOID ARTHRITIS Assessment & Plan (04/21/2024 8:59 AM CAD SPECIALIST): Stable on simponi and prednisone 5 mg daily, continue same, continue to monitor. Encourage work toward weaning off prednisone, down to 2.5 mg daily and then off / just prn. Encourage calcium/vitamin D and weight bearing exercise to help with osteoporosis reduction. Assessment & Plan (07/16/2022 2:28 PM CAD SPECIALIST): Stable on simponi and prednisone 5 mg [...] on file Legal Sex Female 5:17 PM CAD SPECIALIST Gender Identity Not on file Sexual Orientation Not on file Last Filed Vital Signs Vital Sign Reading Time Taken Comments Blood Pressure 156/89 07/13/2024 10:54 AM CAD SPECIALIST Pulse 68 07/13/2024 10:54 AM CAD SPECIALIST Temperature 36.4 C (97.6 F) 07/13/2024 10:54 AM CAD SPECIALIST Respiratory Rate 16 01/30/2023 11:27 AM CDT Oxygen Saturation 99% 07/13/2024 10:54 AM CAD SPECIALIST Inhaled Oxygen Concentration - - Weight 76.9 kg (169 lb 8 oz) 07/13/2024 10:54 AM CAD SPECIALIST Height 157.5 cm (5' 2 ) 07/13/2024 10:54 AM CAD SPECIALIST Body Mass Index 31 07/13/2024 10:54 AM CAD SPECIALIST Plan of Treatment Not on file Procedures [...] Most Recently Relevant to Health Maintenance Insurance [employer] FOR [facility] MEDICARE MEDICARE FOR LIFE MEDICARE FOR LIFE Advance Directives For more information, please contact: [phone] * Full Code (Latest Code Status on File) Date Activated Date Inactivated Comments 07/23/2018 10:37 AM 07/23/2018 9:42 PM Care Teams Pot Tender Relationship Specialty Start Date End Date Gwendolyn Pulido, ANALOG IC DESIGN ARCHITECT [address] [place] [address] PCP - General Family Medicine 04/21/24
--- OUTSIDE RECORDS SUMMARY | 2024-09-23 07:37 | XMS_ITS | Clinical Summary ---
Author Organization [facility] Address [address] [place] [address] Phone Care Team Providers Care Corporate Legal Assistant Name Role Phone Ankit Smith MD Primary [...] age to complete this topic Care Teams Corporate Legal Assistant Relationship Specialty Start Date End Date Ankit Smith MD [address] [place] [address] PCP - General Internal Medicine 02/13/13
[2024-09-23 07:41] VITALS: BP 167/76; PULSE 78; RESP 16; TEMP 36.7; O2SAT 100
--- OUTSIDE RECORDS SUMMARY | 2024-09-23 08:03 | XMS_ITS | Referral Summary ---
Author Organization [facility] [address] Address [address] [place] [address] Care Team Providers Care Welder And Fitter Name Role Phone Gwendolyn Pulido NP Primary Care Provider [phone] Encounters Date Type Department Care Team Description 07/13/2024 11:00 AM TIME CYCLE OPERATOR Office Visit [facility] Neuro Sleep [address] 6th [address] [place] [address] Mac Schwartz MD IRLANDA on [...] 1 tablet (175 mcg total) by mouth research scientist before breakfast Active acetaminophen 500 mg capsule [...] 04/21/2024 Assessment & Plan (04/21/2024 9:00 AM TIME CYCLE OPERATOR): Encourage routine vaccinations. Follow up with PCP. [...] MTX and Plaquinil; Will discuss with pts vamp maker Dr. Bony otoole [phone] Fatigue 07/08/2023 Female pelvic pain 07/08/2023 Hypercalcemia 07/08/2023 Hyperlipidemia 09/11/2022 Encounter for long-term (cur rent) use of high-risk medication 07/16/2022 Assessment & Plan (04/21/2024 9:00 AM TIME CYCLE OPERATOR): Long-term use of high-risk medication requiring regular monitoring. Labs ordered, no s/s of med tox or infection. Encouraged to work with PCP to make sure all recommended cancer screens and vaccinations are complete. Avoid live-vaccines unless reviewed with vamp maker first. Assessment & Plan (07/16/2022 2:27 PM TIME CYCLE OPERATOR): Long-term use of high-risk medication requiring regular monitoring. Labs ordered, no s/s of med tox or infection. Encouraged to work with PCP to make sure all recommended cancer screens and vaccinations are complete. Avoid live-vaccines unless reviewed with vamp maker first. Did have a follow up MRI [...] (06/29/2018): Added automatically from request for surgery [id number] Crohn's disease of colon 10/22/2015 Overview (09/18/2016): Crohn's colitis Gastroesophageal reflux disease 10/22/2015 Overview (09/19/2016): ESOPHAGEAL REFLUX Rheumatoid arthritis involving multiple joints 0 10/22/2015 Overview (09/19/2016): RHEUMATOID ARTHRITIS Assessment & Plan (04/21/2024 8:59 AM TIME CYCLE OPERATOR): Stable on simponi and prednisone 5 mg daily, continue same, continue to monitor. Encourage work toward weaning off prednisone, down to 2.5 mg daily and then off / just prn. Encourage calcium/vitamin D and weight bearing exercise to help with osteoporosis reduction. Assessment & Plan (07/16/2022 2:28 PM TIME CYCLE OPERATOR): Stable on simponi and prednisone 5 mg [...] on file Legal Sex Female 5:17 PM TIME CYCLE OPERATOR Gender Identity Not on file Sexual Orientation Not on file Last Filed Vital Signs Vital Sign Reading Time Taken Comments Blood Pressure 156/89 07/13/2024 10:54 AM TIME CYCLE OPERATOR Pulse 68 07/13/2024 10:54 AM TIME CYCLE OPERATOR Temperature 36.4 C (97.6 F) 07/13/2024 10:54 AM TIME CYCLE OPERATOR Respiratory Rate 16 01/30/2023 11:27 AM CDT Oxygen Saturation 99% 07/13/2024 10:54 AM TIME CYCLE OPERATOR Inhaled Oxygen Concentration - - Weight 76.9 kg (169 lb 8 oz) 07/13/2024 10:54 AM TIME CYCLE OPERATOR Height 157.5 cm (5' 2 ) 07/13/2024 10:54 AM TIME CYCLE OPERATOR Body Mass Index 31 07/13/2024 10:54 AM TIME CYCLE OPERATOR Plan of Treatment Not on file Procedures [...] Most Recently Relevant to Health Maintenance Insurance [employer] FOR [facility] MEDICARE MEDICARE FOR LIFE MEDICARE FOR LIFE Advance Directives For more information, please contact: [phone] * Full Code (Latest Code Status on File) Date Activated Date Inactivated Comments 07/23/2018 10:37 AM 07/23/2018 9:42 PM Care Teams Welder And Fitter Relationship Specialty Start Date End Date Gwendolyn Pulido, MORTGAGE UNDERWRITER [address] [place] [address] PCP - General Family Medicine 04/21/24
--- OUTSIDE RECORDS SUMMARY | 2024-09-23 08:03 | XMS_ITS | Clinical Summary ---
Author Organization [facility] Building D Address [address] [place] [address] Care Team Providers Care Emt I/99 Name Role Phone Gwendolyn Pulido NP Primary Care Provider [phone] Allergies Active Allergy Reactions Criticality Noted Date [...] 1 tablet (175 mcg total) by mouth seismic prospecting observer helper before breakfast Active acetaminophen 500 mg capsule [...] 04/21/2024 Assessment & Plan (04/21/2024 9:00 AM EMULSION OPERATOR): Encourage routine vaccinations. Follow up with [...] MTX and Plaquinil; Will discuss with pts tuckpointer Dr. Bony otoole [phone] Fatigue 07/08/2023 Female pelvic pain 07/08/2023 Hypercalcemia 07/08/2023 Hyperlipidemia 09/11/2022 Encounter for long-term (cur rent) use of high-risk medication 07/16/2022 Assessment & Plan (04/21/2024 9:00 AM EMULSION OPERATOR): Long-term use of high-risk medication requiring regular monitoring. Labs ordered, no s/s of med tox or infection. Encouraged to work with PCP to make sure all recommended cancer screens and vaccinations are complete. Avoid live-vaccines unless reviewed with tuckpointer first. Assessment & Plan (07/16/2022 2:27 PM EMULSION OPERATOR): Long-term use of high-risk medication requiring regular monitoring. Labs ordered, no s/s of med tox or infection. Encouraged to work with PCP to make sure all recommended cancer screens and vaccinations are complete. Avoid live-vaccines unless reviewed with tuckpointer first. Did have a follow up MRI [...] (06/29/2018): Added automatically from request for surgery [id number] Crohn's disease of colon 10/22/2015 Overview (09/18/2016): Crohn's colitis Gastroesophageal reflux disease 10/22/2015 Overview (09/19/2016): ESOPHAGEAL REFLUX Rheumatoid arthritis involving multiple joints 0 10/22/2015 Overview (09/19/2016): RHEUMATOID ARTHRITIS Assessment & Plan (04/21/2024 8:59 AM EMULSION OPERATOR): Stable on simponi and prednisone 5 mg daily, continue same, continue to monitor. Encourage work toward weaning off prednisone, down to 2.5 mg daily and then off / just prn. Encourage calcium/vitamin D and weight bearing exercise to help with osteoporosis reduction. Assessment & Plan (07/16/2022 2:28 PM EMULSION OPERATOR): Stable on simponi and prednisone 5 [...] Department Care Team Description 07/13/2024 11:00 AM EMULSION OPERATOR Office Visit [facility] Neuro Sleep [address] [facility] 6th Floor [address] [place] [address] Mac Schwartz MD IRLANDA on [...] Split, Preservative Free, Intradermal 03/28/2015 MMR 10/14/1993 [employer] SARS-CoV-2 Monovalent Vaccination (12+ Yrs) MEYER-READY TO [...] 7 Thierno (Age 64) suspect fa f[place]dy [place] Daughter beau Father Franki (Age 65) Father's [...] on file Legal Sex Female 5:17 PM EMULSION OPERATOR Gender Identity Not on file Sexual Orientation Not on file Obstetrics History Last Filed Vital Signs Vital Sign Reading Time Taken Comments Blood Pressure 156/89 07/13/2024 10:54 AM EMULSION OPERATOR Pulse 68 07/13/2024 10:54 AM EMULSION OPERATOR Temperature 36.4 C (97.6 F) 07/13/2024 10:54 AM EMULSION OPERATOR Respiratory Rate 16 01/30/2023 11:27 AM CDT Oxygen Saturation 99% 07/13/2024 10:54 AM EMULSION OPERATOR Inhaled Oxygen Concentration - - Weight 76.9 kg (169 lb 8 oz) 07/13/2024 10:54 AM EMULSION OPERATOR Height 157.5 cm (5' 2 ) 07/13/2024 10:54 AM EMULSION OPERATOR Body Mass Index 31 07/13/2024 10:54 AM EMULSION OPERATOR Plan of Treatment Health Maintenance Due Date [...] Most Recently Relevant to Health Maintenance Insurance [employer] MEDICARE MEDICARE FOR LIFE MEDICARE FOR LIFE Advance Directives For more information, please contact: [phone] * Full Code (Latest Code Status on File) Date Activated Date Inactivated Comments 07/23/2018 10:37 AM 07/23/2018 9:42 PM Care Teams Emt I/99 Relationship Specialty Start Date End Date Gwendolyn Pulido, FILLER MACHINE OPERATOR [address] [place] [address] PCP - General Family Medicine 04/21/24
--- OUTSIDE RECORDS SUMMARY | 2024-09-23 08:03 | XMS_ITS | Encounter Summary ---
Author Organization [facility] Address [address] [facility] [place] [address] Care Team Providers Care Skiver Welt End Name Role Phone Base, [facility] Primary Care Provider [phone] Primary Care Prov ider Shavon Lynch Primary Care Pr ovider Encounter Details Date Type Department Care Team (Late st Contact Info) Description 11/16/2017 Telephone [facility] [address] [place] [address] Inocencia Wade MD [address] [place] [phone] Social History Tobacco Use Types Packs/Day Years Used Date Smoking Tobacco: Never Assessed Sex and Gender Information Value Date Recorded Sex Assigned at Not on file Gender Identity Not on file Sexual Orientation Not on file documented as of this encounter Plan of Treatment Upcoming Encounters Date Type Department Care Team (Late st Contact Info) Description 11/10/2024 10:20 AM CDT Office Visit [facility] [address] [facility] [address] [place] [address] [place] [address] [facility] [address] [address] documented as of this encounter Visit Diagnoses Not on filedocumented in this encounter Care Teams Skiver Welt End Relationship Specialty Start Date End Date Base, [place], [place] PCP - General 11/16/17 12/16/[address] [facility] [place], [place] [id number] PCP - General 12/17/17 10/27/22 Shavon Lynch PA [address] [place] [address] PCP - General Physician Carton Packaging Machine Operator 10/28/22 documented as of this encounter
--- OUTSIDE RECORDS SUMMARY | 2024-09-23 08:03 | XMS_ITS | Encounter Summary ---
Author Organization [facility] Address [address] [facility] [place] [address] Care Team Providers Care Estimator Name Role Phone Shavon Lynch Primary Care Pr ovider Reason for Visit * Reason Onset Date Comments MEDICATION REFILL 12/09/2023 Encounter Details Date Type Department Care Team (Late st Contact Info) Description 12/09/2023 Telephone [facility] - Neurology [address] [place] [address], [place] [address] Inocencia Wade MD [address] [place] [address] [place] [phone] MEDICATION REFILL Social History Tobacco Use Types [...] a Med refill. Drug type:carbamazepineER 300 mg Pharmacy:[facility] Patient call back number: [phone] . Upcoming appointment scheduled for : 09/13/24 documented in this encounter Plan of Treatment Upcoming Encounters Date Type Department Care Team (Late st Contact Info) Description 11/10/2024 10:20 AM CDT Office Visit [facility] [address] [facility] [address] [place] [address] [place] [address] [place] [address] documented as of this encounter Visit Diagnoses Not on filedocumented in this encounter Care Teams Estimator Relationship Specialty Start Date End Date Shavon Lynch PA [address] [place] [phone] PCP - General Physician Property Disposal Officer 10/28/22 documented as of this encounter
--- OUTSIDE RECORDS SUMMARY | 2024-09-23 08:03 | XMS_ITS | Encounter Summary ---
Author Organization [facility] Address [address] [place] [address] Phone Care Team Providers Care Communication Manager Name Role Phone Angela Traore MD Primary Care Provide r Hair Mcdaniels MD Primary Care Provider [phone] Dong Cutler MD Primary Care Provider [phone] Kandice Alberto MD Primary Care Provider [phone] Shavon George Primary Care Pr ovider Gwendolyn Pulido NP Primary Care Provider [phone] Encounter Details Date Type Department Care Team (Late st Contact Info) Description 08/14/2017 Orders Only [facility] ProviderZeeshan MD [address] [place] [address] Social History Tobacco Use Types Packs/Day Years Used Date Smoking Tobacco: Never Smokeless Tobacco: Never Alcohol Use Standard Drinks/Week Comments No 0 (1 standard drink = 0.6 oz pur e alcohol) Comments Unknown Sex and Gender Information Value Date Recorded Sex Assigned at Not on file Legal Sex Female 5:17 PM HOCKEY SCOUT Gender Identity Not on file Sexual Orientation Not on file documented as of this encounter Plan of Treatment Not on file documented as of this encounter Procedures Procedure Name Priority Date/Time Associated Diagnosis Comments DISCHARGE LABORATORY CUMULATIVE REPORT 08/14/2017 12:00 AM HOCKEY SCOUT documented in this encounter Results * DISCHARGE LABORATORY CUMULATIVE REPORT (08/14/2017 12:00 AM HOCKEY SCOUT) Narrative 08/14/2017 12:00 AM HOCKEY SCOUT Ordered by an unspecified provider. us Historical Provider LAB BLOOD ORDERABLES Nayeli l Result documented in this encounter Visit Diagnoses Not on filedocumented in this encounter Care Teams Communication Manager Relationship Specialty Start Date End Date Angela Traore MD [address] [place], [place] [id number] PCP - General 08/14/17 12/10/17 Hair Mcdaniels MD [address] [place] [address] PCP - General Internal Medicine 12/11/17 07/05/19 Dong Cutler MD [address] [facility] [address] [facility] [address] [address] [place] [address] PCP - General Internal Medicine 07/06/19 02/01/20 Kandice Alberto MD [address] [place] [address] PCP - General Internal Medicine 02/02/20 04/02/20 Shavon George PA [address] [place] [id number] PCP - General Physician Building Estimator 04/03/20 04/20/24 Gwendolyn Pulido, MECHANICAL REPAIR WORKER [address] [place] [address] PCP - General Family Medicine 04/21/24 documented as of this encounter
--- OUTSIDE RECORDS SUMMARY | 2024-09-23 08:03 | XMS_ITS | Clinical Summary ---
Author Organization [facility] Address [address] [place] [address] Phone Care Team Providers Care Industry Segment Specialist Name Role Phone Ankit Smith MD Primary [...] age to complete this topic Care Teams Industry Segment Specialist Relationship Specialty Start Date End Date Ankit Smith MD [address] [place] [address] PCP - General Internal Medicine 02/13/13
--- OUTSIDE RECORDS SUMMARY | 2024-09-23 08:03 | XMS_ITS | Clinical Summary ---
Author Organization [facility] Address [address] [facility] [place] [address] Care Team Providers Care Hand Pleater Name Role Phone Shavon Lynch Primary Care Pr ovider Source Comments [facility],non-owned Affiliates and Associated Physician Practices is amultiple site organization consisting of ambulatory clinics and hospital sitesin [place], [place], [place] and [place]. This disclosure is being madepursuant to the Care Everywhere program and may not contain all information available regarding this patient. Last updated 18.[facility] Allergies Active Allergy Reactions Criticality Noted Date [...] Department Care Team Description 08/19/2024 8:51 AM ELECTRICAL CHECKOUT MECHANIC - 08/19/2024 11:59 PM ELECTRICAL CHECKOUT MECHANIC Hospital Encounter [facility] Health Imaging Services - MRI [address] [place] [address] Keo Vega MD Discharge Disposition: Home or Self Care 08/19/2024 8:51 AM ELECTRICAL CHECKOUT MECHANIC - 08/19/2024 11:59 PM ELECTRICAL CHECKOUT MECHANIC Hospital Encounter [facility] Health Imaging Services - MRI [address] [facility] [address] [place] [address] Keo Vega MD Discharge Disposition: Home or Self Care 08/04/2024 1:00 PM ELECTRICAL CHECKOUT MECHANIC Office Visit [facility] Neurosciences [address] [facility] [address] [place] [address] Keo Vega MD Trigeminal neuralgia (Primary Dx); [...] Comments Blood Pressure 154/84 08/04/2024 12:56 PM ELECTRICAL CHECKOUT MECHANIC Pulse 74 08/04/2024 12:56 PM ELECTRICAL CHECKOUT MECHANIC Temperature 36.1 C (97 F) 10/28/2022 10:55 AM CDT Respiratory Rate 14 01/08/2015 9:45 AM CDT Oxygen Saturation 99% 08/04/2024 12:56 PM ELECTRICAL CHECKOUT MECHANIC Inhaled Oxygen Concentration - - Weight 73.9 kg (163 lb) 08/04/2024 12:56 PM ELECTRICAL CHECKOUT MECHANIC Height 157.5 cm (5' 2 ) 10/28/2022 10:55 AM CDT Body Mass Index 29.81 10/28/2022 10:55 AM CDT Plan of Treatment Upcoming Encounters Date Type Department Care Team (Late st Contact Info) Description 11/10/2024 10:20 AM CDT Office Visit [facility] [address] [facility] [address] [place] [address] [place] [address] [facility] [address] [place], [place] [phone] Health Maintenance Due Date Last Done Comments [...] BRAIN WO CONT Routine 08/19/2024 11:42 AM ELECTRICAL CHECKOUT MECHANIC Trigeminal neuralgia Migraine without aura and without status migrainosus, not intractable MRI CERVICAL SPINE WO CONTRAST Routine 08/19/2024 11:18 AM ELECTRICAL CHECKOUT MECHANIC Numbness Neck pain TREPONEMA PALLIDUM POS REFLX RPR Routine 08/09/2024 7:40 AM ELECTRICAL CHECKOUT MECHANIC Numbness TSH REFLEX FREE T4 Routine 08/09/2024 7: 40 AM ELECTRICAL CHECKOUT MECHANIC Numbness C-REACTIVE PROTEIN Routine 08/09/2024 7: 40 AM ELECTRICAL CHECKOUT MECHANIC Numbness IMMUNOFIXATION BLOOD Routine 08/09/2024 7:38 AM ELECTRICAL CHECKOUT MECHANIC Numbness PROTEIN ELECTROPHORESIS BLOOD Routine 08/09/2024 7:38 AM ELECTRICAL CHECKOUT MECHANIC Numbness CK BLOOD Routine 08/09/2024 7:38 AM ELECTRICAL CHECKOUT MECHANIC Numbness VITAMIN B12 FOLATE PANEL Routine 08/09/2024 7:38 AM ELECTRICAL CHECKOUT MECHANIC Numbness BETHANIE BLOOD SCREEN W/REFLEX TITER Routine 08/09/2024 7:38 AM ELECTRICAL CHECKOUT MECHANIC Numbness ERYTHROCYTE SEDIMENTATION RATE Routine 08/09/2024 7:38 AM ELECTRICAL CHECKOUT MECHANIC Numbness from Last 3 Months Results * MRI BRAIN AND IAC WO CONT (08/19/2024 11:42 AM ELECTRICAL CHECKOUT MECHANIC) Anatomical Region Laterality Modality Head Magnetic Resonan ce 08/19/2024 11:2 2 AM ELECTRICAL CHECKOUT MECHANIC Impressions 08/19/2024 12:46 PM ELECTRICAL CHECKOUT MECHANIC IMPRESSION: 1.Postoperative changes in the left cerebellopontine [...] 08/19/2024 12:46 PM Narrative 08/19/2024 12:46 PM ELECTRICAL CHECKOUT MECHANIC PROCEDURE: MRI CERVICAL SPINE WO CONTRAST, MRI [...] 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 Edited by Kandice Alonzo on 08/19/2024 12:16 PM > Interpreting Provider: Yumiko Oneill MD on 08/19/2024 12:46 PM Keo Vega MD MR ORDERABLES * MRI Cervical Spine Wo Contrast (08/19/2024 11:18 AM ELECTRICAL CHECKOUT MECHANIC) Anatomical Region Laterality Modality Pelvis Magnetic Resonan ce 08/19/2024 11:2 2 AM ELECTRICAL CHECKOUT MECHANIC Impressions 08/19/2024 12:46 PM ELECTRICAL CHECKOUT MECHANIC IMPRESSION: 1.Postoperative changes in the left cerebellopontine [...] 08/19/2024 12:46 PM Narrative 08/19/2024 12:46 PM ELECTRICAL CHECKOUT MECHANIC PROCEDURE: MRI CERVICAL SPINE WO CONTRAST, MRI [...] degeneration of the cord due to vitamin [id number]. Edited by Kandice Alonzo on 08/19/2024 12:16 PM > Interpreting Provider: Yumiko Oneill MD on 08/19/2024 12:46 PM Keo Vega MD MR ORDERABLES * TREPONEMA PALLIDUM POS REFLX RPR (08/09/2024 7:40 AM ELECTRICAL CHECKOUT MECHANIC) T pallidum Antibody (TP-PA) Non Reactive Non Reactive [facility] INSURANCE BILL Blood BLOOD SPECIMEN / Unknown 08/09/2024 7:40 AM ELECTRICAL CHECKOUT MECHANIC 08/09/2024 Narrative [facility] INSURANCE BILL - 08/11/2024 9:08 PM ELECTRICAL CHECKOUT MECHANIC Performed at: [address] [place] [id number] Hyperion Analyst: Hernandez Flaherty MD, Phone: [phone] Keo Vega MD LAB - SEROLOGY ORDER IVONNE [facility] INSURANCE BILL [address] [place] [address] * TSH REFLEX FREE T4 (08/09/2024 7:40 AM ELECTRICAL CHECKOUT MECHANIC) TSH 0.564 0.450 - 4.500 uIU/mL [facility] INSURANCE BILL Blood BLOOD SPECIMEN / Unknown 08/09/2024 7:40 AM ELECTRICAL CHECKOUT MECHANIC 08/09/2024 Narrative [facility] INSURANCE BILL - 08/10/2024 7:09 AM ELECTRICAL CHECKOUT MECHANIC Performed at: [address] [id number] Hyperion Analyst: Pola Aguilera PhD, Phone: [phone] Keo Vega MD LAB - CHEMISTRY ORDMarium SINCLAIR Performing Organization Address [facility] de Phone Number [facility] INSURANCE BILL [address] [place] [address] * C-REACTIVE PROTEIN (08/09/2024 7:40 AM ELECTRICAL CHECKOUT MECHANIC) [facility] C-Reactive Protein 1 0 - 10 mg/L [facility] INSURANCE BILL Blood BLOOD SPECIMEN / Unknown 08/09/2024 7:40 AM ELECTRICAL CHECKOUT MECHANIC 08/09/2024 Narrative [facility] INSURANCE BILL - 08/10/2024 7:09 AM ELECTRICAL CHECKOUT MECHANIC Performed at: [address] [id number] Hyperion Analyst: Pola Aguilera PhD, Phone: [phone] Keo Vega MD LAB - CHEMISTRY NAWAF SINCLAIR Performing Organization Address [facility] Co de Phone Number [facility] INSURANCE BILL [address] [place] [address] * (ABNORMAL) IMMUNOFIXATION BLOOD (08/09/2024 7:38 AM ELECTRICAL CHECKOUT MECHANIC) Pathologist [facility] Immunofixation Result Comment [facility] INSURANCE BILL Comment:No monoclonality det ected. IgG Quantitative 1,261 586 - 1,602 mg/dL [facility] INSURANCE BILL IgA Quantitative 356(H) 87 - 352 mg/dL [facility] INSURANCE BILL IgM Quantitative 228(H) 26 - 217 mg/dL [facility] INSURANCE BILL Blood BLOOD SPECIMEN / Unknown 08/09/2024 7:38 AM ELECTRICAL CHECKOUT MECHANIC 08/09/2024 Narrative [facility] INSURANCE BILL - 08/11/2024 3:10 PM ELECTRICAL CHECKOUT MECHANIC Performed at: 01 - [facility] [id number] Hyperion Analyst: Pola Aguilera PhD, Phone: [phone] Keo Vega MD LAB - CHEMISTRY NAWFA SINCLAIR [facility] INSURANCE BILL [address] [place] [address] * (ABNORMAL) BETHANIE BLOOD SCREEN W/REFLEX TITER (08/09/2024 7:38 AM ELECTRICAL CHECKOUT MECHANIC) Pathologist [facility] BETHANIE Positive(A) [facility] INSURANCE BILL Comment: Negative <1:80 Borderline 1:80 Positive >1:80 Performed at: 01 - [facility] [address] [id number] Hyperion Analyst: Pola Aguilera PhD, Phone: [phone] Speckled Pattern 1:80 [facility] INSURANCE BILL Comment:ICAP nomenclature: A C-2,4,5,29 Note Comment [facility] INSURANCE BILL Comment: Pattern Potential Disease Association Homogeneous Systemic Lupus Erythematosus, Drug Induced Systemic Lupus Erythematosus, Chronic Autoimmune hepatitis, Juvenile Idiopathic Arthritis Speckled Sjogren Syndrome, Systemic Lupus Erythematosus, Subacute Cutaneous Lupus, Lupus, Congenital Heart Block, Mixed Connective Tissue Disease, Scleroderma-diffuse, Scleroderma-Autoimmune Myositis Overlap Syndrome, Systemic Lupus Ovpzapyveebyp-Bkdhqqyohvi-Lxadfofkbf Myositis Overlap Syndrome, Systemic Autoimmune Rheumatic Disease, [...] BLOOD SPECIMEN / Unknown 08/09/2024 7:38 AM ELECTRICAL CHECKOUT MECHANIC 08/09/2024 Narrative [facility] INSURANCE BILL - 08/12/2024 1:09 PM ELECTRICAL CHECKOUT MECHANIC Performed at: [address] [place] [id number] Hyperion Analyst: Pola Aguilera PhD, Phone: [phone] Keo Vega MD LAB - CHEMISTRY NAWAF SINCLAIR Performing Organization Address City/[facility]/ZIP Co de Phone Number [facility] INSURANCE BILL [address] [place] [address] * ERYTHROCYTE SEDIMENTATION RATE (08/09/2024 7:38 AM ELECTRICAL CHECKOUT MECHANIC) Erythrocyte Sedimentation Rate Westergren 3 0 - 40 mm/hr [facility] INSURANCE BILL Blood BLOOD SPECIMEN / Unknown 08/09/2024 7:38 AM ELECTRICAL CHECKOUT MECHANIC 08/09/2024 Narrative [facility] INSURANCE BILL - 08/10/2024 7:09 AM ELECTRICAL CHECKOUT MECHANIC Performed at: - [facility] [id number] Hyperion Analyst: Pola Aguilera PhD, Phone: [phone] Keo Vega MD LAB - HEMATOLOGY ORD ERABLES Performing Organization Address [facility] Co de Phone Number [facility] INSURANCE BILL [address] [place] [address] * CK BLOOD (08/09/2024 7:38 AM ELECTRICAL CHECKOUT MECHANIC) Pathologist [facility] CK 87 32 - 182 U/L [facility] INSURANCE BILL Blood BLOOD SPECIMEN / Unknown 08/09/2024 7:38 AM ELECTRICAL CHECKOUT MECHANIC 08/09/2024 Narrative [facility] INSURANCE BILL - 08/10/2024 7:09 AM ELECTRICAL CHECKOUT MECHANIC Performed at: - [facility] [id number] Hyperion Analyst: Pola Aguilera PhD, Phone: [phone] Keo Vega MD LAB - CHEMISTRY NAWAF SINCLAIR Performing Organization Address City/[facility] Co de Phone Number [facility] INSURANCE BILL [address] [place] [address] * VITAMIN B12 FOLATE PANEL (08/09/2024 7:38 AM ELECTRICAL CHECKOUT MECHANIC) Vitamin B12 992 232 - 1,245 pg/mL [facility] INSURANCE BILL Folate 13.2 >3.0 ng/mL [facility] INSURANCE BILL Comment: A serum folate concentration of less than 3.1 ng/mL is considered to represent clinical deficiency. Blood BLOOD SPECIMEN / Unknown 08/09/2024 7:38 AM ELECTRICAL CHECKOUT MECHANIC 08/09/2024 Narrative [facility] INSURANCE BILL - 08/10/2024 7:09 AM ELECTRICAL CHECKOUT MECHANIC Performed at: 01 - [address] [id number] Hyperion Analyst: Pola Aguilera PhD, Phone: [phone] Keo Vega MD LAB - CHEMISTRY NAWAF SINCLAIR [facility] INSURANCE BILL [address] [place] [address] * PROTEIN ELECTROPHORESIS BLOOD (08/09/2024 7:38 AM ELECTRICAL CHECKOUT MECHANIC) Protein Total 7.5 6.0 - 8.5 g/dL [facility] INSURANCE BILL Albumin 4.0 2.9 - 4.4 g/dL [facility] INSURANCE BILL Alpha-1 Globulin 0.3 0.0 - 0.4 g/dL [facility] INSURANCE BILL Xqugw-9-Govppsrb 0.8 0.4 - 1.0 g/dL [facility] INSURANCE [...] scan will follow via computer, mail, or biology specialist delivery. P E Interpretation, S Comment [facility] INSURANCE BILL Comment: The SPE pattern appears unremarkable. Evidence of monoclonal protein is not apparent. Blood BLOOD SPECIMEN / Unknown 08/09/2024 7:38 AM ELECTRICAL CHECKOUT MECHANIC 08/09/2024 Narrative [facility] INSURANCE BILL - 08/10/2024 5:09 PM ELECTRICAL CHECKOUT MECHANIC Performed at: [address] [id number] Hyperion Analyst: Pola Aguilera PhD, Phone: [phone] Keo Vega MD LAB - CHEMISTRY NAWAF Hernandez Organization Address City/State/ZIP Co de Phone Number [facility] INSURANCE BILL [address] [place] [address] from Last 3 Months Care Teams Hand Pleater Relationship Specialty Start Date End Date Shavon Lynch PA [address] [place] [id number] PCP - General Physician Edge Cutter 10/28/22
--- NOTE | 2024-09-23 08:15 | ED_ITS ---
HPI - General Adult General Chief complaint: Wound/Laceration Stated complaint: finger lac Time Seen by Provider: 09/23/24 07:46 History of Present Illness HPI narrative: This is a 69-year-old female presenting with a finger lack. She sliced her left distal phalanges using role cutter. No other injuries. Tetanus is up-to-date. Related Data Home Medications ?Medication ?Instructions ?Recorded ?Confirmed ?Last Taken ?Type cholecalciferol (vitamin D3) 50 2,000 unit PO DAILY 05/05/19 08/01/24 Unknown History mcg (2,000 unit) tablet folic acid 1 mg tablet 1 mg PO DAILY 05/05/19 08/01/24 Unknown History golimumab 50 mg/0.5 mL 50 mg subcut MONTHLY 05/05/19 08/01/24 Unknown History subcutaneous pen injector (Simponi) amlodipine 10 mg tablet (Norvasc) 10 mg PO HS 12/08/19 08/01/24 Unknown History calcium carbonate 500 mg PO BID 07/17/20 08/01/24 Unknown History diphenhydramine HCl 25 mg tablet 25 mg PO Q6H PRN Allergy Symptoms 07/17/20 08/01/24 Unknown History (Benadryl Allergy) famotidine 20 mg tablet 20 mg PO BID 07/17/20 08/01/24 Unknown History prednisone 5 mg tablet 5 mg PO DAILY 03/05/23 08/01/24 Unknown History atorvastatin 20 mg tablet mg PO 08/07/23 08/01/24 Unknown History losartan 25 mg tablet 25 mg PO BID 10/08/23 08/01/24 Unknown History Allergies Allergy/AdvReac Type Severity Reaction Status Date / Time iodine Allergy Severe Unknown Verified 09/23/24 07:44 aspirin Allergy Mild Unknown Verified 09/23/24 07:44 erythromycin base Allergy Unknown Unknown Verified 09/23/24 07:44 ibuprofen Allergy Unknown Unknown Verified 09/23/24 07:44 Penicillins Allergy Unknown Unknown Verified 09/23/24 07:44 Contrast Media Allergy Unknown Unknown Uncoded 09/23/24 07:44 [facility] Past Medical History Medical History Neuropathy of left foot Anemia Anxiety Depression Hypothyroid Rheumatoid arthritis Arthritis Crohn's disease Pneumonia Bronchitis HTN (hypertension) HLD (hyperlipidemia) Trigeminal neuralgia of left side of face Brain tumor Hyperparathyroidism Osteoporosis Surgical History Surgical History H/O parathyroidectomy Family History Family History Sibling Family history of lung cancer Family history of malignant neoplasm of brain Family history of obesity Family history of alcoholism Family history of malignant neoplasm Father Family history of lung disease Depression Family history of alcoholism Mother Acute myocardial infarction Family history of osteoporosis Family history of mental disorder Depression Family history of glaucoma Family history of elevated blood lipids Family history of liver disease Cerebrovascular accident Family history of diabetes mellitus in first degree relative Family history of congestive heart failure Family history of heart disease in male family member before age 55 Other Diabetes mellitus Family history of cardiovascular disease Family history of tuberculosis Hypertension Social History Social History Smoking status: Never smoker Alcohol intake: never Substance use: never Lack of Transportation: No Lack of Food: Never True Current Housing: I Have Housing Concerned About Future Housing: No Difficulty Paying Gas/Electric Bills: No Difficulty Paying for Meds: No Currently Unemployed: No Education: Bachelor's Degree Difficulty w/ Childcare or Family Care: No Additional occupation/education comments: 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 Head: atraumatic. EYES: EOMI, NOSE: Atraumatic NECK: Trachea midline RESPIRATORY: No increased rate of breathing CARDIOVASCULAR: RRR, ABDOMINAL: Non-distended MUSCULOSKELETAl: No obvious deformities NEURO: Alert. Moving 4/4 extremities SKIN:: 1 cm laceration of the distal phalanx the 2nd digit of the left hand no involvement of the deeper structures, no foreign bodies, known pulmonary nail bed PSYCHIATRIC: Normal affect Course Vital Signs Vital signs: Vital Signs Temperature 98.1 F 09/23/24 07:41 Pulse Rate 78 09/23/24 07:41 Respiratory Rate 16 09/23/24 07:41 Blood Pressure 167/76 H 09/23/24 07:41 Pulse Oximetry 100 09/23/24 07:41 Oxygen Delivery Room Air 09/23/24 07:41 Temperature 98.1 F 09/23/24 07:41 Pulse Rate 78 09/23/24 07:41 Respiratory Rate 16 09/23/24 07:41 Blood Pressure 167/76 H 09/23/24 07:41 Pulse Oximetry 100 09/23/24 07:41 Oxygen Delivery Room Air 09/23/24 07:41 Procedures Laceration Laceration 1: Date: 09/23/24 Site: hand Side (If applicable): left Size (cm): 1 Description: linear Depth: simple, single layer Local Anesthetic: lidocaine 1% Amount of anesthesia used (mL): 3 ====== Skin Level ====== Skin layer closed with: prolene Size (cm): 4-0 Number of sutures: 4 ====== Subcutaneous Layer ====== ====== Muscle Layer ====== ====== Tendon Layer ====== Medical Decision Making MDM Narrative Medical decision making narrative: -Course: 69-year-old female presenting with a 1 cm laceration that was repaired. Tetanus is up-to-date. Patient discharged with return precautions. Vital Signs Vital Signs: Vital Signs Temperature 98.1 F 09/23/24 07:41 Pulse Rate 78 09/23/24 07:41 Respiratory Rate 16 09/23/24 07:41 Blood Pressure 167/76 H 09/23/24 07:41 Pulse Oximetry 100 09/23/24 07:41 Oxygen Delivery Room Air 09/23/24 07:41 Temperature 98.1 F 09/23/24 07:41 Pulse Rate 78 09/23/24 07:41 Respiratory Rate 16 09/23/24 07:41 Blood Pressure 167/76 H 09/23/24 07:41 Pulse Oximetry 100 09/23/24 07:41 Oxygen Delivery Room Air 09/23/24 07:41 Discharge Plan Discharge Clinical Impression: Finger laceration Patient Disposition: Home Condition: Stable Instructions: Antibiotic Form, Care For Your Stitches (ED), Laceration (ED) Additional Instructions: Sutures should be removed in 7-10 days by a medical professional. Return if you develop signs of infection like increased pain, redness or swelling. Patient Language: Japanese Prescriptions: No Action Simponi 50 mg/0.5 mL pen injector 50 mg SUB-Q MONTHLY Rx Instructions: TAKES ON OF EACH MONTH folic acid 1 mg tablet 1 mg PO DAILY cholecalciferol (vitamin D3) 2,000 unit tablet 2,000 unit PO DAILY amlodipine [Norvasc] 10 mg tablet 10 mg PO HS atorvastatin 20 mg tablet PO losartan 25 mg tablet 25 mg PO BID trazodone 50 mg tablet 50 mg PO QHS PRN (Reason: insomnia) Qty: 90 2RF carbamazepine [Carbatrol] 300 mg capsule, ER multiphase 12 hr 300 mg PO Q12H Qty: 180 2RF prednisone 5 mg tablet 5 mg PO DAILY levothyroxine 175 mcg tablet 175 mcg PO .COMPLEX 90 Days Qty: 90 3RF Rx Instructions: 175 mcg orally one pill from Thursday to Thursday 6 days a week,skip Sundays cyanocobalamin (vitamin B-12) 1,000 mcg/mL solution 1,000 mcg subcut MONTHLY Qty: 3 3RF topiramate 25 mg tablet 75 mg PO BID Qty: 540 3RF ondansetron 4 mg tablet,disintegrating 4 mg PO Q8H PRN (Reason: nausea and vomiting) Qty: 20 2RF lorazepam 0.5 mg tablet 0.5 mg PO BID PRN (Reason: Anxiety) Qty: 60 0RF calcium carbonate 500 mg calcium (1,250 mg) Tablet 500 mg PO BID famotidine 20 mg tablet 20 mg PO BID diphenhydramine HCl [Benadryl Allergy] 25 mg tablet 25 mg PO Q6H PRN (Reason: Allergy Symptoms) Follow-up/Referrals: Gwendolyn Pulido, [facility] [Primary Care Provider] -
== END 2024-09-23 08:24 | disposition home or self-care (01) ==
PROVIDERS: Emergency Provider Emergency Medicine; PCP Nurse Practitioner Family
DX: S61.211A Laceration without foreign body of left index finger without damage to nail, initial encounter (principal); I10 Essential (primary) hypertension; E03.9 Hypothyroidism, unspecified; E78.5 Hyperlipidemia, unspecified; K50.90 Crohn's disease, unspecified, without complications; M06.9 Rheumatoid arthritis, unspecified; M19.90 Unspecified osteoarthritis, unspecified site; M81.0 Age-related osteoporosis without current pathological fracture; F32.A Depression, unspecified; G62.9 Polyneuropathy, unspecified; F41.9 Anxiety disorder, unspecified; Z90.89 Acquired absence of other organs; Z87.01 Personal history of pneumonia (recurrent); Z79.899 Other long term (current) drug therapy; W27.8XXA Contact with other nonpowered hand tool, initial encounter
CPT/HCPCS: 12001; 99282; J2003

== ENCOUNTER 2025-01-12 10:17 | Outpatient (CLI) | payer MEDICARE, OTHER, SELFPAY ==
--- NOTE | ~2025-01-12 | MMUS_ITS ---
EXAMINATION: MM diagnostic elias LT w debbi, US breast LT limited HISTORY: Palpable left breast abnormality. TECHNIQUE: Additional 3-D tomosynthesis images of the left breast were performed and synthetic 2-D im ages were generated. CAD analysis was submitted and interpreted. High resolution Limited left breast ultrasound was performed. COMPARISON: Comparison to multiple prior studies sequentially, with oldest reviewed study dated 09/2019. BREAST PARENCHYMAL COMPOSITION: Not dense: There are scattered areas of fibroglandular density. FINDINGS: MAMMOGRAPHIC FINDINGS: There is an enlarging mass in the upper outer quadrant of the left breast corresponding to the area o f palpable concern there. There is an associated tissue marker from previous benign biopsy. ULTRASOUND: Limited left breast ultrasound: At 1:00, 7 cm from the nipple there is an irregular shaped hypoechoic mass with low level internal echoes measuring 9 x 7 x 9 mm with internal height or marker, consisten t with previous benign biopsy site. IMPRESSION: 1. Probable benign finding of the left breast corresponding to prior benign biopsy site with hydromar ker. 2. Recommend 6 month follow-up Limited left breast ultrasound BI-RADS category 3, probably benign findings. Reviewed, dictated and finalized at location B. IMPRESSION: 1. Probable benign finding of the left breast corresponding to prior benign bio psy site with hydromarker. 2. Recommend 6 month follow-up Limited left breast ultrasound BI-RADS category 3, probably benign findings.
--- OUTSIDE RECORDS SUMMARY | 2025-01-12 10:27 | XMS_ITS | Clinical Summary ---
Author Organization [facility] Address [address] [place] [address] Phone Care Team Providers Care Maintainer Plant Name Role Phone Ankit Smith MD Primary Care Provider [phone] Allergies Active Allergy Reactions Criticality Noted Date [...] 2:11 PM CDT Height 157.5 cm (5' 2) 02/13/2013 2:11 PM CDT Body Mass Index 25.24 02/13/2013 2:11 PM CDT Plan of Treatment Health Maintenance Due Date Last Done Comments Hepatitis C Virus (HCV) Screening 1955 TdaP Immunization 1955 Zoster Immunization (1 of 2) 1974 Cologuard 2000 Colonoscopy 2000 Colorectal Cancer Screening 2000 Immunochemical Fecal Occult Blood 2000 Pneumococcal Immunization (5 0+ years) (1 of 1 - PCV) 2005 Respiratory Syncytial Virus (RSV) Immunization (Adult) (1 - Risk 60-74 years 1-dose series) 2015 SARS-COV-2 Immunization (4 - 2023- season) 2024 03/01/2021, 08/30/2020, 08/09/2020 Influenza Immunization (#1) 02/13/202502/15, 03/29/2019 Hepatitis B Immunization Aged Out No longer eligible based on patient's age to complete this topic Human Papillomavirus (HPV) Immunization Aged Out No longer eligible b ased on patient's age to complete this topic Meningococcal Immunization (ACWY) Aged Out No longer eligible b ased on patient's age to complete this topic Rotavirus Immunization Aged Out No lo nger eligible based on patient's age to complete this topic Care Teams Maintainer Plant Relationship Specialty Start Date End Date Ankit Smith MD [address] [place] [address] PCP - General Internal Medicine 02/13/13
--- OUTSIDE RECORDS SUMMARY | 2025-01-12 10:27 | XMS_ITS | Clinical Summary ---
Author Organization [facility] Address [address] [place] [address] Care Team Providers Care National Insurance Officer Name Role Phone Shavon Lynch Primary Care Pr ovider Source Comments [facility],non-owned Affiliates and Associated Physician Practices is amultiple site organization consisting of ambulatory clinics and hospital sitesin [place], [place], [place] and [place]. This disclosure is being madepursuant to the Care Everywhere program and may not contain all information available regarding this patient. Last updated 18.[facility] [employer] Allergies Active Allergy Reactions Criticality Noted Date Comments Aspirin Unknown Erythromycin Rash Medium 01/14/2010 Iodides Urticaria,Shortness of Breath High Lactose Other High 06/28/2018 Penicillins Urticaria,Rash High 01/14/2010 Povidone Iodine Unknown Medications * Be aware that medications may not be up to date on this document. Alwaysverify current medications with the patient. losartan (Cozaar) 25 MG tablet Take 4 (four) tablets by mouth once daily 8 Active traZODone (Desyrel) 50 MG tablet Take 1 (one) tablet by mouth nightly as needed 8 Active vitamin D, cholecalciferol, 2000 UNITS tablet 1 (one) tablet once daily 8 Active amLODIPine (Norvasc) 10 MG tablet Take 1 (one) tablet by mouth once daily Active predniSONE (DELTASONE) 5 MG tablet 1 (one) tablet once daily 8 Active albuterol HFA (PROVENTIL;MARGIE JEFF;PROAIR) 108 (90 Base) MCG/ACT inhaler INHALE 1-2 PUFFS EVERY 4 HOURS NEEDED FOR SHORTNESS OF BREATH 0 9 Active fluticasone propionate (FLONASE) 50 MCG/ACT nasal spray 9 Active SIMPONI 50 MG/0.5ML auto-injector every 30 days 9 Active SYNTHROID 175 MCG tablet 1 (one) tablet once daily 1 Day a week takes a 1/2 of a pill 9 Active LORazepam (ATIVAN) 0.5 MG tablet Take 1 (one) tablet by mouth as needed 9 Active EPINEPHrine (EPIPEN) 0.3 MG/0.3ML auto-injector pen Inject 0.3 mL into muscle as needed 9 Active famotidine (PEPCID) 20 MG tablet Take 1 (one) tablet by mouth once daily 9 Active cetirizine (ZYRTEC) 10 MG tablet Zyrtec 10 mg tablet Take 1 tablet every day by oral route. 0 Active folic acid (FOLVITE) 1 MG tablet 1 (one) tablet once daily 0 Active atorvastatin (Lipitor) 20 MG tablet Take 1 (one) tablet by mouth at bedtime Active methocarbamol (Robaxin) 500 MG tablet Take 1 (one) tablet by mouth 3 times daily 2 Active carBAMazepine ER 12hr (Carbatrol) 300 MG capsuleIndicatio ns:Trigeminal neuralgia Take 1 (one) capsule by mouth every 12 hours 180 capsule 3 5 07/30/19 26 Active topiramate (Topamax) 25 MG tabletIndication s:Trigeminal neuralgia,Migrai ne without aura and without status migrainosus, not intractable Take 3 (three) tablets by mouth 2 times daily 180 tablet 11 5 Active cyanocobalamin (Vitamin B-12) injectionIndicat ions:Numbness Inject 1,000 (one thousand) mcg into muscle every 30 days 3 mL 3 5 Active Active Problems Problem Noted Date Diagnosed [...] Encounters Date Type Department Care Team Description 12/11/2024 Results Follow-Up [facility] [id number] [place] [address] [address] [place] [address] Keo Vega MD 11/26/2024 10:01 AM CDT - 11/26/2024 11:59 PM CDT Hospital Encounter [facility] - MRI [address] [place] [address] Keo Vega MD Discharge Disposition: Home or Self Care 11/03/2024 2:50 PM CDT Office Visit [facility] [id number] [place] [address] [address] [place] [address] Keo Vega MD Numbness (Primary Dx); Low back pain without sciatica, unspecified back pain laterality, unspecified chronicity 11/03/2024 11:39 AM CDT - 11/07/2024 11:59 PM CDT Hospital Encounter [facility] [address] [place] [address] Keo Vega MD Discharge Disposition: Home or Self Care 11/03/2024 Travel 11/03/2024 Orders Only [facility] [id number] [place] [address] [place] [phone] Keo Vega MD Numbness from Last 3 Months Immunizations Immunization Administration Dates Next Due FLU VACCINE TRI [...] of Binge Drinking Not on file 12/2019 Comments No Sex and Gender Information Value Date Recorded Sex Assigned at Not on file 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 Gender Identity Not on file Sexual Orientation Not on file Occupation Industry Job Start Date Job End Date Retired Not on file Not on file Not on file Last Filed Vital Signs Vital Sign Reading Time Taken Comments Blood Pressure 154/84 08/04/2024 12:56 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 Pulse 68 11/03/2024 1:08 PM CDT Temperature 36.1 C (97 F) 10/28/2022 10:55 AM CDT Respiratory Rate 14 11/03/2024 1:08 PM CDT Oxygen Saturation 99% 11/03/2024 1:08 PM CDT Inhaled Oxygen Concentration - - Weight 73.9 kg (163 lb) 11/03/2024 1:08 PM CDT Height 157.5 cm (5' 2) 11/03/2024 1:08 PM CDT Body Mass Index 29.81 11/03/2024 1:08 PM CDT Plan of Treatment Upcoming Encounters Date Type Department Care Team (Late st Contact Info) Description 03/01/2025 12:20 PM CDT Office Visit [facility] [address] [facility] [address] [place] [phone] [place] [address] [facility] [address] [place] [address] Health Maintenance Due Date Last Done [...] 1-dose series) 2015 COVID-19 VACCINE (2 - season) 2024 12/03/2021 DEPRESSION SCREENING 06/15/2024 INFLUENZA VACCINE (#1) 2025 9, 03/12/2017, 03/08/2015 COLOGUARD (AGES 45-75) - COLON CA SCREENING 10/18/2026 10/19/2023 Colorectal Cancer Screening 10/18/2026 SCREENING FOR DIABETES 11/18/2027 , 01/31/2022, 09/25/2021, Additional history exists DTAP/TDAP/TD VACCINES (3 - Td or Tdap) 11/24/2031 11/23/2021, 05/15/2015, 11/25/1995 HEPATITIS [...] A/C/Y/W VACCINE Aged Out No longer eligible based on patient's age to complete this topic Procedures Procedure Name Priority Date/Time Associated Diagnosis Comments MRI LUMBAR SPINE WO CONTRAST Routine 11/26/2024 11:35 AM CDT Numbness Low back pain without sciatica, unspecified back pain laterality, unspecified chronicity EMG WITH NERVE CONDUCTION STUDY Routine 11/03/2024 1:13 PM CDT Numbness from Last 3 Months Results * MRI Lumbar Spine Wo Contrast (11/26/2024 11:35 AM CDT) Anatomical Region Laterality Modality Spine Magnetic Resonan ce 11/26/2024 1:24 PM CDT Impressions 11/28/2024 10:35 AM CDT IMPRESSION: 1.Interval development of moderate degenerative disc disease at L3-L4 with associated disc bulging. There is however, no visible impingement on traversing nerves at this level. 2.No other significant interval changes or neural impingement is present, throughout. 3.Facet osteoarthritis is minimal. > Interpreting Provider: Rodrigo Olmedo MD on 11/28/2024 10:35 AM Narrative 11/28/2024 10:35 AM CDT PROCEDURE: MRI LUMBAR SPINE WO CONTRAST DATE/TIME OF EXAM: 11/26/2024 11:35 AM CLINICAL INFORMATION: None relevant/not provided if blank. Indication: R20.0: Numbness M54.50: Low back pain without sciatica, unspecified back pain laterality, unspecified chronicity MRI OF THE LUMBAR SPINE WITHOUT CONTRAST HISTORY: R20.0: Numbness; M54.50: Low back pain without sciatica, unspecified back pain laterality, unspecified chronicity TECHNIQUE: MRI of the lumbar spine was performed without contrast according to standard protocol on a 1.5 T Siemens MRI scanner. COMPARISON: MRI lumbar spine without contrast, 10/23/2015. FINDINGS: The alignment is normal. Vertebral bodies are normal in height. No fracture, spondylolisthesis, marrow edema or a malignant marrow replacing process is identified. Marrow signal intensity is normal besides degenerative marrow signal changes at L3-L4. The conus medullaris terminates at the level of L1-L2 and is normal. The imaged lower thoracic spinal cord is normal and is not compressed. The anterior and posterior longitudinal ligaments as well as the posterior ligamentous complex appear intact. Moderate degenerative disc disease at L3-L4 is new from the previous examination and is associated with mild Modic type I degenerative changes of the endplates and anterior endplate osteophytosis. The remainder of the intervertebral disc spaces remain a stable and normal in height and there is no evidence of significant degenerative disc disease at other levels. T12-L1: A left paracentral posterior disc protrusion is associated with mild flattening of the adjacent ventral aspect of the cord, but the cord is not compressed and remains in its normal signal intensity. L3-L4: Circumferential disc bulging and symmetric hypertrophy of ligamentum flavum are associated with mild bilateral lateral recess stenosis, but there is no evidence of impingement on traversing nerves. In the remainder of the spine from the T11-T12 through L5-S1 levels no posterior disc abnormality, spinal stenosis or lateral recess stenosis is present. There is no significant facet osteoarthritis, neural foraminal stenosis or neural impingement is present, throughout. The subcutaneous fat, psoas muscles and the imaged retroperitoneal soft tissues are within normal limits. The posterior paravertebral muscles appear normal. Procedure Note Rodrigo Olmedo MD - 11/28/2024 PROCEDURE: MRI LUMBAR SPINE WO CONTRAST DATE/TIME OF EXAM: 11/26/2024 11:35 AM CLINICAL INFORMATION: None relevant/not provided if blank. Indication: R20.0: Numbness M54.50: Low back pain without sciatica, unspecified back painlaterality, unspecified chronicity MRI OF THE LUMBAR SPINE WITHOUT CONTRAST HISTORY: R20.0: Numbness; M54.50: Low back pain without sciatica, unspecified back pain laterality, unspecified chronicity TECHNIQUE: MRI of the lumbar spine was performed without contrastaccording to standard protocol on a 1.5 T Siemens MRI scanner. COMPARISON: MRI lumbar spine without contrast, 10/23/2015. FINDINGS: The alignment is normal. Vertebral bodies are normal in height. No fracture, spondylolisthesis, marrow edema or a malignant marrowreplacing process is identified. Marrow signal intensity is normal besides degenerative marrow signal changes at L3-L4. The conus medullaris terminates at the level of L1-L2 and is normal. The imaged lower thoracic spinal cord is normal and is not compressed. The anterior and posterior longitudinal ligaments as well as the posterior ligamentous complex appear intact. Moderate degenerative disc disease at L3-L4 is new from the previous examination and is associated with mild Modic type I degenerativechanges of the endplates and anterior endplate osteophytosis. The remainder ofthe intervertebral disc spaces remain a stable and normal in height andthere is no evidence of significant degenerative disc disease at other levels. T12-L1: A left paracentral posterior disc protrusion is associated with mild flattening of the adjacent ventral aspect of the cord, but the cordis not compressed and remains in its normal signal intensity. L3-L4: Circumferential disc bulging and symmetric hypertrophy ofligamentum flavum are associated with mild bilateral lateral recess stenosis, but there is no evidence of impingement on traversing nerves. In the remainder of the spine from the T11-T12 through L5-S1 levels no posterior disc abnormality, spinal stenosis or lateral recess stenosisis present. There is no significant facet osteoarthritis, neural foraminal stenosis or neural impingement is present, throughout. The subcutaneous fat, psoas muscles and the imaged retroperitoneal soft tissues are within normal limits. The posterior paravertebral muscles appear normal. IMPRESSION: 1.Interval development of moderate degenerative disc disease at L3-L4with associated disc bulging. There is however, no visible impingement on traversing nerves at this level. 2.No other significant interval changes or neural impingement ispresent, throughout. 3.Facet osteoarthritis is minimal. > Interpreting Provider: Rodrigo Olmedo MD on 11/28/2024 10:35 AM Keo Vega MD MR ORDERABLES Final Result * EMG WITH NERVE CONDUCTION STUDY (11/03/2024 1:13 PM CDT) Narrative Keo Vega MD - 11/03/2024 1:13 PM CDT Keo Vega MD 11/06/2024 8:[address] [facility] [place] [facility] [id number] [place], [place] [address], [address], [place] [address] Test Date: 11/03/2024 Patient: Brooke Torre : 1955 Physician: Keo Vega MD Sex: Female Height: 5' 2 Ref Phys: Keo Vega MD ID#: [id number] Weight: 163 lbs. Patient Complaints: Patient is a 69 year old female who was referred to rule out a neuropathy. Patient presents with complaints of pain, numbness, and weakness in the bilateral legs and left hand. Symptoms have been present for years. Physical Exam: Medications: NCV & EMG Findings: Evaluation of the left median/ulnar (palm) comparison nerve showed prolonged distal peak latency (Median Palm, 2.4 ms). All remaining nerves (as indicated in the following tables) were within normal limits. Left vs. Right side comparison data for the peroneal motor nerve indicates abnormal L-R velocity difference (Poplt-B Fib, 22 m/s). The tibial motor nerve indicates abnormal L-R latency difference (1.5 ms) and abnormal L-R velocity difference (Knee-Ankle, 13 m/s). Needle evaluation of the right anterior tibialis, the left first dorsal interosseous, and the left abductor pollicis brevis muscles showed increased motor unit amplitude and increased motor unit duration. The right extensor digitorum brevis and the left extensor digitorum brevis muscles showed increased motor unit amplitude, increased motor unit duration, diminished recruitment, and decreased interference pattern. The left vastus medialis and the left anterior tibialis muscles showed increased motor unit amplitude, increased motor unit duration, diminished recruitment, and moderately decreased interference pattern. All remaining muscles (as indicated in the following table) showed no evidence of electrical instability. Imp:This is an abnormal study. Mild L CTS. Mild L ulnar nerve entrapment at the elbow. Electric evidence of mild early chronic denervation of some bl LE muscles indicative of possible superimposed lumbar radiculopathy. Clinical correlations. Keo Vega MD Nerve Conduction Studies Anti Sensory Summary Table Stim Site NR Peak (ms) Norm Peak (ms) P-T Amp ( V) Norm P-T Amp Site1 Site2 Delta-P (ms) Dist (cm) Rick (m/s) Norm Rick (m/s) Left Radial Anti Sensory (Base 1st Digit) 22.9 C Wrist 2.3 <3.1 37.1 Wrist Base 1st Digit 2.3 0.0 Site 2 2.3 36.5 Left Sup Peroneal Anti Sensory (Ant Lat Mall) 22.8 C 14 cm 2.5 <4.4 37.4 >5.0 14 cm Ant Lat Mall 2.5 14.0 56 Site 2 2.6 30.1 Right Sup Peroneal Anti Sensory (Ant Lat Mall) 22.6 C 14 cm 2.5 <4.4 34.3 >5.0 14 cm Ant Lat Mall 2.5 14.0 56 Site 2 2.5 39.9 Left Sural Anti Sensory (Lat Mall) 22.8 C Calf 3.8 <4.0 14.0 >5.0 Calf Lat Mall 3.8 14.0 37 Site 2 3.8 17.0 Right Sural Anti Sensory (Lat Mall) 22.6 C Calf 3.3 <4.0 23.1 >5.0 Calf Lat Mall 3.3 14.0 42 Site 2 3.5 29.2 Motor Summary Table Stim Site NR Onset (ms) Norm Onset (ms) O-P Amp (mV) Norm O-P Amp Amp (Prev) (%) Site1 Site2 Delta-0 (ms) Dist (cm) Rick (m/s) Norm Rick (m/s) Left Median Motor (Abd Poll Brev) 22.9 C Wrist 3.9 <4.4 9.9 >5 100.0 Elbow Wrist 4.3 25.0 58 >50 Elbow 8.2 9.7 98.0 Left Peroneal Motor (Ext Dig Brev) 22.8 C Ankle 3.4 <6.1 4.6 >2.5 100.0 B Fib Ankle 8.4 33.0 39 >38 B Fib 11.8 4.6 100.0 Poplt B Fib 2.2 10.0 45 >40 Poplt 14.0 4.5 97.8 Right Peroneal Motor (Ext Dig Brev) 22.5 C Ankle 3.5 <6.1 6.8 >2.5 100.0 B Fib Ankle 7.3 33.0 45 >38 B Fib 10.8 6.6 97.1 Poplt B Fib 1.5 10.0 67 >40 Poplt 12.3 6.5 98.5 Left Tibial Motor (Abd Smith Brev) 22.8 C Ankle 3.3 <6.1 10.6 >3.0 100.0 Knee Ankle 9.7 43.0 44 >35 Knee 13.0 8.6 81.1 Right Tibial Motor (Abd Smith Brev) 22.5 C Ankle 4.8 <6.1 10.3 >3.0 100.0 Knee Ankle 7.5 43.0 57 >35 Knee 12.3 8.0 77.7 Left Ulnar Motor (Abd Dig Minimi) 23 C Wrist 3.0 <4.2 11.8 >3 100.0 B Elbow Wrist 3.3 20.0 61 >53 B Elbow 6.3 11.1 94.1 A Elbow B Elbow 2.5 10.0 40 A Elbow 8.8 10.9 98.2 Comparison Summary Table Stim Site NR Peak (ms) Norm Peak (ms) P-T Amp ( V) Site1 Site2 Delta-P (ms) Norm Delta (ms) Left Median/Ulnar Palm Comparison (Wrist - 8cm) 22.9 C Median Palm *2.4 <2.2 43.5 Median Palm Ulnar Palm 0.6 Ulnar Palm 1.8 <2.2 47.0 EMG Side Muscle Nerve Root Ins Act Fibs Psw Fasc Amp Dur Poly Recrt Int Pat Comment Right VastusMed Femoral L2-4 Nml Nml Nml Nml Nml Nml 0 Nml Nml Right AntTibialis Dp Br Peron L4-5 Nml Nml Nml Nml *Incr *>12ms 0 Nml Nml Right Gastroc Tibial S1-2 Nml Nml Nml Nml Nml Nml 0 Nml Nml Right Ext Dig Brev Dp Br Peron L5, S1 Nml Nml Nml Nml *Incr *>12ms 0 *Reduced *50% Left BicepsFemS Sciatic L5-S1 Nml Nml Nml Nml Nml Nml 0 Nml Nml Right BicepsFemS Sciatic L5-S1 Nml Nml Nml Nml Nml Nml 0 Nml Nml Left VastusMed Femoral L2-4 Nml Nml Nml Nml *Incr *>12ms 0 *Reduced *75% Left AntTibialis Dp Br Peron L4-5 Nml Nml Nml Nml *Incr *>12ms 0 *Reduced *75% Left Gastroc Tibial S1-2 Nml Nml Nml Nml Nml Nml 0 Nml Nml Left Ext Dig Brev Dp Br Peron L5, S1 Nml Nml Nml Nml *Incr *>12ms 0 *Reduced *50% Left Deltoid Axillary C5-6 Nml Nml Nml Nml Nml Nml 0 Nml Nml Left Biceps Musculocut C5-6 Nml Nml Nml Nml Nml Nml 0 Nml Nml Left Triceps Radial C6-7-8 Nml Nml Nml Nml Nml Nml 0 Nml Nml Left 1stDorInt Ulnar C8-T1 Nml Nml Nml Nml *Incr *>12ms 0 Nml Nml Left Abd Poll Brev Median C8-T1 Nml Nml Nml Nml *Incr *>12ms 0 Nml Nml Nerve Conduction Studies Anti Sensory Left/Right Comparison Stim Site L Lat (ms) R Lat (ms) L-R Lat (ms) L Amp ( V) R Amp ( V) L-R Amp (%) Site1 Site2 L Rick (m/s) R Rick (m/s) L-R Rick (m/s) Radial Anti Sensory (Base 1st Digit) 22.9 C Wrist 2.3 37.1 Wrist Base 1st Digit Site 2 2.3 36.5 Sup Peroneal Anti Sensory (Ant Lat Mall) 22.8 C 14 cm 2.5 2.5 0.0 37.4 34.3 8.3 14 cm Ant Lat Mall 56 56 0 Site 2 2.6 2.5 0.1 30.1 39.9 24.6 Sural Anti Sensory (Lat Mall) 22.8 C Calf 3.8 3.3 0.5 14.0 23.1 39.4 Calf Lat Mall 37 42 5 Site 2 3.8 3.5 0.3 17.0 29.2 41.8 Motor Left/Right Comparison Stim Site L Lat (ms) R Lat (ms) L-R Lat (ms) L Amp (mV) R Amp (mV) L-R Amp (%) Site1 Site2 L Rick (m/s) R Rick (m/s) L-R Rick (m/s) Median Motor (Abd Poll Brev) 22.9 C Wrist 3.9 9.9 Elbow Wrist 58 Elbow 8.2 9.7 Peroneal Motor (Ext Dig Brev) 22.8 C Ankle 3.4 3.5 0.1 4.6 6.8 32.4 B Fib Ankle 39 45 6 B Fib 11.8 10.8 1.0 4.6 6.6 30.3 Poplt B Fib 45 67 *22 Poplt 14.0 12.3 1.7 4.5 6.5 30.8 Tibial Motor (Abd Smith Brev) 22.8 C Ankle 3.3 4.8 *1.5 10.6 10.3 2.8 Knee Ankle 44 57 *13 Knee 13.0 12.3 0.7 8.6 8.0 7.0 Ulnar Motor (Abd Dig Minimi) 23 C Wrist 3.0 11.8 B Elbow Wrist 61 B Elbow 6.3 11.1 A Elbow B Elbow 40 A Elbow 8.8 10.9 Comparison Left/Right Comparison Stim Site L Lat (ms) R Lat (ms) L-R Lat (ms) L Amp ( V) R Amp ( V) L-R Amp (%) Median/Ulnar Palm Comparison (Wrist - 8cm) 22.9 C Median Palm *2.4 43.5 Ulnar Palm 1.8 47.0 Waveforms: us Keo Vega MD NEUROLOGY ORDERABLES Final Resul t from Last 3 Months Insurance MEDICARE MEDICARE MEDICARE Member Subscriber Plan / Payer (Ef fective for All Dates) Name:Brooke Torre Member ID:Not on file Relation to Subscriber:Self Name:Brooke Torre Subscriber ID:Not on file Payer ID:[id number] (NAIC) Group ID:Not on file Type:/ Address: [place] [id number] MEDICARE [facility] MEDICARE MEDICARE Care Teams National Insurance Officer Relationship Specialty Start Date End Date Shavon Lynch PA [address] [place] [id number] PCP - General Physician Kitchen Operator 10/28/22
--- OUTSIDE RECORDS SUMMARY | 2025-01-12 10:28 | XMS_ITS | Encounter Summary ---
Author Organization [facility] Healthcare Address [address] [place] [address] Care Team Providers Care Maintenance And Custodian Supervisor Name Role Phone Gwendolyn Pulido NP Primary Care Provider [phone] Encounter Details Date Type Department Care Team (Late st Contact Info) Description 12/14/2024 Results Follow-Up [facility] Cardiology [address] [place] [phone] Tatiana Moran NP [address] [facility] [address] [place] [address] Stress Echo Exercise W Doppler/CF Social History Tobacco Use Types Packs/Day Years [...] on file 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
--- OUTSIDE RECORDS SUMMARY | 2025-01-12 10:28 | XMS_ITS | Patient Health Record ---
Author Organization [facility] [employer] Address [address] [place] [address] Care Team Providers Care Computer Support Specialist Instructor Name Role Phone Asha Shepherd Unavailable [phone] Reason For Referral No Information Medications Medication SIG (Take, Route, Frequency, Duration) Notes Start Date End Date Status traZODone HCl 50 MG Oral 07/11/2021 Active Carbatrol 300 MG Oral 07/11/2021 Ac tive Venlafaxine HCl ER 75 MG Oral 07/11/2021 Active Losartan Potassium 100 MG Oral 07/11/2021 Active Coreg *Pick strength-form from [employer] for eRX* 07/11/2021 Active Topiramate 25 MG Oral 07/11/2021 Ac tive Simponi 50 mg/0.5 mL Subcutaneous 07/11/2021 Active Norvasc 10 MG Oral 07/11/2021 Activ e Synthroid 175 MCG Oral 07/11/2021 A ctive predniSONE 5 MG Oral 07/11/2021 Act rene LORazepam 0.5 MG Oral 07/11/2021 Ac tive Immunizations Vaccine Route Administration Date Status Comme nts Influenza virus vaccine, quadrivalent (IIV4), split virus, 0.25 mL dosage Unknown 03/15/2021 Administered Pfizer Biontech Covid-19 Vac cine 2nd dose Unknown 08/09/2020 Administered Pfizer [employer] Covid-19 Vac cine 2nd dose Unknown 08/30/2020 Administered Pfizer [employer] Covid-19 Vac cine 2nd dose Unknown 03/01/2021 Administered Plan Of Treatment No Information Insurance Providers Payer Name Payer Address Payer Phone Subscriber Number Group Number Insured Name Patient Relationship to Insured Coverage Start Date Coverage End Date Medicare-I l [place] [address] [place] [id number] CALLIE REES Self - patient is the insured [facility] [address] [place] [address] [id number] CALLIE REES Self - patient is the insured Medical (General) History Surgical History Surgery Date(Month/Year) Any surgical history Unlisted procedure breast () Thyroidectomy ([id number]) 06/15/1976 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
--- OUTSIDE RECORDS SUMMARY | 2025-01-12 10:28 | XMS_ITS | Encounter Summary ---
Author Organization [facility] Address [address] [facility] [place] [address] Care Team Providers Care Restaurant Busser Name Role Phone Base, [facility] Primary Care Provider [phone] [facility], [address] [place] [address] Primary Care Prov ider Shavon Lynch Primary Care Pr ovider Encounter Details Date Type Department Care Team (Late st Contact Info) Description 11/16/2017 Telephone [facility] [address] [place] [address] Inocencia Wade MD [address] [place] [phone] Social History Tobacco Use Types Packs/Day Years Used Date Smoking Tobacco: Never Assessed Comments Unknown Sex and Gender Information Value Date Recorded Sex Assigned at Not on file 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 [address] [place] [phone] [place] [address] [facility] [address] [address] documented as of this encounter Visit Diagnoses Not on filedocumented in this encounter Care Teams Restaurant Busser Relationship Specialty Start Date End Date [facility], [place], [place] PCP - General 11/16/17 12/16/[address] [facility], [place], [place] [id number] PCP - General 12/17/17 10/27/22 Shavon Lynch PA [address] [place] [address] PCP - General Physician Glue Machine Operator 10/28/22 documented as of this encounter
--- OUTSIDE RECORDS SUMMARY | 2025-01-12 10:28 | XMS_ITS | Encounter Summary ---
Author Organization [facility] Address [address] [facility] [place] [address] Care Team Providers Care Convenience Store Clerk Name Role Phone Shavon Lynch Primary Care Pr ovider Reason for Visit * Reason Onset Date Comments MEDICATION REFILL 12/09/2023 Encounter Details Date Type Department Care Team (Late st Contact Info) Description 12/09/2023 Telephone [facility] - Neurology [address] [place] [address], [place] [address] Inocencia Wade MD [address] [place] [address] [place] [phone] MEDICATION REFILL Social History Tobacco Use Types [...] on file 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 Drug type:carbamazepineER 300 mg Pharmacy:[facility] Patient call back number: [phone] . Upcoming appointment scheduled for : 09/13/24 documented in this encounter Plan of Treatment Upcoming Encounters Date Type Department Care Team (Late st Contact Info) Description 03/01/2025 12:20 PM CDT Office Visit [facility] [address] [facility] [address] [place] [phone] [place] [address] [facility] [address] [address] documented as of this encounter Visit Diagnoses Not on filedocumented in this encounter Care Teams Convenience Store Clerk Relationship Specialty Start Date End Date Shavon Lynch PA [address] [place] [address] PCP - General Physician Purchasing And Claims Supervisor 10/28/22 documented as of this encounter
--- OUTSIDE RECORDS SUMMARY | 2025-01-12 10:28 | XMS_ITS | Encounter Summary ---
Author Organization [facility] Address [address] [place] [address] Phone Care Team Providers Care Irrigationist Name Role Phone Angela Traore MD Primary Care Provide r Hair Mcdaniels MD Primary Care Provider [phone] Dong Cutler MD Primary Care Provider [phone] Kandice Alberto MD Primary Care Provider [phone] Shavon George Primary Care Pr ovider Gwendolyn Pulido NP Primary Care Provider [phone] Encounter Details Date Type Department Care Team (Late st Contact Info) Description 08/14/2017 Orders Only [facility] ProviderZeeshan MD [address] [place] [address] Social History Tobacco Use Types Packs/Day Years Used Date Smoking Tobacco: Never Smokeless Tobacco: Never Alcohol Use Standard Drinks/Week Comments No 0 (1 standard drink = 0.6 oz pur e alcohol) Comments Unknown Sex and Gender Information Value Date Recorded Sex Assigned at Not on file Legal Sex Female 5:17 PM 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 us Historical Provider LAB BLOOD ORDERABLES Nayeli l Result documented in this encounter Visit Diagnoses Not on filedocumented in this encounter Care Teams Irrigationist Relationship Specialty Start Date End Date Angela Traore MD [address] [facility] [address] [address] [place], [place] [phone] PCP - General 08/14/17 12/10/17 Hair Mcdaniels MD [address] [facility] [address] [place] [address] PCP - General Internal Medicine 12/11/17 07/05/19 Dong Cutler MD [address] [facility] [address] [place] [address] PCP - General Internal Medicine 07/06/19 02/01/20 Kandice Alberto MD [address] [place] [id number] PCP - General Internal Medicine 02/02/20 04/02/20 Shavon George PA [address] [place] [id number] PCP - General Physician Drawbench Operator 04/03/20 04/20/24 Gwendolyn Pulido, STATIONARY BOILER FIREMAN [address] [place] [address] PCP - General Family Medicine 04/21/24 documented as of this encounter
--- OUTSIDE RECORDS SUMMARY | 2025-01-12 10:28 | XMS_ITS | Referral Summary ---
Author Organization [facility] Building [address] Address [address] [place] [address] Care Team Providers Care Mechanical Engineering Director Name Role Phone Gwendolyn Pulido NP Primary Care Provider [phone] Encounters Date Type Department Care Team Description 12/14/2024 Results Follow-Up [facility] Cardiology [address], [place] [address] Tatiana Moran NP Stress Echo Exercise W Doppler/CF 12/13/2024 1:00 PM CDT Ancillary Procedure [facility] Cardiology [address] [place] [address] Chest pressure; Family history of early CAD 12/07/2024 11:50 AM CDT Lab [facility] Outpatient Lab [address] [place] [address] Rheumatoid arthritis involving multiple joints (HCC); Encounter for long-term (current) use of high-risk medication 12/07/2024 11:00 AM CDT Office Visit [facility] Rheumatology at [facility] [address] [place] [address] Angela Traore MD Rheumatoid arthritis involving multiple joints (HCC) (Primary Dx); Encounter for long-term (current) use of high-risk medication 11/17/2024 1:15 PM CDT Office Visit [facility] Cardiology [address] [place] [address] Sima Sandhu MD Chest pressure (Primary Dx); Essential hypertension; Palpitations; Mixed hyperlipidemia; Family history of early CAD from Last 3 Months Allergies Active Allergy [...] 017 Active syringe, disposable, 3 mL syringe 017 Active LORazepam (ATIVAN) 0.5 mg tabletIndications:anxie ty Take 1 tablet (0.5 mg total) by mouth every 6 (six) hours as needed for anxiety 018 Active levothyroxine (SYNTHROID, LEVOTHROID) 175 mcg tabletIndications:hypot hyroidism Take 1 tablet (175 mcg total) by mouth customer solutions representative before breakfast Active acetaminophen 500 mg capsule Take 2 capsules (1,000 mg total) by mouth every 6 (six) hours as needed for pain. Stop this medication last for pain management Active traZODone (DESYREL) 100 mg tablet PT TAKING 75 MG 02/14/2 019 Active albuterol HFA (PROVENTIL HFA,VENTOLIN HFA,PROAIR HFA) [...] by mouth as needed for constipation (consti) 022 Active amLODIPine (NORVASC) 10 mg tabletIndications:hyper tension [...] on BP readings. 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 Follow up with PCP. [...] and Plaquinil; Will discuss with pts machine bookkeeper Dr. Bony otoole [phone] Fatigue 07/08/2023 Female pelvic pain 07/08/2023 Hypercalcemia 07/08/2023 Hyperlipidemia 09/11/2022 Encounter for long-term (cur rent) use of high-risk medication 07/16/2022 Assessment & Plan (04/21/2024 9:00 AM [facility]): Long-term use of high-risk medication requiring regular monitoring. Labs ordered, no s/s of med tox or infection. Encouraged to work with PCP to make sure all recommended cancer screens and vaccinations are complete. Avoid live-vaccines unless reviewed with machine bookkeeper first. Assessment & Plan (07/16/2022 2:27 PM [facility]): Long-term use of high-risk medication requiring regular monitoring. Labs ordered, no s/s of med tox or infection. Encouraged to work with PCP to make sure all recommended cancer screens and vaccinations are complete. Avoid live-vaccines unless reviewed with machine bookkeeper first. Did have a follow up MRI [...] (06/29/2018): Added automatically from request for surgery [id number] Crohn's disease of colon 10/22/2015 Overview (09/18/2016): Crohn's colitis Gastroesophageal reflux disease 10/22/2015 Overview (09/19/2016): ESOPHAGEAL REFLUX Rheumatoid arthritis involving multiple joints 0 10/22/2015 Overview (09/19/2016): RHEUMATOID ARTHRITIS Assessment & Plan (04/21/2024 8:59 AM [facility]): Stable on simponi and prednisone 5 mg daily, continue same, continue to monitor. Encourage work toward weaning off prednisone, down to 2.5 mg daily and then off / just prn. Encourage calcium/vitamin D and weight bearing exercise to help with osteoporosis reduction. Assessment & Plan (07/16/2022 2:28 PM [facility]): Stable on simponi and prednisone 5 mg [...] on file Legal Sex Female 5:17 PM [facility] Gender Identity Not on file Sexual Orientation Not on file Last Filed Vital Signs Vital Sign Reading Time Taken Comments Blood Pressure 140/80 12/07/2024 10:30 AM CDT Pulse 68 12/07/2024 10:30 AM CDT Temperature 36.5 C (97.7 F) 12/07/2024 10:30 AM CDT Respiratory Rate 20 12/07/2024 10:30 AM CDT Oxygen Saturation 99% 12/07/2024 10:30 AM CDT Inhaled Oxygen Concentration - - Weight 71.2 kg (157 lb) 12/07/2024 10:30 AM CDT Height 157.5 cm (5' 2) 12/07/2024 10:30 AM CDT Body Mass Index 28.72 12/07/2024 10:30 AM CDT Plan of Treatment Not on file Procedures Procedure Name Priority Date/Time Associated Diagnosis Comments STRESS ECHO EXERCISE W DOPPLER/CF WO CONTRAST Routine 12/13/2024 1:57 PM CDT Chest pressure Family history of early CAD EGFR Routine 12/07/2024 12:18 PM CDT Encounter for long-term (current) use of high-risk medication ERYTHROCYTE SEDIMENTATION RATE Routine 12/07/2024 12:18 PM CDT Rheumatoid arthritis involving multiple joints (HCC) CBC WITHOUT DIFFERENTIAL Routine 12/07/2024 12:18 PM CDT Encounter for long-term (current) use of high-risk medication COMPREHENSIVE METABOLIC PANEL Routine 12/07/2024 12:18 PM CDT Encounter for long-term (current) use of high-risk medication POCT LIPID PANEL Routine 11/17/2024 1:11 PM CDT Mixed hyperlipidemia SERUM HEPATITIS PANEL Routine 08/30/2015 11:58 AM CDT from Last 3 Months or Most Recently Relevant to Health Maintenance Results * STRESS ECHO EXERCISE W DOPPLER/CF WO CONTRAST (12/13/2024 1:57 PM CDT) Anatomical Region Laterality Modality Ultrasound 12/13/2024 1:05 PM CDT Narrative 12/13/2024 3:09 PM CDT [facility] Cardiology [address], [place] [address] [address], [place] [address] P:[phone] P:[phone] Echocardiographic Report Patient Name: BROOKE TORRE J : 1955 Study Date: 12/13/2024 1:05:45 PM Gender: F Industrial Energy Engineer: Sarah Lemons)([place]), [facility] Location: [facility] Provider: SIMA SANDHU Height(Cm): 157 BSA: 1.76 Weight(Kg): 71.2 Heart Rate: 70 BP: 158 / 90 Quality: Good Order Provider: SIMA SANDHU PROCEDURES: Stress Echo Report: Treadmill stress echocardiogram. INDICATIONS: Medications: acetaminophen 500 mg capsule albuterol HFA (PROVENTIL HFA,VENTOLIN HFA,PROAIR HFA) 90 mcg/actuation inhaler amLODIPine (NORVASC) 10 mg tablet atorvastatin (LIPITOR) 20 mg tablet calcium carbonate (OS-AUGUSTINE) 1,500 mg (600 mg of elemental calcium) tablet carBAMazepine ER (CARBATROL) 300 mg 12 hr capsule cholecalciferol (VITAMIN D-3) 2,000 unit tablet cyanocobalamin (VITAMIN B-12) 1,000 mcg/mL injection docusate sodium (COLACE) 100 mg capsule EPINEPHrine 0.3 mg/0.3 mL auto-injection syringe famotidine (PEPCID) 20 mg tablet Kerydin 5 % solution with applicator levothyroxine (SYNTHROID, LEVOTHROID) 175 mcg tablet LORazepam (ATIVAN) 0.5 mg tablet losartan (COZAAR) 25 mg tablet predniSONE (DELTASONE) 5 mg tablet Simponi 50 mg/0.5 mL pen injector syringe, disposable, 3 mL syringe topiramate (Topamax) 25 mg tablet traZODone (DESYREL) 100 mg tablet Stress test monitored by: Melany Alston RN R07.89 Other chest pain, and Z82.49 Family history of ischemic heart disease and other diseases of the circulatory system. FINDINGS: Stress Echo: Protocol - Suhail Protocol. Exercise Time - 6.38 min Baseline Heart Rate - 78 Peak Heart Rate - 133 Predicted Maximal Heart Rate - 151 85% MPHR - 128 Baseline BP - 162/82 Peak BP - 184/84 Rate Pressure Product - 81231 METS Achieved - 7.00 Percent Predicted Maximal HR Achieved - 109 % Interpretation Site: Exam was interpreted at [facility]. Performance: Average exercise functional capacity. Hemodynamic Response: Normal blood pressure response. Arrhythmia: No exercise induced arrhythmias. Termination: SOB - Well Tolerated. Resting ECG: Normal sinus rhythm, incomplete RBBB. Exercise ECG: Non-diagnostic ST-T wave changes with exercise. Less than [address] depression . Resting LV Function: Normal left ventricular size, normal systolic function, normal wall thickness with no segmental wall motion abnormalities at rest. Post Stress LV Function: Post exercise left ventricular global systolic contractility is hyperdynamic, no segmental wall motion abnormalities, and chamber size is smaller. CONCLUSIONS: Protocol - Suhail Protocol. Exercise Time - 6.38 min. Baseline Heart Rate - 78. Peak Heart Rate - 133. Predicted Maximal Heart Rate - 151. 85% MPHR - 128. Baseline BP - 162/82. Peak BP - 184/84. Rate Pressure Product - 77097. METS Achieved - 7.00. Percent Predicted Maximal HR Achieved - 109 %. Normal sinus rhythm, incomplete RBBB. Non-diagnostic ST-T wave changes with exercise. Less than [address] depression . Normal left ventricular size, normal systolic function, normal wall thickness with no segmental wall motion abnormalities at rest. Post exercise left ventricular global systolic contractility is hyperdynamic, no segmental wall motion abnormalities, and chamber size is smaller. Stress echocardiogram negative for inducible ischemia at MPHR: 109 %. Electronically Signed By: Adam Roldan MD, [facility] 12/13/2024 3:09:23 PM CDT Procedure Note Adam Roldan MD - 12/13/2024 [facility] Cardiology [address] [facility] [address] [address] [address] [facility] [address], [place] [address] P:[phone] P:[phone] Echocardiographic Report Patient Name: BROOKE TORRE J : 1955 Study Date: 12/13/2024 1:05:45 PM Gender: F Industrial Energy Engineer: Sarah Lemons)([place]), [facility] Location: [facility] Provider: SIMA SANDHU Height(Cm): 157 BSA: 1.76 Weight(Kg): 71.2 Heart Rate: 70 BP: 158 / 90 Quality: Good Order Provider: SIMA SANDHU PROCEDURES: Stress Echo Report: Treadmill stress echocardiogram. INDICATIONS: Medications: acetaminophen 500 mg capsule albuterol HFA (PROVENTIL HFA,VENTOLIN HFA,PROAIR HFA) 90 mcg/actuationinhaler amLODIPine (NORVASC) 10 mg tablet atorvastatin (LIPITOR) 20 mg tablet calcium carbonate (OS-AUGUSTINE) 1,500 mg (600 mg of elemental calcium) tablet carBAMazepine ER (CARBATROL) 300 mg 12 hr capsule cholecalciferol (VITAMIN D-3) 2,000 unit tablet cyanocobalamin (VITAMIN B-12) 1,000 mcg/mL injection docusate sodium (COLACE) 100 mg capsule EPINEPHrine 0.3 mg/0.3 mL auto-injection syringe famotidine (PEPCID) 20 mg tablet Kerydin 5 % solution with applicator levothyroxine (SYNTHROID, LEVOTHROID) 175 mcg tablet LORazepam (ATIVAN) 0.5 mg tablet losartan (COZAAR) 25 mg tablet predniSONE (DELTASONE) 5 mg tablet Simponi 50 mg/0.5 mL pen injector syringe, disposable, 3 mL syringe topiramate (Topamax) 25 mg tablet traZODone (DESYREL) 100 mg tablet Stress test monitored by: Melany Alston RN R07.89 Other chest pain, and Z82.49 Family history of ischemic heartdisease and other diseases of the circulatory system. FINDINGS: Stress Echo: Protocol - Suhail Protocol. Exercise Time - 6.38 min Baseline Heart Rate - 78 Peak Heart Rate - 133 Predicted Maximal Heart Rate - 151 85% MPHR - 128 Baseline BP - 162/82 Peak BP - 184/84 Rate Pressure Product - [id number] METS Achieved - 7.00 Percent Predicted Maximal HR Achieved - 109 % Interpretation Site: Exam was interpreted at [facility]. Performance: Average exercise functional capacity. Hemodynamic Response: Normal blood pressure response. Arrhythmia: No exercise induced arrhythmias. Termination: SOB - Well Tolerated. Resting ECG: Normal sinus rhythm, incomplete RBBB. Exercise ECG: Non-diagnostic ST-T wave changes with exercise. Less than [address] depression . Resting LV Function: Normal left ventricular size, normal systolic function, normal wallthickness with no segmental wall motion abnormalities at rest. Post Stress LV Function: Post exercise left ventricular global systolic contractility ishyperdynamic, no segmental wall motion abnormalities, and chamber size is smaller. CONCLUSIONS: Protocol - Suhail Protocol. Exercise Time - 6.38 min. Baseline Heart Rate -78. Peak Heart Rate - 133. Predicted Maximal Heart Rate - 151. 85% MPHR - 128. BaselineBP - 162/82. Peak BP - 184/84. Rate Pressure Product - 50567. METS Achieved - 7.00.Percent Predicted Maximal HR Achieved - 109 %. Normal sinus rhythm, incomplete RBBB. Non-diagnostic ST-T wave changes with exercise. Less than [address] depression . Normal left ventricular size, normal systolic function, normal wallthickness with no segmental wall motion abnormalities at rest. Post exercise left ventricular global systolic contractility ishyperdynamic, no segmental wall motion abnormalities, and chamber size is smaller. Stress echocardiogram negative for inducible ischemia at MPHR: 109 %. Electronically Signed By: Adam Roldan MD, [facility] 12/13/2024 3:09:23 PM CDT us Sima Sandhu MD CV ECHO PROCEDURES Final Result * eGFR (12/07/2024 12:18 PM CDT) eGFR >90 >=60 mL/min/1. 73 m2 Comment: Interpretive Data Reference Interval Normal >/= 90 mL/min/1.73m2 Mildly decreased* 60 - 89 mL/min/1.73m2 Mildly to moderately decreased 45 - 59 mL/min/1.73m2 Moderately to severely decreased 30 - 44 mL/min/1.73m2 Severely decreased 15 - 29 mL/min/1.73m2 Kidney Failure < 15 mL/min/1.73m2 *Relative to young adult level Estimated glomerular filtration rate is determined by the 2020 CKD-EPI equation recommended by the National Kidney Foundation (A Unifying Approach to GFR Estimation: Recommendations of the NKF-ASK Task Force on Reassessing the Inclusion of Race in Diagnosing Kidney Disease, JASN 2020). The CKD-EPI equation should not be used for patients with unstable renal function and has not been validated in children and those over 70. Current interpretive data was last reviewed 2021. Blood 12/07/2024 12:1 8 PM CDT 12/07/2024 12:18 PM CDT Angela Traore MD LAB BLOOD ORDERABLES Final Result Performing Organization Address City/[facility]/ZIP Co de Phone Number [facility] [address] [place] [address] * Erythrocyte sedimentation rate (12/07/2024 12:18 PM CDT) Pathologist [facility] Erythrocyte sedimentation rate 15 1 - 30 mm/hr Blood 12/07/2024 12:1 8 PM CDT 12/07/2024 12:18 PM CDT Angela Traore MD LAB BLOOD ORDERABLES Final Result [facility] [address] [place] [place] [address] * (ABNORMAL) CBC without differential (12/07/2024 12:18 PM CDT) Pathologist [facility] WBC 8.78 3.80 - 9.90 K/cumm Hgb 12.1 11.9 - 15.5 g/dL [facility] Hct 37.0 35.6 - 45.5 % [facility] Plt 288 150 - 400 K/cumm [facility] MPV 10.6 9.1 - 12.3 fL [facility] RBC 3.79(L) 3.90 - 5.20 M/cumm [facility] MCV 97.6(H) 81.3 - 96.4 fL [facility] MCH 31.9 27.1 - 33.3 pg [facility] MCHC 32.7 32.3 - 35.7 g/dL [facility] RDW CV 12.8 11.1 - 14.9 % [facility] RDW SD 46.3 35.7 - 48.1 fL [facility] NRBC abs 0.00 0.00 - 0.01 K/cumm [facility] Blood 12/07/2024 12:1 8 PM CDT 12/07/2024 12:18 PM CDT Angela Traore MD LAB BLOOD ORDERABLES Final Result [facility] [address] Department [place] [address] * Comprehensive metabolic panel (12/07/2024 12:18 PM CDT) Sodium 135 135 - 145 mmol/L Potassium, pl 3.7 3.3 - 4.9 mmol/L [facility] Chloride 100 97 - 110 mmol/L [facility] CO2 22 22 - 32 mmol/L [facility] Anion gap 13 2 - 15 mmol/L [facility] BUN 10 6 - 25 mg/dL [facility] Creatinine 0.68 0.60 - 1.10 mg/dL [facility] Glucose 99 70 - 199 mg/dL [facility] Comment: Interpretive Data Fasting glucose >/= 126 mg/dl is diagnostic for diabetes. Fasting is defined as no caloric intake for at least 8 hours. Fasting glucose between 100 mg/dl to 125 mg/dl is diagnostic of prediabetes. In a patient with classic symptoms of hyperglycemia or hyperglycemic crisis, a random glucose >/= 200 mg/dl is diagnostic for diabetes. In the absence of unequivocal hyperglycemia, results should be confirmed by repeat testing. The classification and Diagnosis of Diabetes Diabetes Care 2021; 46: S19-S40. Current interpretive data was last revised 2022. Calcium 9.6 8.5 - 10.3 mg/dL [facility] Bilirubin, total 0.3 0.1 - 1.2 mg/dL [facility] Protein, pl 7.6 6.5 - 8.5 g/dL [facility] Albumin 4.2 3.5 - 5.0 g/dL [facility] Alk phos 123 40 - 130 Units/L [facility] ALT 16 7 - 45 Units/L [facility] AST 18 10 - 45 Units/L [facility] Blood 12/07/2024 12:1 8 PM CDT 12/07/2024 12:18 PM CDT Angela Traore MD LAB BLOOD ORDERABLES Final Result [facility] [address] Department [place] [address] * POCT lipid panel (11/17/2024 1:11 PM CDT) Pathologist [facility] Cholesterol, POC 190 <200 MG/DL HDL, POC 77 >=40 mg/dL Triglycerides, POC 68 <=149 mg/dL LDL Cholesterol POC 100 <=129 mg/dL Chol/HDL Ratio, POC 1.3 NONE Non-HDL Cholesterol, POC 114 NONE mg/dL Cholesterol Total, POC 190 30 - 199 mg/dL Capillary blood 11/17/2024 1 :11 PM CDT us Sima Sandhu MD POINT OF CARE TEST ORDERA BLES Final Result * Serum Hepatitis panel (08/30/2015 11:58 AM CDT) Pathologist [facility] HBV surface ag Non-Reacti ve Non-Reacti ve [...] Most Recently Relevant to Health Maintenance Insurance [employer] MEDICARE MEDICARE FOR LIFE MEDICARE FOR LIFE Advance Directives For more information, please contact: [phone] * Full Code (Latest Code Status on File) Date Activated Date Inactivated Comments 07/23/2018 10:37 AM 07/23/2018 9:42 PM Care Teams Mechanical Engineering Director Relationship Specialty Start Date End Date Gwendolyn Pulido, INSTALL TECHNICIAN [address] [place] [phone] PCP - General Family Medicine 04/21/24
--- OUTSIDE RECORDS SUMMARY | 2025-01-12 10:28 | XMS_ITS | Encounter Summary ---
Author Organization [facility] Address [address] [place] [address] Care Team Providers Care Motor Patrol Operator Name Role Phone Shavon Lynch Primary Care Pr ovider Encounter Details Date Type Department Care Team (Late Contact Info) Description 12/11/2024 Results Follow-Up [facility] [id number] [place] [address] [place] [address] [address] Social History Tobacco Use Types Packs/Day Years [...] on file Legal Sex Female 6:29 AM HYPOID GEAR GENERATOR Gender Identity Not on file Sexual Orientation Not on file Occupation Industry Job Start Date Job End Date Retired Not on file Not on file Not on file documented as of this encounter Plan of Treatment Upcoming Encounters Date Type Department Care Team (Late Contact Info) Description 03/01/2025 12:20 PM CDT Office Visit [facility] Neurosciences [address] [place] [address] [place] [address] [facility] [address] [place] [address] documented as of this encounter Visit Diagnoses Not on filedocumented in this encounter Care Teams Motor Patrol Operator Relationship Specialty Start Date End Date Shavon Lynch PA [address] [place] [id number] PCP - General Physician Heater Engineer Helper 10/28/22 documented as of this encounter
--- OUTSIDE RECORDS SUMMARY | 2025-01-12 10:28 | XMS_ITS | Clinical Summary ---
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 360 tablet 3 024 Active Simponi 50 mg/0.5 mL pen injector INJECT 0.5 ML UNDER THE SKIN EVERY MONTH 1.5 mL 1 025 Active predniSONE (DELTASONE) 5 mg tabletIndications:Anti- inflammatory,autoimmune disease,rheumatoid arthritis Take 1 tablet (5 mg) by mouth daily 90 tablet 1 025 Active Active Problems Problem Noted Date Diagnosed Date Chest pressure 11/17/2024 Immunosuppression due to drug therapy 04/21/2024 Assessment & Plan (04/21/2024 9:00 AM CLINIC SUPERVISOR): Encourage routine vaccinations. Follow up with PCP. [...] MTX and Plaquinil; Will discuss with pts branch services manager Dr. Bony villafuerte [phone] Fatigue 07/08/2023 Female pelvic pain 07/08/2023 Hypercalcemia 07/08/2023 Hyperlipidemia 09/11/2022 Encounter for long-term (cur rent) use of high-risk medication 07/16/2022 Assessment & Plan (04/21/2024 9:00 AM CLINIC SUPERVISOR): Long-term use of high-risk medication requiring regular monitoring. Labs ordered, no s/s of med tox or infection. Encouraged to work with PCP to make sure all recommended cancer screens and vaccinations are complete. Avoid live-vaccines unless reviewed with branch services manager first. Assessment & Plan (07/16/2022 2:27 PM CLINIC SUPERVISOR): Long-term use of high-risk medication requiring regular monitoring. Labs ordered, no s/s of med tox or infection. Encouraged to work with PCP to make sure all recommended cancer screens and vaccinations are complete. Avoid live-vaccines unless reviewed with branch services manager first. Did have a follow up MRI [...] (06/29/2018): Added automatically from request for surgery [id number] Crohn's disease of colon 10/22/2015 Overview (09/18/2016): Crohn's colitis Gastroesophageal reflux disease 10/22/2015 Overview (09/19/2016): ESOPHAGEAL REFLUX Rheumatoid arthritis involving multiple joints 0 10/22/2015 Overview (09/19/2016): RHEUMATOID ARTHRITIS Assessment & Plan (04/21/2024 8:59 AM CLINIC SUPERVISOR): Stable on simponi and prednisone 5 mg daily, continue same, continue to monitor. Encourage work toward weaning off prednisone, down to 2.5 mg daily and then off / just prn. Encourage calcium/vitamin D and weight bearing exercise to help with osteoporosis reduction. Assessment & Plan (07/16/2022 2:28 PM CLINIC SUPERVISOR): Stable on simponi and prednisone 5 mg [...] Department Care Team Description 12/14/2024 Results Follow-Up [facility] [address] [facility] [address] [address] Tatiana Moran NP Stress Echo Exercise W Doppler/CF 12/13/2024 1:00 PM CDT Ancillary Procedure [facility] [address] [place] [address] [address] [place] [address] Chest pressure; Family history of early CAD 12/07/2024 11:50 AM CDT Lab [facility] Outpatient Lab [address] [place] [address] Rheumatoid arthritis involving multiple joints (HCC); Encounter for long-term (current) use of high-risk medication 12/07/2024 11:00 AM CDT Office Visit [facility] at [facility] [address] [facility] [address] [place] [phone] Angela Traore MD Rheumatoid arthritis involving multiple joints (HCC) (Primary Dx); Encounter for long-term (current) use of high-risk medication 11/17/2024 1:15 PM CDT Office Visit [facility] [address] [facility] [address] [place] [phone] Sima Liz MD Chest pressure (Primary Dx); Essential hypertension; Palpitations; Mixed hyperlipidemia; Family history of early CAD from Last 3 Months Immunizations Immunization Administration [...] Split, Preservative Free, Intradermal 03/28/2015 MMR 10/14/1993 Causecast SARS-CoV-2 Monovalent Vaccination (12+ Yrs) MEYER-READY TO [...] Sinusitis Allergic rhinitis Pernicious anemia Sleep apnea 2019, sleep study Migraines Pernicious anemia Hypothyroidism Osteoporosis Anxiety Dysmenorrhea [...] Hypertension Brother 7 Thierno Hypertension; defects Daughter 1 beau defects Daughter 2 beau Alcohol abuse Father Franki Heart attack [...] 2 latrell Stroke Mother's Sister 2 latrell Alzheimer's disease Mother's Sister 3 latrell Stroke Mother's Sister 3 latrell Anesthesia problems Neg Hx Relation Name Status Comments Brother 1 Alive Brother 2 Darnell Alive Brother 3 Darnell (Age 60) Brother 4 Darnell (Age 60) Brother 5 Eben (Age 40) Brother 6 Brother Brother 7 Thierno (Age 64) suspect fa freddy [place] Daughter 1 beau Daughter 2 beau Alive Father Franki (Age 65) Father's Sister z Alive Mother Venida (Age 69) Mother's Sister 1 mallorie Alive Mother's Sister 2 latrell Mother's Sister 3 latrell Alive Social History Tobacco Use Types Packs/Day Years [...] on file Legal Sex Female 5:17 PM CLINIC SUPERVISOR Gender Identity Not on file Sexual Orientation [...] 12/07/2024 10:30 AM CDT Plan of Treatment Health Maintenance Due Date Last Done Comments Breast Cancer Screening-Mammogram 1955 Colon Cancer Screening-Colonoscopy 1955 Osteoporosis Screening-Bone Density Scan 1955 Hepatitis B Screening 1973 Zoster Vaccine (1 of 2) 1974 Pneumococcal vaccine 65+ (3 of 3 - PCV) 03/13/2004 03/13/2003, 04/02/1994 Well Visit 65+ 2020 Covid-19 Vaccine (2 - Pfizer risk series) 12/24/2021 12/03/2021 Depression Screening 09/25/2022 09/25/2021, 08/10/19 19 Fall Risk Assessment 09/25/2022 09/25/2021 Influenza Vaccine (#1) 2025 , 03/29/2019, 04/05/2018, Additional history exists DTaP/Tdap/Td Vaccine (4 - Td or Tdap) 11/24/2031 11/23/2021, 06/15/2018, 05/15/2015, Additional history exists Hepatitis A Vaccines Completed 01/07/2000, 06/21/19 00 Hepatitis C Screening Completed 08/30/2015 Procedures Procedure Name Priority Date/Time Associated Diagnosis [...] PM CDT Narrative 12/13/2024 3:09 PM CDT [facility] [address] [facility] [address] [address] [address] [facility] [address], [place] [address] P:[phone] P:[phone] Echocardiographic Report Patient Name: BROOKE KARIMI J : 1955 Study Date: 12/13/2024 1:05:45 PM Gender: F Control Center Operator: Sarah Lemons)([place]), [facility] Location: [facility] Provider: SIMA LIZ Height(Cm): 157 BSA: 1.76 Weight(Kg): 71.2 Heart Rate: 70 BP: 158 / 90 Quality: Good Order Provider: SIMA LIZ PROCEDURES: Stress Echo Report: Treadmill stress echocardiogram. [...] BP - 184/84 Rate Pressure Product - 10199 METS Achieved - 7.00 Percent Predicted Maximal HR Achieved - 109 % Interpretation Site: Exam was interpreted at [facility]. Performance: Average exercise functional capacity. Hemodynamic Response: [...] BP - 184/84. Rate Pressure Product - 66841. METS Achieved - 7.00. Percent Predicted Maximal [...] %. Electronically Signed By: Adam Roldan MD, [facility] 12/13/2024 3:09:23 PM CDT Procedure Note Adam Roldan MD - 12/13/2024 [facility] Card[facility] [address] [facility] [address] [id number] [address] [facility] [address] [place] [address] P:[phone] P:[phone] Echocardiographic Report Patient Name: BROOKE KARIMI J : 1955 Study Date: 12/13/2024 1:05:45 PM Gender: F Control Center Operator: Sarah Howe ([place])([place]), [facility] Location: [facility] Provider: SIMA LIZ Height(Cm): 157 BSA: 1.76 Weight(Kg): 71.2 Heart Rate: 70 BP: 158 / 90 Quality: Good Order Provider: SIMA LIZ PROCEDURES: Stress Echo Report: Treadmill stress echocardiogram. [...] mg tablet Stress test monitored by: Melany Alston, RN R07.89 Other chest pain, and Z82.49 Family history of ischemic heartdisease and other diseases of the circulatory system. FINDINGS: Stress Echo: Protocol - Suhail Protocol. Exercise Time - 6.38 min Baseline Heart Rate - 78 Peak Heart Rate - 133 Predicted Maximal Heart Rate - 151 85% MPHR - 128 Baseline BP - 162/82 Peak BP - 184/84 Rate Pressure Product - [id number] METS Achieved - 7.00 Percent Predicted Maximal HR Achieved - 109 % Interpretation Site: Exam was interpreted at [facility]. Performance: Average exercise functional capacity. Hemodynamic Response: [...] BP - 184/84. Rate Pressure Product - 22819. METS Achieved - 7.00.Percent Predicted Maximal HR [...] %. Electronically Signed By: Adam Roldan MD, [facility] 12/13/2024 3:09:23 PM CDT Sima Liz MD CV ECHO PROCEDURES Final Result * [...] BLOOD ORDERABLES Final Result Performing Organization Address City/[facility]/ZIP Co de Phone Number [facility] [address] [facility] [place] [address] * Erythrocyte sedimentation rate (12/07/2024 12:18 PM CDT) [facility] Erythrocyte sedimentation rate 15 1 - 30 mm/hr Blood 12/07/2024 12:1 8 PM CDT 12/07/2024 12:18 PM CDT Angela Traore MD LAB BLOOD ORDERABLES Final Result Performing Organization Address [facility] Co de Phone Number [facility] [address] [facility] [place] [address] * (ABNORMAL) CBC without differential (12/07/2024 12:18 PM CDT) [facility] WBC 8.78 3.80 - 9.90 K/cumm Hgb 12.1 11.9 - 15.5 g/dL [facility] Hct 37.0 35.6 - 45.5 % [facility] Plt 288 150 - 400 K/cumm [facility] MPV 10.6 9.1 - 12.3 fL [facility] RBC 3.79(L) 3.90 - 5.20 M/cumm [facility] MCV 97.6(H) 81.3 - 96.4 fL [facility] MCH 31.9 27.1 - 33.3 pg [facility] MCHC 32.7 32.3 - 35.7 g/dL [facility] RDW CV 12.8 11.1 - 14.9 % [facility] RDW SD 46.3 35.7 - 48.1 fL [facility] NRBC abs 0.00 0.00 - 0.01 K/cumm [facility] Blood 12/07/2024 12:1 8 PM CDT 12/07/2024 12:18 PM CDT Angela Traore MD LAB BLOOD ORDERABLES Final Result [facility] [address] Department [place] [address] * Comprehensive metabolic panel (12/07/2024 12:18 PM CDT) Sodium 135 135 - 145 mmol/L Potassium, pl 3.7 3.3 - 4.9 mmol/L [facility] Chloride 100 97 - 110 mmol/L [facility] CO2 22 22 - 32 mmol/L [facility] Anion gap 13 2 - 15 mmol/L [facility] BUN 10 6 - 25 mg/dL [facility] Creatinine 0.68 0.60 - 1.10 mg/dL [facility] Glucose 99 70 - 199 mg/dL [facility] Comment: Interpretive Data Fasting glucose >/= 126 [...] classification and Diagnosis of Diabetes Diabetes Care 202; 46: S19-S40. Current interpretive data was last revised 2022. Calcium 9.6 8.5 - 10.3 mg/dL [facility] Bilirubin, total 0.3 0.1 - 1.2 mg/dL [facility] Protein, pl 7.6 6.5 - 8.5 g/dL [facility] Albumin 4.2 3.5 - 5.0 g/dL [facility] Alk phos 123 40 - 130 Units/L [facility] ALT 16 7 - 45 Units/L [facility] AST 18 10 - 45 Units/L [facility] Blood 12/07/2024 12:1 8 PM CDT 12/07/2024 12:18 PM CDT Angela Traore MD LAB BLOOD ORDERABLES Final Result [facility] [address] Department [place] [address] * POCT lipid panel (11/17/2024 1:11 PM CDT) Cholesterol, POC 190 <200 MG/DL HDL, POC 77 >=40 mg/dL Triglycerides, POC 68 <=149 mg/dL LDL Cholesterol POC 100 <=129 mg/dL Chol/HDL Ratio, POC 1.3 NONE Non-HDL Cholesterol, POC 114 NONE mg/dL Cholesterol Total, POC 190 30 - 199 mg/dL Capillary blood 11/17/2024 1 :11 PM CDT Sima Liz MD POINT OF CARE TEST ORDERA BLES Final Result * Serum Hepatitis panel (08/30/2015 11:58 AM CDT) HBV surface ag Non-Reacti ve Non-Reacti ve HISTORICAL RESULTS HCV ab Non-Reacti ve Non-Reacti ve HISTORICAL RESULTS HBV core ab, IgM Non-Reacti ve Non-Reacti ve HISTORICAL RESULTS HAV ab, IgM Non-Reacti ve Non-Reacti ve HISTORICAL RESULTS Serum 08/30/2015 11:5 8 AM CDT us Bony Villafuerte MD LAB BLOOD ORDERABLES Final R esult HISTORICAL RESULTS from Last 3 Months or Most Recently Relevant to Health Maintenance Insurance [email or web address] MEDICARE MEDICARE FOR LIFE MEDICARE [facility] FOR LIFE Advance Directives For more information, please contact: [phone] * Full Code (Latest Code Status on File) Date Activated Date Inactivated Comments 07/23/2018 10:37 AM 07/23/2018 9:42 PM Care Teams Fruit Room Hand Relationship Specialty Start Date End Date Gwendolyn Pulido, IVA [address] [place] [address] PCP - General Family Medicine 04/21/24
== END 2025-01-12 10:18 | disposition home or self-care (01) ==
LOC: ANHIMG 10:18
PROVIDERS: PCP Nurse Practitioner Family; Visit Provider Nurse Practitioner Family
DX: R92.8 Other abnormal and inconclusive findings on diagnostic imaging of breast (principal); N63.20 Unspecified lump in the left breast, unspecified quadrant; Z98.890 Other specified postprocedural states
CPT/HCPCS: 76642; 77061; 77065; G0279

== ENCOUNTER 2025-02-21 15:28 | Outpatient (CLI) | payer MEDICARE, OTHER, SELFPAY ==
--- NOTE | ~2025-02-21 | US_ITS ---
EXAMINATION: US pelvic complete w TV DATE: 02/21/2025 16:24 INDICATION: Pelvic and perineal pain. Localized enlarged lymph nodes. TECHNIQUE: Multiple transabdominal and transvaginal sonographic images of the pelvis were obtained. COMPARISON: None. FINDINGS: TRANSABDOMINAL ULTRASOUND: The uterus measures 6.1 x 2.6 x 3.9 cm. There is no free fluid in the pelvis. TRANSVAGINAL ULTRASOUND: The endometrial complex measures 2 mm in thickness. There is fluid in the endometrial complex. There are nabothian cysts in the cervix. The ovaries are not visualized. IMPRESSION: 1. No etiology for the patient's symptoms. Ovaries not visualized. Reviewed, dictated and finalized at location E.
--- OUTSIDE RECORDS SUMMARY | 2025-02-21 13:00 | XMS_ITS | Encounter Summary ---
Author Organization [facility] Address [address] [place] [address] Care Team Providers Care Lead Loader Name Role Phone Gwendolyn Pulido NP Primary Care Provider [phone] Reason for Visit * Reason Comments Palpitations Hypertension Hyperlipidemia 3 mo f/u Encounter Details Date Type Department Care Team (Late st Contact Info) Description 02/21/2025 1:00 PM CDT Office Visit [facility] Cardiology [address] [place] [address] Denise Shelton NP [address] [place] [address] Family history of early CAD; Pure hypercholesterolemia; Essential hypertension Social History Tobacco Use Types Packs/Day Years [...] on file 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 Gender Identity Not on file Sexual Orientation Not on file documented as of this encounter Last Filed Vital Signs Vital Sign Reading Time Taken Comments Blood Pressure 120/76 02/21/2025 12:58 PM CDT Pulse 61 02/21/2025 12:58 PM CDT Temperature - - Respiratory Rate - - Oxygen Saturation 98% 02/21/2025 12:58 PM CDT Inhaled Oxygen Concentration - - Weight 71.2 kg (157 lb) 02/21/2025 12:58 PM CDT Height 157.5 cm (5' 2) 02/21/2025 12:58 PM CDT Body Mass Index 28.72 02/21/2025 12:58 PM CDT documented in this encounter Ordered Prescriptions Prescription Sig Dispense Quantity Refills Last Filled Start Date End Date amLODIPine (NORVASC) 10 mg tabletIndications:hyperte nsion Take 1 tablet (10 mg total) by mouth nightly 90 tablet 3 5 losartan (COZAAR) 25 mg tabletIndications:Essenti al hypertension Take 2 tablets (50 mg total) by mouth 2 (two) times a day Patient may adjust dose to 3 tabs daily based on BP readings. 360 tablet 3 5 atorvastatin (LIPITOR) 20 mg tabletIndications:Family history of early CAD,Pure hypercholesterolemia Take 1 tablet (20 mg total) by mouth daily 90 tablet 3 5 02/22/20 26 documented in this encounter Progress Notes * Denise Shelton NP - 02/21/2025 1:00 PM CDT Images from the original note were not included. [facility] Card[facility] [address] [place] [address] Date of Visit: 02/21/2025 Patient ID: Brooke Torre 1955 Chief Complaint Patient presents with Palpitations Hypertension Hyperlipidemia 3 mo f/u Brooke Torre is a 69 y.o. female who is an established patient Dr. Liz with a personal historyof hypertension and family history of CAD coming to the office for follow-up after having a stress test. 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 Hypertension since she was 15 years old. Checked for pheochromocytomal in the past, negative. Reninangiotensin levels normal, renal artery ultrasound normal. No evidence of aortic coarctation. She also has IRLANDA, hypercholesterolemia, GERD, hyponatremia on HCTZ/spironolactone, hypothyroidism, hyperparathyroidism s/p parathyroidectomy 07/2018 (Fabrication Lead is Dr. Day), rheumatoid arthritis (Dr. Angela Traore)) and trigeminal neuralgia . Family h/o CAD. 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 Migraines followed by Dr. Paula. 08/16/2019 Initial Office Consultation: Pt reports that she has had HTN off and on since 15 yo. HerHTN has been related to other illnesses, pt believes. HTN when 15 y.o., which pt thinks was 2nd undiagnosed Graves disease. Dx'd w/ Grave's disease 21 y.o. tx'd w/ radioactive Iodine. 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 Also trigeminal neuralgia since 1984 which causes constant pain. BP seemed to go up w/ each illness. Was on Aldomet when younger. Off BP meds for years but started back on meds a few years ago. Had parathyroidectomy 2018 but BP still running high. Takes Norvasc 5 mg and Losartan 100 mg q am. If takes Norvasc 10 mg her BP drops and she feels bad. Later in the day it goes back up. Tried HCTZ 12.5 but BP bottoms out (90/50) 36 hours later and gets dizzy. Still takes it prn for HTN. Can't get BP smooth. Sometimes takes extra amlodipine 5 mg HS and a.m. BP might be better. Some walking for exercise, 5000- 8000 steps/day w/ ADLS, has trouble w/ some exercise 2nd trigeminal neuralgia (windand air bther her face). Recently found to have IRLANDA and is seeking an oral device since she won't be able to tolerate the CPAP 2nd Trigeminal neuralgia. Ordered renin and angiotensin levels which were normal, and a renal artery ultrasound which is normal, DASH diet the, and weight loss.. 2020 Presented to [facility]. With weakness and dizziness. She reports her sodium was 125 and potassium was 3.0 (I do not have these records available for my review). She was put on oral fluidrestriction, given IV sodium chloride and given potassium supplementation and she improved. Obviously the triamterene/HCTZ was discontinued. 05/07/2021 OV with SUBCONTRACT ADMINISTRATOR C Nikita: Carvedilol was started at the last visit and she has had no perceived problems with it. She thinks she feels a little better with her blood pressure lower. Home blood pressure checks since starting carvedilol range 115/87 to 139/89. Earlier today at home it was 114/80. Since she has come into the office, she has been getting text messages from her grandson that he is not feeling well at school. Adjusting carvedilol dose. Consider statin therapy. 07/30/[address] Valenzuela: Tested positive for COVID earlier this month, mild case.Vaccinated. BP 115/87, 115/82, 122/82, occ SBP I 130's. Tries to do some walking [facility]. No chest pain, WATTERS, palpitations, or edema. 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 Some memory loss. Willing to try statin tx. Add atorvastatin 20 mg daily 06/27/2022 OV with SUBCONTRACT ADMINISTRATOR C Nikita: She is no specific complaints or concerns today. She checks her blood pressure in the morning before medication and recent readings have been in the range of 125/78 to 139/83. She has 1 reading after medication that was 119/67. POC lipid panel today shows TC 208, HDL 100, TG 67, LDL 94. She feels better spreading out losartan 25 mg q.i.d. rather than 50 mg b.i.d.. 10/09/2022 OV with SUBCONTRACT ADMINISTRATOR C Nikita: About a week and a half ago she began feeling unwell with headache, lower extremity edema and nausea. Edema is worse in the right leg but has recently improved when shestarted wearing compression socks and took salt out of her diet. Blood pressure has been above 140/80 and as high as 190/110. She took Motrin for the headache but thinks it might have made the nauseaworse. The nausea gets a little better after she eats or drinks a Coca- Cola. The lateral aspect of the right leg hurts and she has some pain in the right neck. Her daughter is concerned she is havingCHF because of the leg swelling. She does not have any new shortness of breath but does get a coughwhen she lays down and she feels some pressure in her chest. All of the symptoms seem to have started about a week after she got the pneumonia shot. Her shelter advocate did labs on 10/01/2022 which included a CBC CMP, thyroid, lipids, all looked unremarkable. Doubt CHF, doubt CAD, obtain a BMP and troponin level, reassurance 01/06/[address] Valenzuela: Doing well except for dental problems, other than that,I'm not doing bad. BP usually runs 120's-130/70 mmHg. Not very active, doesn't do well in the heatand RA limits her activity. Sometimes goes to a store and does some walking. Legs hurt [place] after taking Boniva and after she had a pneumonia shot. Talked about the of her brother, who was found several days after his , can't get it out of her mind. Labs reviewed, 10/09/2022 proBNP 55, troponin 6 Follow-up note 04/21/2024: She denies any chest pain, shortness breath, syncope, presyncope, paroxysmal nocturnal dyspnea, orthopnea, edema . She has some rare brief palpitations that are not associated with other symptoms. They last a sec Follow-up note 11/17/2024: While walking around [place] recently she started developed some chest pressure and associated shortness breath. Symptoms would improve with rest. She thinks this has been present for about 6 months. She is under a great deal of stress as her daughter and teenage grandson's have moved back into house. She does feel some occasional palpitations that occur daily that will only lasts for a 2nd or 2. She denies any syncope, presyncope, paroxysmal nocturnal dyspnea, orthopnea, edema. Follow-up with SUBCONTRACT ADMINISTRATOR 02/21/2025: She is here for short interval follow-up after having a stress test. Her chest pressure has subsided but she has not pushed herself physically like she was this spring when she had the chest pressure. Right now she is walking up to 11,000-13,000 steps per day. 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 is retired . Medical History: Past Medical History: Diagnosis Date Allergic rhinitis Anxiety Crohn's disease (HCC) Depression Depression Dysmenorrhea Hyperlipidemia Hypertension Hypertension Hyperthyroidism 1976 Hyperthyroidism, Grave's Disease s/p BERNARD treatment Hypothyroidism Migraines Osteoporosis Pernicious anemia Pernicious anemia Primary hyperparathyroidism Rheumatoid arthritis (HCC) Rheumatoid arthritis Sinusitis Sleep apnea 2019, sleep study Past Surgical History: Procedure Laterality Date BRAIN TUMOR EXCISION DENTAL SURGERY 12/2022 gum surgery OTHER SURGICAL HISTORY 1985 Craniotomy for brain stem epidermoid tumor OTHER SURGICAL HISTORY 1978 removal of benign axillary lump PARATHYROIDECTOMY 2018 Social History Tobacco Use Smoking Status Never Smokeless Tobacco Never Social History Tobacco Use Smoking status: Never Smokeless tobacco: Never Substance and Sexual Activity Drug use: Never Sexual activity: Not Currently Partners: Male control/protection: Post-menopausal Alcohol Use: Not At Risk (08/11/2023) AUDIT-C Frequency of Alcohol Consumption: Never Average Number of Drinks: Patient does not drink Frequency of Binge Drinking: Never Family History Problem Relation Age of Onset Heart disease Mother Heart disease; Cause of : Heart disease Heart attack Mother Myocardial Infarction; Cause of : Myocardial Infarction Diabetes Mother Heart disease Father Heart disease; Cause of : Heart disease Heart attack Father Myocardial Infarction; Cause of : Myocardial Infarction Alcohol abuse Father Stroke Brother 40 Stroke; Lung cancer Brother Cancer -lung; Cause of : Cancer -lung Bone cancer Brother Cancer -bone; Cause of : Cancer -bone Cancer Brother Hypertension Brother Brain cancer Brother 40 Cancer -brain tumor; Cause of : Cancer -brain tumor Cancer Brother Hypertension Brother Hypertension; Hypertension Brother Hypertension; Depression Brother Breast cancer Mother's Sister 60 Alzheimer's disease Mother's Sister Stroke Mother's Sister Breast cancer Father's Sister 50 defects Daughter Alzheimer's disease Mother's Sister Stroke Mother's Sister defects Daughter Anesthesia problems Neg Hx Review of Systems Constitutional: Positive for weight loss (intentional). Negative for malaise/fatigue and weight gain. Cardiovascular: Negative for chest pain, leg swelling, near-syncope, orthopnea, palpitations, paroxysmal nocturnal dyspnea and syncope. Respiratory: Negative for cough, shortness of breath and sleep disturbances due to breathing. Hematologic/Lymphatic: Negative for bleeding problem. Bruises/bleeds easily. Vital Signs: BP 120/76 (BP Location: Left arm, Patient Position: Sitting) Pulse 61 Ht 157.5 cm (5' 2) Wt 71.2 kg (157 lb) SpO2 98% BMI 28.72 kg/m?? Physical Exam Constitutional: General: She is not in acute distress. Appearance: She is well-developed. HENT: Head: Normocephalic and atraumatic. Eyes: General: No scleral icterus. Conjunctiva/sclera: Conjunctivae normal. Neck: Vascular: No JVD. Trachea: No tracheal deviation. Cardiovascular: Rate and Rhythm: Normal rate and regular rhythm. Heart sounds: Normal heart sounds. No murmur heard. Pulmonary: Effort: Pulmonary effort is normal. No respiratory distress. Breath sounds: Normal breath sounds. Skin: General: Skin is warm and dry. Neurological: Mental Status: She is alert and oriented to person, place, and time. Psychiatric: Mood and Affect: Mood normal. Behavior: Behavior normal. Allergies Allergen Reactions Erythromycin Rash and Shortness of breath Iodine And Iodide Containing Products Hives and Shortness of breath Lactose Hypotension Penicillins Anaphylaxis Aspirin Rash Iodine Rash Iodinated Contrast Media Unknown Penicillin G Hydrochlorothiazide Other (See comments) Low BP Spironolactone Other (See comments) Weight gain and increased back pain Triamterene-Hydrochlorothiazid Other (See comments) Severe hyponatremia and mild hypokalemia Current Outpatient Medications: acetaminophen 500 mg capsule, Take 2 capsules (1,000 mg total) by mouth every 6 (six) hours as needed for pain. Stop this medication last for pain management, Disp: , Rfl: albuterol HFA (PROVENTIL HFA,VENTOLIN HFA,PROAIR HFA) 90 mcg/actuation inhaler, INHALE 1-2 PUFFS EVERY 4 HOURS NEEDED FOR SHORTNESS OF BREATH, Disp: , Rfl: calcium carbonate (OS-AUGUSTINE) 1,500 mg (600 mg of elemental calcium) tablet, Take 1 tablet (1,500 mg total) by mouth 2 (two) times a day, Disp: , Rfl: carBAMazepine ER (CARBATROL) 300 mg 12 hr capsule, take 1 capsule (300MG) by oral route every 12 hours, Disp: , Rfl: 0 cholecalciferol (VITAMIN D-3) 2,000 unit tablet, Take 1 tablet (2,000 Units total) by mouth nightly, Disp: , Rfl: cyanocobalamin (VITAMIN B-12) 1,000 mcg/mL injection, inject 0.1 milliliter by intramuscular route every month, Disp: , Rfl: 0 docusate sodium (COLACE) 100 mg capsule, Take 1 capsule (100 mg total) by mouth as needed for constipation (consti), Disp: , Rfl: EPINEPHrine 0.3 mg/0.3 mL auto-injection syringe, Inject 0.3 mL (0.3 mg total) into the muscle as instructed as needed, Disp: , Rfl: famotidine (PEPCID) 20 mg tablet, Take 1 tablet (20 mg total) by mouth daily, Disp: , Rfl: Kerydin 5 % solution with applicator, , Disp: , Rfl: levothyroxine (SYNTHROID, LEVOTHROID) 175 mcg tablet, Take 1 tablet (175 mcg total) by mouth corrections cadet before breakfast, Disp: , Rfl: LORazepam (ATIVAN) 0.5 mg tablet, Take 1 tablet (0.5 mg total) by mouth every 6 (six) hours as needed for anxiety, Disp: , Rfl: predniSONE (DELTASONE) 5 mg tablet, Take 1 tablet (5 mg) by mouth daily, Disp: 90 tablet, Rfl: 1 Simponi 50 mg/0.5 mL pen injector, INJECT 0.5 ML UNDER THE SKIN EVERY MONTH, Disp: 1.5 mL, Rfl: 1 syringe, disposable, 3 mL syringe, , Disp: , Rfl: topiramate (Topamax) 25 mg tablet, Take 3 tablets (75 mg total) by mouth 2 (two) times a day, Disp:, Rfl: traZODone (DESYREL) 50 mg tablet, Take 1 tablet (50 mg total) by mouth nightly as needed for sleep,Disp: 30 tablet, Rfl: 5 amLODIPine (NORVASC) 10 mg tablet, Take 1 tablet (10 mg total) by mouth nightly, Disp: 90 tablet, Rfl: 3 atorvastatin (LIPITOR) 20 mg tablet, Take 1 tablet (20 mg total) by mouth daily, Disp: 90 tablet, Rfl: 3 losartan (COZAAR) 25 mg tablet, Take 2 tablets (50 mg total) by mouth 2 (two) times a day Patient may adjust dose to 3 tabs daily based on BP readings., Disp: 360 tablet, Rfl: 3 Lab Results Component Value Date POTASSIUM 3.7 12/07/2024 BUNSER 10 12/07/2024 CREATININE 0.68 12/07/2024 EGFR 81 07/02/2016 CHOL 179 09/25/2021 TRIG 67 09/25/2021 LDLCALC 76 09/25/2021 HDL 90 09/25/2021 Lab Results Component Value Date WBC 8.78 12/07/2024 HGB 12.1 12/07/2024 HCT 37.0 12/07/2024 MCV 97.6 (H) 12/07/2024 No results found for this or any previous visit (from the past 4 hours). Lab Results Component Value Date POCCHOL 190 11/17/2024 POCHDL 77 11/17/2024 POCTRIG 68 11/17/2024 POCLDL 100 11/17/2024 POCNONHDL 114 11/17/2024 POCCHLPL 190 11/17/2024 02/28/2021 glucose 96, creatinine 0.9, potassium 4.0, GFR 67, LFTs normal, cholesterol 304, HDL 111, TG 84, LDL 149, hematocrit 38 07/31/2021 POC Lipids: Total cholesterol 253, HDL 96, Triglycerides 90, LDL 139. 10/01/2022: Cholesterol 201, HDL 102, TG 88, LDL 82, on atorvastatin 20 mg daily, hematocrit 36, creatinine 0.8, potassium 3.7 Testin05/2019 chest x-ray showed no acute cardiopulmonary disease 08/2019: renin and angiotensin levels were normal 08/2019: renal artery ultrasound normal ECHO 04/28/2024 Normal left ventricular size. Left ventricular wall thickness upper limits of normal. Normal global left ventricular systolic function. Indeterminate diastolic function. Ejection fraction is measured at 61 %. Global Longitudinal Strain is -19 %. Normal right ventricular size. Normal right ventricular systolic function. There is mild enlargement of left atrium. There is mild enlargement of right atrium. Mild mitral valve regurgitation. Mild tricuspid regurgitation. Assessment: Diagnoses and all orders for this visit: Family history of early CAD - atorvastatin (LIPITOR) 20 mg tablet; Take 1 tablet (20 mg total) by mouth daily Pure hypercholesterolemia - atorvastatin (LIPITOR) 20 mg tablet; Take 1 tablet (20 mg total) by mouth daily Essential hypertension - losartan (COZAAR) 25 mg tablet; Take 2 tablets (50 mg total) by mouth 2 (two) times a day Patientmay adjust dose to 3 tabs daily based on BP readings. - amLODIPine (NORVASC) 10 mg tablet; Take 1 tablet (10 mg total) by mouth nightly Plan/Recommendations: Her recent stress echocardiogram was negative. It was a technically adequate study during which sheachieved 7 Mets. Her chest pressure has subsided. I recommend ongoing risk factor reduction with physical activity and statin therapy. Continue atorvastatin. Notify the office if chest pressure recurs. Blood pressure is controlled. She spreads out the dosing of her losartan because she is known to have blood pressure drop causing her to feel symptomatic. Continue amlodipine and losartan. Routine follow-up with Dr. Liz in 6 months. 02/21/2025 DENITA Payan- Nurse Practitioner with [facility] Cardiology This note is dictated and transcribed using [employer] Direct Software. Flap Curer variancesmay occur. Despite proofreading, typographical errors may occur. documented in this encounter Plan of Treatment Not on file documented as of this encounter Visit Diagnoses Diagnosis Family history of early CAD Family history of ischemic heart disease Pure hypercholesterolemia Essential hypertension Unspecified essential hypertension documented in this encounter Discontinued Medications Medication Sig Discontinue Reason Start Date End Da te atorvastatin (LIPITOR) 20 mg tabletIndications:Family history of early CAD,Pure hypercholesterolemia Take 1 tablet (20 mg total) by mouth daily Reorder 04/21/2024 02/21/2025 amLODIPine (NORVASC) 10 mg tabletIndications:hypertensio n Take 1 tablet (10 mg total) by mouth nightly Reorder 04/21/2024 02/21/2025 losartan (COZAAR) 25 mg tabletIndications:Essential hypertension Take 2 tablets (50 mg total) by mouth 2 (two) times a day Patient may adjust dose to 3 tabs daily based on BP readings. Reorder 04/21/2024 02/21/2025 documented as of this encounter Care Teams Lead Loader Relationship Specialty Start Date End Date Gwendolyn Pulido NP [address] [place] [address] PCP - General Family Medicine 04/21/24 documented as of this encounter
--- OUTSIDE RECORDS SUMMARY | 2025-02-21 16:51 | XMS_ITS | Clinical Summary ---
Author Organization [facility] Address [address] [place] [address] Care Team Providers Care Fence Post Cutter Name Role Phone Shavon Lynch Primary Care Pr ovider Source Comments [facility],non-owned Affiliates and Associated Physician Practices is amultiple site organization consisting of ambulatory clinics and hospital sitesin [place], [place], [place] and [place]. This disclosure is being madepursuant to the Care Everywhere program and may not contain all information available regarding this patient. 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 Gender Identity Not on file Sexual Orientation Not on file Occupation Industry Job Start Date Job End Date Retired Not on file Not on file Not on file Last Filed Vital Signs Vital Sign Reading Time Taken Comments Blood Pressure 154/84 08/04/2024 12:56 PM WELDING 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 Pulse 68 11/03/2024 1:08 PM CDT Temperature [...] Description 03/01/2025 12:20 PM CDT Office Visit [facility] [address] [place] [phone] [place] [id number] [address] Health Maintenance Due Date Last [...] - Risk 60-74 years 1-dose series) 2015 DEPRESSION SCREENING 06/15/2024 SCREENING FOR DIABETES 11/03/2024 COVID-19 VACCINE (2 - 2024-2 6 season) 2025 12/03/2021 INFLUENZA VACCINE (#1) 2025 9, 03/12/2017, 03/08/2015 COLOGUARD (AGES 45-75) - COL [...] sciatica, unspecified back pain laterality, unspecified chronicity from Last 3 Months Results * MRI [...] on 11/28/2024 10:35 AM Keo Vega MD ORDERABLES Final Result from Last 3 Months Insurance MEDICARE MEDICARE MEDICARE [facility] MEDICARE [facility] Member Subscriber Plan / Payer (Ef fective for All Dates) Name:Brooke Torre Member ID:Not on file Relation to Subscriber:Self Name:Brooke Torre Subscriber ID:Not on file Payer ID:[id number] (NAIC) Group ID:Not on file Type:ADmantX/eASIC Address: [place] [phone] MEDICARE [employer] MEDICARE Care Teams Fence Post Cutter Relationship Specialty Start Date End Date Shavon Lynch PA [address] [place] [address] PCP - General Physician Auto Clutch Specialist 10/28/22
--- OUTSIDE RECORDS SUMMARY | 2025-02-21 16:51 | XMS_ITS | Clinical Summary ---
Author Organization [facility] Address [address] [place] [address] Phone Care Team Providers Care Plastic Surgery Nurse Name Role Phone Ankit Smith MD Primary [...] age to complete this topic Care Teams Plastic Surgery Nurse Relationship Specialty Start Date End Date Ankit Smith MD [address] [place] [address] PCP - General Internal Medicine 02/13/13
--- OUTSIDE RECORDS SUMMARY | 2025-02-21 16:51 | XMS_ITS | Encounter Summary ---
Author Organization [facility] Address [address] [place] [place] [address] Care Team Providers Care Maritime Officer Name Role Phone Shavon Lynch Primary Care Pr ovider Reason for Visit * Reason Onset Date Comments MEDICATION REFILL 12/09/2023 Encounter Details Date Type Department Care Team (Late st Contact Info) Description 12/09/2023 Telephone [facility] - Neurology [address] [place] [address], [place] [address] Inocencia Wade MD [address] [place] [address] [place] [phone] MEDICATION REFILL Social History Tobacco Use Types [...] on file 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 Drug type:carbamazepineER 300 mg Pharmacy:[facility] Patient call back number: [phone] . Upcoming appointment scheduled for : 09/13/24 documented in this encounter Plan of Treatment Upcoming Encounters Date Type Department Care Team (Late st Contact Info) Description 03/01/2025 12:20 PM CDT Office Visit [facility] [address] [facility] [address] [place] [phone] [place] [address] [facility] [address] [address] [address] documented as of this encounter Visit Diagnoses Not on filedocumented in this encounter Care Teams Maritime Officer Relationship Specialty Start Date End Date Shavon Lynch PA [address] [place] [address] PCP - General Physician [place]y Biologist 10/28/22 documented as of this encounter
--- OUTSIDE RECORDS SUMMARY | 2025-02-21 16:52 | XMS_ITS | Encounter Summary ---
Author Organization [facility] Address [address] [place] [address] Phone Care Team Providers Care Fish Farm Laborer Name Role Phone Angela Traore MD Primary Care Provide r Hair Mcdaniels MD Primary Care Provider [phone] Dong Cutler MD Primary Care Provider [phone] Kandice Alberto MD Primary Care Provider [phone] Shavon George Primary Care Pr ovider Gwendolyn Pulido NP Primary Care Provider [phone] Encounter Details Date Type Department Care Team (Late st Contact Info) Description 08/14/2017 Orders Only [facility] ProviderZeeshan MD [address] [place] [address] Social History Tobacco Use Types Packs/Day Years Used Date Smoking Tobacco: Never Smokeless Tobacco: Never Alcohol Use Standard Drinks/Week Comments No 0 (1 standard drink = 0.6 oz pur e alcohol) Comments Unknown Sex and Gender Information Value Date Recorded Sex Assigned at Not on file Legal Sex Female 5:17 PM GUARD SERGEANT Gender Identity Not on file Sexual Orientation Not on file documented as of this encounter Plan of Treatment Not on file documented as of this encounter Procedures Procedure Name Priority Date/Time Associated Diagnosis Comments DISCHARGE LABORATORY CUMULATIVE REPORT 08/14/2017 12:00 AM GUARD SERGEANT documented in this encounter Results * DISCHARGE LABORATORY CUMULATIVE REPORT (08/14/2017 12:00 AM GUARD SERGEANT) Narrative 08/14/2017 12:00 AM GUARD SERGEANT Ordered by an unspecified provider. us Historical Provider LAB BLOOD ORDERABLES Nayeli l Result documented in this encounter Visit Diagnoses Not on filedocumented in this encounter Care Teams Fish Farm Laborer Relationship Specialty Start Date End Date Angela Traore MD [address] [address] [place], [place] [phone] PCP - General 08/14/17 12/10/17 Hair Mcdaniels MD [address] [facility] [address] [place] [address] PCP - General Internal Medicine 12/11/17 07/05/19 Dong Cutler MD [address] [facility] [address] [place] [address] PCP - General Internal Medicine 07/06/19 02/01/20 Kandice Alberto MD [address] [place] [id number] PCP - General Internal Medicine 02/02/20 04/02/20 Shavon George PA [address] [place] [address] PCP - General Physician Business Coordinator 04/03/20 04/20/24 Gwendolyn Pulido, HAND FABRIC CUTTER [address] [place] [address] PCP - General Family Medicine 04/21/24 documented as of this encounter
--- OUTSIDE RECORDS SUMMARY | 2025-02-21 16:52 | XMS_ITS | Patient Health Record ---
Author Organization [facility] Address [address] [place] [address] Care Team Providers Care Stonemason Name Role Phone Asha Shepherd Unavailable [phone] Reason For Referral No Information Medications Medication SIG (Take, Route, Frequency, Duration) Notes Start Date End Date Status traZODone HCl 50 MG Tablet Oral 07/11/2021 Active Carbatrol 300 MG Capsule Extended Release 12 Hour Oral 07/11/2021 Active Venlafaxine HCl ER 75 MG Capsule Extended Release 24 Hour Oral 07/11/2021 Active Losartan Potassium 100 MG Tablet Oral 07/11/2021 Active Coreg *Pick strength-form from Bibulu for eRX* 07/11/2021 Active Topiramate 25 MG Tablet Oral 07/11/2021 Active Simponi 50 mg/0.5 mL Solution Auto-injector Subcutaneous 07/11/2021 Active Norvasc 10 MG Tablet Oral 07/11/2021 Active Synthroid 175 MCG Tablet Oral 07/11/2021 Active predniSONE 5 MG Tablet Oral 07/11/2021 Active LORazepam 0.5 MG Tablet Oral 07/11/2021 Active Immunizations Vaccine Route Administration Date Status Comme nts Influenza virus vaccine, quadrivalent (IIV4), split virus, 0.25 mL dosage Unknown 03/15/2021 Administered Pfizer Biontech Covid-19 Vac cine 2nd dose Unknown 08/09/2020 Administered Pfizer Biontech Covid-19 Vac cine 2nd dose Unknown 08/30/2020 Administered Pfizer Biontech Covid-19 Vac cine 2nd dose Unknown 03/01/2021 Administered Social History Social History Additional Details Category Social Info Options Details Migrated Social History Migrated Social History Alcohol Intake: None 06/11/2021,Tobacco Years: Never smoker 06/11/2021 Plan Of Treatment No Information Insurance Providers Payer Name Payer Address Payer Phone Subscriber Number Group Number Insured Name Patient Relationship to Insured Coverage Start Date Coverage End Date Medicare-I l Medicare [address] [place] [phone] [id number] VALENTINO YBARRA CALLIE Self - patient is the insured [facility] [address] [place] [address] [id number] VALENTINO YBARRA CALLIE Self - patient is the insured Medical (General) History Surgical History Surgery Date(Month/Year) Any surgical history Unlisted procedure breast (61435) Thyroidectomy ([id number]) 06/15/1976 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
--- OUTSIDE RECORDS SUMMARY | 2025-02-21 16:52 | XMS_ITS | Encounter Summary ---
Author Organization [facility] Address [address] [facility] [place] [address] Care Team Providers Care Freight Car Cleaner Name Role Phone Base, [facility] Primary Care Provider [phone] [facility], [address] [place] [address] Primary Care Prov ider Shavon Lynch Primary Care Pr ovider Encounter Details Date Type Department Care Team (Late st Contact Info) Description 11/16/2017 Telephone [facility] [address] [place] [address] Inocencia Wade MD [address] [place] [address] Social History Tobacco Use Types Packs/Day Years Used Date Smoking Tobacco: Never Assessed Comments Unknown Sex and Gender Information Value Date Recorded Sex Assigned at Not on file Legal Sex Female 6:29 AM WARP DYEING TENDER Gender Identity Not on file Sexual Orientation Not on file documented as of this encounter Plan of Treatment Upcoming Encounters Date Type Department Care Team (Late st Contact Info) Description 03/01/2025 12:20 PM CDT Office Visit [facility] [employer] [facility] [address] [facility] [address] [place] [phone] [place] [address] [facility] [address] [address] documented as of this encounter Visit Diagnoses Not on filedocumented in this encounter Care Teams Freight Car Cleaner Relationship Specialty Start Date End Date [facility], [place], [place] PCP - General 11/16/17 12/16/[address] [facility], [place], [place] [id number] PCP - General 12/17/17 10/27/22 Shavon Lynch PA [address] [place] [address] PCP - General Physician Manager Of Radiology 10/28/22 documented as of this encounter
--- OUTSIDE RECORDS SUMMARY | 2025-02-21 16:52 | XMS_ITS | Clinical Summary ---
Author Organization [facility] Address [address] [place] [address] Care Team Providers Care Sack Filler Name Role Phone Gwendolyn Pulido COAT EXAMINER Primary Care Provider [phone] Allergies Active Allergy Reactions Criticality Noted Date [...] milliliter by intramuscular route every month 0 2011 Active carBAMazepine ER (CARBATROL) 300 mg 12 hr capsule take 1 capsule (300MG) by oral route every 12 hours 0 2011 Active cholecalciferol (VITAMIN D-3) 2,000 unit tabletIndications:Jud min D Deficiency Take 1 tablet (2,000 Units total) by mouth nightly 2016 Active syringe, disposable, 3 mL syringe 2016 Active LORazepam (ATIVAN) 0.5 mg tabletIndications:anxi ety Take 1 tablet (0.5 mg total) by mouth every 6 (six) hours as needed for anxiety 2017 Active levothyroxine (SYNTHROID, LEVOTHROID) 175 mcg tabletIndications:hypo thyroidism Take 1 tablet (175 mcg total) by mouth national park tour guide before breakfast Active acetaminophen 500 mg capsule Take 2 capsules (1,000 mg total) by mouth every 6 (six) hours as needed for pain. Stop this medication last for pain management 2018 Active albuterol HFA (PROVENTIL HFA,VENTOLIN HFA,PROAIR HFA) 90 mcg/actuation inhaler INHALE 1-2 PUFFS EVERY 4 HOURS NEEDED FOR SHORTNESS OF BREATH 2018 Active Kerydin 5 % solution with applicator 2019 Active EPINEPHrine 0.3 mg/0.3 mL auto-injection syringe Inject 0.3 mL (0.3 mg total) into the muscle as instructed as needed 2018 Active famotidine (PEPCID) 20 mg tablet Take 1 tablet (20 mg total) by mouth daily 2018 Active calcium carbonate (OS-AUGUSTINE) 1,500 mg (600 mg of elemental calcium) tablet Take 1 tablet (1,500 mg total) by mouth 2 (two) times a day Active topiramate (Topamax) 25 mg tablet Take 3 tablets (75 mg total) by mouth 2 (two) times a day 09/01 Active docusate sodium (COLACE) 100 mg capsuleIndications:con stipation Take 1 capsule (100 mg total) by mouth as needed for constipation (consti) 2021 Active Simponi 50 mg/0.5 mL pen injector INJECT 0.5 ML UNDER THE SKIN EVERY MONTH 1.5 mL 1 2024 Active predniSONE (DELTASONE) 5 mg tabletIndications:Anti -inflammatory,autoimmu ne disease,rheumatoid arthritis Take 1 tablet (5 mg) by mouth daily 90 tablet 1 2024 Active traZODone (DESYREL) 50 mg tablet Take 1 tablet (50 mg total) by mouth nightly as needed for sleep 30 tablet 5 02/076 Active atorvastatin (LIPITOR) 20 mg tabletIndications:Fami ly history of early CAD,Pure hypercholesterolemia Take 1 tablet (20 mg total) by mouth daily 90 tablet 3 02/21 Active losartan (COZAAR) 25 mg tabletIndications:Esse ntial hypertension Take 2 tablets (50 mg total) by mouth 2 (two) times a day Patient may adjust dose to 3 tabs daily based on BP readings. 360 tablet 3 2024 Active amLODIPine (NORVASC) 10 mg tabletIndications:hype rtension Take 1 tablet (10 mg total) by mouth nightly 90 tablet 3 2024 Active traZODone (DESYREL) 100 mg tablet PT TAKING 75 MG 02/07 Discontinued amLODIPine (NORVASC) 10 mg tabletIndications:hype rtension Take 1 tablet (10 mg total) by mouth nightly 90 tablet 3 02/21 Discontinued( Reorder) atorvastatin (LIPITOR) 20 mg tabletIndications:Fami ly history of early CAD,Pure hypercholesterolemia Take 1 tablet (20 mg total) by mouth daily 90 tablet 3 02/21 Discontinued( Reorder) losartan (COZAAR) 25 mg tabletIndications:Esse ntial hypertension Take 2 tablets (50 mg total) by mouth 2 (two) times a day Patient may adjust dose to 3 tabs daily based on BP readings. 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 Follow up with PCP. [...] MTX and Plaquinil; Will discuss with pts paper gluing operator Dr. Bony villafuerte [phone] Fatigue 07/08/2023 Female pelvic pain 07/08/2023 Hypercalcemia 07/08/2023 Hyperlipidemia 09/11/2022 Encounter for long-term (cur rent) use of high-risk medication 07/16/2022 Assessment & Plan (04/21/2024 9:00 AM FROZEN MEAT CUTTER): Long-term use of high-risk medication requiring regular monitoring. Labs ordered, no s/s of med tox or infection. Encouraged to work with PCP to make sure all recommended cancer screens and vaccinations are complete. Avoid live-vaccines unless reviewed with paper gluing operator first. Assessment & Plan (07/16/2022 2:27 PM FROZEN MEAT CUTTER): Long-term use of high-risk medication requiring regular monitoring. Labs ordered, no s/s of med tox or infection. Encouraged to work with PCP to make sure all recommended cancer screens and vaccinations are complete. Avoid live-vaccines unless reviewed with paper gluing operator first. Did have a follow up MRI [...] (06/29/2018): Added automatically from request for surgery [id number] Crohn's disease of colon 10/22/2015 Overview (09/18/2016): Crohn's colitis Gastroesophageal reflux disease 10/22/2015 Overview (09/19/2016): ESOPHAGEAL REFLUX Rheumatoid arthritis involving multiple joints 0 10/22/2015 Overview (09/19/2016): RHEUMATOID ARTHRITIS Assessment & Plan (04/21/2024 8:59 AM FROZEN MEAT CUTTER): Stable on simponi and prednisone 5 mg daily, continue same, continue to monitor. Encourage work toward weaning off prednisone, down to 2.5 mg daily and then off / just prn. Encourage calcium/vitamin D and weight bearing exercise to help with osteoporosis reduction. Assessment & Plan (07/16/2022 2:28 PM FROZEN MEAT CUTTER): Stable on simponi and prednisone 5 mg [...] Encounters Date Type Department Care Team Description 02/21/2025 1:00 PM CDT Office Visit [facility] Cardiology [address] [place] [phone] Denise Shelton NP Family history of early CAD; Pure hypercholesterolemi a; Essential hypertension 02/07/2025 11:30 AM CDT Office Visit [facility] Neuro Sleep [address] [place] [address] 6th [address] [place] [address] Mac Schwartz MD IRLANDA on CPAP (Primary Dx); Dream enactment behavior; Insomnia, unspecified type; RLS (restless legs syndrome) 12/14/2024 Results Follow-Up [facility] Cardiology [facility] [facility] [address] [address] Tatiana Moran NP Stress Echo Exercise W Doppler/CF 12/13/2024 1:00 PM CDT Ancillary Procedure [facility] Cardiology [address] [place] [phone] Chest pressure; Family history of early CAD 12/07/2024 11:50 AM CDT Lab [facility] Outpatient Lab [address] [place] [address] Rheumatoid arthritis involving multiple joints (HCC); Encounter for long-term (current) use of high-risk medication 12/07/2024 11:00 AM CDT Office Visit [facility] Rheumatology at [facility] [address] [facility] [address] [place] [address] Angela Traore MD Rheumatoid arthritis involving multiple joints (HCC) (Primary Dx); Encounter for long-term (current) use of high-risk medication from Last 3 Months Immunizations Immunization Administration [...] Sinusitis Allergic rhinitis Pernicious anemia Sleep apnea sleep study Migraines Pernicious anemia Hypothyroidism Osteoporosis [...] 7 Thierno (Age 64) suspect fa [place] Daughter 1 beau Daughter 2 beau Alive [...] on file Legal Sex Female 5:17 PM FROZEN MEAT CUTTER Gender Identity Not on file Sexual Orientation Not on file Obstetrics History Last Filed Vital Signs Vital Sign Reading Time Taken Comments Blood Pressure 120/76 02/21/2025 12:58 PM CDT Pulse 61 02/21/2025 12:58 PM CDT Temperature 36.4 C (97.5 F) 02/07/2025 11:06 AM CDT Respiratory Rate 20 12/07/2024 10:30 AM CDT Oxygen Saturation 98% 02/21/2025 12:58 PM CDT Inhaled Oxygen Concentration - - Weight 71.2 kg (157 lb) 02/21/2025 12:58 PM CDT Height 157.5 cm (5' 2) 02/21/2025 12:58 PM CDT Body Mass Index 28.72 02/21/2025 12:58 PM CDT Plan of Treatment Health Maintenance Due Date Last Done Comments Breast Cancer Screening-Mammogram 1955 Colon Cancer Screening-Colonoscopy 1955 Osteoporosis Screening-Bone Density Scan 1955 Hepatitis B Screening 1973 Zoster Vaccine (1 of 2) 1974 Well Visit 65+ 2020 Depression Screening 09/25/2022 09/25/2021, 08/10/19 19 Fall Risk Assessment 09/25/2022 09/25/2021 Covid-19 Vaccine (5 - 2024-2 6 season) 2025 12/03/2021, 03/01/2021, 08/30/2020, Additional history exists Influenza Vaccine (#1) 2025 4, 03/15/2021, 03/14/2020, Additional history exists DTaP/Tdap/Td Vaccine (4 - [...] for long-term (current) use of high-risk medication SERUM HEPATITIS PANEL Routine 08/30/2015 11:58 AM CDT from Last 3 Months or Most Recently Relevant to Health Maintenance Results * STRESS ECHO EXERCISE W DOPPLER/CF WO CONTRAST (12/13/2024 1:57 PM CDT) Anatomical Region Laterality Modality Ultrasound 12/13/2024 1:05 PM CDT Narrative 12/13/2024 3:09 PM CDT [facility] [address], [place] [address] [facility] [address], [place] [address] P:[phone] P:[phone] Echocardiographic Report Patient Name: BROOKE KARIMI J : 1955 Study Date: 12/13/2024 1:05:45 PM Gender: F Ham Rolling Machine Operator: Sarah Lemons)(CT), [facility] Location: [facility] Provider: SIMA LIZ Height(Cm): 157 BSA: 1.76 [...] BP - 184/84 Rate Pressure Product - [id number] METS Achieved - 7.00 Percent Predicted Maximal HR Achieved - 109 % Interpretation Site: Exam was interpreted at [facility]. Performance: Average exercise functional capacity. [...] BP - 184/84. Rate Pressure Product - [id number]. METS Achieved - 7.00. Percent Predicted Maximal [...] %. Electronically Signed By: Adam Roldan MD, [facility] 12/13/2024 3:09:23 PM CDT Procedure Note Adam Roldan MD - 12/13/2024 [facility] Medical [facility] Cardiology [address] [facility] [address], [place] [address] [facility] [address], [place] [address] P:[phone] P:[phone] Echocardiographic Report Patient Name: BROOKE KARIMI J : 1955 Study Date: 12/13/2024 1:05:45 PM Gender: F Ham Rolling Machine Operator: Sarah Lemons)(CT), [facility] Location: [facility] Provider: SIMA LIZ Height(Cm): 157 BSA: 1.76 [...] BP - 184/84 Rate Pressure Product - [id number] METS Achieved - 7.00 Percent Predicted Maximal HR Achieved - 109 % Interpretation Site: Exam was interpreted at [facility]. Performance: Average exercise functional capacity. [...] BP - 184/84. Rate Pressure Product - [id number]. METS Achieved - 7.00.Percent Predicted Maximal HR [...] %. Electronically Signed By: Adam Roldan MD, [facility] 12/13/2024 3:09:23 PM CDT us Sima Liz MD CV ECHO PROCEDURES Final [...] BLOOD ORDERABLES Final Result Performing Organization Address [facility] Co de Phone Number [place] [phone] [employer] [place] [address] * Erythrocyte sedimentation rate (12/07/2024 12:18 PM CDT) Pathologist [facility] Erythrocyte sedimentation rate 15 1 - 30 mm/hr Blood 12/07/2024 12:1 8 PM CDT 12/07/2024 12:18 PM CDT Angela Traore MD LAB BLOOD ORDERABLES Final Result Performing Organization Address [facility] Co de Phone Number [facility] [address] [place] [address] * (ABNORMAL) CBC without differential (12/07/2024 12:18 PM CDT) [facility] WBC 8.78 3.80 - 9.90 K/cumm Hgb 12.1 11.9 - 15.5 g/dL [facility] Hct 37.0 35.6 - 45.5 % [facility] Plt 288 150 - 400 K/cumm [facility] MPV 10.6 9.1 - 12.3 fL [facility] RBC 3.79(L) 3.90 - 5.20 M/cumm [facility] MCV 97.6(H) 81.3 - 96.4 fL [facility] MCH 31.9 27.1 - 33.3 pg [facility] MCHC 32.7 32.3 - 35.7 g/dL [facility] RDW CV 12.8 11.1 - 14.9 % [facility] RDW SD 46.3 35.7 - 48.1 fL [facility] NRBC abs 0.00 0.00 - 0.01 K/cumm [facility] Blood 12/07/2024 12:1 8 PM CDT 12/07/2024 12:18 PM CDT us Angela Traore MD LAB BLOOD ORDERABLES Final Result [facility] [address] Department [place] [address] * Comprehensive metabolic panel (12/07/2024 12:18 PM CDT) [facility] Sodium 135 135 - 145 mmol/L Potassium, pl 3.7 3.3 - 4.9 mmol/L [facility] Chloride 100 97 - 110 mmol/L [facility] CO2 22 22 - 32 mmol/L [facility] Anion gap 13 2 - 15 mmol/L [facility] BUN 10 6 - 25 mg/dL [facility] Creatinine 0.68 0.60 - 1.10 mg/dL [facility] Glucose 99 70 - 199 mg/dL [facility] Comment: Interpretive Data Fasting glucose [...] 2022. Calcium 9.6 8.5 - 10.3 mg/dL [facility] Bilirubin, total 0.3 0.1 - 1.2 mg/dL [facility] Protein, pl 7.6 6.5 - 8.5 g/dL [facility] Albumin 4.2 3.5 - 5.0 g/dL [facility] Alk phos 123 40 - 130 Units/L [facility] ALT 16 7 - 45 Units/L [facility] AST 18 10 - 45 Units/L [facility] Blood 12/07/2024 12:1 8 PM CDT 12/07/2024 12:18 PM CDT us Angela Traore MD LAB BLOOD ORDERABLES Final Result [facility] [address] Department [place] [address] * Serum Hepatitis panel (08/30/2015 11:58 AM [...] Most Recently Relevant to Health Maintenance Insurance [facility] MEDICARE MEDICARE FOR LIFE MEDICARE [facility] Address: [facility] [address] [place] [address] [facility] Advance Directives For more information, please contact: [phone] * Full Code (Latest Code Status on File) Date Activated Date Inactivated Comments 07/23/2018 10:37 AM 07/23/2018 9:42 PM Care Teams Sack Filler Relationship Specialty Start Date End Date Gwendolyn Pulido, IVA [address] [place] [address] PCP - General Family Medicine 04/21/24
== END 2025-02-21 15:29 | disposition home or self-care (01) ==
PROVIDERS: PCP Nurse Practitioner Family; Visit Provider Nurse Practitioner Family
DX: R59.0 Localized enlarged lymph nodes (principal); R10.2 Pelvic and perineal pain
CPT/HCPCS: 76830; 76856

== ENCOUNTER 2025-03-05 12:45 | Emergency (ER) | payer MEDICARE, OTHER, SELFPAY ==
--- NOTE | ~2025-03-05 | XR_ITS ---
Examination: XR ribs LT 2V Clinical History: left anterior rib pain just below the breast Comparison: Chest x-rays 09/10/2023 Technique: Portable AP Findings: Cardiomegaly. Lungs clear. No acute bony abnormality. IMPRESSION: 1. No acute findings. Reviewed, dictated and finalized at location R. IMPRESSION: 1. No acute findings.
--- NOTE | 2025-03-05 12:47 | ED.FALL ---
HPI - Fall General Chief Complaint: Extremity Injury, Upper Stated Complaint: Fall / LT Side Pain Time Seen by Provider: 03/05/25 12:47 Source: patient Mode of arrival: ambulatory Limitations: no limitations History of Present Illness HPI Narrative: Brooke is a 69 year old female patient presenting to the clinic today with c/o left rib pain after ground level fall 1 week ago . She reports she has been taking Tylenol for pain. States there is pain over the left anterior ribs just under her breast. Rates pain currently an 8/10. Hurts the cough or take a deep breath. Denies any shortness of breath. Related Data Home Medications ?Medication ?Instructions ?Recorded ?Confirmed ?Last Taken ?Type cholecalciferol (vitamin D3) 50 2,000 unit PO DAILY 05/05/19 01/24/25 Unknown History mcg (2,000 unit) tablet folic acid 1 mg tablet 1 mg PO DAILY 05/05/19 01/24/25 Unknown History golimumab 50 mg/0.5 mL 50 mg subcut MONTHLY 05/05/19 01/24/25 Unknown History subcutaneous pen injector (Simponi) amlodipine 10 mg tablet (Norvasc) 10 mg PO HS 12/08/19 01/24/25 Unknown History calcium carbonate 500 mg PO BID 07/17/20 01/24/25 Unknown History diphenhydramine HCl 25 mg tablet 25 mg PO Q6H PRN Allergy Symptoms 07/17/20 01/24/25 Unknown History (Benadryl Allergy) prednisone 5 mg tablet 5 mg PO DAILY 03/05/23 01/24/25 Unknown History atorvastatin 20 mg tablet mg PO 08/07/23 01/24/25 Unknown History Allergies Allergy/AdvReac Type Severity Reaction Status Date / Time iodine Allergy Severe Anaphylaxis Verified 03/05/25 13:03 Penicillins Allergy Severe Anaphylaxis Verified 03/05/25 13:03 erythromycin base Allergy Unknown Hives Verified 03/05/25 13:03 ibuprofen Allergy Unknown Unknown Verified 03/05/25 13:03 aspirin AdvReac Severe Gastrointestinal Verified 03/05/25 13:03 Upset Contrast Media Allergy Severe Anaphylaxis Uncoded 03/05/25 13:03 Review of Systems Review of Systems: Pertinent positives per HPI. Patient denies any fever, chills, rash, headache, visual changes, dizziness, cough, runny nose, sore throat, shortness of breath, chest pain, palpitations, nausea, vomiting, diarrhea, constipation, abdominal pain, or any urinary issues. [facility] Past Medical History Medical History Neuropathy of left foot Anemia Anxiety Depression Hypothyroid Rheumatoid arthritis Arthritis Crohn's disease Pneumonia Bronchitis HTN (hypertension) HLD (hyperlipidemia) Trigeminal neuralgia of left side of face Brain tumor Hyperparathyroidism Osteoporosis Surgical History Surgical History H/O parathyroidectomy Family History Family History Sibling Family history of lung cancer Family history of malignant neoplasm of brain Family history of obesity Family history of alcoholism Family history of malignant neoplasm Father Family history of lung disease Depression Family history of alcoholism Mother Acute myocardial infarction Family history of osteoporosis Family history of mental disorder Depression Family history of glaucoma Family history of elevated blood lipids Family history of liver disease Cerebrovascular accident Family history of diabetes mellitus in first degree relative Family history of congestive heart failure Family history of heart disease in male family member before age 55 Other Diabetes mellitus Family history of cardiovascular disease Family history of tuberculosis Hypertension Social History Social History Smoking status: Never smoker Alcohol intake: never Substance use: never Lack of Transportation: No Lack of Food: Never True Current Housing: I Have Housing Concerned About Future Housing: No Difficulty Paying Gas/Electric Bills: No Difficulty Paying for Meds: No Currently Unemployed: No Education: Bachelor's Degree Difficulty w/ Childcare or Family Care: No Additional occupation/education comments: 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 There is no relevant family history pertinent to the patient complaint. Exam Narrative: General: Well-developed, well nourished, in no apparent distress Head: Normocephalic, atraumatic. Cardio: Regular rate and rhythm, s1 and s2 normal, no murmur appreciated. Resp: Clear to auscultation bilaterally, no rhonchi, rales, wheezing or rubs. Musculoskeletal: No deformity, no bruising or swelling noted, even rise and fall of the chest wall with inspiration/expiration, tender to palpation over the left anterior ribs just below the left breast, grossly normal range of motion, muscle strength strong and equal, peripheral pulse strong, no edema, no cyanosis, normal gait and station Course Course Emergency Course: Portions of this record may have been created with voice recognition software. Level of Care: Express Care Visit Vital Signs Vital signs: Vital Signs Temperature 36.8 C 03/05/25 12:55 Pulse Rate 73 03/05/25 12:55 Respiratory Rate 18 03/05/25 12:55 Blood Pressure 154/71 H 03/05/25 12:55 Pulse Oximetry 100 03/05/25 12:55 Oxygen Delivery Room Air 03/05/25 12:55 Temperature 36.8 C 03/05/25 12:55 Pulse Rate 73 03/05/25 12:55 Respiratory Rate 18 03/05/25 12:55 Blood Pressure 154/71 H 03/05/25 12:55 Pulse Oximetry 100 03/05/25 12:55 Oxygen Delivery Room Air 03/05/25 12:55 Vital signs reviewed MDM - Fall MDM Narrative Medical decision making narrative: At the time of visit patient is resting comfortably on the exam table. Patient appears to be nontoxic. C/o left rib pain after ground level fall 1 week ago . She reports she has been taking Tylenol for pain. States there is pain over the left anterior ribs just under her breast. Rates pain currently an 8/10. Hurts the cough or take a deep breath. Denies any shortness of breath. On exam patient has tenderness to palpation over the left anterior ribs just below the left breast, even rise and fall of the chest wall, no bruising or swelling noted. X-ray of the left ribs were ordered Diagnostics: X-ray of the left ribs was ordered and was negative for any acute fracture or malalignment of the left ribs. No sign of pneumonia or pneumothorax. Plan: I suspect patient has left rib contusion. Supportive measures were discussed with the patient and they voiced understanding discharge instructions and agrees to treatment plan. Return precautions reviewed Differential Diagnosis Differential diagnosis: Likely other (rib fracture, rib contusion, tension pneumo, chest wall pain, contusion) Imaging Data Radiologist's impression: ITS Impressions Ribs X-Ray 03/05/25 13:26 IMPRESSION: 1. No acute findings. Discharge Plan Discharge Clinical Impression: Contusion of rib on left side Qualifiers: Encounter type: initial encounter Qualified Code(s): S29.8XXA - Other specified injuries of thorax, initial encounter Patient Disposition: Home Condition: Stable Instructions: Antibiotic Form, Rib Contusion (ED) Additional Instructions: X-rays negative for any acute fracture or malalignment of the left ribs. No sign of pneumothorax. May continue Tylenol as needed for pain May use heat or ice to the affected area May use blue emu, lidocaine patches, or asper cream to affected area- do not apply heat or ice directly over cream- can cause burn. May splint the area when coughing and taking deep breaths. Follow up with your PCP in 3-5 days if symptom persist. Patient Language: Portuguese Prescriptions: No Action Simponi 50 mg/0.5 mL pen injector 50 mg SUB-Q MONTHLY Rx Instructions: TAKES ON OF EACH MONTH folic acid 1 mg tablet 1 mg PO DAILY cholecalciferol (vitamin D3) 2,000 unit tablet 2,000 unit PO DAILY amlodipine [Norvasc] 10 mg tablet 10 mg PO HS atorvastatin 20 mg tablet PO carbamazepine [Carbatrol] 300 mg capsule, ER multiphase 12 hr 300 mg PO Q12H Qty: 180 2RF prednisone 5 mg tablet 5 mg PO DAILY topiramate 25 mg tablet 75 mg PO BID Qty: 540 3RF trazodone 50 mg tablet 50 mg PO QHS PRN (Reason: insomnia) Qty: 90 2RF cyanocobalamin (vitamin B-12) 1,000 mcg/mL solution 1,000 mcg subcut MONTHLY Qty: 3 3RF lorazepam 0.5 mg tablet 0.5 mg PO BID PRN (Reason: Anxiety) Qty: 60 1RF calcium carbonate 500 mg calcium (1,250 mg) Tablet 500 mg PO BID diphenhydramine HCl [Benadryl Allergy] 25 mg tablet 25 mg PO Q6H PRN (Reason: Allergy Symptoms) levothyroxine 175 mcg tablet 175 mcg PO .COMPLEX 90 Days Qty: 90 3RF Rx Instructions: 175 mcg orally one pill from Thursday to Thursday 6 days a week,skip Sundays Follow-up/Referrals: Gwendolyn Pulido, TRANSMISSION AND PROTECTION ENGINEER-C [Primary Care Provider, [facility]] Time of Disposition: 13:38 Quality NIHSS Nursing Documentation ED NIHSS nursing documentation: reviewed/agree
--- OUTSIDE RECORDS SUMMARY | 2025-03-05 12:51 | XMS_ITS | Clinical Summary ---
Author Organization [facility] D Address [address] [place] [address] Care Team Providers Care Talcer Name Role Phone Gwendolyn Pulido CANE FLUME FEEDING MACHINE OPERATOR Primary Care Provider [phone] Allergies Active Allergy Reactions Criticality Noted Date [...] 1 tablet (175 mcg total) by mouth windows support engineer before breakfast Active acetaminophen 500 mg capsule [...] 04/21/2024 Assessment & Plan (04/21/2024 9:00 AM TOP PRECIPITATOR OPERATOR): Encourage routine vaccinations. Follow up with [...] MTX and Plaquinil; Will discuss with pts surgical technologist Dr. Bony villafuerte [phone] Fatigue 07/08/2023 Female pelvic pain 07/08/2023 Hypercalcemia 07/08/2023 Hyperlipidemia 09/11/2022 Encounter for long-term (cur rent) use of high-risk medication 07/16/2022 Assessment & Plan (04/21/2024 9:00 AM TOP PRECIPITATOR OPERATOR): Long-term use of high-risk medication requiring regular monitoring. Labs ordered, no s/s of med tox or infection. Encouraged to work with PCP to make sure all recommended cancer screens and vaccinations are complete. Avoid live-vaccines unless reviewed with surgical technologist first. Assessment & Plan (07/16/2022 2:27 PM TOP PRECIPITATOR OPERATOR): Long-term use of high-risk medication requiring regular monitoring. Labs ordered, no s/s of med tox or infection. Encouraged to work with PCP to make sure all recommended cancer screens and vaccinations are complete. Avoid live-vaccines unless reviewed with surgical technologist first. Did have a follow up MRI [...] (06/29/2018): Added automatically from request for surgery [id number] Crohn's disease of colon 10/22/2015 Overview (09/18/2016): Crohn's colitis Gastroesophageal reflux disease 10/22/2015 Overview (09/19/2016): ESOPHAGEAL REFLUX Rheumatoid arthritis involving multiple joints 0 10/22/2015 Overview (09/19/2016): RHEUMATOID ARTHRITIS Assessment & Plan (04/21/2024 8:59 AM TOP PRECIPITATOR OPERATOR): Stable on simponi and prednisone 5 mg daily, continue same, continue to monitor. Encourage work toward weaning off prednisone, down to 2.5 mg daily and then off / just prn. Encourage calcium/vitamin D and weight bearing exercise to help with osteoporosis reduction. Assessment & Plan (07/16/2022 2:28 PM TOP PRECIPITATOR OPERATOR): Stable on simponi and prednisone 5 [...] Description 02/21/2025 1:00 PM CDT Office Visit [facility] Cardiology [address] [place] [phone] Denise Shelton NP Family history of early CAD; Pure hypercholesterolemi a; Essential hypertension 02/07/2025 11:30 AM CDT Office Visit [facility] Neuro Sleep [address] [place] [address] 6th [address] [place] [address] Mac Schwartz MD IRLANDA on CPAP (Primary Dx); Dream enactment behavior; Insomnia, unspecified type; RLS (restless legs syndrome) 12/14/2024 Results Follow-Up [facility] Cardiology [facility] [facility] [address] [address] Tatiana Moran NP Stress Echo Exercise W Doppler/CF 12/13/2024 1:00 PM CDT Ancillary Procedure [facility] Cardiology [address] [place] [phone] Chest pressure; Family history of early CAD 12/07/2024 11:50 AM CDT Lab [facility] Outpatient Lab [address] [place] [address] Rheumatoid arthritis involving multiple joints (HCC); Encounter for long-term (current) use of high-risk medication 12/07/2024 11:00 AM CDT Office Visit [facility] Rheumatology at [facility] [address] [facility] [address] [place] [address] Angela Traore MD Rheumatoid arthritis [...] 7 Thierno (Age 64) suspect fa [place] Daughter 1 beau Daughter 2 beau Alive [...] on file Legal Sex Female 5:17 PM TOP PRECIPITATOR OPERATOR Gender Identity Not on file Sexual [...] Group Cardiology [address], [place] [address] [address] [facility] [address], [place] [address] P:[phone] P:[phone] Echocardiographic Report Patient Name: BROOKE KARIMI J : 1955 Study Date: 12/13/2024 1:05:45 PM Gender: F Pathological Technician: Sarah Lemons)(CT), [facility] Location: [facility] Provider: SIMA LIZ Height(Cm): 157 BSA: 1.76 [...] BP - 184/84 Rate Pressure Product - 16165 METS Achieved - 7.00 Percent Predicted Maximal HR Achieved - 109 % Interpretation Site: Exam was interpreted at [facility]. Performance: Average exercise functional capacity. Hemodynamic Response: [...] chamber size is smaller. CONCLUSIONS: Protocol - Shuail Protocol. Exercise Time - 6.38 min. Baseline Heart Rate - 78. Peak Heart Rate - 133. Predicted Maximal Heart Rate - 151. 85% MPHR - 128. Baseline BP - 162/82. Peak BP - 184/84. Rate Pressure Product - 19072. METS Achieved - 7.00. Percent Predicted Maximal [...] %. Electronically Signed By: Adam Roldan MD, [facility] 12/13/2024 3:09:23 PM CDT Procedure Note Adam Roldan MD - 12/13/2024 [facility] Cardiology [address] [facility] [address], [place] [address] [address] [facility] [address], [place] [address] P:[phone] P:[phone] Echocardiographic Report Patient Name: BROOKE KARIMI J : 1955 Study Date: 12/13/2024 1:05:45 PM Gender: F Pathological Technician: Sarah Lemons)(CT), [facility] Location: [facility] Provider: SIMA LIZ Height(Cm): 157 BSA: 1.76 [...] BP - 184/84 Rate Pressure Product - 07722 METS Achieved - 7.00 Percent Predicted Maximal HR Achieved - 109 % Interpretation Site: Exam was interpreted at [facility]. Performance: Average exercise functional capacity. Hemodynamic Response: [...] BP - 184/84. Rate Pressure Product - 23478. METS Achieved - 7.00.Percent Predicted Maximal HR [...] %. Electronically Signed By: Adam Roldan MD, [facility] 12/13/2024 3:09:23 PM CDT us Sima [...] BLOOD ORDERABLES Final Result Performing Organization Address [facility] Co de Phone Number [place] [phone] [place] [address] * Erythrocyte sedimentation rate (12/07/2024 12:18 PM CDT) Pathologist [facility] Erythrocyte sedimentation rate 15 1 - 30 mm/hr Blood 12/07/2024 12:1 8 PM CDT 12/07/2024 12:18 PM CDT Angela Traore MD LAB BLOOD ORDERABLES Final Result Performing Organization Address [facility] Co de Phone Number [facility] [address] Department [place] [employer] [place] [address] * (ABNORMAL) CBC without differential (12/07/2024 12:18 PM CDT) [facility] WBC 8.78 3.80 - 9.90 K/cumm Hgb 12.1 11.9 - 15.5 g/dL [facility] Hct 37.0 35.6 - 45.5 % [facility] Plt 288 150 - 400 K/cumm [facility] MPV 10.6 9.1 - 12.3 fL [facility] RBC 3.79(L) 3.90 - 5.20 M/cumm [facility] MCV 97.6(H) 81.3 - 96.4 fL [facility] MCH 31.9 27.1 - 33.3 pg [facility] MCHC 32.7 32.3 - 35.7 g/dL [facility] RDW CV 12.8 11.1 - 14.9 % [facility] RDW SD 46.3 35.7 - 48.1 fL [facility] NRBC abs 0.00 0.00 - 0.01 K/cumm [facility] Blood 12/07/2024 12:1 8 PM CDT 12/07/2024 12:18 PM CDT us Angela Traore MD LAB BLOOD ORDERABLES Final Result [facility] [address] Department [place] [address] * Comprehensive metabolic panel (12/07/2024 12:18 PM CDT) [facility] Sodium 135 135 - 145 mmol/L Potassium, pl 3.7 3.3 - 4.9 mmol/L [facility] Chloride 100 97 - 110 mmol/L [facility] CO2 22 22 - 32 mmol/L [facility] Anion gap 13 2 - 15 mmol/L [facility] BUN 10 6 - 25 mg/dL [facility] Creatinine 0.68 0.60 - 1.10 mg/dL [facility] Glucose 99 70 - 199 mg/dL [facility] Comment: Interpretive Data Fasting glucose >/= 126 [...] 2022. Calcium 9.6 8.5 - 10.3 mg/dL [facility] Bilirubin, total 0.3 0.1 - 1.2 mg/dL [facility] Protein, pl 7.6 6.5 - 8.5 g/dL [facility] Albumin 4.2 3.5 - 5.0 g/dL [facility] Alk phos 123 40 - 130 Units/L [facility] ALT 16 7 - 45 Units/L [facility] AST 18 10 - 45 Units/L [facility] Blood 12/07/2024 12:1 8 PM CDT 12/07/2024 12:18 PM CDT us Angela Traore MD LAB BLOOD ORDERABLES Final Result [facility] [address] [place] [address] * Serum Hepatitis panel (08/30/2015 11:58 AM [...] Recently Relevant to Health Maintenance Insurance [facility] MEDICARE MEDICARE FOR LIFE MEDICARE [facility] Address: [facility] [address] [place] [address] [facility] Advance Directives For more information, please contact: [phone] * Full Code (Latest Code Status on File) Date Activated Date Inactivated Comments 07/23/2018 10:37 AM 07/23/2018 9:42 PM Care Teams Talcer Relationship Specialty Start Date End Date Gwendolyn Pulido, IVA [address] [place] [address] PCP - General Family Medicine 04/21/24
--- OUTSIDE RECORDS SUMMARY | 2025-03-05 12:51 | XMS_ITS | Clinical Summary ---
Author Organization [facility] Address [address] [place] [address] Phone Care Team Providers Care Manager In Training Name Role Phone Ankit Smith MD Primary Care Provider [phone] Allergies Active Allergy Reactions Criticality Noted Date [...] age to complete this topic Care Teams Manager In Training Relationship Specialty Start Date End Date Ankit Smith MD [address] [place] [address] PCP - General Internal Medicine 02/13/13
--- OUTSIDE RECORDS SUMMARY | 2025-03-05 12:51 | XMS_ITS | Encounter Summary ---
Author Organization [facility] Health Address [address] [place] [address] Care Team Providers Care Felting Machine Operator Name Role Phone Base, [facility] Primary Care Provider [phone] [facility], [address] [place] [address] Primary Care Prov ider Shavon Lynch Primary Care Pr ovider Encounter Details Date Type Department Care Team (Late st Contact Info) Description 11/16/2017 Telephone [facility] [address] [place] [address] Inocencia Wade MD [address] [place] [place] [address] Social History Tobacco Use Types Packs/Day Years Used Date Smoking Tobacco: Never Assessed Comments Unknown Sex and Gender Information Value Date Recorded Sex Assigned at Not on file Legal Sex Female 6:29 AM REED PRESS FEEDER Gender Identity Not on file Sexual Orientation Not on file documented as of this encounter Plan of Treatment Upcoming Encounters Date Type Department Care Team (Late st Contact Info) Description 03/18/2025 1:15 PM CDT Appointment [facility] Imaging Services - MRI [address] [place] [address] [place] [address] [address] 06/01/2025 11:00 AM REED PRESS FEEDER Office Visit [facility] [address] [facility] [address] [place] [address] [place] [address] [facility] [address] [address] [place] [address] documented as of this encounter Visit Diagnoses Not on filedocumented in this encounter Care Teams Felting Machine Operator Relationship Specialty Start Date End Date Base, [place], [place] PCP - General 11/16/17 12/16/[address] [place], [place] [address] PCP - General 12/17/17 10/27/22 Shavon Lynch PA [address] [place] [id number] PCP - General Physician Tow Truck Dispatcher 10/28/22 documented as of this encounter
--- OUTSIDE RECORDS SUMMARY | 2025-03-05 12:51 | XMS_ITS | Encounter Summary ---
Author Organization [facility] Address [address] [facility] [place] [address] Care Team Providers Care Floor Layer Apprentice Name Role Phone Shavon Lynch Primary Care Pr ovider Reason for Visit * Reason Onset Date Comments MEDICATION REFILL 12/09/2023 Encounter Details Date Type Department Care Team (Late st Contact Info) Description 12/09/2023 Telephone [facility] Neurology [address] [place] [address], [place] [address] Inocencia Wade MD [address] [place] [address] [place] [phone] MEDICATION REFILL Social History Tobacco Use Types [...] on file Legal Sex Female 6:29 AM BATTING MACHINE OPERATOR INSULATION Gender Identity Not on file Sexual Orientation Not on file Occupation Industry Job Start Date Job End Date Retired Not on file Not on file Not on file documented as of this encounter Miscellaneous Notes * Telephone Encounter - Gladis-Croft, Marely - 12/09/2023 9:22 AM CDT Patient called in requesting a Med refill. Drug type:carbamazepineER 300 mg Pharmacy:[facility] Patient call back number: [phone] . Upcoming appointment scheduled for : 09/13/24 documented in this encounter Plan of Treatment Upcoming Encounters Date Type Department Care Team (Late st Contact Info) Description 03/18/2025 1:15 PM CDT Appointment [facility] Health Imaging Services - MRI [address] [place] [address] [place] [address] [facility] [address] [place] [address] 06/01/2025 11:00 AM BATTING MACHINE OPERATOR INSULATION Office Visit [facility] Health Neurosciences [address] [facility] [address] [place] [address] [place] [address] [facility] [address] [place] [address] documented as of this encounter Visit Diagnoses Not on filedocumented in this encounter Care Teams Floor Layer Apprentice Relationship Specialty Start Date End Date Shavon Lynch PA [address] [place] [id number] PCP - General Physician Correspondence School Teacher 10/28/22 documented as of this encounter
--- OUTSIDE RECORDS SUMMARY | 2025-03-05 12:51 | XMS_ITS | Patient Health Record ---
Author Organization [facility] Address [address] [place] [address] Care Team Providers Care Defense Attorney Name Role Phone Asha Shepherd Unavailable [phone] Reason For Referral No Information Medications Medication SIG (Take, Route, Frequency, Duration) Notes Start Date End Date Status traZODone HCl 50 MG Tablet Oral 07/11/2021 Active Carbatrol 300 MG Capsule Extended Release 12 Hour Oral 07/11/2021 Active Venlafaxine HCl ER 75 MG Capsule Extended Release 24 Hour Oral 07/11/2021 Active Losartan Potassium 100 MG Tablet Oral 07/11/2021 Active Coreg *Pick strength-form from [employer] for eRX* 07/11/2021 Active Topiramate 25 MG Tablet Oral 07/11/2021 Active Simponi 50 mg/0.5 mL Solution Auto-injector Subcutaneous 07/11/2021 Active Norvasc 10 MG Tablet Oral 07/11/2021 Active Synthroid 175 MCG Tablet Oral 07/11/2021 Active predniSONE 5 MG Tablet Oral 07/11/2021 Active LORazepam 0.5 MG Tablet Oral 07/11/2021 Active Immunizations Vaccine Route Administration Date Status Comme nts Pfizer Biontech Covid-19 Vac cine 2nd dose Unknown 08/09/2020 Administered Pfizer Biontech Covid-19 Vac cine 2nd dose Unknown 08/30/2020 Administered Pfizer Biontech Covid-19 Vac cine 2nd dose Unknown 03/01/2021 Administered Influenza virus vaccine, quadrivalent (IIV4), split virus, 0.25 mL dosage Unknown 03/15/2021 Administered Social History Social History Additional Details Category Social Info Options Details Migrated Social History Migrated Social History Alcohol Intake: None 06/11/2021,Tobacco Years: Never smoker 06/11/2021 Plan Of Treatment No Information Insurance Providers Payer Name Payer Address Payer Phone Subscriber Number Group Number Insured Name Patient Relationship to Insured Coverage Start Date Coverage End Date Medicare-I l [place] [address] [place] [phone] [id number] VALENTINO YBARRA CALLIE Self - patient is the insured [facility] [address] [place] [address] [id number] VALENTINO YBARRA CALLIE Self - patient is the insured Medical (General) History Surgical History Surgery Date(Month/Year) Any surgical history Unlisted procedure breast (89123) Thyroidectomy ([id number]) 06/15/1976 Excision of tumor of brain meninges ([id number]) 06/15/1985 Parathyroidectomy ([id number]) 06/15/2018 Neurosurgery 07/16/1985 Other 07/17/2018
--- OUTSIDE RECORDS SUMMARY | 2025-03-05 12:51 | XMS_ITS | Encounter Summary ---
Author Organization [facility] Address [address] [place] [address] Phone Care Team Providers Care Nuclear Instructor Name Role Phone Angela Traore MD Primary Care Provide r Hair Mcdaniels MD Primary Care Provider [phone] Dong Cutler MD Primary Care Provider [phone] Kandice Alberto MD Primary Care Provider [phone] Shavon George Primary Care Pr ovider Gwendolyn Pulido NP Primary Care Provider [phone] Encounter Details Date Type Department Care Team (Late st Contact Info) Description 08/14/2017 Orders Only [facility] ProviderZeeshan MD [address] [place] [address] Social History Tobacco Use Types Packs/Day Years Used Date Smoking Tobacco: Never Smokeless Tobacco: Never Alcohol Use Standard Drinks/Week Comments No 0 (1 standard drink = 0.6 oz pur e alcohol) Comments Unknown Sex and Gender Information Value Date Recorded Sex Assigned at Not on file Legal Sex Female 5:17 PM WEB ANALYST Gender Identity Not on file Sexual Orientation Not on file documented as of this encounter Plan of Treatment Not on file documented as of this encounter Procedures Procedure Name Priority Date/Time Associated Diagnosis Comments DISCHARGE LABORATORY CUMULATIVE REPORT 08/14/2017 12:00 AM WEB ANALYST documented in this encounter Results * DISCHARGE LABORATORY CUMULATIVE REPORT (08/14/2017 12:00 AM WEB ANALYST) Narrative 08/14/2017 12:00 AM WEB ANALYST Ordered by an unspecified provider. us Historical Provider LAB BLOOD ORDERABLES Nayeli l Result documented in this encounter Visit Diagnoses Not on filedocumented in this encounter Care Teams Nuclear Instructor Relationship Specialty Start Date End Date Angela Traore MD [address] [place], [place] [id number] PCP - General 08/14/17 12/10/17 Hair Mcdaniels MD [address] [facility] [address] [place] [address] PCP - General Internal Medicine 12/11/17 07/05/19 Dong Cutler MD [address] [facility] [address] [place] [address] PCP - General Internal Medicine 07/06/19 02/01/20 Kandice Alberto MD [address] [place] [id number] PCP - General Internal Medicine 02/02/20 04/02/20 Shavon George PA [address] [place] [id number] PCP - General Physician Bingo Floater 04/03/20 04/20/24 Gwendolyn Pulido, ONLINE MERCHANT [address] [place] [address] PCP - General Family Medicine 04/21/24 documented as of this encounter
--- OUTSIDE RECORDS SUMMARY | 2025-03-05 12:51 | XMS_ITS | Clinical Summary ---
Author Organization [facility] Address [address] [place] [address] Care Team Providers Care Information Security Systems Instructor Name Role Phone Shavon Lynch Primary Care Pr ovider Source Comments [facility],non-owned Affiliates and Associated Physician Practices is amultiple site organization consisting of ambulatory clinics and hospital sitesin [place], [place], [place] and [place]. This disclosure is being madepursuant to the Care Everywhere program and may not contain all information available regarding this patient. Last updated 18.[facility] Allergies Active Allergy Reactions Criticality Noted Date [...] nightly as needed 8 Active vitamin D, cholecalciferol , 2000 UNITS tablet 1 (one) tablet once daily 8 Active amLODIPine (Norvasc) 10 MG tablet Take 1 (one) tablet by mouth once daily Active predniSONE (DELTASONE) 5 MG tablet 1 (one) tablet once daily 8 Active albuterol HFA (PROVENTIL;VENT NELL;PROAIR) 108 (90 Base) MCG/ACT inhaler INHALE 1-2 [...] Active carBAMazepine ER 12hr (Carbatrol) 300 MG capsuleIndicati ons:Trigeminal neuralgia Take 1 (one) capsule by mouth every 12 hours 180 capsule 3 5 07/30/19 26 Active cyanocobalamin (Vitamin B-12) injectionIndica tions:Numbness Inject 1,000 (one thousand) mcg into muscle every 30 days 3 mL 3 5 Active topiramate (Topamax) 25 MG tabletIndicatio ns:Trigeminal neuralgia,Migra ine without aura and without status migrainosus, not intractable Take 3 (three) tablets by mouth 2 times daily 180 tablet 11 5 Active donepezil (Aricept) 5 MG tabletIndicatio ns:Memory loss Take 1 (one) tablet by mouth once daily 90 tablet 4 5 Active topiramate (Topamax) 25 MG tabletIndicatio ns:Trigeminal neuralgia,Migra ine without aura and without status migrainosus, not intractable Take 3 (three) tablets by mouth 2 times daily 180 tablet 11 5 03/01/20 25 Discontinu ed(Reorder ) Active Problems Problem Noted Date Diagnosed Date [...] Encounters Date Type Department Care Team Description 03/01/2025 12:20 PM CDT Office Visit [facility] [address] [place] [address] Keo Vega MD Memory loss (Primary Dx); Numbness; Trigeminal neuralgia; Migraine without aura and without status migrainosus, not intractable; Abnormal MRI, cervical spine 12/11/2024 Results Follow-Up [facility] [address] [place] [address] Keo Vega MD from Last 3 Months Immunizations Immunization Administration [...] Not Answered Alcohol Use Standard Drinks/Week Comments Never 0 [...] on file Legal Sex Female 6:29 AM LIFE INSURANCE UNDERWRITER Gender Identity Not on file Sexual Orientation Not on file Occupation Industry Job Start Date Job End Date Retired Not on file Not on file Not on file Last Filed Vital Signs Vital Sign Reading Time Taken Comments Blood Pressure 140/78 03/01/2025 12:28 PM CDT Pulse 63 03/01/2025 12:28 PM CDT Temperature 36.1 C (97 F) 10/28/2022 10:55 AM CDT Respiratory Rate 14 11/03/2024 1:08 PM CDT Oxygen Saturation 98% 03/01/2025 12:28 PM CDT Inhaled Oxygen Concentration - - Weight 69.9 kg (154 lb) 03/01/2025 12:28 PM CDT Height 157.5 cm (5' 2) 03/01/2025 12:28 PM CDT Body Mass Index 28.17 03/01/2025 12:28 PM CDT Plan of Treatment Upcoming Encounters Date Type Department Care Team (Late st Contact Info) Description 03/18/2025 1:15 PM CDT Appointment [facility] Health Imaging Services - MRI [address] [place] [address] [place] [address] [place] [address] 06/01/2025 11:00 AM LIFE INSURANCE UNDERWRITER Office Visit [facility] Health Neurosciences [address] [place] [address] [place] [address] [place] [address] Health Maintenance Due Date Last Done [...] 06/15/2024 SCREENING FOR DIABETES 11/03/2024 COVID-19 VACCINE ( season) 2025 12/03/2021, 03/01/2021, 08/30/2020, Additional history exists INFLUENZA VACCINE (#1) 2025 , 03/15/2021, 03/29/2019, Additional history exists COLOGUARD (AGES 45-75) - COLON CA SCREENING 10/18/2026 10/19/2023 Colorectal Cancer Screening 10/18/2026 DTAP/TDAP/TD VACCINES (3 - Td or Tdap) [...] Procedure Name Priority Date/Time Associated Diagnosis Comments TSH REFLEX FREE T4 Routine 03/01/2025 1: 42 PM CDT Memory loss VITAMIN B12 FOLATE PANEL Routine 03/01/2025 1:42 PM CDT Memory loss [id number] ERATION (ATN) PROFILE Routine 03/01/2025 1:42 PM CDT Memory loss CARBAMAZEPINE LEVEL TOTAL Routine 03/01/2025 1:41 PM CDT Memory loss TOPIRAMATE LEVEL Routine 03/01/2025 1:41 PM CDT Memory loss TREPONEMA PALLIDUM POS REFLX RPR Routine 03/01/2025 1:41 PM CDT Memory loss from Last 3 Months Results * [id number] (ATN) PROFILE (03/01/2025 1:42 PM CDT) Beta-amyloid 42/40 Ratio 0.132 >0.102 [facility] INSURANCE BILL Beta-amyloid 42 17.48 pg/mL [facility] Beta-amyloid 40 132.57 pg/mL [facility]URANCE BILL [id number] 0.66 0.00 - 0.97 pg/mL [facility] INSURANCE BILL NfL plasma 3.13 0.00 - 3.65 pg/mL [facility] INSURANCE BILL ATN Summary Comment [facility] INSURANCE BILL Comment: A- T- N- A normal beta-amyloid 42/40 ratio and normal concentrations of [id number] and NfL were observed at this time. These results are not consistent with the presence of Alzheimer's- related pathology. Plasma findings may be less precise than CSF or PET. Additional assessments may be necessary. These tests are intended to be used only in the context of clinical care. Information Comment [facility] INSURANCE BILL Comment: Beta-amyloid 42 and Beta-amyloid 40: Plasma beta-amyloid 1-42/1-40 ratios less than or equal to 0.102 suggest a higher probability of a patient being clinically diagnosed with Alzheimer's Disease (AD), while values above 0.102 suggest a lower probability of AD diagnosis. Precise plasma testing of Beta-amyloid 42 and Beta-amyloid 40 has demonstrated comparable effectiveness to traditional cerebrospinal fluid testing and amyloid positron emission tomography (PET) scans. When assessing the risk of AD pathology as the underlying cause for mild cognitive impairment (MCI) or dementia, it is important to consider various factors such as medical and family history, nutritional deficiency biomarkers, neuroimaging, and physical, neurological, and neuropsychological examinations. These tests were developed and their performance characteristics determined by [facility]. They have not been cleared or approved by the Food and Drug Administration. * METHODOLOGY: Beta-amyloid 42/40 Ratio: Sysmex Chemiluminescence Enzyme Immunoassay (CLEIA) NfL and [id number]: Tests performed by [facility] Electrochemiluminescence Immunoassay (ECLIA). Values obtained with different methods cannot be used interchangeable. These tests were developed and their performance characteristics determined by [facility]. They have not been cleared or approved by the Food and Drug Administration. * [id number] INFORMATION: For individual 0-55 years of age: 0.00-0.95 pg/mL Reference interval is based on a population of ostensibly healthy individuals aged 20 to 55 years For individual greater than 55 years of age: 0.00-0.97 pg/mL Results greater than the clinical cut-off of 0.97 pg/mL in patients greater than 55 years of age are correlated with Abeta amyloid pathology as determined by amyloid PET imaging. * 1. Interpretation comments are based on a consensus between National Butler for Age and the Internation Working Group recommendations for ATN panel interpretation published by Ghanshyam et al 2018 and updated in Brittany et al 2020. * Brittany H, Neisha J, Chelsea Padilla, Jhon P, Ghanshyam JENSEN Jr, George A. Developing the ATX(N) classification for use across the Alzheimer disease continiuum. Char Rev Neurol. 2020;17(9):580-589. Ghanshyam JENSEN Jr, Vladimir MATUTE, Chelsea Padilla, et al. A/T/N: An unbiased descriptive classification scheme for Alzheimer disease biomarkers. Neurology. 2016 Jan 2;87(5):539-547. Blood BLOOD SPECIMEN / Unknown 03/01/2025 1:42 PM CDT 03/01/2025 Narrative [facility] INSURANCE BILL - 03/04/2025 6:09 AM CDT Performed at: 01 - [address] [id number] Monogram Maker: Hernandez Flaherty MD, Phone: [phone] Keo Vega MD LAB - CHEMISTRY ORDERABLES Final Result [facility] INSURANCE BILL [address] [place] [address] * TSH REFLEX FREE T4 (03/01/2025 1:42 PM CDT) Pathologist [facility] TSH 0.781 0.350 - 4.940 uIU/mL [facility] INSURANCE BILL Blood BLOOD SPECIMEN / Unknown 03/01/2025 1:42 PM CDT 03/01/2025 Narrative [facility] INSURANCE BILL - 03/01/2025 11:08 PM CDT Performed at: [address] [place] [address] [place] [id number] Monogram Maker: Raz Saravia [facility], Phone: [phone] Keo Vega MD LAB - CHEMISTRY ORDERABLES Final Result Performing Organization Address [facility] Co de Phone Number [facility] INSURANCE BILL [address] [place] [address] * VITAMIN B12 FOLATE PANEL (03/01/2025 1:42 PM CDT) Pathologist [facility] Vitamin B12 646 213 - 816 pg/mL [facility] INSURANCE BILL Folate 18.7 7.0 - 31.4 ng/mL [facility] INSURANCE BILL Blood BLOOD SPECIMEN / Unknown 03/01/2025 1:42 PM CDT 03/01/2025 Narrative [facility] INSURANCE BILL - 03/01/2025 11:08 PM CDT Performed at: [address] [place] [address] [place] [id number] Monogram Maker: Raz Saravia [facility], Phone: [phone] Keo Vega MD LAB - CHEMISTRY ORDERABLES Final Result Performing Organization Address City/[facility]/ZIP Co de Phone Number [facility] INSURANCE BILL [address] [place] [address] * TREPONEMA PALLIDUM POS REFLX RPR (03/01/2025 1:41 PM CDT) Pathologist [facility] T pallidum Antibody (TP-PA) Non Reactive Non Reactive [facility] INSURANCE BILL Blood BLOOD SPECIMEN / Unknown 03/01/2025 1:41 PM CDT 03/01/2025 Narrative [facility] INSURANCE BILL - 03/02/2025 9:08 PM CDT Performed at: [address] [place] [id number] Monogram Maker: Hernandez Flaherty MD, Phone: [phone] Keo Vega MD LAB - SEROLOGY ORDERABLES Final Result Performing Organization Address [facility] Co de Phone Number [facility] INSURANCE BILL [address] [place] [address] * TOPIRAMATE LEVEL (03/01/2025 1:41 PM CDT) Topiramate 3.1 2.0 - 25.0 ug/mL [facility] INSURANCE BILL Comment:Detection Limit = 1. 5 Blood BLOOD SPECIMEN / Unknown 03/01/2025 1:41 PM CDT 03/01/2025 Narrative [facility] INSURANCE BILL - 03/03/2025 10:11 AM CDT Performed at: [address] [place] [id number] Monogram Maker: Hernandez Flaherty MD, Phone: [phone] us Keo Vega MD LAB - THERAPEUTIC DRUG MONITORIN G ORDERABLES Final Result Performing Organization Address [facility] de Phone Number [facility] INSURANCE BILL [address] [place] [address] * CARBAMAZEPINE LEVEL TOTAL (03/01/2025 1:41 PM CDT) Carbamazepine 11.9 4.0 - 12.0 ug/mL [facility] INSURANCE BILL Comment: In conjunction with other antiepileptic drugs Therapeutic 4.0 - 8.0 Toxicity 9.0 - 12.0 Carbamazepine alone Therapeutic 8.0 - 12.0 Detection Limit = 2.0 <2.0 indicates None Detected Blood BLOOD SPECIMEN / Unknown 03/01/2025 1:41 PM CDT 03/01/2025 Narrative [facility] INSURANCE BILL - 03/02/2025 10:12 AM CDT Performed at: [facility] [address] [place], [place] [id number] Monogram Maker: Pola Aguilera PhD, Phone: [phone] us Keo Vega MD LAB - CHEMISTRY ORDERABLES Final Result [facility] INSURANCE BILL [address] [place] [address] from Last 3 Months Insurance [facility] MEDICARE MEDICARE MEDICARE [facility] Member Subscriber Plan / Payer (Ef fective for All Dates) Name:Brooke Karimi Member ID:Not on file Relation to Subscriber:Self Name:Brooke Karimi Subscriber ID:Not on file Payer ID:[id number] (NAIC) Group ID:Not on file Type:/ Address: [place] [phone] MEDICARE Member Subscriber Plan / Payer (Ef fective for All Dates) Name:Brooke Karimi Member ID:[id number] Relation to Subscriber:Self Name:Brooke Karimi Subscriber ID:[id number] Payer ID:Not on file Group ID:Not on file Type:Medicare Address: [place] [address] MEDICARE MEDICARE Care Teams Information Security Systems Instructor Relationship Specialty Start Date End Date Shavon Lynch PA [address] [place] [address] PCP - General Physician Book Binder 10/28/22
[2025-03-05 12:55] VITALS: BP 154/71; PULSE 73; RESP 18; TEMP 36.8; O2SAT 100
== END 2025-03-05 13:41 | disposition home or self-care (01) ==
PROVIDERS: Emergency Provider Nurse Practitioner Family; PCP Nurse Practitioner Family
DX: S20.212A Contusion of left front wall of thorax, initial encounter (principal); W18.30XA Fall on same level, unspecified, initial encounter; I10 Essential (primary) hypertension; E78.5 Hyperlipidemia, unspecified; E03.9 Hypothyroidism, unspecified; G62.9 Polyneuropathy, unspecified; M06.9 Rheumatoid arthritis, unspecified; E21.3 Hyperparathyroidism, unspecified; M81.0 Age-related osteoporosis without current pathological fracture; K50.90 Crohn's disease, unspecified, without complications; M19.90 Unspecified osteoarthritis, unspecified site; F41.9 Anxiety disorder, unspecified; F32.A Depression, unspecified
CPT/HCPCS: 71100; 99213; G0463

== ENCOUNTER 2025-04-19 08:43 | Emergency (ER) | payer MEDICARE, OTHER, SELFPAY ==
--- NOTE | ~2025-04-19 | CT_ITS ---
CT HEAD NON-CONTRAST CT C-SPINE Clinical History: fall Comparison: CT cervical spine 11/05/2021 CT brain 07/16/2020 Technique: Unenhanced axial images skull base to vertex. Coronal, sagittal reformats. Axial images thoracic inlet to skull base. Sagittal and coronal reformats. CT images acquired with automatic exposure control for dose reduction DLP: 530 mGy-cm Findings: Head: Left suboccipital craniotomy. Sulci, ventricles: Unremarkable. No intracerebral hemorrhage. No evidence acute territorial infarct. No mass effect, midline shift, intra-/extra-axial fluid collection. Visualized paranasal sinuses: Clear. Mastoid air cells: Clear. C-spine: No acute fracture or listhesis. Straightening of normal cervical lordosis. Moderate degenerative changes. Disc spaces maintained. Prevertebral soft tissues within normal limits. Visualized lung apices: Clear. Visualized thyroid: Atrophic and/or absent. No enlarged cervical nodes. IMPRESSION: HEAD: 1. No acute intracranial findings. C-SPINE: 1. No acute fracture. Reviewed, dictated and finalized at location [facility] IMPRESSION: HEAD: 1. No acute intracranial findings. C-SPINE: 1. No acute fracture.
[2025-04-19 08:50] VITALS: BP 200/83; PULSE 83; RESP 18; TEMP 36.3; O2SAT 100
--- OUTSIDE RECORDS SUMMARY | 2025-04-19 09:02 | XMS_ITS | Clinical Summary ---
Author Organization [facility] Address [address] [place] [address] Care Team Providers Care Scrap Worker Name Role Phone Gwendolyn Pulido MARINE OIL TERMINAL SUPERINTENDENT Primary Care Provider [phone] Allergies Active Allergy Reactions Criticality Noted Date [...] 1 tablet (175 mcg total) by mouth gis software developer before breakfast Active acetaminophen 500 mg capsule Take 2 capsules (1,000 mg total) by mouth every 6 (six) hours as needed for pain. Stop this medication last for pain management Active albuterol HFA (PROVENTIL HFA,VENTOLIN HFA,PROAIR HFA) [...] as needed for constipation (consti) 022 Active predniSONE (DELTASONE) 5 mg tabletIndications:Anti- inflammatory,autoimmune disease,rheumatoid arthritis Take 1 tablet (5 mg) by mouth daily 90 tablet 1 Active traZODone (DESYREL) 50 mg tablet Take 1 tablet (50 mg total) by mouth nightly as needed for sleep 30 tablet 5 025 2025 Active atorvastatin (LIPITOR) 20 mg tabletIndications:Famil y history of early CAD,Pure hypercholesterolemia Take 1 tablet (20 mg total) by mouth daily 90 tablet 3 025 2025 Active losartan (COZAAR) 25 mg tabletIndications:Essen tial hypertension Take 2 tablets (50 mg total) by mouth 2 (two) times a day Patient may adjust dose to 3 tabs daily based on BP readings. 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 Follow up with PCP. [...] MTX and Plaquinil; Will discuss with pts project product manager Dr. Bony otoole [phone] Fatigue 07/08/2023 Female pelvic pain 07/08/2023 Hypercalcemia 07/08/2023 Hyperlipidemia 09/11/2022 Encounter for long-term (cur rent) use of high-risk medication 07/16/2022 Assessment & Plan (04/21/2024 9:00 AM CARE TEAM COORDINATOR SCHEDULER): Long-term use of high-risk medication requiring regular monitoring. Labs ordered, no s/s of med tox or infection. Encouraged to work with PCP to make sure all recommended cancer screens and vaccinations are complete. Avoid live-vaccines unless reviewed with project product manager first. Assessment & Plan (07/16/2022 2:27 PM CARE TEAM COORDINATOR SCHEDULER): Long-term use of high-risk medication requiring regular monitoring. Labs ordered, no s/s of med tox or infection. Encouraged to work with PCP to make sure all recommended cancer screens and vaccinations are complete. Avoid live-vaccines unless reviewed with project product manager first. Did have a follow up [...] (06/29/2018): Added automatically from request for surgery [id number] Crohn's disease of colon 10/22/2015 Overview (09/18/2016): Crohn's colitis Gastroesophageal reflux disease 10/22/2015 Overview (09/19/2016): ESOPHAGEAL REFLUX Rheumatoid arthritis involving multiple joints 0 10/22/2015 Overview (09/19/2016): RHEUMATOID ARTHRITIS Assessment & Plan (04/21/2024 8:59 AM CARE TEAM COORDINATOR SCHEDULER): Stable on simponi and prednisone 5 mg daily, continue same, continue to monitor. Encourage work toward weaning off prednisone, down to 2.5 mg daily and then off / just prn. Encourage calcium/vitamin D and weight bearing exercise to help with osteoporosis reduction. Assessment & Plan (07/16/2022 2:28 PM CARE TEAM COORDINATOR SCHEDULER): Stable on simponi and prednisone 5 mg [...] Encounters Date Type Department Care Team Description 03/17/2025 Orders Only [facility] SLEEP Scanning, Provider 02/21/2025 1:00 PM CDT Office Visit [facility] Cardiology [address] [place] [address] Denise Shelton NP Family history of early CAD; Pure hypercholesterolemia; Essential hypertension 02/07/2025 11:30 AM CDT Office Visit [facility] [address] [place] [address] Mac Scwhartz MD IRLANDA on CPAP (Primary Dx); Dream enactment behavior; Insomnia, unspecified type; RLS (restless legs syndrome) from Last 3 [...] (Age 65) Father's Sister z Alive Mother Alvaro (Age 69) Mother's Sister 1 mallorie Alive [...] on file Legal Sex Female 5:17 PM CARE TEAM COORDINATOR SCHEDULER Gender Identity Not on file Sexual Orientation [...] Procedure Name Priority Date/Time Associated Diagnosis Comments SLEEP LAB/STUDY - RESULT 03/17/2025 4:58 PM CDT SERUM HEPATITIS PANEL Routine 08/30/2015 11:58 AM CDT from Last 3 Months or Most Recently Relevant to Health Maintenance Results * SLEEP LAB/STUDY - RESULT (03/17/2025 4:58 PM CDT) us Provider Scanning Final Result * Serum Hepatitis panel (08/30/2015 [...] Most Recently Relevant to Health Maintenance Insurance [email or web address] [facility] MEDICARE MEDICARE FOR LIFE MEDICARE FOR LIFE Advance Directives For more information, please contact: [phone] * Full Code (Latest Code Status on File) Date Activated Date Inactivated Comments 07/23/2018 10:37 AM 07/23/2018 9:42 PM Care Teams Scrap Worker Relationship Specialty Start Date End Date Gwendolyn Pulido, MARINE OIL TERMINAL SUPERINTENDENT [address] [place] [address] PCP - General Family Medicine 04/21/24
--- OUTSIDE RECORDS SUMMARY | 2025-04-19 09:02 | XMS_ITS | Clinical Summary ---
Author Organization [facility] Address [address] [place] [address] Phone Care Team Providers Care A/C Tech Name Role Phone Ankit Smith MD Primary Care Provider [phone] Allergies Active Allergy Reactions Criticality Noted Date [...] years 1-dose series) 2015 Influenza Immunization (#1) 02/13/202502/15, 03/29/2019 SARS-COV-2 Immunization ( - 2024- season) 2025 03/01/2021, 08/30/2020, 08/09/2020 Hepatitis B Immunization Aged [...] age to complete this topic Care Teams A/C Tech Relationship Specialty Start Date End Date Ankit Smith MD [address] [place] [address] PCP - General Internal Medicine 02/13/13
--- OUTSIDE RECORDS SUMMARY | 2025-04-19 09:02 | XMS_ITS | Patient Health Record ---
Author Organization [facility] [employer] [facility] Address [address] [place] [address] Care Team Providers Care Manifold Builder Name Role Phone Asha Shepherd Unavailable [phone] Reason For Referral No Information Medications Medication SIG (Take, Route, Frequency, Duration) Notes Start Date End Date Status traZODone HCl 50 MG Tablet Oral 07/11/2021 Active Carbatrol 300 MG Capsule Extended Release 12 Hour Oral 07/11/2021 Active Venlafaxine HCl ER 75 MG Capsule Extended Release 24 Hour Oral 07/11/2021 Active Losartan Potassium 100 MG Tablet Oral 07/11/2021 Active Coreg *Pick strength-form from [employer] for eRX* 07/11/2021 Active Topiramate 25 MG [...] End Date Medicare-I l Medicare [address] [place] [address] [id number] VALENTINO YBARRA CALLIE Self - patient is the insured [facility]ly [facility] [address] [place] [address] [id number] VALENTINO YBARRA CALLIE Self - patient is the insured Medical (General) History Surgical History Surgery Date(Month/Year) Any surgical history Unlisted procedure breast (20425) Thyroidectomy (62370760) 06/15/1976 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
--- OUTSIDE RECORDS SUMMARY | 2025-04-19 09:03 | XMS_ITS | Encounter Summary ---
Author Organization [facility] Address [address] [place] [address] Phone Care Team Providers Care Warp Doffer Name Role Phone Angela Traore MD Primary Care Provide r Hair Mcdaniels MD Primary Care Provider [phone] Dong Cutler MD Primary Care Provider [phone] Kandice Alberto MD Primary Care Provider [phone] Shavon George Primary Care Pr ovider Gwendolyn Pulido NP Primary Care Provider [phone] Encounter Details Date Type Department Care Team (Late st Contact Info) Description 08/14/2017 Orders Only [facility] ProviderZeeshan MD [address] [place] [address] Social History Tobacco Use Types Packs/Day Years Used Date Smoking Tobacco: Never Smokeless Tobacco: Never Alcohol Use Standard Drinks/Week Comments No 0 (1 standard drink = 0.6 oz pur e alcohol) Comments Unknown Sex and Gender Information Value Date Recorded Sex Assigned at Not on file Legal Sex Female 5:17 PM BRACELET MAKER NOVELTY Gender Identity Not on file Sexual Orientation Not on file documented as of this encounter Plan of Treatment Not on file documented as of this encounter Procedures Procedure Name Priority Date/Time Associated Diagnosis Comments DISCHARGE LABORATORY CUMULATIVE REPORT 08/14/2017 12:00 AM BRACELET MAKER NOVELTY documented in this encounter Results * DISCHARGE LABORATORY CUMULATIVE REPORT (08/14/2017 12:00 AM BRACELET MAKER NOVELTY) Narrative 08/14/2017 12:00 AM BRACELET MAKER NOVELTY Ordered by an unspecified provider. us Historical Provider LAB BLOOD ORDERABLES Nayeli l Result documented in this encounter Visit Diagnoses Not on filedocumented in this encounter Care Teams Warp Doffer Relationship Specialty Start Date End Date Angela Traore MD [address] [place], [place] [id number] PCP - General 08/14/17 12/10/17 Hair Mcdaniels MD [address] [facility] [address] [place] [address] PCP - General Internal Medicine 12/11/17 07/05/19 Dong Cutler MD [address] [facility] [address] [place] [address] PCP - General Internal Medicine 07/06/19 02/01/20 Kandice Alberto MD [address] [place] [id number] PCP - General Internal Medicine 02/02/20 04/02/20 Shavon George PA [address] [place] [address] PCP - General Physician Wireworker Supervisor 04/03/20 04/20/24 Gwendolyn Pulido, INCOME TAX ANALYST [address] [place] [address] PCP - General Family Medicine 04/21/24 documented as of this encounter
--- NOTE | 2025-04-19 11:31 | ED.HEATRA ---
HPI - Head Injury General Chief complaint: Head Injury Stated complaint: fall, hit head Time Seen by Provider: 04/19/25 11:22 Source: patient and family (daughter) Mode of arrival: ambulatory Limitations: no limitations History of Present Illness HPI Narrative: Patient presents after sustaining a fall in which she hit her head. She notes that she tripped while bending down and she struck her head on an object. History of brain surgery approximately 40 years ago through [facility] for which craniotomy performed;Boody holes. Notes that she had a hematoma close to these areas on her skull this caused her to be concerned, especially since afterwards she felt foggy and confused although this then resolved. Had also initially had light sensitivity, better now. Not on anticoagulation. Did not lose consciousness. Sees a neurologist at [facility]; states there was questionable seizure history previously. 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 No acute changes. She does take Norvasc for her hypertension and reports that she took it already this morning. She has taken no medications for pain prior to arrival and reports that her pain is 3/4 out of 10. After receiving Zofran for nausea she reports that her vision is somewhat strange, like it is after she has been reading too much. However, denies any frankly blurry or double vision. No curtain defect or flashes/floaters. She reports that covering either her eyes causes her symptoms to worsen. No history diabetes mellitus. Related Data Home Medications ?Medication ?Instructions ?Recorded ?Confirmed ?Last Taken ?Type cholecalciferol (vitamin D3) 50 2,000 unit PO DAILY 05/05/19 01/24/25 Unknown History mcg (2,000 unit) tablet folic acid 1 mg tablet 1 mg PO DAILY 05/05/19 01/24/25 Unknown History golimumab 50 mg/0.5 mL 50 mg subcut MONTHLY 05/05/19 01/24/25 Unknown History subcutaneous pen injector (Simponi) amlodipine 10 mg tablet (Norvasc) 10 mg PO HS 12/07/01/24/25 Unknown History calcium carbonate 500 mg PO BID 07/17/20 01/24/25 Unknown History diphenhydramine HCl 25 mg tablet 25 mg PO Q6H PRN Allergy Symptoms 07/17/20 01/24/25 Unknown History (Benadryl Allergy) prednisone 5 mg tablet 5 mg PO DAILY 03/05/23 01/24/25 Unknown History atorvastatin 20 mg tablet mg PO 08/07/23 01/24/25 Unknown History Allergies Allergy/AdvReac Type Severity Reaction Status Date / Time iodine Allergy Severe Anaphylaxis Verified 04/19/25 11:16 Penicillins Allergy Severe Anaphylaxis Verified 04/19/25 11:16 erythromycin base Allergy Unknown Hives Verified 04/19/25 11:16 ibuprofen Allergy Unknown Unknown Verified 04/19/25 11:16 aspirin AdvReac Severe Gastrointestinal Verified 04/19/25 11:16 Upset Contrast Media Allergy Severe Anaphylaxis Uncoded 03/05/25 13:03 [facility] Past Medical History Medical History Neuropathy of left foot Anemia Anxiety Depression Hypothyroid Rheumatoid arthritis Arthritis Crohn's disease Pneumonia Bronchitis HTN (hypertension) HLD (hyperlipidemia) Trigeminal neuralgia of left side of face Brain tumor Hyperparathyroidism Osteoporosis Surgical History Surgical History History of brain surgery Markell Myrick, nemesio 1984 H/O parathyroidectomy Family History Family History Sibling Family history of lung cancer Family history of malignant neoplasm of brain Family history of obesity Family history of alcoholism Family history of malignant neoplasm Father Family history of lung disease Depression Family history of alcoholism Mother Acute myocardial infarction Family history of osteoporosis Family history of mental disorder Depression Family history of glaucoma Family history of elevated blood lipids Family history of liver disease Cerebrovascular accident Family history of diabetes mellitus in first degree relative Family history of congestive heart failure Family history of heart disease in male family member before age 55 Other Diabetes mellitus Family history of cardiovascular disease Family history of tuberculosis Hypertension Social History Social History Alcohol intake: never Substance use: never Lack of Transportation: No Lack of Food: Never True Current Housing: I Have Housing Concerned About Future Housing: No Difficulty Paying Gas/Electric Bills: No Difficulty Paying for Meds: No Currently Unemployed: No Education: Bachelor's Degree Difficulty w/ Childcare or Family Care: No Additional occupation/education comments: 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 HEAD: Hematoma. Also previous skull irregularities from surgical procedures. EYES: Non injected, non icteric. EOMI. Visual acuity by RN. No ptosis. No entrapment. ENT: Nares clear, no rhinorrhea or epistaxis. Gross auditory acuity intact (although left diminished, baseline). NECK: Supple. No meningismus. CHEST: Speaking in full sentences. No respiratory distress. HEART: Regular rate and rhythm. ABDOMEN: Soft, nondistended. EXTREMITIES: Normal range of motion. No lower extremity edema. SKIN: Warm, dry, no rash. NEURO: No focal deficits. Alert and oriented. Answering questions. Following commands. Normal speech without aphasia or dysarthria. Facial asymmetry with loss of nasolabial fold. PSYCH: Congruent mood and affect. Course Vital Signs Vital signs: Vital Signs Temperature 97.4 F L 04/19/25 08:50 Pulse Rate 83 04/19/25 08:50 Respiratory Rate 18 04/19/25 08:50 Blood Pressure 200/83 H 04/19/25 08:50 Pulse Oximetry 100 04/19/25 08:50 Oxygen Delivery Room Air 04/19/25 08:50 Temperature 97.4 F L 04/19/25 08:50 Pulse Rate 71 04/19/25 13:32 Respiratory Rate 16 04/19/25 13:32 Blood Pressure 168/91 H 04/19/25 13:32 Pulse Oximetry 100 04/19/25 13:32 Oxygen Delivery Room Air 04/19/25 08:50 MDM - Head Injury MDM Narrative Medical decision making narrative: Patient presents after tripping and falling striking her head. History of brain surgery 40 years ago. In the emergency department she is afebrile with vital signs notable for hypertension, 200/83. Reports a history of hypertension and that she had just taken her BP med, Norvasc, before this occurred. Imaging negative. Symptoms improved at the time of assessment by medical student however at the time of my assessment, just after receiving Zofran for nausea, she had noted that her vision felt funny, like after she has been reading for too long. However, denies any blurred vision, diplopia, flashes, floaters, or curtain defect. There is an IT downtime which does cause a time delay however patient receives Tylenol 650mg, visual acuity is 20/30 in each / both eyes, and successfully PO challenges. Orthostats are reviewed and acceptable (initially hand-written); hypertensive but SBP in the 160s. RN noted that she was feeling better. Stable for DC. Differential Diagnosis Differential diagnosis: Likely concussion without loss of consciousness, epidural hematoma, closed head injury, subarachnoid hematoma, postconcussion syndrome, subdural hematoma and concussion with loss of consciousness Imaging Data Radiologist's impression: Impressions Cervical Spine CT 04/19/25 09:22 IMPRESSION: HEAD: 1. No acute intracranial findings. C-SPINE: 1. No acute fracture. Head CT 04/19/25 09:22 IMPRESSION: HEAD: 1. No acute intracranial findings. C-SPINE: 1. No acute fracture. Discharge Plan Discharge Clinical Impression: Head injury, acute Qualifiers: Encounter type: initial encounter Qualified Code(s): S09.90XA - Unspecified injury of head, initial encounter Patient Disposition: Home Condition: Stable Instructions: Antibiotic Form, Head Injury (ED) Additional Instructions: No bleeding in brain or fracture of C spine. Zofran can be taken for nausea. Acetaminophen/Tylenol (maximum 4000mg/day) is safe to take for pain. Follow up with your care team including PCP, neurologist, etc. Return to the ED with any new/worsening symptoms. Patient Language: Bahamian Prescriptions: New ondansetron 4 mg tablet,disintegrating 4 mg PO Q8H PRN (Reason: nausea and vomiting) Qty: 7 0RF acetaminophen 500 mg capsule 1,000 mg PO Q6H PRN (Reason: pain) Qty: 30 0RF No Action Simponi 50 mg/0.5 mL pen injector 50 mg SUB-Q MONTHLY Rx Instructions: TAKES ON 7TH OF EACH MONTH folic acid 1 mg tablet 1 mg PO DAILY cholecalciferol (vitamin D3) 2,000 unit tablet 2,000 unit PO DAILY amlodipine [Norvasc] 10 mg tablet 10 mg PO HS atorvastatin 20 mg tablet PO carbamazepine [Carbatrol] 300 mg capsule, ER multiphase 12 hr 300 mg PO Q12H Qty: 180 2RF prednisone 5 mg tablet 5 mg PO DAILY topiramate 25 mg tablet 75 mg PO BID Qty: 540 3RF trazodone 50 mg tablet 50 mg PO QHS PRN (Reason: insomnia) Qty: 90 2RF cyanocobalamin (vitamin B-12) 1,000 mcg/mL solution 1,000 mcg subcut MONTHLY Qty: 3 3RF lorazepam 0.5 mg tablet 0.5 mg PO BID PRN (Reason: Anxiety) Qty: 60 1RF calcium carbonate 500 mg calcium (1,250 mg) Tablet 500 mg PO BID diphenhydramine HCl [Benadryl Allergy] 25 mg tablet 25 mg PO Q6H PRN (Reason: Allergy Symptoms) levothyroxine 175 mcg tablet 175 mcg PO .COMPLEX 90 Days Qty: 90 3RF Rx Instructions: 175 mcg orally one pill from Thursday to Thursday 6 days a week,skip Sundays metronidazole [Rosadan] 0.75 % cream 1 applic topical BID Qty: 45 2RF Follow-up/Referrals: Adam Mota MD [Primary Care Provider, Family Practice] Time of Disposition: 13:07
[2025-04-19] MEDS: ONDANSETRON HCL ODT 4 MG TABLET PO (11:37)
[2025-04-19 12:26] VITALS: BP 171/96; PULSE 78
[2025-04-19 13:23] VITALS: BP 164/88; PULSE 68
[2025-04-19 13:24] VITALS: BP 168/93; PULSE 78
[2025-04-19 13:32] VITALS: BP 168/91; PULSE 71; RESP 16; O2SAT 100
--- OUTSIDE RECORDS SUMMARY | 2025-04-20 12:10 | XMS_ITS | Encounter Summary ---
Author Organization [facility] Address [address] [place] [address] Care Team Providers Care Environmental Services Manager Name Role Phone Base, [facility] Primary Care Provider [phone] [facility], [address] [place] [address] Primary Care Prov ider Shavon Lynch Primary Care Pr ovider Encounter Details Date Type Department Care Team (Late st Contact Info) Description 11/16/2017 Telephone [facility] [address] [place] [address] Inocencia Wade MD [address] [place] [phone] Social History Tobacco Use Types Packs/Day Years Used Date Smoking Tobacco: Never Assessed Comments Unknown Sex and Gender Information Value Date Recorded Sex Assigned at Not on file Legal Sex Female 6:29 AM LINE DECORATOR Gender Identity Not on file Sexual Orientation Not on file documented as of this encounter Plan of Treatment Upcoming Encounters Date Type Department Care Team (Late st Contact Info) Description 06/01/2025 11:00 AM LINE DECORATOR Office Visit [facility] [address] [facility] [address] [place] [phone] [place] [address] [facility] [address] [address] documented as of this encounter Visit Diagnoses Not on filedocumented in this encounter Care Teams Environmental Services Manager Relationship Specialty Start Date End Date [facility], [place], [place] PCP - General 11/16/17 12/16/[address] [facility] [place], [place] [id number] PCP - General 12/17/17 10/27/22 Shavon Lynch PA [address] [place] [address] PCP - General Physician Human Resource Statistician 10/28/22 documented as of this encounter
--- OUTSIDE RECORDS SUMMARY | 2025-04-20 12:10 | XMS_ITS | Clinical Summary ---
Author Organization [facility] Address [address] [place] [address] Care Team Providers Care Singer Back Tender Name Role Phone Gwendolyn Pulido CARD ASSEMBLER Primary Care Provider [phone] Allergies Active Allergy Reactions Criticality Noted Date [...] 1 tablet (175 mcg total) by mouth packing clerk before breakfast Active acetaminophen 500 mg capsule [...] 04/21/2024 Assessment & Plan (04/21/2024 9:00 AM RN HOSPITAL): Encourage routine vaccinations. Follow up with PCP. [...] MTX and Plaquinil; Will discuss with pts director park Dr. Bony otoole [phone] Fatigue 07/08/2023 Female pelvic pain 07/08/2023 Hypercalcemia 07/08/2023 Hyperlipidemia 09/11/2022 Encounter for long-term (cur rent) use of high-risk medication 07/16/2022 Assessment & Plan (04/21/2024 9:00 AM RN HOSPITAL): Long-term use of high-risk medication requiring regular monitoring. Labs ordered, no s/s of med tox or infection. Encouraged to work with PCP to make sure all recommended cancer screens and vaccinations are complete. Avoid live-vaccines unless reviewed with director park first. Assessment & Plan (07/16/2022 2:27 PM RN HOSPITAL): Long-term use of high-risk medication requiring regular monitoring. Labs ordered, no s/s of med tox or infection. Encouraged to work with PCP to make sure all recommended cancer screens and vaccinations are complete. Avoid live-vaccines unless reviewed with director park first. Did have a follow up MRI [...] (06/29/2018): Added automatically from request for surgery [id number] Crohn's disease of colon 10/22/2015 Overview (09/18/2016): Crohn's colitis Gastroesophageal reflux disease 10/22/2015 Overview (09/19/2016): ESOPHAGEAL REFLUX Rheumatoid arthritis involving multiple joints 0 10/22/2015 Overview (09/19/2016): RHEUMATOID ARTHRITIS Assessment & Plan (04/21/2024 8:59 AM RN HOSPITAL): Stable on simponi and prednisone 5 mg daily, continue same, continue to monitor. Encourage work toward weaning off prednisone, down to 2.5 mg daily and then off / just prn. Encourage calcium/vitamin D and weight bearing exercise to help with osteoporosis reduction. Assessment & Plan (07/16/2022 2:28 PM RN HOSPITAL): Stable on simponi and prednisone 5 mg [...] Provider 02/21/2025 1:00 PM CDT Office Visit [facility] [address] [place] [address] Denise Shelton NP Family history of early CAD; Pure hypercholesterolemia; Essential hypertension 02/07/2025 11:30 AM CDT Office Visit [facility] [address] [facility] [address] [place] [address] Mac Schwartz MD IRLANDA on [...] 7 Thierno (Age 64) suspect fa freddy MS Daughter 1 beau Daughter 2 beau Alive [...] on file Legal Sex Female 5:17 PM RN HOSPITAL Gender Identity Not on file Sexual Orientation [...] Most Recently Relevant to Health Maintenance Insurance [employer] [facility] MEDICARE MEDICARE FOR LIFE MEDICARE FOR LIFE Advance Directives For more information, please contact: [phone] * Full Code (Latest Code Status on File) Date Activated Date Inactivated Comments 07/23/2018 10:37 AM 07/23/2018 9:42 PM Care Teams Singer Back Tender Relationship Specialty Start Date End Date Gwendolyn Pulido, CARD ASSEMBLER [address] [place] [address] PCP - General Family Medicine 04/21/24
--- OUTSIDE RECORDS SUMMARY | 2025-04-20 12:10 | XMS_ITS | Encounter Summary ---
Author Organization [facility] Address [address] [facility] [place] [address] Care Team Providers Care Tool Grinding Machine Operator Name Role Phone Shavon Lynch Primary Care Pr ovider Reason for Visit * Reason Onset Date Comments MEDICATION REFILL 12/09/2023 Encounter Details Date Type Department Care Team (Late st Contact Info) Description 12/09/2023 Telephone [facility] [address] [place] [address], [place] [address] Inocencia Wade MD [address] [place] [address] [place] [phone] MEDICATION REFILL Social History Tobacco Use Types [...] on file Legal Sex Female 6:29 AM BOUNTY TRAPPER Gender Identity Not on file Sexual Orientation Not on file Occupation Industry Job Start Date Job End Date Retired Not on file Not on file Not on file documented as of this encounter Miscellaneous Notes * Telephone Encounter - Gladis-Crostacey Marely - 12/09/2023 9:22 AM CDT Patient called in requesting a Med refill. Drug type:carbamazepineER 300 mg Pharmacy:[facility] Patient call back number: [phone] . Upcoming appointment scheduled for : 09/13/24 documented in this encounter Plan of Treatment Upcoming Encounters Date Type Department Care Team (Late st Contact Info) Description 06/01/2025 11:00 AM BOUNTY TRAPPER Office Visit [facility] [address] [facility] [address] [place] [phone] [place] [address] [address] documented as of this encounter Visit Diagnoses Not on filedocumented in this encounter Care Teams Tool Grinding Machine Operator Relationship Specialty Start Date End Date Shavon Lynch PA [address] [place] [address] PCP - General Physician Microarray Specialist 10/28/22 documented as of this encounter
--- OUTSIDE RECORDS SUMMARY | 2025-04-20 12:10 | XMS_ITS | Clinical Summary ---
Author Organization [facility] Address [address] [place] [address] Phone Care Team Providers Care Clerical Proofreader Name Role Phone Ankit Smith MD Primary Care Provider [phone] Allergies Active Allergy Reactions Criticality Noted Date [...] age to complete this topic Care Teams Clerical Proofreader Relationship Specialty Start Date End Date Ankit Smith MD [address] [place] [address] PCP - General Internal Medicine 02/13/13
--- OUTSIDE RECORDS SUMMARY | 2025-04-20 12:10 | XMS_ITS | Clinical Summary ---
Author Organization [facility] Address [address] [place] [address] Care Team Providers Care Digital Campaign Specialist Name Role Phone Shavon Lynch Primary Care Pr ovider Source Comments [facility],non-owned Affiliates and Associated Physician Practices is amultiple site organization consisting of ambulatory clinics and hospital sitesin [place], [place], [place] and [place]. This disclosure is being madepursuant to the Care Everywhere program and may not contain all information available regarding this patient. Last updated 18.[facility] [employer] Allergies Active Allergy Reactions Criticality Noted Date [...] 5 07/30/19 26 Active cyanocobalamin (Vitamin B-12) injectionIndicat ions:Numbness Inject 1,000 (one thousand) mcg into muscle every 30 days 3 mL 3 5 Active topiramate (Topamax) 25 MG tabletIndication s:Trigeminal neuralgia,Migrai ne without aura and without status migrainosus, not intractable Take 3 (three) tablets by mouth 2 times daily 180 tablet 11 5 Active donepezil (Aricept) 5 MG tabletIndication s:Memory loss Take 1 (one) tablet by mouth once daily 90 tablet 4 5 Active Active Problems Problem Noted Date [...] Encounters Date Type Department Care Team Description 03/18/2025 1:03 PM CDT - 03/18/2025 11:59 PM CDT Hospital Encounter [facility] Health Imaging Services - MRI [address] [place] [address] Keo Vega MD Discharge Disposition: Home or Self Care 03/01/2025 12:20 PM CDT Office Visit [facility] 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 [place] [address] [place] [address] [id number] Health Maintenance Due Date Last Done Comments [...] history exists INFLUENZA VACCINE (#1) 2025 , 03/29/2019, 03/12/2017, Additional history exists COLOGUARD (AGES 45-75) - [...] Name Priority Date/Time Associated Diagnosis Comments MRI CERVICAL SPINE WO CONTRAST Routine 03/18/2025 1:30 PM CDT Numbness Abnormal MRI, cervical spine TSH REFLEX FREE T4 Routine 03/01/2025 1: 42 PM CDT Memory loss VITAMIN B12 FOLATE PANEL Routine 03/01/2025 1:42 PM CDT Memory loss [id number] ERATION (ATN) PROFILE Routine 03/01/2025 1:42 PM CDT Memory loss CARBAMAZEPINE LEVEL TOTAL Routine 03/01/2025 1:41 PM CDT Memory loss TOPIRAMATE LEVEL Routine 03/01/2025 1:41 PM CDT Memory loss TREPONEMA PALLIDUM POS REFLX RPR Routine 03/01/2025 1:41 PM CDT Memory loss from Last 3 Months Results * MRI Cervical Spine Wo Contrast (03/18/2025 1:30 PM CDT) Anatomical Region Laterality Modality Pelvis Magnetic Resonan ce 03/18/2025 2:25 PM CDT Impressions 03/18/2025 2:33 PM CDT IMPRESSION: 1. Unchanged medullary cord abnormalities since August 2024. Differential remains the same with findings concerning for metabolic etiology such as chronic vitamin B12 deficiency. 2. Scattered disc spur complexes producing central canal and neural foraminal narrowing, no change. > Interpreting Provider: Memo Genao MD on 03/18/2025 2:33 PM Narrative 03/18/2025 2:33 PM CDT PROCEDURE: MRI CERVICAL SPINE WO CONTRAST DATE/TIME OF EXAM: 03/18/2025 1:30 PM CLINICAL INFORMATION: None relevant/not provided if blank. Indication: R20.0: Numbness R93.7: Abnormal MRI, cervical spine Additional History: COMPARISON: Cervical spine MRI from 08/19/2024 TECHNIQUE: Cervical spine MRI was performed without contrast. FINDINGS: Since 08/19/2024 there are multiple persisting midline intramedullary T2 hyperintensities within the cervical cord. These are focally greatest at the C3-C4, C4-C5, C6 and C7 levels with an overall pattern and distribution unchanged since August. There are no new cord abnormalities. No cord swelling or atrophy. No epidural fluid collection or mass. Cervical vertebral bodies are normally aligned. Mild chronic degenerative disc disease at C5-C6 with accompanying degenerative endplate marrow changes. At C3-C4 the central canal and neural foramina are patent. At C4-C5 left paracentral disc spur complex touches the cord but without central or foraminal stenosis. At C5-C6 broad-based disc spur complex touches the cord in the midline and narrows both neural foramina due to combination of uncovertebral joint spurs and facet hypertrophy. Foraminal narrowing is greater on the left. Central canal measures 9 mm in the midline. At C6-C7 a left paracentral focal disc bulge touches the cord with minimum midline AP canal diameter of 8 mm. Small amount of CSF still noted around the cord. Neural foramina remain patent. At C7-T1 there is a right-sided laminar spur slightly deforming the thecal sac but without touching the cord. No central or foraminal stenosis. Procedure Note Memo Genao MD - 03/18/2025 PROCEDURE: MRI CERVICAL SPINE WO CONTRAST DATE/TIME OF EXAM: 03/18/2025 1:30 PM CLINICAL INFORMATION: None relevant/not provided if blank. Indication: R20.0: Numbness R93.7: Abnormal MRI, cervical spine Additional History: COMPARISON: Cervical spine MRI from 08/19/2024 TECHNIQUE: Cervical spine MRI was performed without contrast. FINDINGS: Since 08/19/2024 there are multiple persisting midline intramedullary T2 hyperintensities within the cervical cord. These are focally greatestat the C3-C4, C4-C5, C6 and C7 levels with an overall pattern anddistribution unchanged since August. There are no new cord abnormalities. No cord swelling or atrophy. No epidural fluid collection or mass. Cervical vertebral bodies are normally aligned. Mild chronicdegenerative disc disease at C5-C6 with accompanying degenerative endplate marrow changes. At C3-C4 the central canal and neural foramina are patent. At C4-C5 left paracentral disc spur complex touches the cord but without central or foraminal stenosis. At C5-C6 broad-based disc spur complex touches the cord in the midlineand narrows both neural foramina due to combination of uncovertebral joint spurs and facet hypertrophy. Foraminal narrowing is greater on theleft. Central canal measures 9 mm in the midline. At C6-C7 a left paracentral focal disc bulge touches the cord withminimum midline AP canal diameter of 8 mm. Small amount of CSF still notedaround the cord. Neural foramina remain patent. At C7-T1 there is a right-sided laminar spur slightly deforming thethecal sac but without touching the cord. No central or foraminal stenosis. IMPRESSION: 1. Unchanged medullary cord abnormalities since August 2024.Differential remains the same with findings concerning for metabolic etiology such as chronic vitamin B12 deficiency. 2. Scattered disc spur complexes producing central canal and neural foraminal narrowing, no change. > Interpreting Provider: Memo Genao MD on 03/18/2025 2:33 PM us Keo Vega MD MR ORDERABLES Final Result * [id number] (ATN) PROFILE (03/01/2025 1:42 PM CDT) Beta-amyloid 42/40 Ratio 0.132 >0.102 [facility] INSURANCE BILL Beta-amyloid 42 17.48 pg/mL [facility] Beta-amyloid 40 132.57 pg/mL [facility] INSURANCE BILL [id number] 0.66 0.00 - 0.97 pg/mL [facility] INSURANCE BILL NfL plasma 3.13 0.00 - 3.65 pg/mL [facility] INSURANCE BILL ATN Summary Comment [facility] INSURANCE BILL Comment: A- T- N- A normal beta-amyloid 42/40 ratio and normal concentrations of aCxy331 and NfL were observed at this time. [...] developed and their performance characteristics determined by [employer]. They have not been cleared or approved by the Food and Drug Administration. * METHODOLOGY: Beta-amyloid 42/40 Ratio: [employer] Chemiluminescence Enzyme Immunoassay (CLEIA) NfL and [id number]: Tests performed by [employer] Electrochemiluminescence Immunoassay (ECLIA). Values obtained with different methods cannot be used interchangeable. These tests were developed and their performance characteristics determined by [employer]. They have not been cleared or approved by the Food and Drug Administration. * [id number] INFORMATION: For individual 0-55 years of age: [...] are based on a consensus between National [place] for Age and the Internation Working Group recommendations for ATN panel interpretation published by Ghanshyam et al 2018 and updated in Brittany et al 2020. * Brittany H, Neisha J, Chelsea Padilla, Jhon P, Ghanshyam JENSEN Jr, George Clemente. Developing the ATX(N) classification for use across the Alzheimer disease continiuum. Char Rev Neurol. 2020 Sep;17(9):580-589. Ghanshyam JENSEN Jr, Vladimir MATUTE, Chelsea Padilla, et al. A/T/N: An unbiased descriptive classification scheme for Alzheimer disease biomarkers. Neurology. 2016 Jan 2;87(5):539-547. Blood BLOOD SPECIMEN / Unknown 03/01/2025 1:42 PM CDT 03/01/2025 Narrative [facility] INSURANCE BILL - 03/04/2025 6:09 AM CDT Performed at: [address] [place] [id number] Director Of Business Development: Hernandez Flaherty MD, Phone: [phone] Keo Vega MD LAB - CHEMISTRY ORDERABLES Final Result [facility] INSURANCE BILL [address] [place] [address] * TSH REFLEX FREE T4 (03/01/2025 1:42 PM CDT) TSH 0.781 0.350 - 4.940 uIU/mL [facility] INSURANCE BILL Blood BLOOD SPECIMEN / Unknown 03/01/2025 1:42 PM CDT 03/01/2025 Narrative [facility] INSURANCE BILL - 03/01/2025 11:08 PM CDT Performed at: [address] [place] [address] [place] [id number] Director Of Business Development: Raz Saravia [facility]ly [facility], Phone: [phone] Keo Vega MD LAB - CHEMISTRY ORDERABLES Final Result Performing Organization Address City/[facility]/ZIP Co de Phone Number [facility] INSURANCE BILL [address] [place] [address] * VITAMIN B12 FOLATE PANEL (03/01/2025 1:42 PM CDT) Vitamin B12 646 213 - 816 pg/mL [facility] INSURANCE BILL Folate 18.7 7.0 - 31.4 ng/mL [facility] INSURANCE BILL Blood BLOOD SPECIMEN / Unknown 03/01/2025 1:42 PM CDT 03/01/2025 Narrative [facility] INSURANCE BILL - 03/01/2025 11:08 PM CDT Performed at: [address] [place] [address] [place] [id number] Director Of Business Development: Raz SCHMIDT, Phone: [phone] us Keo Vega MD LAB - CHEMISTRY ORDERABLES Final Result Performing Organization Address City/[facility] Co de Phone Number [facility] INSURANCE BILL [address] [place] [address] * TREPONEMA PALLIDUM POS REFLX RPR (03/01/2025 1:41 PM CDT) T pallidum Antibody (TP-PA) Non Reactive Non Reactive [facility] INSURANCE BILL Blood BLOOD SPECIMEN / Unknown 03/01/2025 1:41 PM CDT 03/01/2025 Narrative [facility] INSURANCE BILL - 03/02/2025 9:08 PM CDT Performed at: [address] [place] [id number] Director Of Business Development: Hernandez Flaherty MD, Phone: [phone] us Keo Vega MD LAB - SEROLOGY ORDERABLES Final Result Performing Organization Address City/[facility] Co de Phone Number [facility] INSURANCE BILL [address] [place] [address] * TOPIRAMATE LEVEL (03/01/2025 1:41 PM CDT) Topiramate 3.1 2.0 - 25.0 ug/mL [facility] INSURANCE BILL Comment:Detection Limit = 1. 5 Blood BLOOD SPECIMEN / Unknown 03/01/2025 1:41 PM CDT 03/01/2025 Narrative [facility] INSURANCE BILL - 03/03/2025 10:11 AM CDT Performed at: [address] [id number] Director Of Business Development: Hernandez Flaherty MD, Phone: [phone] Keo Vega MD LAB - THERAPEUTIC DRUG MONITORIN G ORDERABLES Final Result Performing Organization Address [facility] de Phone Number [facility] INSURANCE BILL [address] [place] [address] * CARBAMAZEPINE LEVEL TOTAL (03/01/2025 1:41 PM CDT) Pathologist [facility] Carbamazepine 11.9 4.0 - 12.0 ug/mL [facility] INSURANCE BILL Comment: In conjunction with other antiepileptic drugs Therapeutic 4.0 - 8.0 Toxicity 9.0 - 12.0 Carbamazepine alone Therapeutic 8.0 - 12.0 Detection Limit = 2.0 <2.0 indicates None Detected Blood BLOOD SPECIMEN / Unknown 03/01/2025 1:41 PM CDT 03/01/2025 Narrative [facility] INSURANCE BILL - 03/02/2025 10:12 AM CDT Performed at: [address] [id number] Director Of Business Development: Pola Aguilera PhD, Phone: [phone] us Keo Vega MD LAB - CHEMISTRY ORDERABLES Final Result Performing Organization Address [facility] Co de Phone Number [facility] INSURANCE BILL [address] [place] [address] from Last 3 Months Insurance MEDICARE MEDICARE MEDICARE [facility] MEDICARE MEDICARE MEDICARE Care Teams Digital Campaign Specialist Relationship Specialty Start Date End Date Shavon Lynch PA [address] [place] [id number] PCP - General Physician Roads Superintendent 10/28/22
--- OUTSIDE RECORDS SUMMARY | 2025-04-20 12:11 | XMS_ITS | Patient Health Record ---
Author Organization [facility] [employer] Address [address] [place] [address] Care Team Providers Care Director Of Dementia Operations Name Role Phone Asha Shepherd Unavailable [phone] Reason For Referral No Information Medications Medication SIG (Take, Route, Frequency, Duration) Notes Start Date End Date Status traZODone HCl 50 MG Tablet Oral 07/11/2021 Active Carbatrol 300 MG Capsule Extended Release 12 Hour Oral 07/11/2021 Active Venlafaxine HCl ER 75 MG Capsule Extended Release 24 Hour Oral 07/11/2021 Active Losartan Potassium 100 MG Tablet Oral 07/11/2021 Active Coreg *Pick strength-form from [employer] for eRX* 07/11/2021 Active Topiramate 25 MG [...] End Date Medicare-[place] [address] [place] [address] [id number] VALENTINO YBARRA CALLIE Self - patient is the insured 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
--- OUTSIDE RECORDS SUMMARY | 2025-04-20 12:11 | XMS_ITS | Encounter Summary ---
Author Organization [facility] Address [address] [place] [address] Phone Care Team Providers Care Antitank Assault Gunner Name Role Phone Angela Traore MD Primary Care Provide r Hair Mcdaniels MD Primary Care Provider [phone] Dong Cutler MD Primary Care Provider [phone] Kandice Alberto MD Primary Care Provider [phone] Shavon George Primary Care Pr ovider Gwendolyn Pulido NP Primary Care Provider [phone] Encounter Details Date Type Department Care Team (Late st Contact Info) Description 08/14/2017 Orders Only [facility] ProviderZeeshan MD [address] [place] [address] Social History Tobacco Use Types Packs/Day Years Used Date Smoking Tobacco: Never Smokeless Tobacco: Never Alcohol Use Standard Drinks/Week Comments No 0 (1 standard drink = 0.6 oz pur e alcohol) Comments Unknown Sex and Gender Information Value Date Recorded Sex Assigned at Not on file 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 us Historical Provider LAB BLOOD ORDERABLES Nayeli l Result documented in this encounter Visit Diagnoses Not on filedocumented in this encounter Care Teams Antitank Assault Gunner Relationship Specialty Start Date End Date Angela Traore MD [address] [place], [place] [phone] PCP - General 08/14/17 12/10/17 Hair Mcdaniels MD [address] [address] [place] [address] PCP - General Internal Medicine 12/11/17 07/05/19 Dong Cutler MD [address] [facility] [place] [address] PCP - General Internal Medicine 07/06/19 02/01/20 Kandice Alberto MD [address] [place] [id number] PCP - General Internal Medicine 02/02/20 04/02/20 Shavon George PA [address] [place] [phone] PCP - General Physician Television Cameraman 04/03/20 04/20/24 Gwendolyn Pulido, DARK ROOM ATTENDANT [address] [place] [address] PCP - General Family Medicine 04/21/24 documented as of this encounter
== END 2025-04-19 13:36 | disposition home or self-care (01) ==
LOC: ANHED 13:19
PROVIDERS: Emergency Provider Student in an Organized Health Care Education/Training Program; PCP Family Medicine
DX: S09.90XA Unspecified injury of head, initial encounter (principal); I10 Essential (primary) hypertension; E03.9 Hypothyroidism, unspecified; E78.5 Hyperlipidemia, unspecified; K50.90 Crohn's disease, unspecified, without complications; M19.90 Unspecified osteoarthritis, unspecified site; M06.9 Rheumatoid arthritis, unspecified; F41.9 Anxiety disorder, unspecified; F32.A Depression, unspecified; Z87.01 Personal history of pneumonia (recurrent); Z90.89 Acquired absence of other organs; Z79.899 Other long term (current) drug therapy; W01.0XXA Fall on same level from slipping, tripping and stumbling without subsequent striking against object, initial encounter
CPT/HCPCS: 70450; 72125; 99284; A9270

== ENCOUNTER 2025-05-31 07:49 | Outpatient (CLI) | payer MEDICARE, OTHER, SELFPAY ==
--- NOTE | ~2025-05-31 | DEXA_ITS ---
Bone Density Report Name: CALLIE REES Age: 70 Sex: Female Ethnicity: White Date of : 1955 Indication: postmenopausal osteoporosis; monitoring treatment; hyperparathyroidism; inflammatory bowel disease; history of glucocorticoids; seizure disorder; rheumatoid arthritis; Referring Provider: EMMANUEL FORRESTER Study: Bone densitometry was performed. Exam Date: May 31, 2025 Accession number: [id number] Bone Density: Region BMD T-score Z-score Classification AP Spine(L1-L4) 0.810 -2.2 0.0 Osteopenia Femoral Neck (Left) 0.629 -2.0 -0.2 Osteopenia Total Hip (Left) 0.862 -0.7 0.9 Normal Femoral Neck (Right) 0.619 -2.1 -0.3 Osteopenia Total Hip (Right) 0.774 -1.4 0.1 Osteopenia Total Hip Mean 0.818 -1.1 0.5 Osteopenia World Health Organization criteria for BMD impression classify patients as: Normal (T-score at or above -1.0), Osteopenia (T-score between -1.0 and -2.5), or Osteoporosis (T-score at or below -2.5). 10-year Fracture Risk: FRAX not reported because: Treated for osteoporosis Previous Exams: Region Exam Age BMD T-score BMD Change BMD Change Date g/cm2 vs Baseline vs Previous AP Spine (L1-L4) 05/31/2025 70 0.810 -2.2 0.142 (21.3%)* 0.039 (5.0%)* 05/28/2023 68 0.771 -2.5 0.103 (15.5%)* 0.054 (7.6%)* 04/12/2021 66 0.717 -3.0 0.049 (7.4%)* 0.022 (3.2%) 03/04/2019 63 0.695 -3.2 0.027 (4.0%)* 0.027 (4.0%)* 11/18/2016 61 0.668 -3.4 Total Hip(Left) 05/31/2025 70 0.862 -0.7 0.066 (8.3%)* 0.028 (3.4%)* 05/28/2023 68 0.834 -0.9 0.038 (4.7%)* -0.037 (-4.2%) 04/12/2021 66 0.871 -0.6 0.075 (9.4%)* 0.022 (2.6%) 03/04/2019 63 0.848 -0.8 0.052 (6.6%)* 0.052 (6.6%)* 11/18/2016 61 0.796 -1.2 Total Hip(Right) 05/31/2025 70 0.774 -1.4 0.022 (2.9%) -0.019 (-2.4%) 05/28/2023 68 0.793 -1.2 0.041 (5.4%)* 0.058 (7.8%)* 04/12/2021 66 0.735 -1.7 -0.017 (-2.2%) -0.012 (-1.6%) 03/04/2019 63 0.747 -1.6 -0.005 (-0.7%) -0.005 (-0.7%) 11/18/2016 61 0.752 -1.6 *Denotes significance at 95% confidence level, LSC for AP Spine = 0.022 g/cm2, LSC for Total Hip = 0.027 g/cm2 Clinical Information Provided by Patient: Has taken Glucocorticoids Has rheumatoid arthritis Is being treated for osteoporosis Has used the following medications: Fosamax (i.e. alendronate), Prolia (i.e. denosumab), Vitamin D, Calcium Has the following medical conditions: Any Seizure Disorders, Inflammatory bowel diseases, Hyperparathyroidism Patient maximum height was 62 Menopause Age: 45 Drinks caffeinated beverages Onset of menses at age 15 Number of children 3 Impression: The patient has low bone mass, based on the Total Spine T-score. The patient has risk factors, including: history of glucocorticoid therapy. No significant bone loss was observed. Discussion: PATIENT UNDER TREATMENT WITH NO SIGNIFICANT BMD LOSS SINCE LAST EXAM. In an untreated patient, BMD typically declines with age. A lack of decline or gain is usually a sign that treatment is efficacious and fracture risk is reduced. It is important to ask patients whether they are taking their medications and to encourage continued and appropriate compliance with their osteoporosis therapies to reduce fracture risk. It is also important to review their risk factors and encourage appropriate calcium and vitamin D intakes, exercise, fall prevention and other lifestyle measures. Follow-Up: Consider a repeat BMD and Vertebral Fracture Assessment (VFA) exam in 2 years or sooner if medically necessary, to reassess this patient's status. Reported by: NAA on 05/31/2025 8:35:00 AM. Reviewed, dictated and finalized at location A.
--- OUTSIDE RECORDS SUMMARY | 2025-05-31 08:00 | XMS_ITS | Clinical Summary ---
Author Organization [facility] Address [address] [facility] [place] [address] Care Team Providers Care Glassware Maker Name Role Phone Shavon Lynch Primary Care Pr ovider Source Comments [facility],non-owned Affiliates and Associated Physician Practices is amultiple site organization consisting of ambulatory clinics and hospital sitesin [place], [place], [place] and [place]. This disclosure is being madepursuant to the Care Everywhere program and may not contain all information available regarding this patient. Last updated 18.[facility] Allergies Active Allergy Reactions Criticality Noted Date [...] tablet once daily 8 Active albuterol HFA (PROVENTIL;MAGRIE JEFF;PROAIR) 108 (90 Base) MCG/ACT inhaler INHALE [...] - 03/18/2025 11:59 PM CDT Hospital Encounter 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 Gender Identity Not on file Sexual Orientation [...] Contact Info) Description 06/01/2025 11:00 AM CAR REPOSSESSOR Office Visit [facility] [address] [facility] [address] [place] [address] [place] [address] [id number] Health Maintenance Due Date Last Done Comments BONE DENSITY TESTING 1955 COLON MONITORING 1955 COLONOSCOPY - COLON CA SCREENING 1955 CT COLONOGRAPHY - COLON CA SCREENING 1955 FIT - COLON CA SCREENING 1955 FLEX SIG - COLON CA SCREENING 1955 MAMMOGRAM 1955 MEDICARE AWV 12 MONTHS 1955 HEPATITIS C SCREENING 03/06/1973 PNEUMOCOCCAL VACCINE 50+ (2 of 2 - PCV) 2005 03/13/2003, 04/02/1994 Respiratory Syncytial Virus (RSV) Vaccine Pt: or over 60 yrs (1 - Risk 50-74 years 1-dose series) 2005 ZOSTER VACCINE (1 of 2) 2005 DEPRESSION SCREENING 06/15/2024 SCREENING FOR DIABETES 11/03/2024 [...] Routine 03/01/2025 1:42 PM CDT Memory loss GSAAMLG-JGL-[id number] ERATION (ATN) PROFILE Routine 03/01/2025 1:42 PM [...] Vega MD MR ORDERABLES Final Result * KZEVNMG-GHI-[id number] (ATN) PROFILE (03/01/2025 1:42 PM CDT) Beta-amyloid 42/40 Ratio 0.132 >0.102 [facility] INSURANCE BILL Beta-amyloid 42 17.48 pg/mL [facility] Beta-amyloid 40 132.57 pg/mL [facility]URANCE BILL p-[id number] 0.66 0.00 - 0.97 pg/mL [facility] INSURANCE BILL NfL plasma 3.13 0.00 - 3.65 pg/mL [facility] INSURANCE BILL ATN Summary Comment [facility] INSURANCE BILL Comment: A- T- N- A normal beta-amyloid 42/40 ratio and normal concentrations of [id number] and NfL were observed at this time. [...] developed and their performance characteristics determined by [employer]. They have not been cleared or approved by the Food and Drug Administration. * METHODOLOGY: Beta-amyloid 42/40 Ratio: [employer] Chemiluminescence Enzyme Immunoassay (CLEIA) NfL and p-[id number]: Tests performed by [employer] Electrochemiluminescence Immunoassay (ECLIA). Values obtained with different methods cannot be used interchangeable. These tests were developed and their performance characteristics determined by [employer]. They have not been cleared or approved by the Food and Drug Administration. * p-[id number] INFORMATION: For individual 0-55 years of age: [...] are based on a consensus between National [place] for Age and the Internation Working Group [...] - 03/04/2025 6:09 AM CDT Performed at: [address] [place] [id number] Customer Support Analyst: Hernandez Flaherty MD, Phone: [phone] Keo Vega MD LAB - CHEMISTRY ORDERABLES Final Result [facility] INSURANCE BILL [address] [place] [address] * TSH REFLEX FREE T4 (03/01/2025 1:42 PM CDT) TSH 0.781 0.350 - 4.940 uIU/mL [facility] INSURANCE BILL Blood BLOOD SPECIMEN / Unknown 03/01/2025 1:42 PM CDT 03/01/2025 Narrative [facility] INSURANCE BILL - 03/01/2025 11:08 PM CDT Performed at: [address] [place] [address] [place] [id number] Customer Support Analyst: Raz Saravia [facility], Phone: [phone] Keo Vega MD LAB - CHEMISTRY ORDERABLES Final Result Performing Organization Address City/[facility]/ZIP Co de Phone Number [facility] INSURANCE BILL [address] [place] [address] * VITAMIN B12 FOLATE PANEL (03/01/2025 1:42 PM CDT) Vitamin B12 646 213 - 816 pg/mL [facility] INSURANCE BILL Folate 18.7 7.0 - 31.4 ng/mL [facility] INSURANCE BILL Blood BLOOD SPECIMEN / Unknown 03/01/2025 1:42 PM CDT 03/01/2025 Narrative [facility] INSURANCE BILL - 03/01/2025 11:08 PM CDT Performed at: [address] [place] [address] [place] [id number] Customer Support Analyst: Raz SCHMIDT, Phone: [phone] us Keo Vega MD LAB - CHEMISTRY ORDERABLES Final Result Performing Organization Address City/[facility] Co de Phone Number [facility] INSURANCE BILL [address] [place] [address] * TREPONEMA PALLIDUM POS REFLX RPR (03/01/2025 1:41 PM CDT) T pallidum Antibody (TP-PA) Non Reactive Non Reactive [facility] INSURANCE BILL Blood BLOOD SPECIMEN / Unknown 03/01/2025 1:41 PM CDT 03/01/2025 Narrative [facility] INSURANCE BILL - 03/02/2025 9:08 PM CDT Performed at: [address] [place] [address] [id number] Customer Support Analyst: Hernandez Flaherty MD, Phone: [phone] us Keo Vega MD LAB - SEROLOGY ORDERABLES Final Result Performing Organization Address City/[facility] Co de Phone Number [facility] INSURANCE BILL [address] [place] [address] * TOPIRAMATE LEVEL (03/01/2025 1:41 PM CDT) Topiramate 3.1 2.0 - 25.0 ug/mL [facility] INSURANCE BILL Comment:Detection Limit = 1. 5 Blood BLOOD SPECIMEN / Unknown 03/01/2025 1:41 PM CDT 03/01/2025 Narrative [facility] INSURANCE BILL - 03/03/2025 10:11 AM CDT Performed at: [address] [id number] Customer Support Analyst: Hernandez Flaherty MD, Phone: [phone] Keo Vega MD LAB - THERAPEUTIC DRUG MONITORIN G ORDERABLES Final Result Performing Organization Address [facility] de Phone Number [facility] INSURANCE BILL [address] [place] [address] * CARBAMAZEPINE LEVEL TOTAL (03/01/2025 1:41 PM CDT) Pathologist [facility] Carbamazepine 11.9 4.0 - 12.0 ug/mL [facility] INSURANCE BILL Comment: In conjunction with other antiepileptic drugs Therapeutic 4.0 - 8.0 Toxicity 9.0 - 12.0 Carbamazepine alone Therapeutic 8.0 - 12.0 Detection Limit = 2.0 <2.0 indicates None Detected Blood BLOOD SPECIMEN / Unknown 03/01/2025 1:41 PM CDT 03/01/2025 Narrative [facility] INSURANCE BILL - 03/02/2025 10:12 AM CDT Performed at: [address] [id number] Customer Support Analyst: Pola Aguilera PhD, Phone: [phone] us Keo Vega MD LAB - CHEMISTRY ORDERABLES Final Result Performing Organization Address [facility] Co de Phone Number [facility] INSURANCE BILL [address] [place] [address] from Last 3 Months Insurance MEDICARE MEDICARE MEDICARE [facility] MEDICARE MEDICARE MEDICARE Care Teams Glassware Maker Relationship Specialty Start Date End Date Shavon Lynch PA [address] [place] [phone] PCP - General Physician Forms Analysis Manager 10/28/22
--- OUTSIDE RECORDS SUMMARY | 2025-05-31 08:01 | XMS_ITS | Encounter Summary ---
Author Organization [facility] Address [address] [place] [address] Phone Care Team Providers Care Major Appliance Assembly Supervisor Name Role Phone Angela Traore MD Primary Care Provide r Hair Mcdaniels MD Primary Care Provider [phone] Dong Cutler MD Primary Care Provider [phone] Kandice Alberto MD Primary Care Provider [phone] Shavon George Primary Care Pr ovider Gwendolyn Pulido NP Primary Care Provider [phone] Encounter Details Date Type Department Care Team (Late st Contact Info) Description 08/14/2017 Orders Only [facility] ProviderZeeshan MD [address] [place] [address] Social History Tobacco Use Types Packs/Day Years Used Date Smoking Tobacco: Never Smokeless Tobacco: Never Alcohol Use Standard Drinks/Week Comments No 0 (1 standard drink = 0.6 oz pur e alcohol) Comments Unknown Sex and Gender Information Value Date Recorded Sex Assigned at Not on file Legal Sex Female 5:17 PM LEAN SIX SIGMA SENIOR SPECIALIST Gender Identity Not on file Sexual Orientation Not on file documented as of this encounter Functional Status * BP Location Answer Date of Assessment Author Left arm 08/14/2017 11:06 AM LEAN SIX SIGMA SENIOR SPECIALIST Yusuf CMA * BP Location Answer Date of Assessment Author Left arm 08/14/2017 11:06 AM LEAN SIX SIGMA SENIOR SPECIALIST Yusuf CMA documented as of this encounter Plan of Treatment Not on file documented as of this encounter Procedures Procedure Name Priority Date/Time Associated Diagnosis Comments DISCHARGE LABORATORY CUMULATIVE REPORT 08/14/2017 12:00 AM LEAN SIX SIGMA SENIOR SPECIALIST documented in this encounter Results * DISCHARGE LABORATORY CUMULATIVE REPORT (08/14/2017 12:00 AM LEAN SIX SIGMA SENIOR SPECIALIST) Narrative 08/14/2017 12:00 AM LEAN SIX SIGMA SENIOR SPECIALIST Ordered by an unspecified provider. us Historical Provider LAB BLOOD ORDERABLES Nayeli l Result documented in this encounter Visit Diagnoses Not on filedocumented in this encounter Care Teams Major Appliance Assembly Supervisor Relationship Specialty Start Date End Date Angela Traore MD [address] [place] [address] PCP - General 08/14/17 12/10/17 Hair Mcdaniels MD [address] [place] [address] PCP - General Internal Medicine 12/11/17 07/05/19 Dong Cutler MD [address] [place] [address] PCP - General Internal Medicine 07/06/19 02/01/20 Kandcie Alberto MD [address] [place] [address] PCP - General Internal Medicine 02/02/20 04/02/20 Shavon George PA [address] [place] [address] PCP - General Physician Environmental Compliance Inspector 04/03/20 04/20/24 Gwendolyn Pulido, POLITICAL RESEARCHER [address] [place] [address] PCP - General Family Medicine 04/21/24 documented as of this encounter
--- OUTSIDE RECORDS SUMMARY | 2025-05-31 08:01 | XMS_ITS | Clinical Summary ---
Author Organization [facility] Address [address] [place] [address] Care Team Providers Care Nitro Worker Name Role Phone Gwendolyn Pulido INDUSTRIAL SERVICES WORKER Primary Care Provider [phone] Allergies Active Allergy Reactions Criticality Noted Date [...] 1 tablet (175 mcg total) by mouth chaplaincy before breakfast Active acetaminophen 500 mg capsule [...] 04/21/2024 Assessment & Plan (04/21/2024 9:00 AM RIB STIFFENER AND HEEL DIPPER): Encourage routine vaccinations. Follow up with PCP. [...] and Plaquinil; Will discuss with pts director mba Dr. Bony otoole [phone] Fatigue 07/08/2023 Female pelvic pain 07/08/2023 Hypercalcemia 07/08/2023 Hyperlipidemia 09/11/2022 Encounter for long-term (cur rent) use of high-risk medication 07/16/2022 Assessment & Plan (04/21/2024 9:00 AM RIB STIFFENER AND HEEL DIPPER): Long-term use of high-risk medication requiring regular monitoring. Labs ordered, no s/s of med tox or infection. Encouraged to work with PCP to make sure all recommended cancer screens and vaccinations are complete. Avoid live-vaccines unless reviewed with director mba first. Assessment & Plan (07/16/2022 2:27 PM RIB STIFFENER AND HEEL DIPPER): Long-term use of high-risk medication requiring regular monitoring. Labs ordered, no s/s of med tox or infection. Encouraged to work with PCP to make sure all recommended cancer screens and vaccinations are complete. Avoid live-vaccines unless reviewed with director mba first. Did have a follow up MRI [...] (06/29/2018): Added automatically from request for surgery [id number] Crohn's disease of colon 10/22/2015 Overview (09/18/2016): Crohn's colitis Gastroesophageal reflux disease 10/22/2015 Overview (09/19/2016): ESOPHAGEAL REFLUX Rheumatoid arthritis involving multiple joints 0 10/22/2015 Overview (09/19/2016): RHEUMATOID ARTHRITIS Assessment & Plan (04/21/2024 8:59 AM RIB STIFFENER AND HEEL DIPPER): Stable on simponi and prednisone 5 mg daily, continue same, continue to monitor. Encourage work toward weaning off prednisone, down to 2.5 mg daily and then off / just prn. Encourage calcium/vitamin D and weight bearing exercise to help with osteoporosis reduction. Assessment & Plan (07/16/2022 2:28 PM RIB STIFFENER AND HEEL DIPPER): Stable on simponi and prednisone 5 mg [...] Department Care Team Description 03/17/2025 Orders Only [facility] SLEEP Scanning, Provider from Last 3 Months Immunizations Immunization Administration [...] 7 Thierno (Age 64) suspect fa [place] Daughter 1 beau Daughter 2 beau Alive [...] on file Legal Sex Female 5:17 PM RIB STIFFENER AND HEEL DIPPER Gender Identity Not on file Sexual Orientation [...] Most Recently Relevant to Health Maintenance Insurance Sensorist MEDICARE MEDICARE FOR [facility] MEDICARE FOR LIFE Advance Directives For more information, please contact: [phone] * Full Code (Latest Code Status on File) Date Activated Date Inactivated Comments 07/23/2018 10:37 AM 07/23/2018 9:42 PM Care Teams Nitro Worker Relationship Specialty Start Date End Date Gwendolyn Pulido, INDUSTRIAL SERVICES WORKER [address] [place] [address] PCP - General Family Medicine 04/21/24
--- OUTSIDE RECORDS SUMMARY | 2025-05-31 08:01 | XMS_ITS | Patient Health Record ---
Author Organization [facility] [employer] Address [address] [place] [address] Care Team Providers Care Clinical Evaluator Name Role Phone Asha Shepherd Unavailable [phone] Reason For Referral No Information Medications Medication SIG (Take, Route, Frequency, Duration) Notes Start Date End Date Status traZODone HCl 50 MG Tablet Oral 07/11/2021 Active Carbatrol 300 MG Capsule Extended Release 12 Hour Oral 07/11/2021 Active Venlafaxine HCl ER 75 MG Capsule Extended Release 24 Hour Oral 07/11/2021 Active Losartan Potassium 100 MG Tablet Oral 07/11/2021 Active Coreg *Pick strength-form from OmniPV for eRX* 07/11/2021 Active Topiramate 25 MG [...] Date Medicare-[place] [address] [place] [phone] [id number] VALENTINO YBARRA CALLIE Self - patient is the insured [facility] [address] [place] [address] [id number] VALENTINO YBARRA CALLIE Self - patient is the insured Medical (General) History Surgical History Surgery Date(Month/Year) Any surgical history Unlisted procedure breast (74164) Thyroidectomy ([id number]) 06/15/1976 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
--- OUTSIDE RECORDS SUMMARY | 2025-05-31 08:01 | XMS_ITS | Encounter Summary ---
Author Organization [facility] Address [address] [place] [address] Care Team Providers Care Help Desk Administrator Name Role Phone Base, [facility] Primary Care Provider [phone] [facility], [address] [place] [address] Primary Care Prov ider Shavon Lynch Primary Care Pr ovider Encounter Details Date Type Department Care Team (Late st Contact Info) Description 11/16/2017 Telephone [facility] [address] [place] [address] Inocencia Wade MD [address] [place] [phone] Social History Tobacco Use Types Packs/Day Years Used Date Smoking Tobacco: Never Assessed Comments Unknown Sex and Gender Information Value Date Recorded Sex Assigned at Not on file Legal Sex Female 6:29 AM ORIENTAL RUG REPAIRER Gender Identity Not on file Sexual Orientation Not on file documented as of this encounter Plan of Treatment Upcoming Encounters Date Type Department Care Team (Late st Contact Info) Description 06/01/2025 11:00 AM ORIENTAL RUG REPAIRER Office Visit [facility] [address] [facility] [address] [place] [phone] [place] [address] [facility] [address] [address] documented as of this encounter Visit Diagnoses Not on filedocumented in this encounter Care Teams Help Desk Administrator Relationship Specialty Start Date End Date [facility] [place], [place] PCP - General 11/16/17 12/16/[address] [facility] [place], [place] [id number] PCP - General 12/17/17 10/27/22 Shavon Lynch PA [address] [place] [address] PCP - General Physician Bicycle Assembler 10/28/22 documented as of this encounter
--- OUTSIDE RECORDS SUMMARY | 2025-05-31 08:01 | XMS_ITS | Encounter Summary ---
Author Organization [facility] Address [address] [facility] [place] [address] Care Team Providers Care Lifter Driver Name Role Phone Shavon Lynch Primary Care Pr ovider Reason for Visit * Reason Onset Date Comments MEDICATION REFILL 12/09/2023 Encounter Details Date Type Department Care Team (Late st Contact Info) Description 12/09/2023 Telephone [facility] - Neurology [address] [place] [address], [place] [address] Inocencia Wade MD [address] [place] [address] [place] [phone] MEDICATION REFILL Social History Tobacco Use Types [...] on file Legal Sex Female 6:29 AM SPRING SETTER Gender Identity Not on file Sexual Orientation Not on file Occupation Industry Job Start Date Job End Date Retired Not on file Not on file Not on file documented as of this encounter Miscellaneous Notes * Telephone Encounter - Gladis-Crostacey Marely - 12/09/2023 9:22 AM CDT Patient called in requesting a Med refill. Drug type:carbamazepineER 300 mg Pharmacy:[facility] Patient call back number: [phone] . Upcoming appointment scheduled for : 09/13/24 documented in this encounter Plan of Treatment Upcoming Encounters Date Type Department Care Team (Late st Contact Info) Description 06/01/2025 11:00 AM SPRING SETTER Office Visit [facility] [address] [facility] [address] [place] [phone] [place] [address] [address] documented as of this encounter Visit Diagnoses Not on filedocumented in this encounter Care Teams Lifter Driver Relationship Specialty Start Date End Date Shavon Lynch PA [address] [place] [address] PCP - General Physician Party Plan Sales Director 10/28/22 documented as of this encounter
--- OUTSIDE RECORDS SUMMARY | 2025-05-31 08:02 | XMS_ITS | Data Portability ---
Author Organization [place] [facility], Main Office Address [address] [place] [address] Assessment Encounter Date Assessment Date Assessment LastModified by Organization Details LastModified Time 09/11/2022 09/11/2022 Mammogram UTD feb 2022. DEXA UTD mar 2021. cologuard negative 09/02 Not available 09/11/2022 11:24:42 2023 2023 Mammogram due DEXA UTD mar 2021. cologuard negative 09/02 Not available 2023 09:28:24 04/23/2023 04/23/2023 I have reconciled the patient's medications post their discharge from inpatient facility. [email or web address] Not available 04/23/2023 09:53:56 Plan of Treatment [...] Imaging MAMMO, screening, digital, bilateral 2022 [email or web address] [place] [place] [address] (Mammography) , [address], [place], [address], 4 17:24:40 barium swallow study 2022 023 [facility] (Imaging), [address] [place] [address], [id number], 3 14:05:40 Medication Orders valacyclovi r 1 gram tablet 2022 023 [facility] #[id number], [address] [place] [address], [id number], 3 10:36:21 prednisone 20 mg tablet 2022 023 [facility] #[id number], [address] [place] [address], [id number], 3 10:36:21 trazodone 100 mg tablet 2022 [address] [place] [address], [address] [place] [address], [address], 16:29:56 lorazepam 0.5 mg tablet 2022 023 [email or web address] [facility], [address] [place] [address], [address], 11:27:15 Patient TargetsNo targets recorded. Patient Instructions Encounter Date Encounter Id Patient Instructions Last Modified By Organization Details Last Modified Time 04/23/2023 [id number] Thank you for your visit to our [...] at home, please call us to discuss. Not available 04/23/2023 09:53:56 Reason for Referral None Reported. Results Created Date Observation Date Name Description Value Unit Range Abnormal Flag Note LastModifiedBy Organization Detail LastModifiedTime 09/11/19 22 09/11/2021 VITAM IN B12/F OLATE , SERUM PANEL vitamin B12 1379 pg/mL 200-11 00 high Not Available [employer] [facility] [id number] [place] [address], [address], 09/11/2021 06:20:50 09/11/19 22 09/11/2021 VITAM IN B12/F OLATE , SERUM PANEL folate, serum 19.1 NG/mL normal Refer ence Range Low: <3.4 Borde rline : 3.4-5 .4 Chela l: >5.4 Not Available [employer] [facility] [address] [place], [address], 09/11/2021 06:20:50 09/11/19 22 09/11/2021 CBC (INCL UDES DIFF/ PLT) white blood cell count 6.2 thous and/u L 3.8-10 .8 normal Not Available [employer] [address], [address], 09/11/2021 06:20:50 09/11/19 22 09/11/2021 CBC (INCL UDES DIFF/ PLT) red blood cell count 4.15 umesh on/uL 3.80-5 .10 normal Not Available [address], [address], 09/11/2021 06:20:50 09/11/19 22 09/11/2021 CBC (INCL UDES DIFF/ PLT) hemoglobin 12.9 g/dL 11.7-1 5.5 normal Not Available [address], [address], 09/11/2021 06:20:50 09/11/19 22 09/11/2021 CBC (INCL UDES DIFF/ PLT) hematocrit 38.8 % 35.0-4 5.0 normal Not Available [address], [address], 09/11/2021 06:20:50 09/11/19 22 09/11/2021 CBC (INCL UDES DIFF/ PLT) MCV 93.5 fL 80.0-1 00.0 normal Not Available [address], [address], 09/11/2021 06:20:50 09/11/19 22 09/11/2021 CBC (INCL UDES DIFF/ PLT) MCH 31.1 pg 27.0-3 3.0 normal Not Available [address], [address], 09/11/2021 06:20:50 09/11/19 22 09/11/2021 CBC (INCL UDES DIFF/ PLT) MCHC 33.2 g/dL 32.0-3 6.0 normal Not Available [address], [address], 09/11/2021 06:20:50 09/11/19 22 09/11/2021 CBC (INCL UDES DIFF/ PLT) RDW 12.2 % 11.0-1 5.0 normal Not Available [address], [address], 09/11/2021 06:20:50 09/11/19 22 09/11/2021 CBC (INCL UDES DIFF/ PLT) platelet count 295 thous and/u L 140-40 0 normal Not Available [address], [address], 09/11/2021 06:20:50 09/11/19 22 09/11/2021 CBC (INCL UDES DIFF/ PLT) MPV 11.0 fL 7.5-12 .5 normal Not Available [address], [address], 09/11/2021 06:20:50 09/11/19 22 09/11/2021 CBC (INCL UDES DIFF/ PLT) absolute neutrophils 4135 cells /uL 1500-7 800 normal Not Available [address], [address], 09/11/2021 06:20:50 09/11/19 22 09/11/2021 CBC (INCL UDES DIFF/ PLT) absolute lymphocytes 670 cells /uL 850-39 00 low Not Available [address], [address], 09/11/2021 06:20:50 09/11/19 22 09/11/2021 CBC (INCL UDES DIFF/ PLT) absolute monocytes 1383 cells /uL 200-95 0 high Not Available [address], [address], 09/11/2021 06:20:50 09/11/19 22 09/11/2021 CBC (INCL UDES DIFF/ PLT) absolute eosinophils 0 cells /uL 15-500 low Not Available [employer] [address], [address], 09/11/2021 06:20:50 09/11/19 22 09/11/2021 CBC (INCL UDES DIFF/ PLT) absolute basophils 12 cells /uL 0-200 normal Not Available [address], [address], 09/11/2021 06:20:50 09/11/19 22 09/11/2021 CBC (INCL UDES DIFF/ PLT) eosinophils 0.0 % normal Not Available [address], [address], 09/11/2021 06:20:50 09/11/19 22 09/11/2021 CBC (INCL UDES DIFF/ PLT) neutrophils 66.7 % normal Not Available [address], [address], 09/11/2021 06:20:50 09/11/19 22 09/11/2021 CBC (INCL UDES DIFF/ PLT) lymphocytes 10.8 % normal Not Available [address], [address], 09/11/2021 06:20:50 09/11/19 22 09/11/2021 CBC (INCL UDES DIFF/ PLT) monocytes 22.3 % normal Not Available [address], [address], 09/11/2021 06:20:50 09/11/19 22 09/11/2021 CBC (INCL UDES DIFF/ PLT) basophils 0.2 % normal Not Available [address], [address], 09/11/2021 06:20:50 09/11/19 22 09/11/2021 HEPAT IC FUNCT ION PANEL protein, total 7.8 g/dL 6.1-8. 1 normal Not Available [address], [address], 09/11/2021 06:20:49 09/11/19 22 09/11/2021 HEPAT IC FUNCT ION PANEL albumin 4.7 g/dL 3.6-5. 1 normal Not Available [address], [address], 09/11/2021 06:20:49 09/11/19 22 09/11/2021 HEPAT IC FUNCT ION PANEL globulin 3.1 g/dL_ (calc ) 1.9-3. 7 normal Not Available [address], [address], 09/11/2021 06:20:49 09/11/19 22 09/11/2021 HEPAT IC FUNCT ION PANEL albumin/glob ulin ratio 1.5 (calc ) 1.0-2. 5 normal Not Available [address], [address], 09/11/2021 06:20:49 09/11/19 22 09/11/2021 HEPAT IC FUNCT ION PANEL bilirubin, total 0.3 mg/dL 0.2-1. 2 normal Not Available [address], [address], 09/11/2021 06:20:49 09/11/19 22 09/11/2021 HEPAT IC FUNCT ION PANEL bilirubin, direct 0.1 mg/dL < or = 0.2 normal Not Available [address], [address], 09/11/2021 06:20:49 09/11/19 22 09/11/2021 HEPAT IC FUNCT ION PANEL bilirubin, indirect 0.2 mg/dL _(ambrosio c) 0.2-1. 2 normal Not Available [address], [address], 09/11/2021 06:20:49 09/11/19 22 09/11/2021 HEPAT IC FUNCT ION PANEL alkaline phosphatase 129 U/L 37-153 normal Not Available [facility] [address], [address], 09/11/2021 06:20:49 09/11/19 22 09/11/2021 HEPAT IC FUNCT ION PANEL AST 22 U/L 10-35 normal Not Available [address], [address], 09/11/2021 06:20:49 09/11/19 22 09/11/2021 HEPAT IC FUNCT ION PANEL ALT 19 U/L 6-29 normal Not Available [address], [address], 09/11/2021 06:20:49 09/11/19 22 09/11/2021 BASIC METAB OLIC PANEL sodium 134 mmol/ L 135-14 6 low Not Available [address], [address], 09/11/2021 06:20:48 09/11/1909/11/2021 BASIC METAB OLIC PANEL glucose 102 mg/dL 65-99 high Fasti ng refer ence inter eugenio For someo ne witho ut known diabe saleem, a gluco se value betwe en 100 and 125 mg/dL is consi stent with predi abete s and shoul d be confi rmed with a follo w-up test. Not Available [address], [address], 09/11/2021 06:20:48 09/11/19 22 09/11/2021 BASIC METAB OLIC PANEL urea nitrogen (BUN) 11 mg/dL 7-25 normal Not Available [address], [address], 09/11/2021 06:20:48 09/11/19 22 09/11/2021 BASIC METAB OLIC PANEL creatinine 0.85 mg/dL 0.50-0 .99 normal For patie nts >49 years of age, the refer ence limit for Creat inine is appro ximat shelly 13% highe r for peopl e ident ified as Afric an-Am tyesha n. Not Available [address], [address], 09/11/2021 06:20:48 09/11/19 22 09/11/2021 BASIC METAB OLIC PANEL eGFR non-afr. algerian 71 mL/mi n/1.7 3m2 > or = 60 normal Not Available [address], [address], 09/11/2021 06:20:48 09/11/19 22 09/11/2021 BASIC METAB OLIC PANEL eGFR 83 mL/mi n/1.7 3m2 > or = 60 normal Not Available [address], [address], 09/11/2021 06:20:48 09/11/19 22 09/11/2021 BASIC METAB OLIC PANEL BUN/creatini ne ratio not applic able (calc ) 6-22 Not Available [address], [address], 09/11/2021 06:20:48 09/11/19 22 09/11/2021 BASIC METAB OLIC PANEL potassium 3.5 mmol/ L 3.5-5. 3 normal Not Available [address], [address], 09/11/2021 06:20:48 09/11/19 22 09/11/2021 BASIC METAB OLIC PANEL chloride 97 mmol/ L 98-110 low Not Available [address], [address], 09/11/2021 06:20:48 09/11/19 22 09/11/2021 BASIC METAB OLIC PANEL carbon dioxide 25 mmol/ L 20-32 normal Not Available [facility] [place] [address] [address], [place], [address], 09/11/2021 06:20:48 09/11/1909/11/2021 BASIC METAB OLIC PANEL calcium 9.5 mg/dL 8.6-10 .4 normal Not Available [address], [address], 09/11/2021 06:20:48 03/19/2004/02/2022 VITAM IN B12/F OLATE , SERUM PANEL vitamin B12 467 pg/mL 200-11 00 normal Not Available [address], [address], 04/02/2022 11:31:20 03/19/2004/02/2022 VITAM IN B12/F OLATE , SERUM PANEL folate, serum 14.8 NG/mL normal Refer ence Range Low: <3.4 Borde rline : 3.4-5 .4 Chela l: >5.4 [facility] Avalos es Freddy nt demog raphi cs have avalos ed. No other avalos es to any test resul ts have been made. Freddy nt Name Befor e: [place] HOOK After : LY LAWRENCE Avalos ed on: 04/02 Not Available [address], [address], 04/02/2022 11:31:20 03/19/2003/20/2022 URINA LYSIS , COMPL ETE color yellow yellow normal Not Available [address], [address], 03/20/2022 08:22:45 03/19/2003/20/2022 URINA LYSIS , COMPL ETE appearance clear clear normal Not Available [address], [address], 03/20/2022 08:22:45 03/19/2003/2003/20/2022 URINA LYSIS , COMPL ETE specific gravity 1.007 1.001- 1.035 normal Not Available [address], [address], 03/20/2022 08:22:45 03/19/2003/20/2022 URINA LYSIS , COMPL ETE pH 7.5 5.0-8. 0 normal Not Available [address], [address], 03/20/2022 08:22:45 03/19/2003/20/2022 URINA LYSIS , COMPL ETE glucose negati ve negati ve normal Not Available [address], [address], 03/20/2022 08:22:45 03/19/2003/20/2022 URINA LYSIS , COMPL ETE bilirubin negati ve negati ve normal Not Available [address], [address], 03/20/2022 08:22:45 03/19/2003/20/2022 URINA LYSIS , COMPL ETE ketones negati ve negati ve normal Not Available [address], [address], 03/20/2022 08:22:45 03/19/2003/20/2022 URINA LYSIS , COMPL ETE occult blood negati ve negati ve normal Not Available [address], [address], 03/20/2022 08:22:45 03/19/2003/20/2022 URINA LYSIS , COMPL ETE protein negati ve negati ve normal Not Available [address], [address], 03/20/2022 08:22:45 03/19/2003/20/2022 URINA LYSIS , COMPL ETE nitrite negati ve negati ve normal Not Available [address], [address], 03/20/2022 08:22:45 03/19/20 22 03/20/2022 URINA LYSIS , COMPL ETE leukocyte esterase negati ve negati ve normal Not Available [address], [address], 03/20/2022 08:22:45 03/19/20 22 03/20/2022 URINA LYSIS , COMPL ETE WBC none seen /hpf < or = 5 normal Not Available [address], [address], 03/20/2022 08:22:45 03/19/20 22 03/20/2022 URINA LYSIS , COMPL ETE RBC none seen /hpf < or = 2 normal Not Available [address], [address], 03/20/2022 08:22:45 03/19/20 22 03/20/2022 URINA LYSIS , COMPL ETE squamous epithelial cells none seen /hpf < or = 5 normal Not Available [address], [address], 03/20/2022 08:22:45 03/19/20 22 03/20/2022 URINA LYSIS , COMPL ETE bacteria none seen /hpf none seen normal Not Available [address], [address], 03/20/2022 08:22:45 03/19/20 22 03/20/2022 URINA LYSIS , COMPL ETE hyaline cast none seen /lpf none seen normal Not Available [address], [address], 03/20/2022 08:22:45 03/19/20 22 03/20/2022 CBC (INCL UDES DIFF/ PLT) white blood cell count 5.5 thous and/u L 3.8-10 .8 normal Not Available [address], [address], 03/20/2022 08:22:44 03/19/20 22 03/20/2022 CBC (INCL UDES DIFF/ PLT) red blood cell count 3.77 umesh on/uL 3.80-5 .10 low Not Available [address], [address], 03/20/2022 08:22:44 03/19/20 22 03/20/2022 CBC (INCL UDES DIFF/ PLT) hemoglobin 11.9 g/dL 11.7-1 5.5 normal Not Available [address], [address], 03/20/2022 08:22:44 03/19/20 22 03/20/2022 CBC (INCL UDES DIFF/ PLT) hematocrit 36.2 % 35.0-4 5.0 normal Not Available [address], [address], 03/20/2022 08:22:44 03/19/20 22 03/20/2022 CBC (INCL UDES DIFF/ PLT) MCV 96.0 fL 80.0-1 00.0 normal Not Available [address], [address], 03/20/2022 08:22:44 03/19/20 22 03/20/2022 CBC (INCL UDES DIFF/ PLT) MCH 31.6 pg 27.0-3 3.0 normal Not Available [address], [address], 03/20/2022 08:22:44 03/19/20 22 03/20/2022 CBC (INCL UDES DIFF/ PLT) MCHC 32.9 g/dL 32.0-3 6.0 normal Not Available [address], [address], 03/20/2022 08:22:44 03/19/2003/20/2022 CBC (INCL UDES DIFF/ PLT) RDW 12.5 % 11.0-1 5.0 normal Not Available [address], [address], 03/20/2022 08:22:44 03/19/20 22 03/20/2022 CBC (INCL UDES DIFF/ PLT) platelet count 309 thous and/u L 140-40 0 normal Not Available [address], [address], 03/20/2022 08:22:44 03/19/20 22 03/20/2022 CBC (INCL UDES DIFF/ PLT) MPV 11.0 fL 7.5-12 .5 normal Not Available [address], [address], 03/20/2022 08:22:44 03/19/20 22 03/20/2022 CBC (INCL UDES DIFF/ PLT) absolute neutrophils 3366 cells /uL 1500-7 800 normal Not Available [address], [address], 03/20/2022 08:22:44 03/19/20 22 03/20/2022 CBC (INCL UDES DIFF/ PLT) absolute lymphocytes 1309 cells /uL 850-39 00 normal Not Available [address], [address], 03/20/2022 08:22:44 03/19/2003/20/2022 CBC (INCL UDES DIFF/ PLT) absolute monocytes 594 cells /uL 200-95 0 normal Not Available [address], [address], 03/20/2022 08:22:44 03/19/20 22 03/20/2022 CBC (INCL UDES DIFF/ PLT) absolute eosinophils 171 cells /uL 15-500 normal Not Available [address], [address], 03/20/2022 08:22:44 03/19/20 22 03/20/2022 CBC (INCL UDES DIFF/ PLT) absolute basophils 61 cells /uL 0-200 normal Not Available [address], [address], 03/20/2022 08:22:44 03/19/20 22 03/20/2022 CBC (INCL UDES DIFF/ PLT) neutrophils 61.2 % normal Not Available [address], [address], 03/20/2022 08:22:44 03/19/20 22 03/20/2022 CBC (INCL UDES DIFF/ PLT) lymphocytes 23.8 % normal Not Available [address], [address], 03/20/2022 08:22:44 03/19/20 22 03/20/2022 CBC (INCL UDES DIFF/ PLT) monocytes 10.8 % normal Not Available [address], [address], 03/20/2022 08:22:44 03/19/20 22 03/20/2022 CBC (INCL UDES DIFF/ PLT) eosinophils 3.1 % normal Not Available [address], [address], 03/20/2022 08:22:44 03/19/2003/20/2022 CBC (INCL UDES DIFF/ PLT) basophils 1.1 % normal Not Available [address], [address], 03/20/2022 08:22:44 03/19/2003/20/2022 HEPAT IC FUNCT ION PANEL protein, total 6.9 g/dL 6.1-8. 1 normal Not Available [address], [address], 03/20/2022 08:22:43 03/19/20 22 03/20/2022 HEPAT IC FUNCT ION PANEL albumin 4.0 g/dL 3.6-5. 1 normal Not Available [address], [address], 03/20/2022 08:22:43 03/19/20 22 03/20/2022 HEPAT IC FUNCT ION PANEL globulin 2.9 g/dL_ (calc ) 1.9-3. 7 normal Not Available [address], [address], 03/20/2022 08:22:43 03/19/20 22 03/20/2022 HEPAT IC FUNCT ION PANEL albumin/glob ulin ratio 1.4 (calc ) 1.0-2. 5 normal Not Available [address], [address], 03/20/2022 08:22:43 03/19/20 22 03/20/2022 HEPAT IC FUNCT ION PANEL bilirubin, total 0.4 mg/dL 0.2-1. 2 normal Not Available [address], [address], 03/20/2022 08:22:43 03/19/20 22 03/20/2022 HEPAT IC FUNCT ION PANEL bilirubin, direct 0.1 mg/dL < or = 0.2 normal Not Available [address], [address], 03/20/2022 08:22:43 03/19/20 22 03/20/2022 HEPAT IC FUNCT ION PANEL bilirubin, indirect 0.3 mg/dL _(ambrosio c) 0.2-1. 2 normal Not Available [address] [place], [address], 03/20/2022 08:22:43 03/19/20 22 03/20/2022 HEPAT IC FUNCT ION PANEL alkaline phosphatase 139 U/L 37-153 normal Not Available [address], [address], 03/20/2022 08:22:43 03/19/20 22 03/20/2022 HEPAT IC FUNCT ION PANEL AST 14 U/L 10-35 normal Not Available [address], [address], 03/20/2022 08:22:43 03/19/20 22 03/20/2022 HEPAT IC FUNCT ION PANEL ALT 12 U/L 6-29 normal Not Available [address], [address], 03/20/2022 08:22:43 03/19/20 22 03/20/2022 BASIC METAB OLIC PANEL glucose 88 mg/dL 65-99 normal Fasti ng refer ence inter eugenio Not Available [address], [address], 03/20/2022 08:22:42 03/19/20 22 03/20/2022 BASIC METAB OLIC PANEL urea nitrogen (BUN) 10 mg/dL 7-25 normal Not Available [address], [address], 03/20/2022 08:22:42 03/19/20 22 03/20/2022 BASIC METAB OLIC PANEL creatinine 0.80 mg/dL 0.50-1 .05 normal Not Available [address], [address], 03/20/2022 08:22:42 03/19/20 22 03/20/2022 BASIC METAB OLIC PANEL chloride 104 mmol/ L 98-110 normal Not Available [address] [place], [address], 03/20/2022 08:22:42 03/19/20 22 03/20/2022 BASIC METAB OLIC PANEL eGFR 81 mL/mi n/1.7 3m2 > or = 60 normal The eGFR is based on the CKD-E PI 2020 equat ion. To calcu late the new eGFR from a previ ous Creat inine or Cysta tin C resul t, go to https ://zacarias w.london alston.o ting/hanh lugo s/ kdoqi /gfr% 5Fcal culat or Not Available [address], [address], 03/20/2022 08:22:42 03/19/20 22 03/20/2022 BASIC METAB OLIC PANEL BUN/creatini ne ratio not applic able (calc ) 6-22 Not Available [address], [address], 03/20/2022 08:22:42 03/19/20 22 03/20/2022 BASIC METAB OLIC PANEL sodium 137 mmol/ L 135-14 6 normal Not Available [address], [address], 03/20/2022 08:22:42 03/19/20 22 03/20/2022 BASIC METAB OLIC PANEL potassium 3.9 mmol/ L 3.5-5. 3 normal Not Available [address], [address], 03/20/2022 08:22:42 03/19/20 22 03/20/2022 BASIC METAB OLIC PANEL carbon dioxide 25 mmol/ L 20-32 normal Not Available [address], [address], 03/20/2022 08:22:42 03/19/20 22 03/20/2022 BASIC METAB OLIC PANEL calcium 8.5 mg/dL 8.6-10 .4 low Not Available [facility] [address] [place], [address], 03/20/2022 08:22:42 10/02/19 23 10/02/2022 LIPID PANEL , STAND NAOMI cholesterol, total 201 mg/dL <200 high Not Available [facility] [address] [place], [address], 10/02/2022 05:30:53 10/02/19 23 10/02/2022 LIPID PANEL , STAND NAOMI HDL cholesterol 102 mg/dL > or = 50 normal Not Available [facility] [address] [address] [place], [address], 10/02/2022 05:30:53 10/02/19 23 10/02/2022 LIPID PANEL , STAND NAOMI triglyceride s 88 mg/dL <150 normal Not Available [facility] [address] [address] [place], [address], 10/02/2022 05:30:53 10/02/19 23 10/02/2022 LIPID PANEL [...] calcu lated using the Emmanuelle n-Hop kins eufemiau lexus n, which is a valid ated novel alannaho d ramone romero r accur acy than the Fried juventino equat ion in the estim ation of LDL-C . Emmanuelle elena SS et al. KARON. 2013; 310(1 9): 2061- 2068 (http ://ed ucati on.Qu Shima perdomos. com/f aq/FA Q164) Not Available [facility] [address] [place], [address], 10/02/2022 05:30:53 10/02/19 23 10/02/2022 LIPID PANEL , STAND NAOMI chol/HDLC ratio 2.0 (calc ) <5.0 normal Not Available [address], [address], 10/02/2022 05:30:53 10/02/19 23 10/02/2022 LIPID PANEL , STAND NAOMI non HDL cholesterol 99 mg/dL _(ambrosio c) <130 normal For patie nts with diabe saleem plus 1 major ASCVD risk facto r, treat ing to a non-H DL-C goal of <100 mg/dL (LDL- C of <70 mg/dL ) is consi maud a thera peuti c optio n. Not Available [address], [address], 10/02/2022 05:30:53 10/02/19 23 10/02/2022 BASIC METAB OLIC PANEL glucose 87 mg/dL 65-99 normal Fasti ng refer ence inter eugenio Not Available [address] [address] [place], [address], 10/02/2022 05:30:54 10/02/19 23 10/02/2022 BASIC METAB OLIC PANEL urea nitrogen (BUN) 10 mg/dL 7-25 normal Not Available [address], [address], 10/02/2022 05:30:54 10/02/19 23 10/02/2022 BASIC METAB OLIC PANEL creatinine 0.84 mg/dL 0.50-1 .05 normal Not Available [address] [place], [address], 10/02/2022 05:30:54 10/02/19 23 10/02/2022 BASIC METAB OLIC PANEL eGFR 76 mL/mi n/1.7 3m2 > or = 60 normal The eGFR is based on the CKD-E PI 2020 equat ion. To calcu late the new eGFR from a previ ous Creat inine or Cysta tin C resul t, go to https ://zacarias ferguson.london alston.michaela maguire/hanh ofess ional s/ kdoqi /gfr% 5Fcal culat or Not Available [address], [address], 10/02/2022 05:30:54 10/02/19 23 10/02/2022 BASIC METAB OLIC PANEL BUN/creatini ne ratio NOT APPLIC ABLE (calc ) 6-22 Not Available [address], [address], 10/02/2022 05:30:54 10/02/19 23 10/02/2022 BASIC METAB OLIC PANEL sodium 136 mmol/ L 135-14 6 normal Not Available [address], [address], 10/02/2022 05:30:54 10/02/19 23 10/02/2022 BASIC METAB OLIC PANEL potassium 3.7 mmol/ L 3.5-5. 3 normal Not Available [address], [address], 10/02/2022 05:30:54 10/02/19 23 10/02/2022 BASIC METAB OLIC PANEL chloride 102 mmol/ L 98-110 normal Not Available [address], [address], 10/02/2022 05:30:54 10/02/19 23 10/02/2022 BASIC METAB OLIC PANEL carbon dioxide 26 mmol/ L 20-32 normal Not Available [address], [address], 10/02/2022 05:30:54 10/02/19 23 10/02/2022 BASIC METAB OLIC PANEL calcium 8.8 mg/dL 8.6-10 .4 normal Not Available [address], [address], 10/02/2022 05:30:54 10/02/19 23 10/02/2022 HEPAT IC FUNCT ION PANEL protein, total 7.0 g/dL 6.1-8. 1 normal Not Available [address], [address], 10/02/2022 05:30:55 10/02/19 23 10/02/2022 HEPAT IC FUNCT ION PANEL albumin 4.2 g/dL 3.6-5. 1 normal Not Available [address], [address], 10/02/2022 05:30:55 10/02/19 23 10/02/2022 HEPAT IC FUNCT ION PANEL globulin 2.8 g/dL_ (calc ) 1.9-3. 7 normal Not Available [address], [address], 10/02/2022 05:30:55 10/02/19 23 10/02/2022 HEPAT IC FUNCT ION PANEL albumin/glob ulin ratio 1.5 (calc ) 1.0-2. 5 normal Not Available [address], [address], 10/02/2022 05:30:55 10/02/19 23 10/02/2022 HEPAT IC FUNCT ION PANEL bilirubin, total 0.4 mg/dL 0.2-1. 2 normal Not Available [address], [address], 10/02/2022 05:30:55 10/02/19 23 10/02/2022 HEPAT IC FUNCT ION PANEL bilirubin, direct 0.1 mg/dL < or = 0.2 normal Not Available [address], [address], 10/02/2022 05:30:55 10/02/19 23 10/02/2022 HEPAT IC FUNCT ION PANEL bilirubin, indirect 0.3 mg/dL _(ambrosio c) 0.2-1. 2 normal Not Available [address], [address], 10/02/2022 05:30:55 10/02/19 23 10/02/2022 HEPAT IC FUNCT ION PANEL alkaline phosphatase 87 U/L 37-153 normal Not Available [facility] [address], [address], 10/02/2022 05:30:55 10/02/19 23 10/02/2022 HEPAT IC FUNCT ION PANEL AST 13 U/L 10-35 normal Not Available [address], [address], 10/02/2022 05:30:55 10/02/19 23 10/02/2022 HEPAT IC FUNCT ION PANEL ALT 12 U/L 6-29 normal Not Available [address], [address], 10/02/2022 05:30:55 10/02/19 23 10/02/2022 CBC (INCL UDES DIFF/ PLT) white blood cell count 7.0 thous and/u L 3.8-10 .8 normal Not Available [address], [address], 10/02/2022 05:30:56 10/02/19 23 10/02/2022 CBC (INCL UDES DIFF/ PLT) red blood cell count 3.64 umesh on/uL 3.80-5 .10 low Not Available [facility] [address], [address], 10/02/2022 05:30:56 10/02/19 23 10/02/2022 CBC (INCL UDES DIFF/ PLT) hemoglobin 11.4 g/dL 11.7-1 5.5 low Not Available [facility] [address], [address], 10/02/2022 05:30:56 10/02/19 23 10/02/2022 CBC (INCL UDES DIFF/ PLT) hematocrit 35.7 % 35.0-4 5.0 normal Not Available [address], [address], 10/02/2022 05:30:56 10/02/19 23 10/02/2022 CBC (INCL UDES DIFF/ PLT) MCV 98.1 fL 80.0-1 00.0 normal Not Available [address], [address], 10/02/2022 05:30:56 10/02/19 23 10/02/2022 CBC (INCL UDES DIFF/ PLT) MCH 31.3 pg 27.0-3 3.0 normal Not Available [address], [address], 10/02/2022 05:30:56 10/02/19 23 10/02/2022 CBC (INCL UDES DIFF/ PLT) MCHC 31.9 g/dL 32.0-3 6.0 low Not Available [address], [address], 10/02/2022 05:30:56 10/02/19 23 10/02/2022 CBC (INCL UDES DIFF/ PLT) RDW 12.8 % 11.0-1 5.0 normal Not Available [address], [address], 10/02/2022 05:30:56 10/02/19 23 10/02/2022 CBC (INCL UDES DIFF/ PLT) platelet count 294 thous and/u L 140-40 0 normal Not Available [address], [address], 10/02/2022 05:30:56 10/02/19 23 10/02/2022 CBC (INCL UDES DIFF/ PLT) MPV 10.8 fL 7.5-12 .5 normal Not Available [address], [address], 10/02/2022 05:30:56 10/02/19 23 10/02/2022 CBC (INCL UDES DIFF/ PLT) absolute neutrophils 4081 cells /uL 1500-7 800 normal Not Available [address], [address], 10/02/2022 05:30:56 10/02/19 23 10/02/2022 CBC (INCL UDES DIFF/ PLT) absolute lymphocytes 1967 cells /uL 850-39 00 normal Not Available [address], [address], 10/02/2022 05:30:56 10/02/19 23 10/02/2022 CBC (INCL UDES DIFF/ PLT) absolute monocytes 791 cells /uL 200-95 0 normal Not Available [address], [address], 10/02/2022 05:30:56 10/02/19 23 10/02/2022 CBC (INCL UDES DIFF/ PLT) absolute eosinophils 98 cells /uL 15-500 normal Not Available [address], [address], 10/02/2022 05:30:56 10/02/19 23 10/02/2022 CBC (INCL UDES DIFF/ PLT) absolute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 PatientHPIFor duration, patient reportshas noted for years. For onset/timing, patient reportsbetter. For alleviating factors, patient reportsmedication. For associated symptoms, patient reportsno shortness of breath,no fatigue,no palpitations,no decline in exercise capacity, andno snoring. Obstructive Sleep Apnea F/UReported by PatientHPIFor location, patient reportsdryness of mouthbut reportsno enlarged tonsils,no nasal passage blockage,no throat pain,no feeling of tightness in throat, andno chest congestion. For quality, patient reportsno loud snoring,no gasping for air,no witnessed apnea,no hyponasal speech, andno frequent breathing through the mouth. For onset/timing, patient reportschronic. For duration, patient reportscontinuous. For severity, patient reportsdoes not limit daily activities,no frequent sore throats resulting in excess missed days from school / work per year,no difficulty getting going in the morning, andno awakening in the middle of the night with sore throat. For context, patient reportsno lack of adequate sleep,no shift work,not currently taking medication to help sleep,no recent weight gain,no recent upper respiratory infection,no recent sick contacts,not worse with environmental exposure,not worse with seasonal allergen exposure,no hypertension, andnormal sleep hours. For alleviating factors, patient reportsrelief with cpap. For aggravating factors, patient reportsnot worse during an upper respiratory infection (a cold)andnot worse when allergies are active. For associated symptoms, patient reportsno morning headache,no awakening at night short of breath,no sweating heavily at night,no excessive sleepiness during the day,no suddenly falling asleep during the day,no napping,no impaired work performace, andno nasal congestion. Anxiety/DepressionReported by PatientHPIFor severity, patient reportsinterference with sleepbut reportsdenies suicidal ideationsandable to maintain relationships. For duration, patient reportssymptoms lasting over 2 weeks. For onset/timing, patient reportsstill present. For context, patient reportsno major life stressors. For associated symptoms, patient reportsdenies homicidal ideations,no significant weight gain,no significant weight loss,no visual/auditory hallucinations,no delusions, andno shortness of breath. For quality, (doesnt matter time of day.). HypothyroidismReported by PatientHPIFor context/risk, patient reportshistory of hypothyroidismandfemale genderbut reportsnormal thyroid levels,no history of head or neck radiation during childhood,no history of thyroid disease,no history of hypothyroidism,no history of hyperthyroidism, andno excess iron exposure. For exercise, patient reportsno exercise (but active). For quality, patient reportsnot changing. For duration, patient reportsconstant. For onset/timing, patient reportsstill present. For modifying factors, patient reportsmedication. For associated symptoms, patient reportsno cold intolerance,no heat intolerance,no weight loss,no weight gain,no double vision,no dry eyes,no hoarseness,no difficulty swallowing,no neck masses,no deepening of the voice,no fast heart rate,no increased blood pressure,no palpitations,no chest pain,no chest tightess or pressure,no constipation,no diarrhea,no vomiting,no decreased appetite,no loose stools,no irregular menstrual periods,no excessive sweating,no joint pain,no numbness,no tingling of the hands or feet,no dry skin,no tremor,no nervousness,no anxiety,no depression,no fatigue,no sleep difficulties,no skin changes, andno hair changes. FRANSISCO Oviedo [address] [facility], [facility] [address], [place], [address], [facility] [employer] 09/11/2022 14:38:48 3 text/html HypertensionReported by PatientHPIFor duration, patient reportshas noted for years. For onset/timing, patient reportsbetter. For alleviating factors, patient reportsmedication. For associated symptoms, patient reportsno shortness of breath,no fatigue,no palpitations,no decline in exercise capacity, andno snoring. Obstructive Sleep Apnea F/UReported by PatientHPIFor location, patient reportsdryness of mouthbut reportsno enlarged tonsils,no nasal passage blockage,no throat pain,no feeling of tightness in throat, andno chest congestion. For quality, patient reportsno loud snoring,no gasping for air,no witnessed apnea,no hyponasal speech, andno frequent breathing through the mouth. For onset/timing, patient reportschronic. For duration, patient reportscontinuous. For severity, patient reportsdoes not limit daily activities,no frequent sore throats resulting in excess missed days from school / work per year,no difficulty getting going in the morning, andno awakening in the middle of the night with sore throat. For context, patient reportsno lack of adequate sleep,no shift work,not currently taking medication to help sleep,no recent weight gain,no recent upper respiratory infection,no recent sick contacts,not worse with environmental exposure,not worse with seasonal allergen exposure,no hypertension, andnormal sleep hours. For alleviating factors, patient reportsrelief with cpap. For aggravating factors, patient reportsnot worse during an upper respiratory infection (a cold)andnot worse when allergies are active. For associated symptoms, patient reportsno morning headache,no awakening at night short of breath,no sweating heavily at night,no excessive sleepiness during the day,no suddenly falling asleep during the day,no napping,no impaired work performace, andno nasal congestion. Anxiety/DepressionReported by PatientHPIFor severity, patient reportsinterference with sleepbut reportsdenies suicidal ideationsandable to maintain relationships. For duration, patient reportssymptoms lasting over 2 weeks. For onset/timing, patient reportsstill present. For context, patient reportsno major life stressors. For associated symptoms, patient reportsdenies homicidal ideations,no significant weight gain,no significant weight loss,no visual/auditory hallucinations,no delusions, andno shortness of breath. For quality, (doesnt matter time of day.). HypothyroidismReported by PatientHPIFor context/risk, patient reportshistory of hypothyroidismandfemale genderbut reportsnormal thyroid levels,no history of head or neck radiation during childhood,no history of thyroid disease,no history of hypothyroidism,no history of hyperthyroidism, andno excess iron exposure. For exercise, patient reportsno exercise (but active). For quality, patient reportsnot changing. For duration, patient reportsconstant. For onset/timing, patient reportsstill present. For modifying factors, patient reportsmedication. For associated symptoms, patient reportsno cold intolerance,no heat intolerance,no weight loss,no weight gain,no double vision,no dry eyes,no hoarseness,no difficulty swallowing,no neck masses,no deepening of the voice,no fast heart rate,no increased blood pressure,no palpitations,no chest pain,no chest tightess or pressure,no constipation,no diarrhea,no vomiting,no decreased appetite,no loose stools,no irregular menstrual periods,no excessive sweating,no joint pain,no numbness,no tingling of the hands or feet,no dry skin,no tremor,no nervousness,no anxiety,no depression,no fatigue,no sleep difficulties,no skin changes, andno hair changes. FRANSISCO Oviedo [address] [place] [address], [place], [address], [employer] [facility] [employer] 2023 19:05:47 3 text/html Generic HPI TemplateReported by PatientPt is here for an er f/u from 04/17/23 for an animal bite. Records are in the room. They did xray and everything was ok. Today the spot on her hand is much better. there is presence of left sided facial paresis that she says just started today. FRANSISCO Oviedo [address], [place], [address], [employer] [facility] 05/13/2023 23:41:07 OBGyn Episode No OBEpisode recorded.
== END 2025-05-31 07:50 | disposition home or self-care (01) ==
LOC: ANHFOHIMG 07:50
PROVIDERS: PCP Family Medicine; Visit Provider Internal Medicine Endocrinology, Diabetes & Metabolism
DX: M81.0 Age-related osteoporosis without current pathological fracture (principal); M85.89 Other specified disorders of bone density and structure, multiple sites
CPT/HCPCS: 77080

== ENCOUNTER 2025-05-31 14:00 | Outpatient (CLI) | payer MEDICARE, OTHER, SELFPAY ==
--- OUTSIDE RECORDS SUMMARY | 2025-05-31 16:37 | XMS_ITS | Encounter Summary ---
Author Organization [facility] Address [address] [facility] [place] [address] Care Team Providers Care Four Corner Stayer Machine Operator Name Role Phone Base, [facility] Primary Care Provider + [phone] [facility], [address] [place] [address] Primary Care Prov ider Shavon Lynch Primary Care Pr ovider Encounter Details Date Type Department Care Team (Late st Contact Info) Description 11/16/2017 Telephone [facility] [address] [place] [address] Inocencia Wade MD [address] [place] [phone] Social History Tobacco Use Types Packs/Day Years Used Date Smoking Tobacco: Never Assessed Comments Unknown Sex and Gender Information Value Date Recorded Sex Assigned at Not on file Legal Sex Female 6:29 AM SOCIAL SCIENCES DEPARTMENT CHAIR Gender Identity Not on file Sexual Orientation Not on file documented as of this encounter Plan of Treatment Upcoming Encounters Date Type Department Care Team (Late st Contact Info) Description 06/01/2025 11:00 AM SOCIAL SCIENCES DEPARTMENT CHAIR Office Visit [facility] Neurosciences [address] [facility] [address] [place] [phone] [place] [address] [facility] [address] [address] documented as of this encounter Visit Diagnoses Not on filedocumented in this encounter Care Teams Four Corner Stayer Machine Operator Relationship Specialty Start Date End Date [facility], [place], [place] PCP - General 11/16/17 12/16/[address] [facility], [place], [place] [id number] PCP - General 12/17/17 10/27/22 Shavon Lynch PA [address] [place] [address] PCP - General Physician Film Washer 10/28/22 documented as of this encounter
--- OUTSIDE RECORDS SUMMARY | 2025-05-31 16:37 | XMS_ITS | Clinical Summary ---
Author Organization [facility] Address [address] [facility] [place] [address] Care Team Providers Care Key Cutter Name Role Phone Shavon Lynch Primary Care Pr ovider Source Comments [facility],non-owned Affiliates and Associated Physician Practices is amultiple site organization consisting of ambulatory clinics and hospital sitesin [place], [place], [place] and [place]. This disclosure is being madepursuant to the Care Everywhere program and may not contain all information available regarding this patient. Last updated 18.[facility] [employer] Allergies Active Allergy Reactions Criticality Noted Date [...] - 03/18/2025 11:59 PM CDT Hospital Encounter [facility] Health Imaging Services - MRI [address] [place] [address] Keo Vega MD Discharge Disposition: Home or Self Care 03/01/2025 12:20 PM CDT Office Visit [facility] Neurosciences [address] [facility] [address] [place] [address] Keo Vega MD Memory loss (Primary Dx); [...] on file Legal Sex Female 6:29 AM APRON MAN Gender Identity Not on file Sexual Orientation [...] st Contact Info) Description 06/01/2025 11:00 AM APRON MAN Office Visit Critical access hospital [address] [facility] [address] [place] [address] [place] [address] [id number] Health Maintenance Due Date Last Done Comments [...] Routine 03/01/2025 1:42 PM CDT Memory loss [id number] ERATION (ATN) PROFILE Routine 03/01/2025 1:42 PM [...] Vega MD MR ORDERABLES Final Result * [id number] (ATN) PROFILE (03/01/2025 1:42 PM CDT) Beta-amyloid 42/40 Ratio 0.132 >0.102 [facility] INSURANCE BILL Beta-amyloid 42 17.48 pg/mL [facility] Beta-amyloid 40 132.57 pg/mL [facility]URANCE BILL [id number] 0.66 0.00 - 0.97 pg/mL [facility] INSURANCE BILL NfL plasma 3.13 0.00 - 3.65 pg/mL [facility] INSURANCE BILL ATN Summary Comment [facility] INSURANCE BILL Comment: A- T- N- A normal beta-amyloid 42/40 ratio and normal concentrations of [id number] and NfL were observed at this time. [...] developed and their performance characteristics determined by [employer]. They have not been cleared or approved by the Food and Drug Administration. * METHODOLOGY: Beta-amyloid 42/40 Ratio: [employer] Chemiluminescence Enzyme Immunoassay (CLEIA) NfL and p-uld044: Tests performed by [facility] Electrochemiluminescence Immunoassay (ECLIA). Values obtained with different methods cannot be used interchangeable. These tests were developed and their performance characteristics determined by [employer]. They have not been cleared or approved by the Food and Drug Administration. * p-[id number] INFORMATION: For individual 0-55 years of age: [...] are based on a consensus between National [place] for Age and the Internation Working Group [...] - 03/04/2025 6:09 AM CDT Performed at: [address] [place] [id number] Material Assembler: Hernandez Flaherty MD, Phone: [phone] Keo Vega MD LAB - CHEMISTRY ORDERABLES Final Result [facility] INSURANCE BILL [address] [place] [address] * TSH REFLEX FREE T4 (03/01/2025 1:42 PM CDT) TSH 0.781 0.350 - 4.940 uIU/mL [facility] INSURANCE BILL Blood BLOOD SPECIMEN / Unknown 03/01/2025 1:42 PM CDT 03/01/2025 Narrative [facility] INSURANCE BILL - 03/01/2025 11:08 PM CDT Performed at: [address] [place] [address] MD [id number] Material Assembler: Raz Saravia [facility], Phone: [phone] Keo Vega MD LAB - CHEMISTRY ORDERABLES Final Result Performing Organization Address City/[facility]/ZIP Co de Phone Number [facility] INSURANCE BILL [address] [place] [address] * VITAMIN B12 FOLATE PANEL (03/01/2025 1:42 PM CDT) Vitamin B12 646 213 - 816 pg/mL [facility] INSURANCE BILL Folate 18.7 7.0 - 31.4 ng/mL [facility] INSURANCE BILL Blood BLOOD SPECIMEN / Unknown 03/01/2025 1:42 PM CDT 03/01/2025 Narrative [facility] INSURANCE BILL - 03/01/2025 11:08 PM CDT Performed at: [address] [place] [address] [place] [id number] Material Assembler: Raz SCHMIDT, Phone: [phone] us Keo Vega MD LAB - CHEMISTRY ORDERABLES Final Result Performing Organization Address City/[facility] Co de Phone Number [facility] INSURANCE BILL [address] [place] [address] * TREPONEMA PALLIDUM POS REFLX RPR (03/01/2025 1:41 PM CDT) T pallidum Antibody (TP-PA) Non Reactive Non Reactive [facility] INSURANCE BILL Blood BLOOD SPECIMEN / Unknown 03/01/2025 1:41 PM CDT 03/01/2025 Narrative [facility] INSURANCE BILL - 03/02/2025 9:08 PM CDT Performed at: [address] [place] [id number] Material Assembler: Hernandez Flaherty MD, Phone: [phone] us Keo Vega MD LAB - SEROLOGY ORDERABLES Final Result Performing Organization Address City/[facility] Co de Phone Number [facility] INSURANCE BILL [address] [place] [address] * TOPIRAMATE LEVEL (03/01/2025 1:41 PM CDT) Topiramate 3.1 2.0 - 25.0 ug/mL [facility] INSURANCE BILL Comment:Detection Limit = 1. 5 Blood BLOOD SPECIMEN / Unknown 03/01/2025 1:41 PM CDT 03/01/2025 Narrative [facility] INSURANCE BILL - 03/03/2025 10:11 AM CDT Performed at: [address] [id number] Material Assembler: Hernandez Flaherty MD, Phone: [phone] Keo eVga MD LAB - THERAPEUTIC DRUG MONITORIN G ORDERABLES Final Result Performing Organization Address [facility] de Phone Number [facility] INSURANCE BILL [address] [place] [address] * CARBAMAZEPINE LEVEL TOTAL (03/01/2025 1:41 PM CDT) Pathologist [facility] Carbamazepine 11.9 4.0 - 12.0 ug/mL [facility] INSURANCE BILL Comment: In conjunction with other antiepileptic drugs Therapeutic 4.0 - 8.0 Toxicity 9.0 - 12.0 Carbamazepine alone Therapeutic 8.0 - 12.0 Detection Limit = 2.0 <2.0 indicates None Detected Blood BLOOD SPECIMEN / Unknown 03/01/2025 1:41 PM CDT 03/01/2025 Narrative [facility] INSURANCE BILL - 03/02/2025 10:12 AM CDT Performed at: [address] [id number] Material Assembler: Pola Aguilera PhD, Phone: [phone] us Keo Vega MD LAB - CHEMISTRY ORDERABLES Final Result Performing Organization Address [facility] Co de Phone Number [facility] INSURANCE BILL [address] [place] [address] from Last 3 Months Insurance MEDICARE MEDICARE MEDICARE [facility] MEDICARE MEDICARE MEDICARE Care Teams Key Cutter Relationship Specialty Start Date End Date Shavon Lynch PA [address] [place] [phone] PCP - General Physician Hot Shot 10/28/22
--- OUTSIDE RECORDS SUMMARY | 2025-05-31 16:37 | XMS_ITS | Clinical Summary ---
Author Organization [facility] Address [address] [place] [address] Phone Care Team Providers Care Proteomics Scientist Name Role Phone Ankit Smith MD Primary [...] age to complete this topic Care Teams Proteomics Scientist Relationship Specialty Start Date End Date Ankit Smith MD [address] [place] [address] PCP - General Internal Medicine 02/13/13
--- OUTSIDE RECORDS SUMMARY | 2025-05-31 16:37 | XMS_ITS | Clinical Summary ---
Author Organization [facility] Address [address] [place] [address] Care Team Providers Care Terminologist Name Role Phone Gwendolyn Pulido SHELLACKER Primary Care Provider [phone] Allergies Active Allergy Reactions Criticality Noted Date [...] 1 tablet (175 mcg total) by mouth stand in before breakfast Active acetaminophen 500 mg capsule [...] 04/21/2024 Assessment & Plan (04/21/2024 9:00 AM MANAGING SUPERVISOR): Encourage routine vaccinations. Follow up with [...] MTX and Plaquinil; Will discuss with pts broom maker Dr. Bony otoole [phone] Fatigue 07/08/2023 Female pelvic pain 07/08/2023 Hypercalcemia 07/08/2023 Hyperlipidemia 09/11/2022 Encounter for long-term (cur rent) use of high-risk medication 07/16/2022 Assessment & Plan (04/21/2024 9:00 AM MANAGING SUPERVISOR): Long-term use of high-risk medication requiring regular monitoring. Labs ordered, no s/s of med tox or infection. Encouraged to work with PCP to make sure all recommended cancer screens and vaccinations are complete. Avoid live-vaccines unless reviewed with broom maker first. Assessment & Plan (07/16/2022 2:27 PM MANAGING SUPERVISOR): Long-term use of high-risk medication requiring regular monitoring. Labs ordered, no s/s of med tox or infection. Encouraged to work with PCP to make sure all recommended cancer screens and vaccinations are complete. Avoid live-vaccines unless reviewed with broom maker first. Did have a follow up [...] (06/29/2018): Added automatically from request for surgery [id number] Crohn's disease of colon 10/22/2015 Overview (09/18/2016): Crohn's colitis Gastroesophageal reflux disease 10/22/2015 Overview (09/19/2016): ESOPHAGEAL REFLUX Rheumatoid arthritis involving multiple joints 0 10/22/2015 Overview (09/19/2016): RHEUMATOID ARTHRITIS Assessment & Plan (04/21/2024 8:59 AM MANAGING SUPERVISOR): Stable on simponi and prednisone 5 mg daily, continue same, continue to monitor. Encourage work toward weaning off prednisone, down to 2.5 mg daily and then off / just prn. Encourage calcium/vitamin D and weight bearing exercise to help with osteoporosis reduction. Assessment & Plan (07/16/2022 2:28 PM MANAGING SUPERVISOR): Stable on simponi and prednisone 5 [...] 7 Thierno (Age 64) suspect fa f[place]dy [place] Daughter 1 beau Daughter 2 beau Alive [...] on file Legal Sex Female 5:17 PM MANAGING SUPERVISOR Gender Identity Not on file Sexual [...] Most Recently Relevant to Health Maintenance Insurance [id number] MEDICARE MEDICARE FOR [facility] MEDICARE FOR LIFE Advance Directives For more information, please contact: [phone] * Full Code (Latest Code Status on File) Date Activated Date Inactivated Comments 07/23/2018 10:37 AM 07/23/2018 9:42 PM Care Teams Terminologist Relationship Specialty Start Date End Date Gwendolyn Pulido, SHELLACKER [address] [place] [address] PCP - General Family Medicine 04/21/24
--- OUTSIDE RECORDS SUMMARY | 2025-05-31 16:37 | XMS_ITS | Encounter Summary ---
Author Organization [facility] Address [address] [place] [address] Care Team Providers Care Prevention Coordinator Name Role Phone Shavon Lynch Primary Care Pr ovider Reason for Visit * Reason Onset Date Comments MEDICATION REFILL 12/09/2023 Encounter Details Date Type Department Care Team (Late st Contact Info) Description 12/09/2023 Telephone [facility] - Neurology [address] [place] [address], [place] [address] Inocencia Wade MD [address] [place] [address] [place] [phone] MEDICATION REFILL Social History Tobacco Use Types [...] on file Legal Sex Female 6:29 AM SUPERVISORY AIDE Gender Identity Not on file Sexual Orientation Not on file Occupation Industry Job Start Date Job End Date Retired Not on file Not on file Not on file documented as of this encounter Miscellaneous Notes * Telephone Encounter - Gladis-Crostacey Marely - 12/09/2023 9:22 AM CDT Patient called in requesting a Med refill. Drug type:carbamazepineER 300 mg Pharmacy:[facility] Patient call back number: [phone] . Upcoming appointment scheduled for : 09/13/24 documented in this encounter Plan of Treatment Upcoming Encounters Date Type Department Care Team (Late st Contact Info) Description 06/01/2025 11:00 AM SUPERVISORY AIDE Office Visit [facility] [address] [facility] [address] [place] [phone] [place] [address] [address] documented as of this encounter Visit Diagnoses Not on filedocumented in this encounter Care Teams Prevention Coordinator Relationship Specialty Start Date End Date Shavon Lynch PA [address] [place] [address] PCP - General Physician Industry Analyst 10/28/22 documented as of this encounter
--- OUTSIDE RECORDS SUMMARY | 2025-05-31 16:38 | XMS_ITS | Encounter Summary ---
Author Organization [facility] Address [address] [place] [address] Phone Care Team Providers Care Assurance Senior Name Role Phone Angela Traore MD Primary Care Provide r Hair Mcdaniels MD Primary Care Provider [phone] Dong Cutler MD Primary Care Provider [phone] Kandice Alberto MD Primary Care Provider [phone] Shavon George Primary Care Pr ovider Gwendolyn Pulido NP Primary Care Provider [phone] Encounter Details Date Type Department Care Team (Late st Contact Info) Description 08/14/2017 Orders Only [facility] ProviderZeeshan MD [address] [place] [id number] Social History Tobacco Use Types Packs/Day Years Used Date Smoking Tobacco: Never Smokeless Tobacco: Never Alcohol Use Standard Drinks/Week Comments No 0 (1 standard drink = 0.6 oz pur e alcohol) Comments Unknown Sex and Gender Information Value Date Recorded Sex Assigned at Not on file Legal Sex Female 5:17 PM ON CALL Gender Identity Not on file Sexual Orientation Not on file documented as of this encounter Functional Status * BP Location Answer Date of Assessment Author Left arm 08/14/2017 11:06 AM ON CALL Yusuf CMA * BP Location Answer Date of Assessment Author Left arm 08/14/2017 11:06 AM ON CALL Yusuf CMA documented as of this encounter Plan of Treatment Not on file documented as of this encounter Procedures Procedure Name Priority Date/Time Associated Diagnosis Comments DISCHARGE LABORATORY CUMULATIVE REPORT 08/14/2017 12:00 AM ON CALL documented in this encounter Results * DISCHARGE LABORATORY CUMULATIVE REPORT (08/14/2017 12:00 AM ON CALL) Narrative 08/14/2017 12:00 AM ON CALL Ordered by an unspecified provider. us Historical Provider LAB BLOOD ORDERABLES Nayeli l Result documented in this encounter Visit Diagnoses Not on filedocumented in this encounter Care Teams Assurance Senior Relationship Specialty Start Date End Date Angela Traore MD [address] [place] [address] PCP - General 08/14/17 12/10/17 Hair Mcdaniels MD [address] [place] [address] PCP - General Internal Medicine 12/11/17 07/05/19 Dong Cutler MD [address] [place] [address] PCP - General Internal Medicine 07/06/19 02/01/20 Kandice Alberto MD [address] [place] [id number] PCP - General Internal Medicine 02/02/20 04/02/20 Shavon George PA [address] [place] [address] PCP - General Physician Whiskey Regauger 04/03/20 04/20/24 Gwendolyn Pulido, MASTER CONTROL TECHNICIAN [address] [place] [address] PCP - General Family Medicine 04/21/24 documented as of this encounter
[2025-05-31 19:48] LABS: Alanine Aminotransferase 21 U/L (6-35); Albumin Level 4.5 g/dL (3.5-5.1); Alkaline Phosphatase 142 U/L (38-126); Amylase 85 U/L (30-110); Anion Gap 8 mmol/L (4-12); Aspartate Amino Transferase 31 U/L (14-36); Bilirubin,Total 0.4 mg/dL (0.2-1.3); Blood Urea Nitrogen 8 mg/dL (7-17); Calcium 9.1 mg/dL (8.4-10.2); Carbon Dioxide 23 mmol/L (22-30); Chloride 102 mmol/L (98-107); Estimated Glomerular Filt Rate > 60; Glucose 97 mg/dL (65-110); Lipase 159 U/L (23-300); Potassium 3.9 mmol/L (3.4-5.0); Sodium 133 mmol/L (137-145); Total Protein 8.0 g/dL (6.3-8.2)
== END 2025-05-31 14:01 | disposition home or self-care (01) ==
LOC: ANHGOSHLAB 14:02
PROVIDERS: PCP Nurse Practitioner Family; Visit Provider Nurse Practitioner Family
DX: K58.9 Irritable bowel syndrome, unspecified (principal)
CPT/HCPCS: 36415; 80053; 82150; 83690